=== PATIENT | male | born 1945 | race Caucasian/White ===

== ENCOUNTER → 2020-02-25 14:42 | Outpatient (BNVA) | payer SELFPAY | PROVIDERS: PCP Family Medicine; Referring Provider Family Medicine; Visit Provider Internal Medicine Cardiovascular Disease | DX: I25.10 Atherosclerotic heart disease of native coronary artery without angina pectoris (principal); I10 Essential (primary) hypertension; E78.5 Hyperlipidemia, unspecified; E11.9 Type 2 diabetes mellitus without complications; Z79.82 Long term (current) use of aspirin; Z79.4 Long term (current) use of insulin; Z87.891 Personal history of nicotine dependence | CPT/HCPCS: 99214 ==

== ENCOUNTER → 2020-03-05 09:17 | Outpatient (BNVA) | payer MEDICARE, SELFPAY | PROVIDERS: PCP Family Medicine; Referring Provider Family Medicine; Visit Provider Internal Medicine Endocrinology, Diabetes & Metabolism | DX: E11.22 Type 2 diabetes mellitus with diabetic chronic kidney disease (principal); E11.21 Type 2 diabetes mellitus with diabetic nephropathy; E11.40 Type 2 diabetes mellitus with diabetic neuropathy, unspecified; E11.65 Type 2 diabetes mellitus with hyperglycemia; E66.01 Morbid (severe) obesity due to excess calories; I12.9 Hypertensive chronic kidney disease with stage 1 through stage 4 chronic kidney disease, or unspecified chronic kidney disease; N18.30 Chronic kidney disease, stage 3 unspecified; E78.5 Hyperlipidemia, unspecified; Z87.891 Personal history of nicotine dependence; Z79.899 Other long term (current) drug therapy; Z79.4 Long term (current) use of insulin; Z79.891 Long term (current) use of opiate analgesic | CPT/HCPCS: 99212 ==

== ENCOUNTER 2020-03-11 08:59 | Outpatient (REF) | payer MEDICARE, SELFPAY ==
[2020-03-12 13:17] LABS: Alanine Aminotransferase 14 U/L (0-40); Albumin Level 4.4 g/dL (3.5-5.0); Alkaline Phosphatase 103 U/L (39-117); Anion Gap 15 (12-20); Aspartate Amino Transferase 19 U/L (5-37); Bilirubin Total 0.4 mg/dL (0.0-1.0); Blood Urea Nitrogen 25 mg/dL (9-16); Calcium 9.2 mg/dL (8.4-10.2); Carbon Dioxide 30 mmol/L (22-29); Chloride 100 mmol/L (96-108); Cholesterol 136 mg/dL; Estimated Glomerular Filt Rate 37; Glucose Fasting 103 mg/dL (60-99); HDL Cholesterol 28 mg/dL; LDL Cholesterol Calculated 72 mg/dl; Potassium 4.3 mmol/l (3.3-5.1); Sodium 141 mmol/L (135-145); Total Protein 6.7 g/dL (6.5-8.0); Triglycerides 181 mg/dL
[2020-03-12 13:40] LABS: Creatinine Urine 32.86 mg/dL
[2020-03-12 13:41] LABS: Vitamin B12 325 pg/mL (200-900)
[2020-03-12 13:59] LABS: Estimated Average Glucose 194 mg/dL; Hemoglobin A1c % 8.4 %
[2020-03-13 07:42] LABS: LDL Cholesterol Direct 81 mg/dL (<100)
== END 2020-03-11 09:00 | disposition home or self-care (01) ==
LOC: HO.LAB 08:59
PROVIDERS: PCP Family Medicine; Referring Provider Family Medicine; Visit Provider Internal Medicine Endocrinology, Diabetes & Metabolism
DX: E11.65 Type 2 diabetes mellitus with hyperglycemia (principal); E11.21 Type 2 diabetes mellitus with diabetic nephropathy; E11.22 Type 2 diabetes mellitus with diabetic chronic kidney disease; I12.9 Hypertensive chronic kidney disease with stage 1 through stage 4 chronic kidney disease, or unspecified chronic kidney disease; N18.30 Chronic kidney disease, stage 3 unspecified; Z79.4 Long term (current) use of insulin; E78.5 Hyperlipidemia, unspecified; E66.01 Morbid (severe) obesity due to excess calories
CPT/HCPCS: 80053; 80061; 82043; 82607; 83036; 83721; 99212

== ENCOUNTER → 2020-06-05 12:51 | Outpatient (BNVA) | payer MEDICARE, SELFPAY | PROVIDERS: PCP Family Medicine; Visit Provider Internal Medicine Endocrinology, Diabetes & Metabolism | DX: E11.65 Type 2 diabetes mellitus with hyperglycemia (principal); E11.40 Type 2 diabetes mellitus with diabetic neuropathy, unspecified; I12.9 Hypertensive chronic kidney disease with stage 1 through stage 4 chronic kidney disease, or unspecified chronic kidney disease; E11.22 Type 2 diabetes mellitus with diabetic chronic kidney disease; N18.30 Chronic kidney disease, stage 3 unspecified; E78.5 Hyperlipidemia, unspecified; E66.01 Morbid (severe) obesity due to excess calories; Z68.41 Body mass index [BMI] 40.0-44.9, adult; Z79.4 Long term (current) use of insulin | CPT/HCPCS: 82947; 99212 ==

== ENCOUNTER 2020-07-18 12:32 | Outpatient (REF) | payer MEDICARE, SELFPAY ==
[2020-07-18 14:53] LABS: Estimated Average Glucose 169 mg/dL; Hemoglobin A1c % 7.5 %
[2020-07-18 15:09] LABS: Alanine Aminotransferase 11 U/L (0-40); Glucose Fasting 103 mg/dL (60-99)
[2020-07-18 15:49] LABS: Creatinine Urine 23.39 mg/dL; Microalbum/Creatinine Ratio Ur 192.3 ug/mg cr
== END 2020-07-18 12:33 | disposition home or self-care (01) ==
LOC: HO.HMGCLDS 12:32
PROVIDERS: PCP Family Medicine; Visit Provider Family Medicine
DX: E11.9 Type 2 diabetes mellitus without complications (principal); E78.00 Pure hypercholesterolemia, unspecified; Z79.899 Other long term (current) drug therapy
CPT/HCPCS: 36415; 82043; 82550; 82947; 83036; 84460

== ENCOUNTER → 2020-08-25 13:24 | Outpatient (BNVA) | payer MEDICARE, SELFPAY | PROVIDERS: PCP Family Medicine; Visit Provider Internal Medicine Cardiovascular Disease | DX: Z01.810 Encounter for preprocedural cardiovascular examination (principal); I25.10 Atherosclerotic heart disease of native coronary artery without angina pectoris | CPT/HCPCS: 93005; 99212 ==

== ENCOUNTER → 2020-09-02 08:47 | Outpatient (REF) | payer MEDICARE, SELFPAY ==
--- NOTE | ~2020-09-02 | NM_ITS ---
Myocardial perfusion study Indication: Preoperative cardiovascular risk stratification prior CAD and bypass to evaluate for myocardial ischemia Technique: The patient was brought in for a Lexiscan perfusion study on 09/02/2020. Patient performed low-level exercise and was injected 0.4 mg of Lexiscan intravenously. Within a minute of injection, 45 mCi of sestamibi was given intravenously. Images were obtained using the SPECT gamma camera interlaced with the gating device. Images were obtained in supine position. Resting perfusion study was performed on 09/03/2020. Patient was administered 45 mCi of sestamibi intravenously at rest. Images were then obtained in supine position. Images obtained with and without CT attenuation. Total DLP 147 mGy-cm. Images were processed with the software and compared side to side in short axis, horizontal long axis and vertical long axis views. Findings: The stress perfusion study showed non attenuated images show mildly reduced uptake in the septum, inferoseptal, apex and distal anterior wall of the LV myocardium. Attenuation corrected images show mildly reduced uptake in the distal anterior, apex and distal septum of the LV myocardium. There is suggestion of oral left ventricle hypertrophy. The gated study shows normal LV systolic function with calculated LVEF of 54%. LV cavity is mildly dilated size. The gated study shows normal systolic wall thickening and contraction of segments. Resting study shows no change in perfusion pattern compared to stress perfusion study. Gating at rest reveals normal systolic wall motion with ejection fraction at 53%. The findings are consistent with no reversible defect suggestive of ischemia. NM/NM misti perf SPECT rest & str Impression: 1. Myocardial perfusion imaging study shows likely normal myocardial perfusion 2. Gated LVEF is 54% 3. Transient ischemic dilatation not present EKG is nondiagnostic for ischemia
--- NOTE | 2020-09-02 08:50 | CA_ITS ---
Acquisition Time: 2020-09-02 09:16:35 Total Exercise Time: 00:02:00 Test Indications: Atherosclerotic heart dis. Encou Medications: Amitriptyline Aspirin Clopidogrel Doxazosin Famotidine Fluticasone propion-salmeterol 2 Finasteride Protocol: LEXISCAN Max HR: 077 BPM 53% of Pred: 144 BPM Max BP: 124/060 mmHG Max Work Load: 1.0 METS Pharmacological stress test using Lexiscan while sitting and kicking his feet. Pt tolerated well, denies any anginal sx. EKG with isolated PAC's. Non-diagnostic for ischemia. Nuclear images to follow. Normotensive response to test. Test reviewed with Dr. Cobb. Referred By: Jamir Cobb Overread By: Kathy Guzman NP
== END ==
LOC: HO.CARD 08:47
PROVIDERS: PCP Family Medicine; Visit Provider Internal Medicine Cardiovascular Disease
DX: Z01.810 Encounter for preprocedural cardiovascular examination (principal); I25.10 Atherosclerotic heart disease of native coronary artery without angina pectoris; Z95.1 Presence of aortocoronary bypass graft
CPT/HCPCS: 78452; 93016; 93017; 93018; A9500; J0280; J2785

== ENCOUNTER → 2020-09-03 13:13 | Outpatient (BNVA) | payer MEDICARE, SELFPAY | PROVIDERS: PCP Family Medicine; Visit Provider Internal Medicine Endocrinology, Diabetes & Metabolism | DX: E11.65 Type 2 diabetes mellitus with hyperglycemia (principal); E11.21 Type 2 diabetes mellitus with diabetic nephropathy; E11.22 Type 2 diabetes mellitus with diabetic chronic kidney disease; I12.9 Hypertensive chronic kidney disease with stage 1 through stage 4 chronic kidney disease, or unspecified chronic kidney disease; N18.30 Chronic kidney disease, stage 3 unspecified; Z79.4 Long term (current) use of insulin; E78.5 Hyperlipidemia, unspecified; E66.01 Morbid (severe) obesity due to excess calories | CPT/HCPCS: 82947; 99212 ==

== ENCOUNTER 2020-09-10 20:51 | Emergency (ER) | payer MEDICARE, SELFPAY ==
--- NOTE | ~2020-09-10 | CT_ITS ---
EXAMINATION: CT HEAD WITHOUT CONTRAST CT FACIAL BONES WITHOUT CONTRAST CT CERVICAL SPINE WITHOUT CONTRAST CLINICAL INFORMATION: Fall. On Plavix. COMPARISON: Plain film cervical spine 01/19/2007 TECHNIQUE: Imaging was performed from the skull base to vertex without intravenous administration of contrast. In addition, helical noncontrast CT imaging was acquired through the cervical spine and facial bones and source images were reviewed along with axial reconstructions and sagittal and coronal MPRs. [This CT examination was performed using dose optimization techniques as appropriate, variously including the following: *Automated exposure control *Adjustment of mA and/or kV according to patient size (this includes techniques or standardized protocols for targeted exams where dose is matched to indication/reason for exam; i.e. extremities or head) *Use of iterative reconstruction technique] DLP: 1649 mGy-cm FINDINGS: HEAD: No intracranial mass, hemorrhage, or midline shift is visualized. The ventricles and sulci are age-appropriate. No extra-axial collections are identified. FACIAL BONES: There is no evidence of an acute facial bone fracture. The paranasal sinuses are well aerated. The orbits are unremarkable in appearance. CERVICAL SPINE: There is no evidence of acute cervical spine fracture. Vertebral bodies remain normal in height. There is degenerative spondylosis. There is significant cervical disc height narrowing C5-C6 and C6-C7 within anterior endplate spurs. Moderate disc height narrowing C4-C5. Multilevel facet joint arthrosis. Small subchondral cysts as well as small bone spurs at the facet joints. Kyphosis of cervical spine. This is similar to prior plain film study of 01/19/2007. No pre- or paravertebral soft tissue abnormality is identified. Limited assessment of the lung apices is unremarkable. CT/CT cervical spine wo con IMPRESSION: 1. No acute intracranial process or discrete facial bone fracture. 2. No acute cervical spine fracture or traumatic subluxation.
[2020-09-10 21:16] VITALS: BP 119/69; PULSE 65; RESP 15; TEMP 36.5; O2SAT 93; BMI 41.5
[2020-09-10] MEDS: oxyCODONE HCl Immed Release 5 MG TABLET PO (22:42)
--- NOTE | 2020-09-10 23:27 | ED.FALL ---
HPI - Fall General Chief Complaint: Fall Stated Complaint: fall Time Seen by Provider: 09/10/20 22:29 Source: patient Mode of arrival: ambulatory Limitations: no limitations History of Present Illness HPI Narrative: Patient comes emergency room after falling. Patient states that he was leaning forward, petting his dog, he leaned forward too much and fell flat on his face. Patient takes Plavix. Patient hit his forehead and nose, did not lose consciousness, no epistaxis. Patient's was able to pick him up from the floor and brought him to the emergency room. Patient complaining facial abrasions, denies headache, complaining of nonspecific neck pain, states his neck hurts but can not pinpoint where it hurts. Patient states it does not hurt when he moves his neck. Patient states his eye vision is within normal limits, patient states he usually uses glasses, however the broken the fall Related Data Home Medications Medication Instructions Recorded Confirmed aspirin 81 mg tablet,delayed 81 mg PO DAILY 02/25/20 09/03/20 release budesonide-formoterol HFA 160 INHALATION 02/25/20 09/03/20 mcg-4.5 mcg/actuation aerosol inhaler doxazosin 8 mg tablet 8 mg PO DAILY 02/25/20 09/03/20 elderberry fruit 200 mg capsule mg PO 02/25/20 09/03/20 famotidine 20 mg tablet 20 mg PO DAILY 02/25/20 09/03/20 finasteride 5 mg tablet 5 mg PO BEDTIME 02/25/20 09/03/20 furosemide 80 mg tablet 80 mg PO BID 02/25/20 09/03/20 magnesium 250 mg tablet 250 mg PO DAILY 02/25/20 09/03/20 multivitamin 1 tab PO DAILY 02/25/20 09/03/20 oxycodone-acetaminophen 5 mg-325 1 tab PO Q6-8H PRN 02/25/20 09/03/20 mg tablet sertraline 50 mg tablet 50 mg PO QAM 02/25/20 09/03/20 simvastatin 40 mg tablet 40 mg PO BEDTIME 02/25/20 09/03/20 spironolactone 25 mg tablet 25 mg PO BID 02/25/20 09/03/20 amitriptyline 25 mg tablet 25 mg PO BEDTIME 03/05/20 09/03/20 lancets 33 gauge #100 ea 03/11/20 09/03/20 clopidogrel 75 mg tablet 75 mg PO DAILY 08/25/20 09/03/20 fluticasone 250 mcg-salmeterol 50 1 ea INHALATION BID 08/25/20 09/03/20 mcg/dose blistr powdr for inhalation gabapentin 300 mg capsule 300 mg PO DAILY cap 08/25/20 09/03/20 metoprolol tartrate 25 mg tablet 25 mg PO BID tab 08/25/20 09/03/20 Previous Rx's Medication Instructions Recorded blood sugar diagnostic 1 strip MISCELLANEOUS .3 times a 07/14/20 day 90 Days #300 strip insulin syringe-needle U-100 1 mL #100 ea 07/30/20 31 gauge x 5/16 insulin human U-100 NPH-regulr See Rx Instructions SUBCUT BID 30 09/03/20 70-30 mix 100 unit/mL subcutaneous Days #50 ml susp metformin 500 mg tablet,extended 500 mg PO BID 90 Days #180 tab 09/03/20 release 24 hr Allergies Allergy/AdvReac Type Severity Reaction Status Date / Time No Known Allergies Allergy Verified 09/10/20 21:22 Review of Systems Review of Systems: Constitutional : No Weight loss, No Fever, No Chills, No Night Sweats, No Fatigue, No Malaise ENT/Mouth : No Hearing loss, No Ear Pain, No Nasal Congestion, No Sinus Pain, No Hoarseness, No sore throat, No Rhinorrhea, No Swallowing Difficulty Eyes: No Eye Pain, No Swelling, No Redness, No Foreign Body, No Discharge, No Vision Changes Cardiovascular : No Chest Pain, No SOB, No Dyspnea on Exertion, No Orthopnea, No Edema, No Palpitations Respiratory : No Cough, No Sputum, No Wheezing, No Smoke Exposure, No Dyspnea Gastrointestinal : No Nausea, No Vomiting, No Diarrhea, No Constipation, No abdominal Pain, No Hematochezia, No Melena Genitourinary : no irregular bleeding, No Dysuria, No Urinary Frequency, No Hematuria, No Urinary Incontinence, No Urgency, No Flank Pain, No Urinary Flow Changes, No Hesitancy Musculoskeletal : No joint pain, No Myalgias, No Joint Swelling, nonspecific neck pain Skin : Multiple abrasions in the face Neuro : No Weakness, No Numbness, No Paresthesias, No Loss of Consciousness, No Dizziness, No Headache Psych : No Anxiety/Panic, No Depression, No SI/HI/AH/VH, No Social Issues, Heme/Lymph: No Bruising, No Bleeding,No Lymphadenopathy Endocrine : No Polyuria, No Polydipsia, No Temperature Intolerance [facility] Past Medical History Medical History CAD (coronary artery disease) CKD (chronic kidney disease) stage 3, GFR 30-59 ml/min Diabetes mellitus Diabetes type 2, uncontrolled Diabetic nephropathy associated with type 2 diabetes mellitus Dyslipidemia 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 Mother Cancer Social History Social History Smoking Status: Former smoker Tobacco Type: Cigarette Years Smoked: 25 Advance Directives: No Advance Directives Information Provided: Yes Physical Exam Vital Signs: Vital Signs: Last Vital Signs Temp 97.7 F 09/10/20 21:16 Pulse 64 09/10/20 23:59 Resp 16 09/10/20 23:59 BP 138/62 09/10/20 23:59 Pulse Ox 96 09/10/20 23:59 Body Mass Index 41.5 Appearance: Alert. Oriented X3. No acute distress. Eyes: Pupils equal, round and reactive to light. Patient has a small hematoma developing around the left eye. ENT: Pharynx normal. Neck: Normal inspection. Neck supple. Normal range of motion without pain CVS: Normal heart rate and rhythm. Pulses normal. Normal S1 and S2 Respiratory: No respiratory distress. Breath sounds normal. No Wheezing. No rales Abdomen: Soft and nontender. No rigidity. No distention. good BS x4 Skin: Skin warm and dry. Patient has multiple abrasions in the forehead, nose. Extremities: No lower extremity edema. No lower extremity edema. No Lacerations. No Rash Neuro: Oriented X 3. No motor deficit. No sensory deficit. Moving all extermities. No slurred speech. Course Course Course Narrative: I discussed the CT scan with the patient and his . No acute findings. Patient remains alert and orient x3, no acute distress, patient ready to be discharged. MDM - Fall Imaging Data Brain, cervical spine, facial bones CT scan: Radiologist's impression: FINDINGS: HEAD: No intracranial mass, hemorrhage, or midline shift is visualized. The ventricles and sulci are age-appropriate. No extra-axial collections are identified. FACIAL BONES: There is no evidence of an acute facial bone fracture. The paranasal sinuses are well aerated. The orbits are unremarkable in appearance. CERVICAL SPINE: There is no evidence of acute cervical spine fracture. Vertebral bodies remain normal in height. There is degenerative spondylosis. There is significant cervical disc height narrowing C5-C6 and C6-C7 within anterior endplate spurs. Moderate disc height narrowing C4-C5. Multilevel facet joint arthrosis. Small subchondral cysts as well as small bone spurs at the facet joints. Kyphosis of cervical spine. This is similar to prior plain film study of 01/19/2007. No pre- or paravertebral soft tissue abnormality is identified. Limited assessment of the lung apices is unremarkable. CT/CT facial bones wo con IMPRESSION: 1. No acute intracranial process or discrete facial bone fracture. 2. No acute cervical spine fracture or traumatic subluxation. Discharge Plan Discharge Clinical Impression: Fall, Abrasion of face, Ecchymosis of eye Patient Disposition: Home, Self-Care Instructions: Abrasion (ED), Ecchymosis (ED) Additional Instructions: Please follow-up with your primary care physician tomorrow. If you have any worsening or new symptoms, please return to the emergency room or call 911 Prescriptions: No Action blood sugar diagnostic [OneTouch Verio test strips] Strip 1 strip miscellaneous .3 times a day 90 Days Qty: 300 RF: 1 (DME) insulin syringe-needle U-100 [BD Insulin Syringe Ultra-Fine] 1 mL 31 gauge x 5/16 syringe See Rx Instructions .ROUTE .MEDSUPPLY Qty: 100 RF: 6 amitriptyline 25 mg tablet 25 mg PO BEDTIME RF: 0 (DME) lancets 33 gauge misc See Rx Instructions gauge .ROUTE .MEDSUPPLY Qty: 100 RF: 0 oxycodone-acetaminophen 5-325 mg tablet 1 tab PO Q6-8H PRN (Reason: pain) RF: 0 famotidine 20 mg tablet 20 mg PO DAILY RF: 0 spironolactone 25 mg tablet 25 mg PO BID RF: 0 sertraline 50 mg tablet 50 mg PO QAM RF: 0 doxazosin 8 mg tablet 8 mg PO DAILY RF: 0 simvastatin 40 mg tablet 40 mg PO BEDTIME RF: 0 finasteride 5 mg tablet 5 mg PO BEDTIME RF: 0 furosemide 80 mg tablet 80 mg PO BID RF: 0 budesonide-formoterol 160-4.5 mcg/actuation HFA aerosol inhaler inhalation RF: 0 multivitamin Tablet 1 tab PO DAILY RF: 0 magnesium 250 mg tablet 250 mg PO DAILY RF: 0 elderberry fruit 200 mg capsule PO RF: 0 aspirin [Adult Low Dose Aspirin] 81 mg tablet,delayed release (DR/EC) 81 mg PO DAILY RF: 0 metoprolol tartrate 25 mg tablet 25 mg PO BID RF: 0 gabapentin 300 mg capsule 300 mg PO DAILY RF: 0 Humulin 70/30 U-100 Insulin 100 unit/mL (70-30) suspension See Rx Instructions subcut BID 30 Days Qty: 50 RF: 6 metformin 500 mg tablet extended release 24 hr 500 mg PO BID 90 Days Qty: 180 RF: 2 clopidogrel 75 mg tablet 75 mg PO DAILY RF: 0 fluticasone propion-salmeterol 250-50 mcg/dose blister with device 1 ea inhalation BID RF: 0
[2020-09-10 23:57] VITALS: BP 138/62; PULSE 67; RESP 16
[2020-09-10 23:59] VITALS: BP 138/62; PULSE 64; RESP 16; O2SAT 96
[2020-09-11] MEDS: oxyCODONE HCl Immed Release 5 MG TABLET PO (00:15)
== END 2020-09-11 00:19 | disposition home or self-care (01) ==
PROVIDERS: Emergency Provider Emergency Medicine; PCP Family Medicine
DX: S00.81XA Abrasion of other part of head, initial encounter (principal); I25.10 Atherosclerotic heart disease of native coronary artery without angina pectoris; E11.9 Type 2 diabetes mellitus without complications; M54.2 Cervicalgia; G44.309 Post-traumatic headache, unspecified, not intractable; W01.0XXA Fall on same level from slipping, tripping and stumbling without subsequent striking against object, initial encounter; Y93.9 Activity, unspecified; Y92.009 Unspecified place in unspecified non-institutional (private) residence as the place of occurrence of the external cause; Y99.9 Unspecified external cause status; Z79.899 Other long term (current) drug therapy; Z87.891 Personal history of nicotine dependence; Z79.4 Long term (current) use of insulin
CPT/HCPCS: 70450; 70486; 72125; 99284

== ENCOUNTER 2020-09-13 08:16 | Outpatient (REF) | payer MEDICARE, SELFPAY ==
[2020-09-13 08:53] LABS: MANUAL DIFF FLAG NO
[2020-09-13 09:08] LABS: Basophils Percent Auto 0.4 % (0-2); Eosinophils Absolute Auto 0.2 X10*3/uL (0.0-0.4); Eosinophils Percent Auto 2.1 % (0-4); Hematocrit 37.6 % (42-52); Hemoglobin 11.5 g/dl (14.0-18.0); Imm Gran Abs Auto 0.05 X10*3/uL (0.00-0.03); Imm Gran Pct Auto 0.5 % (0.0-0.4); Lymphocytes Percent Auto 10.3 % (20-40); Mean Corpuscular HGB Conc 30.6 g/dl (31.0-36.0); Mean Corpuscular Hemoglobin 25.2 pg (27.0-33.0); Mean Corpuscular Volume 82.5 fL (80-98); Mean Platelet Volume 10.2 fL (9.4-12.4); Monocytes Absolute Auto 0.9 X10*3/uL (0.1-1.2); Monocytes Percent Auto 10.1 % (2-11); Neutrophils Absolute Auto 7.2 X10*3/uL (2.0-8.3); Neutrophils Percent Auto 76.6 % (45-73); Platelet Count 191 X10*3/uL (160-400); Red Blood Count 4.56 X10*6/uL (4.60-5.80); Red Cell Distribution Width 16.2 % (11.0-16.0); White Blood Count 9.3 X10*3/uL (4.8-10.8)
[2020-09-13 09:25] LABS: Microalbum/Creatinine Ratio Ur 102.3 ug/mg cr
[2020-09-13 09:26] LABS: Estimated Average Glucose 183 mg/dL
[2020-09-13 09:30] LABS: Alanine Aminotransferase 18 U/L (0-40); Anion Gap 13 (12-20); Aspartate Amino Transferase 19 U/L (5-37); Blood Urea Nitrogen 32 mg/dL (9-16); Calcium 9.1 mg/dL (8.4-10.2); Carbon Dioxide 34 mmol/L (22-29); Chloride 96 mmol/L (96-108); Cholesterol 162 mg/dL; Estimated Glomerular Filt Rate 32; Glucose Fasting 176 mg/dL (60-99); HDL Cholesterol 29 mg/dL; LDL Cholesterol Calculated 73 mg/dl; Potassium 4.4 mmol/L (3.3-5.1); Sodium 139 mmol/L (135-145); Triglycerides 303 mg/dL
[2020-09-15 03:43] LABS: Vitamin B12 384 pg/mL (200-900)
[2020-09-15 11:56] LABS: LDL Cholesterol Direct 82 mg/dL (<100)
== END 2020-09-13 08:17 | disposition home or self-care (01) ==
LOC: HO.LAB 08:16
PROVIDERS: Absent Provider Internal Medicine Endocrinology, Diabetes & Metabolism; PCP Family Medicine; Visit Provider Family Medicine
DX: Z01.818 Encounter for other preprocedural examination (principal); I10 Essential (primary) hypertension; E11.65 Type 2 diabetes mellitus with hyperglycemia
CPT/HCPCS: 36415; 80048; 80061; 82043; 82607; 83036; 83721; 84450; 84460; 85025

== ENCOUNTER 2020-11-04 12:10 | Inpatient (IN) | payer MEDICARE, SELFPAY ==
[2020-11-04] VITALS (17 sets, daily range): BP systolic 104–150; BP diastolic 41–62; PULSE 58–66; RESP 13–20; TEMP 35.9–36.7; O2SAT 93–98; BMI 39.4
--- NOTE | 2020-11-04 | ECG_ITS ---
Test Reason : SHORTNESS OF BREATH Blood Pressure : / mmHG Vent. Rate : 064 BPM Atrial Rate : 064 BPM P-R Int : 210 ms QRS Dur : 092 ms QT Int : 440 ms P-R-T Axes : 074 057 050 degrees QTc Int : 453 ms Sinus rhythm with sinus arrhythmia with 1st degree A-V block Otherwise normal ECG When compared with ECG of 14-NOV-2019 14:47, No significant change was found Referred By: Generic ED Physician Electronically Signed By:EMILY ARMAS
--- NOTE | ~2020-11-04 | CT_ITS ---
EXAMINATION: CT ABDOMEN AND PELVIS WITH CONTRAST CLINICAL INFORMATION: Cecal mass COMPARISON: Previous CT colonoscopy exam January 2016 and multiple previous chest CT scans TECHNIQUE: Multidetector volumetric images were obtained from the superior aspect of the liver through the pubic symphysis following administration 85 mL of Omnipaque 350 intravenous contrast. Sagittal and coronal reformatted images were obtained on the technologist's workstation. Oral contrast: Yes This CT examination was performed using dose optimization techniques as appropriate, variously including the following: *Automated exposure control *Adjustment of mA and/or kV according to patient size (this includes techniques or standardized protocols for targeted exams where dose is matched to indication/reason for exam; i.e. extremities or head) *Use of iterative reconstruction technique DLP: 1510 mGy-cm FINDINGS: LUNG BASES: There are small bilateral pleural effusions. There is left lower lobe atelectasis. There is a high attenuation lobulated pericardial soft tissue density adjacent to the left ventricle axial image 3 series 3. This may be partially calcified. This is unchanged from old exams going back to CTA of the chest from 2013 and is therefore probably benign. LIVER, GALLBLADDER, AND BILIARY TREE: The liver is slightly enlarged, particularly the left lobe and caudate lobe. The liver is a slightly irregular or scalloped contour. Findings are questionable for mild cirrhosis. No focal liver lesion is seen. There is no biliary duct dilatation. The gallbladder is normal. There is trace ascites seen adjacent to the liver. PANCREAS: Unremarkable. SPLEEN: Unremarkable. ADRENAL GLANDS: There is a 2 cm left adrenal nodule. This is stable from multiple old exams and therefore probably benign. The right adrenal gland is normal. KIDNEYS AND URETERS: There is a 1 cm cyst in the upper pole of the left kidney. The kidneys are otherwise unremarkable. BLADDER: There are small calcifications adjacent to the anterior wall of the bladder. This is stable. The bladder is otherwise unremarkable. GASTROINTESTINAL TRACT: There is diverticulosis of the colon. No evidence of diverticulitis is seen. No cecal mass is appreciated by CT. There is a small ventral hernia containing transverse colon. The appendix is normal. The stomach is normal. ABDOMINAL WALL: There is a small ventral hernia containing transverse colon. There is a small umbilical hernia containing fat. There is question of lateral abdominal wall IN the lower abdomen/pelvis. There is a small left inguinal hernia containing fat. There are are areas of skin thickening and fat stranding and nodularity of the subcutaneous fat. This may result be related to subcutaneous injection sites. LYMPH NODES: There is shotty periportal lymphadenopathy and some fat stranding. There is shotty retroperitoneal lymphadenopathy in the abdomen and pelvis. There is trace ascites in the lower abdomen. VASCULAR: There is evidence of atherosclerotic disease. No aneurysm is seen. PELVIC VISCERA: Unremarkable. OSSEOUS STRUCTURES: There are degenerative changes of the spine. CT/CT abdomen pelvis w con IMPRESSION: No cecal mass appreciated by CT. Diverticulosis of the colon. Small ventral hernia containing transverse colon. No evidence of obstruction. Question mild cirrhotic changes of the liver, trace ascites and periportal lymphadenopathy and fat stranding. Small left renal cyst. Stable left adrenal nodule probably representing an adenoma.
--- NOTE | ~2020-11-04 | XR_ITS ---
EXAMINATION: XR CHEST CLINICAL INFORMATION: Shortness of breath COMPARISON: Chest radiographs 11/14/2019, 03/13/2019, CTA chest 09/10/2016 TECHNIQUE: 2 frontal views and a lateral projection are obtained for a total of 3 views. FINDINGS: There are postsurgical changes with sternotomy wires and mediastinal clips and prosthetic left shoulder. Orthopedic anchors again seen overlying right humeral head. There are right apical bulla again seen and bilateral fine linear scarring at the lateral bases. There is no pneumothorax, pleural reaction, airspace consolidation, or effusion. The costophrenic sulci are clear. The heart is normal in size. The vascularity is normal. There are degenerative changes thoracic spine. Probable old healed right rib fractures suggested. No visible acute bony abnormality. XR/XR chest 2V IMPRESSION: 1. No acute intrathoracic disease. 2. Old right apical bulla and fine bibasilar linear scarring similar to CT 2017. 3. Probable healed right rib fractures. No pleural reaction or effusion.
--- NOTE | 2020-11-04 13:32 | ED_ITS ---
HPI - SOB/Dyspnea General Chief Complaint: Upper Respiratory Symptoms Stated Complaint: difficulty breathing Time Seen by Provider: 11/04/20 13:08 Source: patient, family and old records reviewed Mode of arrival: ambulatory Limitations: no limitations History of Present Illness HPI Narrative: 75 yo male with hx of CABG in the past on aspirin and plavix, CKD, HLD, DM, HTN here with shortness of breath intermittent chest pain x 1 month since shoulder surgery, had workup prior to shoulder surgery including a normal cardiac stress test with nuclear images, he is compliant with medications, denies GIB symptoms, denies URI symptoms, told his PCP today and they instructed him to come to the ED, symptoms worse with exertion MD elicited complaint: shortness of breath Pertinent past history: other (CAD) Onset (ago): month(s) (1) Context: recent illness Timing: constant and progressively worsening Severity: moderate Exacerbating factors: exertion and movement Relieving factors: rest Known history of: other (CAD) Associated symptoms: chest pain and lightheadedness (with standing) Treatment prior to arrival: none Related Data Home Medications Medication Instructions Recorded Confirmed aspirin 81 mg tablet,delayed 81 mg PO DAILY 02/25/20 09/03/20 release budesonide-formoterol HFA 160 INHALATION 02/25/20 09/03/20 mcg-4.5 mcg/actuation aerosol inhaler doxazosin 8 mg tablet 8 mg PO DAILY 02/25/20 09/03/20 elderberry fruit 200 mg capsule mg PO 02/25/20 09/03/20 famotidine 20 mg tablet 20 mg PO DAILY 02/25/20 09/03/20 finasteride 5 mg tablet 5 mg PO BEDTIME 02/25/20 09/03/20 furosemide 80 mg tablet 80 mg PO BID 02/25/20 09/03/20 magnesium 250 mg tablet 250 mg PO DAILY 02/25/20 09/03/20 multivitamin 1 tab PO DAILY 02/25/20 09/03/20 oxycodone-acetaminophen 5 mg-325 1 tab PO Q6-8H PRN 02/25/20 09/03/20 mg tablet sertraline 50 mg tablet 50 mg PO QAM 02/25/20 09/03/20 simvastatin 40 mg tablet 40 mg PO BEDTIME 02/25/20 09/03/20 spironolactone 25 mg tablet 25 mg PO BID 02/25/20 09/03/20 amitriptyline 25 mg tablet 25 mg PO BEDTIME 03/05/20 09/03/20 lancets 33 gauge #100 ea 03/11/20 09/03/20 clopidogrel 75 mg tablet 75 mg PO DAILY 08/25/20 09/03/20 fluticasone 250 mcg-salmeterol 50 1 ea INHALATION BID 08/25/20 09/03/20 mcg/dose blistr powdr for inhalation gabapentin 300 mg capsule 300 mg PO DAILY cap 08/25/20 09/03/20 metoprolol tartrate 25 mg tablet 25 mg PO BID tab 08/25/20 09/03/20 Previous Rx's Medication Instructions Recorded blood sugar diagnostic 1 strip MISCELLANEOUS .3 times a 07/14/20 day 90 Days #300 strip insulin syringe-needle U-100 1 mL #100 ea 07/30/20 31 gauge x 5/16 insulin human U-100 NPH-regulr See Rx Instructions SUBCUT BID 30 09/03/20 70-30 mix 100 unit/mL subcutaneous Days #50 ml susp metformin 500 mg tablet,extended 500 mg PO BID 90 Days #180 tab 10/20/20 release 24 hr Allergies Allergy/AdvReac Type Severity Reaction Status Date / Time No Known Allergies Allergy Verified 09/10/20 21:22 Review of Systems Review of Systems: Constitutional : No Fever, No Chills ENT/Mouth : No sore throat, No Rhinorrhea, No Swallowing Difficulty Eyes: No Eye Pain, No Swelling, No Redness Cardiovascular : pos Chest Pain, positive SOB, No Orthopnea, positive Edema (unchanged from baseline) Respiratory : No Cough, No Sputum, No Wheezing, positive dyspnea Gastrointestinal : No Nausea, No Vomiting, No Diarrhea, No abdominal Pain, No Hematochezia, No Melena Genitourinary : No Dysuria, No Urinary Frequency, No Hematuria Musculoskeletal : No joint pain, No Myalgias Skin : No Skin Lesions, No rash Neuro : pos Weakness, No Numbness, No Dizziness, No Headache Psych : No Anxiety/Panic, No Depression Heme/Lymph: No Bruising, No Lymphadenopathy Endocrine : No Polyuria, No Polydipsia All other systems reviewed and are negative PMFSH Past Medical History Attestation statement: The following information was validated with the patient. 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 Mother Cancer Social History Social History Patient Tobacco Use Status: Former Tobacco user Years Smoked: 25 Use of substances other than those prescribed or required for medical reasons: No Advance Directives: No Advance Directives Information Provided: No Physical Exam Vital Signs: Vital Signs: Last Vital Signs Temp 98 F 11/04/20 12:59 Pulse 64 11/04/20 12:59 Resp 19 11/04/20 12:59 BP 126/49 L 11/04/20 12:59 Pulse Ox 93 11/04/20 12:59 Body Mass Index 39.4 Appearance: Alert. Oriented X3. No acute distress. Eyes: Pupils equal, round and reactive to light. Pale conjunctiva ENT: Pharynx normal. Neck: Normal inspection. Neck supple. CVS: Normal heart rate and rhythm. Pulses normal. Respiratory: No respiratory distress. Breath sounds decreased throughout Abdomen: Soft and non-tender. Rectal: brown stool Skin: Skin warm and dry. pale skin color. Normal skin turgor. Extremities: positive 1+ pitting lower extremity edema R > L. No calf ttp Neuro: Oriented X 3. No motor deficit. No sensory deficit. Course Course Course Narrative: 2 UPRBCs ordered planned admit pending doubt PE at this time normal trop suspect this is related to anemia canceled PE study symptoms attributable to anemia MDM - SOB/Dyspnea MDM Narrative Medical decision making narrative: 75 yo male with hx of CABG in the past on aspirin and plavix, CKD, HLD, DM, HTN here with shortness of breath intermittent chest pain x 1 month since shoulder surgery, had workup prior to shoulder surgery including a normal cardiac stress test with nuclear images, he is compliant with medications, denies GIB symptoms, denies URI symptoms, told his PCP today and they instructed him to come to the ED at this time will obtain labs, EKG, troponin x 1, occult studies he is pale could be indolent GIB hx of polyps in the past though he denies changes in stool, VQ scan to r/o PE has hx of CKD and symptoms started after major surgery - dispo per results and findings. Lab Data Result diagrams: 11/04/20 13:53 11/04/20 13:53 Labs: Lab Results 11/04/20 11/04/20 11/04/20 Range/Units 13:53 13:53 13:53 WBC 8.4 (4.8-10.8) X10*3/uL RBC 2.80 L D (4.60-5.80) X10*6/uL Hgb 6.6 L* D (14.0-18.0) g/dl Hct 22.0 L D (42-52) % MCV 78.6 L (80-98) fL MCH 23.6 L (27.0-33.0) pg MCHC 30.0 L (31.0-36.0) g/dl RDW 18.3 H (11.0-16.0) % MPV Not Reportable Sodium 141 (135-145) mmol/L Potassium 4.2 (3.3-5.1) mmol/L Chloride 102 (96-108) mmol/L Carbon Dioxide 26 (22-29) mmol/L Anion Gap 17 (12-20) BUN 25 H (9-16) mg/dL Creatinine 1.82 H (0.5-1.4) mg/dL Estim Creat Clear Calc 42.3 Estimated GFR 36 Random Glucose 113 (60-115) mg/dL Calcium 8.9 (8.4-10.2) mg/dL Magnesium 2.5 (1.6-2.6) mg/dL Total Bilirubin 0.5 (0.0-1.0) mg/dL Direct Bilirubin < 0.2 (0.0-0.5) mg/dL AST 19 (5-37) U/L ALT 9 (0-40) U/L Alkaline Phosphatase 127 H D (39-117) U/L Troponin I High Sens < 3.5 (<3.5-35.0) ng/L B-Natriuretic Peptide 143 H (<100) pg/mL Total Protein 6.4 L (6.5-8.0) g/dL Albumin 4.0 (3.5-5.0) g/dL Stool Occult Blood (NEGATIVE) COVID-19 ([facility]ONNIE) (Negative) COVID-19 Clin Com 11/04/20 11/04/20 Range/Units 13:53 13:53 WBC (4.8-10.8) X10*3/uL RBC (4.60-5.80) X10*6/uL Hgb (14.0-18.0) g/dl Hct (42-52) % MCV (80-98) fL MCH (27.0-33.0) pg MCHC (31.0-36.0) g/dl RDW (11.0-16.0) % MPV Sodium (135-145) mmol/L Potassium (3.3-5.1) mmol/L Chloride (96-108) mmol/L Carbon Dioxide (22-29) mmol/L Anion Gap (12-20) BUN (9-16) mg/dL Creatinine (0.5-1.4) mg/dL Estim Creat Clear Calc Estimated GFR Random Glucose (60-115) mg/dL Calcium (8.4-10.2) mg/dL Magnesium (1.6-2.6) mg/dL Total Bilirubin (0.0-1.0) mg/dL Direct Bilirubin (0.0-0.5) mg/dL AST (5-37) U/L ALT (0-40) U/L Alkaline Phosphatase (39-117) U/L Troponin I High Sens (<3.5-35.0) ng/L B-Natriuretic Peptide (<100) pg/mL Total Protein (6.5-8.0) g/dL Albumin (3.5-5.0) g/dL Stool Occult Blood POSITIVE (NEGATIVE) COVID-19 ([facility]ONNIE) Negative (Negative) COVID-19 Clin Com See Note ECG Data Attestation: I personally reviewed and interpreted this ECG as follows: ECG interpretation date: 11/04/20 ECG interpretation time: 13:33 Interpretation: Rate: 64 Rhythm: NSR with 1st degree AVB [place]: normal Normal P waves. Normal CHEY. Normal QRS complex. ST T wave : no KALEB, nonspecific qTC: normal prior studies: no acute ischemia The study has been interpreted contemporaneously by me. . Critical Care Time Critical Care Time Critical Care Time: Yes Total Critical Care Time: 30 Attestation: blood transfusion, admission I attest to this time spent taking care of the patient Discharge Plan Discharge Clinical Impression: Acute dyspnea, Weakness Anemia Qualifiers: Anemia type: unspecified type Qualified Code(s): D64.9 - Anemia, unspecified Patient Disposition: Admitted As Inpatient
[2020-11-04 14:14] LABS: OBS Int Ctl Valid YES; OBS1 POSITIVE (NEGATIVE)
[2020-11-04 14:20] LABS: MANUAL DIFF FLAG SCAN; Mean Corpuscular Volume 78.6 fL (80-98); PLT CLUMP 1; SCAN SMEAR FLAG 1
[2020-11-04 14:22] LABS: Basophils Percent Auto 0.4 % (0-2); Eosinophils Absolute Auto 0.2 X10*3/uL (0.0-0.4); Eosinophils Percent Auto 2.3 % (0-4); Imm Gran Pct Auto 1.2 % (0.0-0.4); Lymphocytes Absolute Auto 0.8 X10*3/uL (1.2-4.9); Lymphocytes Percent Auto 9.7 % (20-40); Mean Corpuscular Hemoglobin 23.6 pg (27.0-33.0); Monocytes Absolute Auto 0.7 X10*3/uL (0.1-1.2); Monocytes Percent Auto 8.8 % (2-11); Neutrophils Absolute Auto 6.5 X10*3/uL (2.0-8.3); Neutrophils Percent Auto 77.6 % (45-73); Red Cell Distribution Width 18.3 % (11.0-16.0); White Blood Count 8.4 X10*3/uL (4.8-10.8)
[2020-11-04 14:35] LABS: COVID-19 Test Negative (Negative); IDNOW Serial# 9DD0AD1C
[2020-11-04 14:41] LABS: Hemoglobin 6.6 g/dl (14.0-18.0)
[2020-11-04 14:42] LABS: Alanine Aminotransferase 9 U/L (0-40); Alkaline Phosphatase 127 U/L (39-117); Anion Gap 17 (12-20); Aspartate Amino Transferase 19 U/L (5-37); B Type Natriuretic Peptide 143 pg/mL (<100); Bilirubin Direct < 0.2 mg/dL (0.0-0.5); Bilirubin Total 0.5 mg/dL (0.0-1.0); Blood Urea Nitrogen 25 mg/dL (9-16); Calcium 8.9 mg/dL (8.4-10.2); Carbon Dioxide 26 mmol/L (22-29); Chloride 102 mmol/L (96-108); Creatinine Clr Calc Pharmacy 42.3; Estimated Glomerular Filt Rate 36; Glucose Random 113 mg/dL (60-115); Magnesium 2.5 mg/dL (1.6-2.6); Potassium 4.2 mmol/L (3.3-5.1); Sodium 141 mmol/L (135-145); Total Protein 6.4 g/dL (6.5-8.0); Troponin-I High Sensitivity < 3.5 ng/L (<3.5-35.0)
[2020-11-04 15:07] LABS: Glucose, Whole Blood 94 mg/dL (60-115)
[2020-11-04 15:09] LABS: INTERNATIONAL NORM RATIO 1.2 (0.9-1.1); Prothrombin Time 13.3 SEC (9.9-13.0)
[2020-11-04 15:09] LABS: Platelet Count 182 X10*3/uL (160-400); SLIDE REVIEW VERIFIED
[2020-11-04 15:12] LABS: Partial Thromboplastin Time 40.7 SEC (24.1-38.0)
--- NOTE | 2020-11-04 15:15 | PC.NURSE ---
Pt sitting up in bed eating jello and drinking diet gingerale. Pt denies chest pain/discomfort and denies shortness of breath currently
--- NOTE | 2020-11-04 15:24 | PHA.MEDREC ---
MED REC COMPLETE, NO ISSUES Pharmacy Consult ? Medication Reconciliation Pharmacy has completed the medication reconciliation.
--- NOTE | 2020-11-04 16:34 | PC.NURSE ---
First unit of blood started at 1634. pt is alert, and oriented without noted distress. Pt denies any pain, or sob. is at bedside.
--- NOTE | 2020-11-04 16:50 | PC.NURSE ---
No adverse reaction noted to blood transfusion. pt denies pain or sob
--- NOTE | 2020-11-04 17:20 | PC.NURSE ---
Pt continues to receive blood transfusion without noted blood transfusion
--- NOTE | 2020-11-04 17:34 | PC.NURSE ---
First unit Blood started. Pt is alert and oriented
--- NOTE | 2020-11-04 18:00 | PC.NURSE ---
Pt shows no adverse reaction to blood transfusion. Blood continues to infusion without difficutly
--- NOTE | 2020-11-04 18:09 | P.HPHOSP_ITS ---
History of Present Illness Date of Service: 11/04/20 Chief Complaint: Dyspnea with exertion 75 yo male with hx CAD of CABG about 6 years ago on aspirin and plavix, CKD3, HLD, DM, HTN here with shortness of breath intermittent shortness of breath and weakness that is much more pronouced today. He recently had left shoulder surgery and before that he had normal cardiac stress test with nuclear images on Sep 02 2020, he is compliant with medications. He has not seen blood in stool or black stool. He informed his PCP Dr. Joyner of his symptoms and was told to go to the ED where work up has revealed a hemoglboin of 6, on Sep 13 2020, level was 11. FOBT is positive. He is hemodynamically stable, no tachycardia, although I should note that he is on beta blockers. He is type and screen for RBC and I am prescribing IV Protonix. ECG is show no acute ischemic chantes, essentially unchanged from previous one. Review of Systems Review of Systems: Gen: no fever Resp: no sob, no cough CV: + chest, +ECKERT, no leg edema GI: No n/v, no abd pain Neuro: No confusion Constitutional: Comments: Constitutional Awake and Alert, No apparent distress HEENT-pale sclera Neck Supple, No lymphadenopathy Cardiovascular RRR, No M/R/G, S1 S2, No S3 S4, trace legpedal edema (he has stockings on 0 Respiratory Lungs clear, No respiratory distress Gastrointestinal Non tender, Non-distended Skin No rash Neurological Alert & oriented x3 Psychological Appropriate affect [facility] Medical History (Updated 11/04/20 @ 18:12 by Josr Varma MD) CAD (coronary artery disease) CKD (chronic kidney disease) stage 3, GFR 30-59 ml/min COPD (chronic obstructive pulmonary disease) COPD (chronic obstructive pulmonary disease) case management patient Diabetes mellitus Diabetes type 2, uncontrolled Diabetic nephropathy associated with type 2 diabetes mellitus Dyslipidemia HTN (hypertension) Hyperlipidemia 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 Mother Cancer Surgical History (Updated 11/04/20 @ 18:40 by Josr Varma MD) H/O shoulder surgery Hx of CABG Hx of colonoscopy S/P triple vessel bypass Social History Patient Tobacco Use Status: Former Tobacco user Years Smoked: 25 Use of substances other than those prescribed or required for medical reasons: No Advance Directives: No Advance Directives Information Provided: No Meds Allergies Allergy/AdvReac Type Severity Reaction Status Date / Time No Known Allergies Allergy Verified 09/10/20 21:22 Active Medications: Current Medications Generic Name Dose Route Start Last Admin Trade Name Freq PRN Reason Stop Dose Admin Albuterol/Ipratropium 3 ml 11/04/20 21:00 Albuterol/Iprat 2.5/0.5mg 3 Ml Ampul.Neb INHALE QID OTILIA Docusate Sodium 100 mg 11/04/20 21:00 Docusate Sodium 100 Mg Capsule PO BID OTILIA Doxazosin Mesylate 8 mg 11/04/20 21:00 Doxazosin Mesylate 2 Mg Tablet PO BEDTIME [facility] Protocol Finasteride 5 mg 11/04/20 21:00 Finasteride 5 Mg Tablet PO BEDTIME OTILIA Gabapentin 300 mg 11/04/20 21:00 Gabapentin 300 Mg Capsule PO BID [facility] Dextrose/Sodium Chloride 1,000 mls @ 100 mls/hr 11/04/20 18:00 D5ns IVCONT .Q10H OTILIA Metoprolol Tartrate 50 mg 11/04/20 21:00 Metoprolol Tartrate 50 Mg Tablet PO BEDTIME [facility] Protocol Metoprolol Tartrate 25 mg 11/05/20 09:00 Metoprolol Tartrate 25 Mg Tablet PO DAILY [facility] Protocol Non-Formulary Medication 1 each 11/04/20 21:00 Fluticasone Propion-Salmeterol INHALE BID [facility] Non-Formulary Medication 250 mg 11/05/20 09:00 Magnesium PO DAILY OTILIA Non-Formulary Medication 40 mg 11/04/20 21:00 Simvastatin PO BEDTIME [facility] Pharmacy Consult 1 each 11/04/20 14:43 Consult Rx Perform Med Rec MISCELLANE ONCE PRN Consult order Sertraline HCl 50 mg 11/05/20 09:00 Sertraline Hcl 50 Mg Tablet PO DAILY [facility] Sodium Chloride 3 ml 11/05/20 00:00 0.9 % Sodium Chloride Flush 3 Ml Syringe IVFLUSH QSHIFT OTILIA Spironolactone 25 mg 11/04/20 21:00 Spironolactone 25 Mg Tablet PO BID OTILIA Protocol Home Medications Medication Instructions Recorded Confirmed Last Taken Type aspirin 81 mg tablet,delayed 81 mg PO DAILY 02/25/20 11/04/20 11/04/20 History release doxazosin 8 mg tablet 8 mg PO BEDTIME 02/25/20 11/04/20 11/03/20 History finasteride 5 mg tablet 5 mg PO BEDTIME 02/25/20 11/04/20 11/03/20 History furosemide 80 mg tablet 80 mg PO BID 02/25/20 11/04/20 11/04/20 History magnesium 250 mg tablet 250 mg PO DAILY 02/25/20 11/04/20 11/04/20 History sertraline 50 mg tablet 50 mg PO DAILY 02/25/20 11/04/20 11/04/20 History simvastatin 40 mg tablet 40 mg PO BEDTIME 02/25/20 11/04/20 11/03/20 History spironolactone 25 mg tablet 25 mg PO BID 02/25/20 11/04/20 11/04/20 History amitriptyline 25 mg tablet 25 mg PO BEDTIME 03/05/20 11/04/20 11/03/20 History lancets 33 gauge #100 ea 03/11/20 09/03/20 Unknown History clopidogrel 75 mg tablet 75 mg PO DAILY 08/25/20 11/04/20 11/04/20 History fluticasone 250 mcg-salmeterol 50 1 ea INHALATION BID 08/25/20 11/04/20 11/04/20 History mcg/dose blistr powdr for inhalation gabapentin 300 mg capsule 300 mg PO BID cap 08/25/20 11/04/20 11/04/20 History metoprolol tartrate 25 mg tablet 25 mg PO DAILY tab 08/25/20 11/04/20 11/04/20 History docusate sodium 100 mg PO BID 11/04/20 11/04/20 11/04/20 History famotidine 20 mg PO DAILY 11/04/20 11/04/20 11/04/20 History insulin NPH and regular human 80 unit SUBCUT BID 11/04/20 11/04/20 11/04/20 History [Humulin 70/30 U-100 Insulin] ipratropium-albuterol 3 ml INHALATION QID 11/04/20 11/04/20 Unknown History metoprolol tartrate 50 mg PO BEDTIME 11/04/20 11/04/20 11/03/20 History Physical Exam Vital Signs and Narrative: Vital Signs: Last Vital Signs Temp 97.9 F 11/04/20 18:08 Pulse 60 11/04/20 18:08 Resp 13 11/04/20 18:08 BP 115/60 11/04/20 18:08 Pulse Ox 97 11/04/20 18:06 Body Mass Index 39.4 Results Labs CBC and Chem 7: 11/04/20 13:53 11/04/20 13:53 Labs: Laboratory Results - last 24 hr 11/04/20 11/04/20 11/04/20 13:53 13:53 13:53 MCV 78.6 L MCH 23.6 L MCHC 30.0 L RDW 18.3 H Plt Count 182 MPV Not Reportable Immature Gran % (Auto) 1.2 H Neut % (Auto) 77.6 H Lymph % (Auto) 9.7 L [place] % (Auto) 8.8 Eos % (Auto) 2.3 Baso % (Auto) 0.4 Lymph # (Auto) 0.8 L [place] # (Auto) 0.7 Eos # (Auto) 0.2 Baso # (Auto) 0.0 Abs Immat Gran (auto) 0.10 H Absolute Neuts (auto) 6.5 Absolute Nucleated RBC 0.000 Nucleated RBC % (auto) 0.0 Smear Tech's Comments VERIFIED PT INR APTT Anion Gap 17 Estim Creat Clear Calc 42.3 Estimated GFR 36 POC Glucose Random Glucose 113 Calcium 8.9 Magnesium 2.5 Total Bilirubin 0.5 Direct Bilirubin < 0.2 AST 19 ALT 9 Alkaline Phosphatase 127 H D Troponin I High Sens < 3.5 B-Natriuretic Peptide 143 H Total Protein 6.4 L Albumin 4.0 Stool Occult Blood COVID-19 ([facility]ONNIE) COVID-19 Clin Com Blood Type Antibody Screen Crossmatch 11/04/20 11/04/20 11/04/20 13:53 13:53 14:56 MCV MCH MCHC RDW Plt Count MPV Immature Gran % (Auto) Neut % (Auto) Lymph % (Auto) [place] % (Auto) Eos % (Auto) Baso % (Auto) Lymph # (Auto) [place] # (Auto) Eos # (Auto) Baso # (Auto) Abs Immat Gran (auto) Absolute Neuts (auto) Absolute Nucleated RBC Nucleated RBC % (auto) Smear Tech's Comments PT 13.3 H INR 1.2 H APTT 40.7 H Anion Gap Estim Creat Clear Calc Estimated GFR POC Glucose Random Glucose Calcium Magnesium Total Bilirubin Direct Bilirubin AST ALT Alkaline Phosphatase Troponin I High Sens B-Natriuretic Peptide Total Protein Albumin Stool Occult Blood POSITIVE COVID-19 ([facility]ONNIE) Negative COVID-19 Clin Com See Note Blood Type Antibody Screen Crossmatch 11/04/20 11/04/20 14:56 15:02 MCV MCH MCHC RDW Plt Count MPV Immature Gran % (Auto) Neut % (Auto) Lymph % (Auto) [place] % (Auto) Eos % (Auto) Baso % (Auto) Lymph # (Auto) [place] # (Auto) Eos # (Auto) Baso # (Auto) Abs Immat Gran (auto) Absolute Neuts (auto) Absolute Nucleated RBC Nucleated RBC % (auto) Smear Tech's Comments PT INR APTT Anion Gap Estim Creat Clear Calc Estimated GFR POC Glucose 94 Random Glucose Calcium Magnesium Total Bilirubin Direct Bilirubin AST ALT Alkaline Phosphatase Troponin I High Sens B-Natriuretic Peptide Total Protein Albumin Stool Occult Blood COVID-19 ([facility]NIE) COVID-19 Clin Com Blood Type O Positive Antibody Screen NEGATIVE Crossmatch See Detail Imaging Radiologist's Impressions: Impressions Chest X-Ray 11/04/20 13:11 IMPRESSION: 1. No acute intrathoracic disease. 2. Old right apical bulla and fine bibasilar linear scarring similar to CT 2017. 3. Probable healed right rib fractures. No pleural reaction or effusion. Assessment and Plan (1) GIB (gastrointestinal bleeding): Status: Acute (2) Acute blood loss anemia: Status: Acute (3) CKD (chronic kidney disease) stage 3, GFR 30-59 ml/min: Status: Acute (4) Diabetes type 2, uncontrolled: Status: Acute (5) CAD (coronary artery disease): Status: Acute (6) HTN (hypertension): Status: Acute (7) Hyperlipidemia: Status: Acute (8) Morbid obesity: Status: Acute (9) Diabetes mellitus: Status: Acute 75 yo male with hx CAD of CABG about 6 years ago on aspirin and plavix, CKD3, HLD, DM, HTN here with shortness of breath intermittent shortness of breath and weakness that is much more pronouced today and is found to have profound anemia hemoglobin of 6, baseline 11 and positive FOBT--he is likely has acute blood loss anemia due upper GIB from combination of Plavix, ASA..DDx: gastritis, gastric ulcer, esophatitis.. 1/Acute blood loss anemia 2/GIB, likely upper GIB -IV Protonix -stop ASA and Plavix -GI consult --he will likely need endoscopy -NPO overnight -Transuse and follow serial H/H 3/ CAD--sob, and chest likely d/t to seveer anemia, he recently had a normal stress on September 02, ECG is unchange, so I don't there is indication for further cardiac work up before operation. -Continue cardiac meds of Metoprolol, Statin, holding ASA and Plavix as stated 4/ Diagetes--while NPO, hold insulin and Metformin, actually Metfomin should be avoid due to CKD, SSI, 5/ HTN--continue Metoporolol, Aldactone 6/ Chronic heart failure--appear euvolemic, would continue home dose of Lasix, aldactone,, IV lasix after blood if sob 7/HLd--Statin 8/ BPH--Finesterid 9/ Peripheral Neuropathy--Gabapentin 10/CKD 3, stable 11/ DVT prophylaxis--no chemical, mechanical device Full Code, plan discussed with patient and at [facility] Stroke Does the patient have a stroke diagnosis?: No VTE Prior VTE?: No VTE Risk Level:: Medical - moderate - high VTE Device Contraindication: N/A - Device Ordered VTE Drug Contraindication: Treatment Not Tolerated
--- NOTE | 2020-11-04 18:35 | PC.NURSE ---
Patient is resting quietly in bed with no adverse reaction noted to blood transfusion. Pt remains alert and oriented.
[2020-11-04] MEDS: Albuterol/Iprat 2.5/0.5MG 3 ML AMPUL.NEB INHALE (20:00)
[2020-11-04] MEDS: Finasteride 5 MG TABLET PO (20:10)
[2020-11-04] MEDS: Spironolactone 25 MG TABLET PO (20:10)
[2020-11-04] MEDS: Gabapentin 300 MG CAPSULE PO (20:10)
[2020-11-04] MEDS: Doxazosin Mesylate 2 MG TABLET 8 MG PO (20:11)
[2020-11-04] MEDS: Furosemide 20 MG/2 ML VIAL IVPUSH (20:11)
[2020-11-04] MEDS: Atorvastatin Calcium 20 MG TABLET PO (20:11)
[2020-11-04] MEDS: Pantoprazole Sodium 40 MG/10 ML VIAL IVPUSH (20:11)
[2020-11-04] MEDS: 0.9 % Sodium Chloride Flush 3 ML SYRINGE IVFLUSH (20:11)
[2020-11-04] MEDS: Metoprolol Tartrate 50 MG TABLET PO (20:11)
[2020-11-04] MEDS: Docusate Sodium 100 MG CAPSULE PO (20:11)
[2020-11-04 21:14] LABS: Glucose, Whole Blood 78 mg/dL (60-115)
[2020-11-04] MEDS: Dextrose 5 % and 0.9 % NaCl 1,000 ML 100 ML IVCONT (22:37)
[2020-11-05] VITALS (22 sets, daily range): BP systolic 109–170; BP diastolic 51–75; PULSE 60–85; RESP 16–20; TEMP 36–37.1; O2SAT 93–97
[2020-11-05] MEDS: oxyCODONE HCl Immed Release 5 MG TABLET PO ×3 (03:24→13:35)
[2020-11-05] MEDS: Pantoprazole Sodium 40 MG/10 ML VIAL IVPUSH ×2 (05:39→16:22)
[2020-11-05 06:32] LABS: MANUAL DIFF FLAG NO
[2020-11-05 06:49] LABS: Basophils Percent Auto 0.2 % (0-2); Eosinophils Absolute Auto 0.2 X10*3/uL (0.0-0.4); Eosinophils Percent Auto 2.3 % (0-4); Hematocrit 24.8 % (42-52); Hemoglobin 7.7 g/dl (14.0-18.0); Imm Gran Abs Auto 0.06 X10*3/uL (0.00-0.03); Imm Gran Pct Auto 0.7 % (0.0-0.4); Lymphocytes Absolute Auto 0.7 X10*3/uL (1.2-4.9); Lymphocytes Percent Auto 7.3 % (20-40); Mean Corpuscular Hemoglobin 24.8 pg (27.0-33.0); Mean Corpuscular Volume 79.7 fL (80-98); Mean Platelet Volume 10.2 fL (9.4-12.4); Monocytes Absolute Auto 0.8 X10*3/uL (0.1-1.2); Monocytes Percent Auto 8.9 % (2-11); Neutrophils Absolute Auto 7.1 X10*3/uL (2.0-8.3); Neutrophils Percent Auto 80.6 % (45-73); Platelet Count 197 X10*3/uL (160-400); Red Blood Count 3.11 X10*6/uL (4.60-5.80); Red Cell Distribution Width 18.6 % (11.0-16.0); White Blood Count 8.9 X10*3/uL (4.8-10.8)
--- NOTE | 2020-11-05 08:03 | HO.PM.IMPN ---
Subjective Subjective Date of Service: 11/05/20 Review of Systems Gen: no fever Resp: no sob, no cough CV: no chest, no ECKERT, no leg edema GI: No n/v, no abd pain, no melana Neuro: No confusion Physical Exam Vital Signs: Vital Signs: Last Vital Signs Temp 96.8 F 11/05/20 07:25 Pulse 74 11/05/20 07:25 Resp 18 11/05/20 07:25 BP 118/52 L 11/05/20 07:25 Pulse Ox 94 11/05/20 07:25 Body Mass Index 39.4 Const: Other: Constitutional Awake and Alert, No apparent distress Neck Supple, No lymphadenopathy Cardiovascular RRR, No M/R/G, S1 S2, No S3 S4, No pedal edema Respiratory Lungs clear, No respiratory distress Gastrointestinal Non tender, Non-distended Skin No rash Neurological Alert & oriented x3 Psychological Appropriate affect Objective Data Current Medications Generic Name Dose Route Start Last Admin Trade Name Freq PRN Reason Stop Dose Admin Albuterol/Ipratropium 3 ml 11/04/20 20:00 11/04/20 20:00 Albuterol/Iprat 2.5/0.5mg 3 Ml Ampul.Neb INHALE 3 ml RQID OTILIA Administration Atorvastatin Calcium 20 mg 11/04/20 21:00 11/04/20 20:11 Atorvastatin Calcium 20 Mg Tablet PO 20 mg BEDTIME OTILIA Administration Docusate Sodium 100 mg 11/04/20 21:00 11/04/20 20:11 Docusate Sodium 100 Mg Capsule PO 100 mg BID OTILIA Administration Doxazosin Mesylate 8 mg 11/04/20 21:00 11/04/20 20:11 Doxazosin Mesylate 2 Mg Tablet PO 8 mg BEDTIME OTILIA Administration Protocol Finasteride 5 mg 11/04/20 21:00 11/04/20 20:10 Finasteride 5 Mg Tablet PO 5 mg BEDTIME OTILIA Administration Fluticasone/Vilanterol 1 puff 11/05/20 08:00 Fluticasone/Vilanterol 100/25 Blst.W.Dev INHALE RDAILY OTILIA Gabapentin 300 mg 11/04/20 21:00 11/04/20 20:10 Gabapentin 300 Mg Capsule PO 300 mg BID OTILIA Administration Dextrose/Sodium Chloride 1,000 mls @ 100 mls/hr 11/04/20 18:00 11/05/20 03:26 D5ns IVCONT Not Given .Q10H [facility] Magnesium Oxide 200 mg 11/05/20 09:00 Magnesium Oxide 400 Mg Tablet PO DAILY [facility] Metoprolol Tartrate 50 mg 11/04/20 21:00 11/04/20 20:11 Metoprolol Tartrate 50 Mg Tablet PO 50 mg BEDTIME [facility] Administration Protocol Metoprolol Tartrate 25 mg 11/05/20 09:00 Metoprolol Tartrate 25 Mg Tablet PO DAILY [facility] Protocol Oxycodone HCl 5 mg 11/05/20 02:54 11/05/20 03:24 Oxycodone Hcl Immed Release 5 Mg Tablet PO 5 mg Q6H PRN Administration Breakthrough Pain Pantoprazole Sodium 40 mg 11/04/20 18:30 11/05/20 05:39 Pantoprazole Sodium 40 Mg/10 Ml Vial IVPUSH 40 mg BID@0630,4050 [facility] Administration Pharmacy Consult 1 each 11/04/20 14:43 Consult Rx Perform Med Rec MISCELLANE ONCE PRN Consult order Sertraline HCl 50 mg 11/05/20 09:00 Sertraline Hcl 50 Mg Tablet PO DAILY [facility] Sodium Chloride 3 ml 11/05/20 00:00 11/04/20 20:11 0.9 % Sodium Chloride Flush 3 Ml Syringe IVFLUSH 3 ml QSHIFT [facility] Administration Spironolactone 25 mg 11/04/20 21:00 11/04/20 20:10 Spironolactone 25 Mg Tablet PO 25 mg BID [facility] Administration Protocol Labs CBC & Chem 7: 11/05/20 05:48 11/04/20 13:53 Labs: Laboratory Results - last 24 hr 11/04/20 11/04/20 11/04/20 13:53 13:53 13:53 WBC 8.4 RBC 2.80 L D Hgb 6.6 L* D Hct 22.0 L D MCV 78.6 L MCH 23.6 L MCHC 30.0 L RDW 18.3 H Plt Count 182 MPV Not Reportable Immature Gran % (Auto) 1.2 H Neut % (Auto) 77.6 H Lymph % (Auto) 9.7 L [place] % (Auto) 8.8 Eos % (Auto) 2.3 Baso % (Auto) 0.4 Lymph # (Auto) 0.8 L [place] # (Auto) 0.7 Eos # (Auto) 0.2 Baso # (Auto) 0.0 Abs Immat Gran (auto) 0.10 H Absolute Neuts (auto) 6.5 Absolute Nucleated RBC 0.000 Nucleated RBC % (auto) 0.0 Smear Tech's Comments VERIFIED PT INR APTT Sodium 141 Potassium 4.2 Chloride 102 Carbon Dioxide 26 Anion Gap 17 BUN 25 H Creatinine 1.82 H Estim Creat Clear Calc 42.3 Estimated GFR 36 POC Glucose Random Glucose 113 Calcium 8.9 Magnesium 2.5 Total Bilirubin 0.5 Direct Bilirubin < 0.2 AST 19 ALT 9 Alkaline Phosphatase 127 H D Troponin I High Sens < 3.5 B-Natriuretic Peptide 143 H Total Protein 6.4 L Albumin 4.0 Stool Occult Blood COVID-19 (LONNIE) [facility] Blood Type Antibody Screen Crossmatch 11/04/20 11/04/20 11/04/20 13:53 13:53 14:56 WBC RBC Hgb Hct MCV MCH MCHC RDW Plt Count MPV Immature Gran % (Auto) Neut % (Auto) Lymph % (Auto) [place] % (Auto) Eos % (Auto) Baso % (Auto) Lymph # (Auto) [place] # (Auto) Eos # (Auto) Baso # (Auto) Abs Immat Gran (auto) Absolute Neuts (auto) Absolute Nucleated RBC Nucleated RBC % (auto) Smear Tech's Comments PT 13.3 H INR 1.2 H APTT 40.7 H Sodium Potassium Chloride Carbon Dioxide Anion Gap BUN Creatinine Estim Creat Clear Calc Estimated GFR POC Glucose Random Glucose Calcium Magnesium Total Bilirubin Direct Bilirubin AST ALT Alkaline Phosphatase Troponin I High Sens B-Natriuretic Peptide Total Protein Albumin Stool Occult Blood POSITIVE COVID-19 (LONNIE) Negative [facility] See Note Blood Type Antibody Screen Crossmatch 11/04/20 11/04/20 11/04/20 14:56 15:02 20:06 WBC RBC Hgb Hct MCV MCH MCHC RDW Plt Count MPV Immature Gran % (Auto) Neut % (Auto) Lymph % (Auto) [place] % (Auto) Eos % (Auto) Baso % (Auto) Lymph # (Auto) [place] # (Auto) Eos # (Auto) Baso # (Auto) Abs Immat Gran (auto) Absolute Neuts (auto) Absolute Nucleated RBC Nucleated RBC % (auto) Smear Tech's Comments PT INR APTT Sodium Potassium Chloride Carbon Dioxide Anion Gap BUN Creatinine Estim Creat Clear Calc Estimated GFR POC Glucose 94 78 Random Glucose Calcium Magnesium Total Bilirubin Direct Bilirubin AST ALT Alkaline Phosphatase Troponin I High Sens B-Natriuretic Peptide Total Protein Albumin Stool Occult Blood COVID-19 (LONNIE) COVID-19 [employer] Blood Type O Positive Antibody Screen NEGATIVE Crossmatch See Detail 11/05/20 05:48 WBC 8.9 RBC 3.11 L Hgb 7.7 L Hct 24.8 L MCV 79.7 L MCH 24.8 L MCHC 31.0 RDW 18.6 H Plt Count 197 MPV 10.2 Immature Gran % (Auto) 0.7 H Neut % (Auto) 80.6 H Lymph % (Auto) 7.3 L [place] % (Auto) 8.9 Eos % (Auto) 2.3 Baso % (Auto) 0.2 Lymph # (Auto) 0.7 L [place] # (Auto) 0.8 Eos # (Auto) 0.2 Baso # (Auto) 0.0 Abs Immat Gran (auto) 0.06 H Absolute Neuts (auto) 7.1 Absolute Nucleated RBC 0.000 Nucleated RBC % (auto) 0.0 Smear Tech's Comments PT INR APTT Sodium Potassium Chloride Carbon Dioxide Anion Gap BUN Creatinine Estim Creat Clear Calc Estimated GFR POC Glucose Random Glucose Calcium Magnesium Total Bilirubin Direct Bilirubin AST ALT Alkaline Phosphatase Troponin I High Sens B-Natriuretic Peptide Total Protein Albumin Stool Occult Blood COVID-19 (LONNIE) COVID-19 [employer] Blood Type Antibody Screen Crossmatch Quality Stroke Does the patient have a stroke diagnosis?: No VTE Prior VTE?: No VTE Risk Level:: Medical - moderate - high VTE Device Contraindication: N/A - Device Ordered VTE Drug Contraindication: Treatment Not Tolerated Assessment and Plan (1) GIB (gastrointestinal bleeding): Status: Acute (2) Acute blood loss anemia: Status: Acute (3) CKD (chronic kidney disease) stage 3, GFR 30-59 ml/min: Status: Acute (4) Diabetes type 2, uncontrolled: Status: Acute (5) CAD (coronary artery disease): Status: Acute (6) HTN (hypertension): Status: Acute (7) Hyperlipidemia: Status: Acute (8) Morbid obesity: Status: Acute (9) Diabetes mellitus: Status: Acute Assessment and Plan: 75 yo male with hx CAD of CABG about 6 years ago on aspirin and plavix, CKD3, HLD, DM, HTN here with shortness of breath intermittent shortness of breath and weakness that is much more pronouced today and is found to have profound anemia hemoglobin of 6, baseline 11 and positive FOBT--he is likely has acute blood loss anemia due upper GIB from combination of Plavix, ASA..DDx: gastritis, gastric ulcer, esophatitis.. 1/Acute blood loss anemia 2/GIB, likely upper GIB -H/H is better this morning but not optimal Transfuse 2 more units -continue IV Protonix -stopped ASA and Plavix -GI consult --he will likely need endoscopy -NPO -Transfuse and follow serial H/H 3/ CAD--sob, and chest likely d/t to seveer anemia, he recently had a normal stress on September 02, ECG is unchange, so I don't there is indication for further cardiac work up before operation. -Continue cardiac meds of Metoprolol, Statin, holding ASA and Plavix as stated 4/ Diagetes--while NPO, hold insulin and Metformin, actually Metfomin should be avoid due to CKD, SSI, 5/ HTN--continue Metoporolol, Aldactone 6/ Chronic heart failure--appear euvolemic, would continue home dose of Lasix, aldactone,, IV lasix after blood 7/HLd--Statin 8/ BPH--Finesterid 9/ Peripheral Neuropathy--Gabapentin 10/CKD 3, stable 11/ DVT prophylaxis--no chemical, mechanical device Full Code, plan discussed with patient
[2020-11-05] MEDS: Magnesium Oxide 400 MG TABLET 200 MG PO (08:11)
[2020-11-05] MEDS: Metoprolol Tartrate 25 MG TABLET PO (08:12)
[2020-11-05] MEDS: Sertraline HCL 50 MG TABLET PO (08:13)
[2020-11-05] MEDS: Spironolactone 25 MG TABLET PO ×2 (08:13→20:41)
[2020-11-05] MEDS: Docusate Sodium 100 MG CAPSULE PO ×2 (08:13→20:41)
[2020-11-05] MEDS: Gabapentin 300 MG CAPSULE PO ×2 (08:13→20:41)
[2020-11-05] MEDS: Dextrose 5 % and 0.9 % NaCl 1,000 ML 100 ML IVCONT (08:14)
[2020-11-05] MEDS: Albuterol/Iprat 2.5/0.5MG 3 ML AMPUL.NEB INHALE ×3 (08:15→19:46)
--- NOTE | 2020-11-05 08:31 | P.CDIC_ITS ---
CDI Concurrent Query Service Date: 11/06/20 Documentation Clarification: Please clarify if you are treating a proba ble/suspected/likely or confirmed: Chronic diastolic Congestive heart failure Chronic systolic Congestive heart failure Please specify if known Other Unable to determine Provider Response: Other Other Diagnosis: chronic systolic heart failure PLEASE DO NOT DELETE/MODIFY EXISTING CONTENT Additional information is needed in order to code to the highest accuracy and appropriate Severity of Illness (SOI). Please clarify the information noted below in your progress notes and discharge summary. Risk Factors/Clinical Indicators/Treatments Chronic heart failure home medication Furosemide 80 mg tablets. CDS: Marcy Helton [facility], CDIS Contact Number: [phone] Please Review the information above and exercise your independent professional judgment in responding to the query. If you concur, pleas document in the PROGRESS NOTES and DISCHARGE SUMMARY. If you do not agree with the query, please document in the query above. THIS QUERY IS PART OF THE PERMANENT MEDICAL RECORD
--- NOTE | 2020-11-05 09:44 | MHC.CM.PN ---
PATIENT LIVES WITH HIS HCP/ (ON FILE AND VERIFIED) HE OCCASIONALLY USES A CANE HE DOES HAVE A WHEELED WALKER IN THE HOME BUT HAS NOT NEEDED IT YET. PATIENT ALSO RELIES ON INHALERS AND NEBULIZER. [facility] PROVIDES MONTHLY RN VISITS IF HE IS TOO NEED AN INCREASE IN SERVICES, HIS MANAGED MEDICARE CAN PROVIDE. CASE MANAGEMENT FOLLOWING FOR DISCHARGE NEEDS. IMM 11/05 IN CHART.
--- NOTE | 2020-11-05 11:07 | MHC.CLN ---
Addendum entered by Aundrea Montelongo RD 11/05/20 11:21: WHEN DIET ADVANCED, RECOMMEND DIABETIC DIET 2200 KCAL AND CARDIAC DIET. Original Note: NUTRITION PATIENT IS CURRENTLY NPO DUE TO GIB. WHEN DIET ADVANCED, RECOMMEND DIABETIC DIET 2200 KCAL (27 KCAL/KG CMW).
--- NOTE | 2020-11-05 13:24 | MHC.SHP ---
Pre-Procedural Eval Section A Date of Service: 11/05/20 The patient is an INPATIENT: Yes Changes since office visit: No Cold of Flu in the past 2 weeks, No New Medical Problems, No Changes in Medication and No Patient answered all questions The History & Physical has been completed within 30 days and I have reviewed it.: Yes Section B Chief Complaint: difficulty breathing Allergies: Allergies Allergy/AdvReac Type Severity Reaction Status Date / Time No Known Allergies Allergy Verified 09/10/20 21:22 Plan I have reviewed the history and physical and performed a pertinent physical examination on my patient. No changes have occurred unless specified.
--- NOTE | 2020-11-05 13:24 | PM.EVENT ---
Event Note Date of Service: 11/05/20 Event Note: GI Consult dictated Pt presents with anemia and heme positive with no localizing symptoms. I discussed EGD to assess for any source for blood loss in UGI tract. He understands risks and benefits and agrees to proceed.
[2020-11-05] MEDS: Acetaminophen 325 MG TABLET 650 MG PO (13:35)
[2020-11-05 14:26] LABS: Glucose, Whole Blood 132 mg/dL (60-115)
--- NOTE | 2020-11-05 14:32 | P.CONAN_ITS ---
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) CKD (chronic kidney disease) stage 3, GFR 30-59 ml/min (Acute) Diabetic nephropathy associated with type 2 diabetes mellitus (Acute) Diabetes type 2, uncontrolled (Acute) CAD (coronary artery disease) (Acute) HTN (hypertension) (Acute) Hyperlipidemia (Acute) Diabetes mellitus (Acute) Morbid obesity (Acute) Past Medical History Medical History CAD (coronary artery disease) CKD (chronic kidney disease) stage 3, GFR 30-59 ml/min COPD (chronic obstructive pulmonary disease) COPD (chronic obstructive pulmonary disease) case management patient Diabetes mellitus Diabetes type 2, uncontrolled Diabetic nephropathy associated with type 2 diabetes mellitus Dyslipidemia HTN (hypertension) 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 Mother Cancer Surgical History Surgical History H/O shoulder surgery Hx of CABG Hx of colonoscopy S/P triple vessel bypass Social History Social History Household Members: Spouse Housing: House Do you presently have visiting nurse or other home services: No Patient Tobacco Use Status: Former Tobacco user Quit Date: 1989 Tobacco use type: Cigarette Years Smoked: 25 Smoked in Last 30 Days: No Use of substances other than those prescribed or required for medical reasons: Yes Currently Displaying Signs/Symptoms of Drug Intoxication Withdrawal: No Have you been hit, kicked, punched, or otherwise hurt by someone within the past year? If so, by whom?: No Do you feel safe in your current relationship?: Yes Are you made to feel afraid or neglected: No Are you DNR?: No Advance Directives: No Advance Directives Information Provided: No Do you have thoughts of harming others: None Do you have a plan to hurt others: No Plan Recently lost weight without trying: No How much weight loss: Not applicable Eating poorly because of decreased appetite: No Nutrition screen score: 0 Nutrition Risks: No Nutritional Risk Poor oral hygiene: No service: No Current occupational status: retired Meds Allergies Allergy/AdvReac Type Severity Reaction Status Date / Time No Known Allergies Allergy Verified 11/05/20 14:07 Active Medications: Current Medications Generic Name Dose Route Start Last Admin Trade Name Freq PRN Reason Stop Dose Admin Acetaminophen 650 mg 11/05/20 13:09 11/05/20 13:35 Acetaminophen 325 Mg Tablet PO 650 mg Q6H PRN Administration Pain, Mild (Pain Scale 1-3) Albuterol/Ipratropium 3 ml 11/04/20 20:00 11/05/20 11:33 Albuterol/Iprat 2.5/0.5mg 3 Ml Ampul.Neb INHALE 3 ml RQID OTILIA Administration Atorvastatin Calcium 20 mg 11/04/20 21:00 11/04/20 20:11 Atorvastatin Calcium 20 Mg Tablet PO 20 mg BEDTIME OTILIA Administration Docusate Sodium 100 mg 11/04/20 21:00 11/05/20 08:13 Docusate Sodium 100 Mg Capsule PO 100 mg BID OTILIA Administration Doxazosin Mesylate 8 mg 11/04/20 21:00 11/04/20 20:11 Doxazosin Mesylate 2 Mg Tablet PO 8 mg BEDTIME OTILIA Administration Protocol Finasteride 5 mg 11/04/20 21:00 11/04/20 20:10 Finasteride 5 Mg Tablet PO 5 mg BEDTIME OTILIA Administration Fluticasone/Vilanterol 1 puff 11/05/20 08:00 11/05/20 08:16 Fluticasone/Vilanterol 100/25 Blst.W.Dev INHALE Not Given RDAILY OTILIA Gabapentin 300 mg 11/04/20 21:00 11/05/20 08:13 Gabapentin 300 Mg Capsule PO 300 mg BID OTILIA Administration Dextrose/Sodium Chloride 1,000 mls @ 100 mls/hr 11/04/20 18:00 11/05/20 08:14 D5ns IVCONT 100 mls/hr .Q10H OTILIA Administration Sodium Chloride 500 mls @ 20 mls/hr 11/05/20 14:30 Ns IV .Q24H OTILIA Magnesium Oxide 200 mg 11/05/20 09:00 11/05/20 08:11 Magnesium Oxide 400 Mg Tablet PO 200 mg DAILY OTILIA Administration Metoprolol Tartrate 50 mg 11/04/20 21:00 11/04/20 20:11 Metoprolol Tartrate 50 Mg Tablet PO 50 mg BEDTIME OTILIA Administration Protocol Metoprolol Tartrate 25 mg 11/05/20 09:00 11/05/20 08:12 Metoprolol Tartrate 25 Mg Tablet PO 25 mg DAILY OTILIA Administration Protocol Oxycodone HCl 5 mg 11/05/20 02:54 11/05/20 13:35 Oxycodone Hcl Immed Release 5 Mg Tablet PO 5 mg Q6H PRN Administration Breakthrough Pain Pantoprazole Sodium 40 mg 11/04/20 18:30 11/05/20 05:39 Pantoprazole Sodium 40 Mg/10 Ml Vial IVPUSH 40 mg BID@0630,1630 [facility] Administration Pharmacy Consult 1 each 11/04/20 14:43 Consult Rx Perform Med Rec MISCELLANE ONCE PRN Consult order Sertraline HCl 50 mg 11/05/20 09:00 11/05/20 08:13 Sertraline Hcl 50 Mg Tablet PO 50 mg DAILY [facility] Administration Sodium Chloride 3 ml 11/05/20 00:00 11/05/20 08:08 0.9 % Sodium Chloride Flush 3 Ml Syringe IVFLUSH Not Given QSHIFT [facility] Spironolactone 25 mg 11/04/20 21:00 11/05/20 08:13 Spironolactone 25 Mg Tablet PO 25 mg BID OTILIA Administration Protocol Home Medications Medication Instructions Recorded Confirmed Last Taken Type aspirin 81 mg tablet,delayed 81 mg PO DAILY 02/25/20 11/04/20 11/04/20 History release doxazosin 8 mg tablet 8 mg PO BEDTIME 02/25/20 11/04/20 11/03/20 History finasteride 5 mg tablet 5 mg PO BEDTIME 02/25/20 11/04/20 11/03/20 History furosemide 80 mg tablet 80 mg PO BID 02/25/20 11/04/20 11/04/20 History magnesium 250 mg tablet 250 mg PO DAILY 02/25/20 11/04/20 11/04/20 History sertraline 50 mg tablet 50 mg PO DAILY 02/25/20 11/04/20 11/04/20 History simvastatin 40 mg tablet 40 mg PO BEDTIME 02/25/20 11/04/20 11/03/20 History spironolactone 25 mg tablet 25 mg PO BID 02/25/20 11/04/20 11/04/20 History amitriptyline 25 mg tablet 25 mg PO BEDTIME 03/05/20 11/04/20 11/03/20 History lancets 33 gauge #100 ea 03/11/20 09/03/20 Unknown History clopidogrel 75 mg tablet 75 mg PO DAILY 08/25/20 11/04/20 11/04/20 History fluticasone 250 mcg-salmeterol 50 1 ea INHALATION BID 08/25/20 11/04/20 11/04/20 History mcg/dose blistr powdr for inhalation gabapentin 300 mg capsule 300 mg PO BID cap 08/25/20 11/04/20 11/04/20 History metoprolol tartrate 25 mg tablet 25 mg PO DAILY tab 08/25/20 11/04/20 11/04/20 History docusate sodium 100 mg PO BID 11/04/20 11/04/20 11/04/20 History famotidine 20 mg PO DAILY 11/04/20 11/04/20 11/04/20 History insulin NPH and regular human 80 unit SUBCUT BID 11/04/20 11/04/20 11/04/20 History [Humulin 70/30 U-100 Insulin] ipratropium-albuterol 3 ml INHALATION QID 11/04/20 11/04/20 Unknown History metoprolol tartrate 50 mg PO BEDTIME 11/04/20 11/04/20 11/03/20 History Exam Exam Date and Time: November 05, 2020 143 Height,Weight and Vital Signs: Height 5 ft 8 in Weight 117.48 kg Last Vital Signs Temp 97.2 F 11/05/20 14:08 Pulse 64 11/05/20 14:08 Resp 16 11/05/20 14:08 BP 134/56 L 11/05/20 14:08 Pulse Ox 95 11/05/20 14:08 Pertinent Lab Results Pertinent Lab Results: Laboratory Tests 11/04/20 11/04/20 11/04/20 13:53 13:53 13:53 WBC 8.4 RBC 2.80 L D Hgb 6.6 L* D Hct 22.0 L D MCV 78.6 L MCH 23.6 L MCHC 30.0 L RDW 18.3 H Plt Count 182 MPV Not Reportable Immature Gran % (Auto) 1.2 H Neut % (Auto) 77.6 H Lymph % (Auto) 9.7 L [place] % (Auto) 8.8 Eos % (Auto) 2.3 Baso % (Auto) 0.4 Lymph # (Auto) 0.8 L [place] # (Auto) 0.7 Eos # (Auto) 0.2 Baso # (Auto) 0.0 Abs Immat Gran (auto) 0.10 H Absolute Neuts (auto) 6.5 Absolute Nucleated RBC 0.000 Nucleated RBC % (auto) 0.0 Smear Tech's Comments VERIFIED PT INR APTT Sodium 141 Potassium 4.2 Chloride 102 Carbon Dioxide 26 Anion Gap 17 BUN 25 H Creatinine 1.82 H Estim Creat Clear Calc 42.3 Estimated GFR 36 POC Glucose Random Glucose 113 Calcium 8.9 Magnesium 2.5 Total Bilirubin 0.5 Direct Bilirubin < 0.2 AST 19 ALT 9 Alkaline Phosphatase 127 H D Troponin I High Sens < 3.5 B-Natriuretic Peptide 143 H Total Protein 6.4 L Albumin 4.0 Stool Occult Blood COVID-19 (LONNIE) [facility]-[employer] Blood Type Antibody Screen Crossmatch 11/04/20 11/04/20 11/04/20 13:53 13:53 14:56 WBC RBC Hgb Hct MCV MCH MCHC RDW Plt Count MPV Immature Gran % (Auto) Neut % (Auto) Lymph % (Auto) [place] % (Auto) Eos % (Auto) Baso % (Auto) Lymph # (Auto) [place] # (Auto) Eos # (Auto) Baso # (Auto) Abs Immat Gran (auto) Absolute Neuts (auto) Absolute Nucleated RBC Nucleated RBC % (auto) Smear Tech's Comments PT 13.3 H INR 1.2 H APTT 40.7 H Sodium Potassium Chloride Carbon Dioxide Anion Gap BUN Creatinine Estim Creat Clear Calc Estimated GFR POC Glucose Random Glucose Calcium Magnesium Total Bilirubin Direct Bilirubin AST ALT Alkaline Phosphatase Troponin I High Sens B-Natriuretic Peptide Total Protein Albumin Stool Occult Blood POSITIVE COVID-19 (LONNIE) Negative [employer] See Note Blood Type Antibody Screen Crossmatch 11/04/20 11/04/20 11/04/20 14:56 15:02 20:06 WBC RBC Hgb Hct MCV MCH MCHC RDW Plt Count MPV Immature Gran % (Auto) Neut % (Auto) Lymph % (Auto) [place] % (Auto) Eos % (Auto) Baso % (Auto) Lymph # (Auto) [place] # (Auto) Eos # (Auto) Baso # (Auto) Abs Immat Gran (auto) Absolute Neuts (auto) Absolute Nucleated RBC Nucleated RBC % (auto) Smear Tech's Comments PT INR APTT Sodium Potassium Chloride Carbon Dioxide Anion Gap BUN Creatinine Estim Creat Clear Calc Estimated GFR POC Glucose 94 78 Random Glucose Calcium Magnesium Total Bilirubin Direct Bilirubin AST ALT Alkaline Phosphatase Troponin I High Sens B-Natriuretic Peptide Total Protein Albumin Stool Occult Blood COVID-19 (LONNIE) [facility] Blood Type O Positive Antibody Screen NEGATIVE Crossmatch See Detail 11/05/20 11/05/20 05:48 14:18 WBC 8.9 RBC 3.11 L Hgb 7.7 L Hct 24.8 L MCV 79.7 L MCH 24.8 L MCHC 31.0 RDW 18.6 H Plt Count 197 MPV 10.2 Immature Gran % (Auto) 0.7 H Neut % (Auto) 80.6 H Lymph % (Auto) 7.3 L [place] % (Auto) 8.9 Eos % (Auto) 2.3 Baso % (Auto) 0.2 Lymph # (Auto) 0.7 L [place] # (Auto) 0.8 Eos # (Auto) 0.2 Baso # (Auto) 0.0 Abs Immat Gran (auto) 0.06 H Absolute Neuts (auto) 7.1 Absolute Nucleated RBC 0.000 Nucleated RBC % (auto) 0.0 Smear Tech's Comments PT INR APTT Sodium Potassium Chloride Carbon Dioxide Anion Gap BUN Creatinine Estim Creat Clear Calc Estimated GFR POC Glucose 132 H Random Glucose Calcium Magnesium Total Bilirubin Direct Bilirubin AST ALT Alkaline Phosphatase Troponin I High Sens B-Natriuretic Peptide Total Protein Albumin Stool Occult Blood COVID-19 (LONNIE) COVID-[employer] Blood Type Antibody Screen Crossmatch Airway Mallampati Class: II (Edentulous) TM Dist: >3cm Neck ROM: Limited Denture: Upper and Lower Loose/Missing/Broken Teeth: Yes, Upper and Lower Heart: RRR Lungs: CTA Assessment and Plan Assessment Anesthesia Assessment: Anesthesia Plan Discussed and Chart Reviewed Final Anesthetic Review NPO: Yes ASA Class: III Final Preanesthetic Review: Meds/Allgs Chart Reviewed, Consent Obtained/Reviewed and Anes Risks/Benef Reviewed Patient Risk: Intermediate Procedure Risk: Intermediate Anesthetic Plan Anesthetic Plan: MAC: Disposition: Standard PACU
--- NOTE | 2020-11-05 14:45 | P.BOP_ITS ---
Brief Operative Note Date of Service: 11/05/20 Pre-op diagnosis: anemia, heme pos stool Post-op diagnosis: same (gastric polyp,gastritis, duodenitis) Procedure: EGD with biopsy Surgeon: Daniel Rebolledo Anesthesia: MAC Was an Product Safety And Standards Engineer used for this Procedure?: No Estimated blood loss (mL): 2 Pathology: other (antral biopsies) Condition: stable Disposition: PACU
--- NOTE | 2020-11-05 14:46 | PM.EVENT ---
Event Note Date of Service: 11/05/20 Event Note: EGD dictated focal gastritis, duodenitis, and non bleeding gastric polyp continue ppi clear liquid diet colonoscopy 11/06
--- NOTE | 2020-11-05 15:03 | MHC.CM.PN ---
PER REVIEW OF NOTES, PLAN IS COLONOSCOPY 11/06/20
--- NOTE | 2020-11-05 16:49 | OP_ITS ---
SURGEON: Daniel Rebolledo MD INDICATIONS: Anemia and Hemoccult-positive stools. PREOPERATIVE DIAGNOSIS: POSTOPERATIVE DIAGNOSIS: PROCEDURE PERFORMED: Upper endoscopy with biopsy. ESTIMATED BLOOD LOSS: COMPLICATIONS: ANESTHESIA: ASSISTANTS: SPECIMENS: MEDICATIONS: Monitored anesthesia care. DESCRIPTION OF PROCEDURE: History and physical performed. The risks and benefits of the procedure were explained to the patient. Informed consent was obtained. The patient was placed in the supine position with wedge under the right shoulder and his head elevated. The Olympus video gastroscope was introduced into the esophagus, stomach, and duodenum. Examination was performed and the scope was removed. He tolerated the procedure well and was taken to recovery area in stable condition. FINDINGS: Esophagus: The esophagus was normal. There was no esophagitis. Stomach: The stomach showed a focal area of gastritis on the posterior wall about 3 cm below the EG junction. There was a single benign-appearing gastric polyp on the lesser curvature, which was not bleeding and was not biopsied. Antral biopsies were obtained to rule out H pylori. Duodenum: There was mild duodenitis involving the bulb with a focal 2 to 3 mm superficial erosion that was not bleeding at the junction of the bulb and second portion. The second portion was completely clear. IMPRESSION: 1. Gastritis. 2. Gastric polyp. 3. Duodenitis. RECOMMENDATIONS: 1. Continue proton pump inhibitor. 2. Colonoscopy to be arranged for tomorrow for further evaluation. MD RUTH Teran/TONY / [id number]
--- NOTE | 2020-11-05 17:14 | CONS_ITS ---
DATE OF SERVICE: 11/05/2020 REFERRING PHYSICIAN: Josr Varma MD REASON FOR CONSULTATION: Anemia and Hemoccult-positive stools. HISTORY OF PRESENT ILLNESS: The patient is a 75-year-old man, known to me from prior evaluation, who presented to the emergency room with shortness of breath and weakness over period of several weeks. He was evaluated and noted to have a hemoglobin of 6.6, which was down from 11.5 in August of this year. He denies any obvious bright red blood per rectum, dark red blood, or melena. He is on aspirin and Plavix for coronary artery disease and stent placement. He denies any upper GI symptoms including heartburn, dysphagia, hematemesis, or melena. In the emergency department, he was evaluated and given 2 units of packed red blood cells with his hematocrit this morning improving to almost 25. He is currently scheduled to receive 2 more units of packed red blood cells because of his underlying medical conditions. He previously underwent colonoscopy in 2016, which was limited. Two polyps were removed and followup CT colonography was also limited, but did not show any obvious mass lesions. PAST MEDICAL HISTORY: 1. Left shoulder replacement approximately 1 month ago. 2. Hypertension. 3. Diabetes. 4. Hyperlipidemia. 5. Coronary artery disease with history of bypass grafting. 6. Chronic obstructive pulmonary disease. 7. Chronic kidney disease. 8. Elevated BMI. CURRENT MEDICATIONS: His current medication list is reviewed in the chart. His aspirin and Plavix have been held. ALLERGIES: THERE ARE NONE REPORTED. FAMILY HISTORY: This is reviewed with the patient and is noncontributory. SOCIAL HISTORY: There is no current substance abuse. REVIEW OF SYSTEMS: SKIN: No pruritus. HEENT: Negative. CARDIOPULMONARY: No shortness of breath or chest pain. GASTROINTESTINAL: As above. GENITOURINARY: Negative. NEUROPSYCHIATRIC: Negative. PHYSICAL EXAMINATION: GENERAL: Shows a pleasant male, lying in bed. VITAL SIGNS: Stable. SKIN: Anicteric. HEENT: Shows no scleral icterus. NECK: Without lymphadenopathy or thyromegaly. LUNGS: Show decreased breath sounds, but otherwise clear. HEART: Shows a regular rate and rhythm. S1, S2. No murmur. ABDOMEN: Soft without focal masses or tenderness. Bowel sounds are present. No organomegaly is noted. EXTREMITIES: Show Venodyne boots in place. LABORATORY DATA: Reviewed. IMPRESSION: Anemia with Hemoccult-positive stools. It is likely that his anemia is multifactorial. There could be some GI losses from the upper or lower GI tract, although he describes not seeing any melena or bright red blood per rectum. He has been on aspirin and Plavix, so peptic ulcer disease is a possibility, although he is relatively asymptomatic. His renal insufficiency could be a contributing cause and his recent shoulder surgery could be as well, although this was a month ago. I have discussed with him undergoing upper endoscopy for further evaluation to rule out an upper GI tract lesion. This will be arranged for this afternoon. He understands risks and benefits and agrees to proceed. Depending on these results, he may need further evaluation with colonoscopy as it has been a significant amount of time since his last examination. This was discussed with the patient and his family. They understand risks and benefits of both procedures and agreed to proceed if necessary. Thanks for asking me to see him. I will follow him in the hospital with you. MD RUTH Teran/TONY / [id number] MTDD
[2020-11-05] MEDS: PEG 3350/Na Sulf,Bicarb,Cl/KCL 4,000 ML SOLN.RECON 4000 ML PO (17:52)
[2020-11-05 20:24] LABS: Glucose, Whole Blood 196 mg/dL (60-115)
[2020-11-05] MEDS: Doxazosin Mesylate 2 MG TABLET 8 MG PO (20:40)
[2020-11-05] MEDS: Finasteride 5 MG TABLET PO (20:41)
[2020-11-05] MEDS: Metoprolol Tartrate 50 MG TABLET PO (20:41)
[2020-11-05] MEDS: Insulin Lispro 100 UNIT/ML 3 ML VIAL SUBCUT (20:41)
[2020-11-05] MEDS: Atorvastatin Calcium 20 MG TABLET PO (20:41)
[2020-11-06] VITALS (13 sets, daily range): BP systolic 113–145; BP diastolic 56–65; PULSE 62–71; RESP 16–20; TEMP 36–37.7; O2SAT 92–99
[2020-11-06] MEDS: Dextrose 5 % and 0.9 % NaCl 1,000 ML 100 ML IVCONT ×2 (02:50→23:52)
[2020-11-06] MEDS: Pantoprazole Sodium 40 MG/10 ML VIAL IVPUSH ×2 (05:41→16:29)
[2020-11-06] MEDS: Magnesium Oxide 400 MG TABLET 200 MG PO (07:23)
[2020-11-06] MEDS: Gabapentin 300 MG CAPSULE PO ×2 (07:23→21:07)
[2020-11-06] MEDS: Sertraline HCL 50 MG TABLET PO (07:23)
[2020-11-06] MEDS: Spironolactone 25 MG TABLET PO ×2 (07:23→21:08)
[2020-11-06] MEDS: Metoprolol Tartrate 25 MG TABLET PO (07:26)
[2020-11-06 07:31] LABS: Glucose, Whole Blood 153 mg/dL (60-115)
[2020-11-06] MEDS: Fluticasone/Vilanterol 100/25 BLST.W.DEV 1 PUFF INHALE (07:55)
[2020-11-06] MEDS: Albuterol/Iprat 2.5/0.5MG 3 ML AMPUL.NEB INHALE ×4 (07:55→19:41)
[2020-11-06 08:35] LABS: Hematocrit 29.3 % (42-52); Hemoglobin 9.3 g/dl (14.0-18.0); Mean Corpuscular HGB Conc 31.7 g/dl (31.0-36.0); Mean Corpuscular Volume 81.8 fL (80-98); Mean Platelet Volume 9.4 fL (9.4-12.4); Platelet Count 187 X10*3/uL (160-400); Red Blood Count 3.58 X10*6/uL (4.60-5.80); Red Cell Distribution Width 18.7 % (11.0-16.0); White Blood Count 8.9 X10*3/uL (4.8-10.8)
[2020-11-06 08:51] LABS: Anion Gap 15 (12-20); Blood Urea Nitrogen 16 mg/dL (9-16); Calcium 8.5 mg/dL (8.4-10.2); Carbon Dioxide 27 mmol/L (22-29); Chloride 102 mmol/L (96-108); Creatinine Clr Calc Pharmacy 48.4; Estimated Glomerular Filt Rate 42; Glucose Random 146 mg/dL (60-115); Potassium 3.8 mmol/L (3.3-5.1); Sodium 140 mmol/L (135-145)
--- NOTE | 2020-11-06 08:59 | P.PNIM_ITS ---
Subjective Subjective Date of Service: 11/06/20 Interval History: Seen in f/u gib, acute blood loss anemia, EGD 11/05 focal gastritis, duodenitis, and non bleeding gastric polyp, and having colonoscopy today Review of Systems Gen: no fever Resp: no sob, no cough CV: no chest, no ECKERT, no leg edema GI: No n/v, no abd pain, no melana Neuro: No confusion Physical Exam Vital Signs: Vital Signs: Last Vital Signs Temp 97.1 F 11/06/20 07:06 Pulse 64 11/06/20 07:56 Resp 19 11/06/20 07:06 BP 139/61 11/06/20 07:06 Pulse Ox 93 11/06/20 07:06 Body Mass Index 39.4 Const: Other: Constitutional Awake and Alert, No apparent distress Neck Supple, No lymphadenopathy Cardiovascular RRR, No M/R/G, S1 S2, No S3 S4, No pedal edema Respiratory Lungs clear, No respiratory distress Gastrointestinal Non tender, Non-distended Skin No rash Neurological Alert & oriented x3 Psychological Appropriate affect Objective Data Current Medications Generic Name Dose Route Start Last Admin Trade Name Rodq PRN Reason Stop Dose Admin Acetaminophen 650 mg 11/05/20 13:09 11/05/20 13:35 Acetaminophen 325 Mg Tablet PO 650 mg Q6H PRN Administration Pain, Mild (Pain Scale 1-3) Albuterol/Ipratropium 3 ml 11/04/20 20:00 11/06/20 07:55 Albuterol/Iprat 2.5/0.5mg 3 Ml Ampul.Neb INHALE 3 ml RQID OTILIA Administration Atorvastatin Calcium 20 mg 11/04/20 21:00 11/05/20 20:41 Atorvastatin Calcium 20 Mg Tablet PO 20 mg BEDTIME OTILIA Administration Docusate Sodium 100 mg 11/04/20 21:00 11/06/20 07:26 Docusate Sodium 100 Mg Capsule PO Not Given BID OTILIA Doxazosin Mesylate 8 mg 11/04/20 21:00 11/05/20 20:40 Doxazosin Mesylate 2 Mg Tablet PO 8 mg BEDTIME OTILIA Administration Protocol Finasteride 5 mg 11/04/20 21:00 11/05/20 20:41 Finasteride 5 Mg Tablet PO 5 mg BEDTIME OTILIA Administration Fluticasone/Vilanterol 1 puff 11/05/20 08:00 11/06/20 07:55 Fluticasone/Vilanterol 100/25 Blst.W.Dev INHALE 1 puff RDAILY OTILIA Administration Gabapentin 300 mg 11/04/20 21:00 11/06/20 07:23 Gabapentin 300 Mg Capsule PO 300 mg BID OTILIA Administration Dextrose/Sodium Chloride 1,000 mls @ 100 mls/hr 11/04/20 18:00 11/06/20 02:50 D5ns IVCONT 100 mls/hr .Q10H OTILIA Administration Sodium Chloride 500 mls @ 20 mls/hr 11/05/20 14:30 11/05/20 16:26 Ns IV Not Given .Q24H [facility] Insulin Human Lispro 0 unit 11/05/20 21:00 11/06/20 07:23 Insulin Lispro 100 Unit/Ml 3 Ml Vial SUBCUT Not Given QIDACHS [facility] Protocol Magnesium Oxide 200 mg 11/05/20 09:00 11/06/20 07:23 Magnesium Oxide 400 Mg Tablet PO 200 mg DAILY OTILIA Administration Metoprolol Tartrate 50 mg 11/04/20 21:00 11/05/20 20:41 Metoprolol Tartrate 50 Mg Tablet PO 50 mg BEDTIME OTILIA Administration Protocol Metoprolol Tartrate 25 mg 11/05/20 09:00 11/06/20 07:26 Metoprolol Tartrate 25 Mg Tablet PO 25 mg DAILY [facility] Administration Protocol Oxycodone HCl 5 mg 11/05/20 02:54 11/05/20 13:35 Oxycodone Hcl Immed Release 5 Mg Tablet PO 5 mg Q6H PRN Administration Breakthrough Pain Pantoprazole Sodium 40 mg 11/04/20 18:30 11/06/20 05:41 Pantoprazole Sodium 40 Mg/10 Ml Vial IVPUSH 40 mg BID@0630,1630 [facility] Administration Pharmacy Consult 1 each 11/04/20 14:43 Consult Rx Perform Med Rec MISCELLANE ONCE PRN Consult order Sertraline HCl 50 mg 11/05/20 09:00 11/06/20 07:23 Sertraline Hcl 50 Mg Tablet PO 50 mg DAILY OTILIA Administration Sodium Chloride 3 ml 11/05/20 00:00 11/06/20 07:24 0.9 % Sodium Chloride Flush 3 Ml Syringe IVFLUSH Not Given QSHIFT [facility] Spironolactone 25 mg 11/04/20 21:00 11/06/20 07:23 Spironolactone 25 Mg Tablet PO 25 mg BID OTILIA Administration Protocol Labs CBC & Chem 7: 11/06/20 08:22 11/06/20 08:21 Labs: Laboratory Results - last 24 hr 11/04/20 11/05/20 11/05/20 14:56 14:18 20:12 WBC RBC Hgb Hct MCV MCH MCHC RDW Plt Count MPV Absolute Nucleated RBC Nucleated RBC % (auto) Sodium Potassium Chloride Carbon Dioxide Anion Gap BUN Creatinine Estim Creat Clear Calc Estimated GFR POC Glucose 132 H 196 H Random Glucose Calcium Blood Type O Positive Antibody Screen NEGATIVE Crossmatch See Detail 11/06/20 11/06/20 11/06/20 07:04 08:21 08:22 WBC 8.9 RBC 3.58 L Hgb 9.3 L D Hct 29.3 L MCV 81.8 MCH 26.0 L MCHC 31.7 RDW 18.7 H Plt Count 187 MPV 9.4 Absolute Nucleated RBC 0.000 Nucleated RBC % (auto) 0.0 Sodium 140 Potassium 3.8 Chloride 102 Carbon Dioxide 27 Anion Gap 15 BUN 16 Creatinine 1.59 H Estim Creat Clear Calc 48.4 Estimated GFR 42 POC Glucose 153 H Random Glucose 146 H Calcium 8.5 Blood Type Antibody Screen Crossmatch Quality Stroke Does the patient have a stroke diagnosis?: No VTE Prior VTE?: No VTE Risk Level:: Medical - moderate - high VTE Device Contraindication: N/A - Device Ordered VTE Drug Contraindication: Treatment Not Tolerated Assessment and Plan (1) GIB (gastrointestinal bleeding): Status: Acute (2) Acute blood loss anemia: Status: Acute (3) CKD (chronic kidney disease) stage 3, GFR 30-59 ml/min: Status: Acute (4) Diabetes type 2, uncontrolled: Status: Acute (5) CAD (coronary artery disease): Status: Acute (6) HTN (hypertension): Status: Acute (7) Hyperlipidemia: Status: Acute (8) Morbid obesity: Status: Acute (9) Diabetes mellitus: Status: Acute Assessment and Plan: 75 yo male with hx CAD of CABG about 6 years ago on aspirin and plavix, CKD3, HLD, DM, HTN here with shortness of breath intermittent shortness of breath and weakness that is much more pronouced today and is found to have profound anemia hemoglobin of 6, baseline 11 and positive FOBT--he is likely has acute blood loss anemia due upper GIB from combination of Plavix, ASA..DDx: gastritis, gastric ulcer, esophatitis.. 1/Acute blood loss anemia 2/GIB, likely upper GIB -H/H is better this morning but not optimal Transfuse 2 more units, H/H better EGD 11/05 focal gastritis, duodenitis, and non bleeding gastric polyp -colonoscopy today -continue IV Protonix -stopped ASA and Plavix 3/ CAD--sob, and chest likely d/t to seveer anemia, he recently had a normal stress on September 02, ECG is unchange, so I don't there is indication for further cardiac work up before operation. -Continue cardiac meds of Metoprolol, Statin, holding ASA and Plavix as stated 4/ Diagetes--while NPO, hold insulin and Metformin, actually Metfomin should be avoid due to CKD, SSI, 5/ HTN--continue Metoporolol, Aldactone 6/ Chronic heart failure--appear euvolemic, would continue home dose of Lasix, aldactone, 7/HLd--Statin 8/ BPH--Finesterid 9/ Peripheral Neuropathy--Gabapentin 10/CKD 3, stable 11/ DVT prophylaxis--no chemical, mechanical device Full Code, plan discussed with patient Dispo: pending colonoscopy finding
[2020-11-06 10:59] LABS: Glucose, Whole Blood 130 mg/dL (60-115)
--- NOTE | 2020-11-06 11:10 | P.CONAN_ITS ---
REPLACED BY [facility] Active Problems Active Problems: All Active Problems (Updated 11/04/20 @ 18:12 by Josr smith MD) Acute blood loss anemia (Acute) GIB (gastrointestinal bleeding) (Acute) History of coronary artery bypass graft x 3 (Acute) Preoperative cardiovascular examination (Acute) Acute dyspnea (Acute) Anemia (Acute) Weakness (Acute) Dyslipidemia (Acute) roasterman (current) use of insulin (Acute) CKD (chronic kidney disease) stage 3, GFR 30-59 ml/min (Acute) Diabetic nephropathy associated with type 2 diabetes mellitus (Acute) Diabetes type 2, uncontrolled (Acute) CAD (coronary artery disease) (Acute) HTN (hypertension) (Acute) Hyperlipidemia (Acute) Diabetes mellitus (Acute) Morbid obesity (Acute) Past Medical History Medical History CAD (coronary artery disease) CKD (chronic kidney disease) stage 3, GFR 30-59 ml/min COPD (chronic obstructive pulmonary disease) COPD (chronic obstructive pulmonary disease) case management patient Diabetes mellitus Diabetes type 2, uncontrolled Diabetic nephropathy associated with type 2 diabetes mellitus Dyslipidemia HTN (hypertension) Hyperlipidemia long-term (current) use of insulin Morbid obesity Family History Family History Father No problems noted. Mother Cancer Surgical History Surgical History H/O shoulder surgery Hx of CABG Hx of colonoscopy S/P triple vessel bypass Social History Social History Household Members: Spouse Housing: House Do you presently have visiting nurse or other home services: No Patient Tobacco Use Status: Former Tobacco user Quit Date: 1989 Tobacco use type: Cigarette Years Smoked: 25 Smoked in Last 30 Days: No Use of substances other than those prescribed or required for medical reasons: Yes Currently Displaying Signs/Symptoms of Drug Intoxication Withdrawal: No Have you been hit, kicked, punched, or otherwise hurt by someone within the past year? If so, by whom?: No Do you feel safe in your current relationship?: Yes Are you made to feel afraid or neglected: No Are you DNR?: No Advance Directives: No Advance Directives Information Provided: No Do you have thoughts of harming others: None Do you have a plan to hurt others: No Plan Recently lost weight without trying: No How much weight loss: Not applicable Eating poorly because of decreased appetite: No Nutrition screen score: 0 Nutrition Risks: No Nutritional Risk Poor oral hygiene: No service: No Current occupational status: retired Meds Allergies Allergy/AdvReac Type Severity Reaction Status Date / Time No Known Allergies Allergy Verified 11/05/20 14:07 Active Medications: Current Medications Generic Name Dose Route Start Last Admin Trade Name Freq PRN Reason Stop Dose Admin Acetaminophen 650 mg 11/05/20 13:09 11/05/20 13:35 Acetaminophen 325 Mg Tablet PO 650 mg Q6H PRN Administration Pain, Mild (Pain Scale 1-3) Albuterol Sulfate 2.5 mg 11/06/20 11:08 Albuterol Sulfate (0.083%) 2.5 Mg/3 Ml Vial.Neb INHALE ONCE PRN Shortness of Breath/Wheezing Albuterol/Ipratropium 3 ml 11/04/20 20:00 11/06/20 07:55 Albuterol/Iprat 2.5/0.5mg 3 Ml Ampul.Neb INHALE 3 ml RQID OTILIA Administration Atorvastatin Calcium 20 mg 11/04/20 21:00 11/05/20 20:41 Atorvastatin Calcium 20 Mg Tablet PO 20 mg BEDTIME OTILIA Administration Docusate Sodium 100 mg 11/04/20 21:00 11/06/20 07:26 Docusate Sodium 100 Mg Capsule PO Not Given BID OTILIA Doxazosin Mesylate 8 mg 11/04/20 21:00 11/05/20 20:40 Doxazosin Mesylate 2 Mg Tablet PO 8 mg BEDTIME OTILIA Administration Protocol Finasteride 5 mg 11/04/20 21:00 11/05/20 20:41 Finasteride 5 Mg Tablet PO 5 mg BEDTIME OTILIA Administration Fluticasone/Vilanterol 1 puff 11/05/20 08:00 11/06/20 07:55 Fluticasone/Vilanterol 100/25 Blst.W.Dev INHALE 1 puff RDAILY OTILIA Administration Gabapentin 300 mg 11/04/20 21:00 11/06/20 07:23 Gabapentin 300 Mg Capsule PO 300 mg BID OTILIA Administration Dextrose/Sodium Chloride 1,000 mls @ 100 mls/hr 11/04/20 18:00 11/06/20 02:50 D5ns IVCONT 100 mls/hr .Q10H OTILIA Administration Sodium Chloride 500 mls @ 20 mls/hr 11/05/20 14:30 11/05/20 16:26 Ns IV Not Given .Q24H [facility] Insulin Human Lispro 0 unit 11/05/20 21:00 11/06/20 07:23 Insulin Lispro 100 Unit/Ml 3 Ml Vial SUBCUT Not Given QIDACHS [facility] Protocol Magnesium Oxide 200 mg 11/05/20 09:00 11/06/20 07:23 Magnesium Oxide 400 Mg Tablet PO 200 mg DAILY OTILIA Administration Metoprolol Tartrate 50 mg 11/04/20 21:00 11/05/20 20:41 Metoprolol Tartrate 50 Mg Tablet PO 50 mg BEDTIME OTILIA Administration Protocol Metoprolol Tartrate 25 mg 11/05/20 09:00 11/06/20 07:26 Metoprolol Tartrate 25 Mg Tablet PO 25 mg DAILY [facility] Administration Protocol Oxycodone HCl 5 mg 11/05/20 02:54 11/05/20 13:35 Oxycodone Hcl Immed Release 5 Mg Tablet PO 5 mg Q6H PRN Administration Breakthrough Pain Pantoprazole Sodium 40 mg 11/04/20 18:30 11/06/20 05:41 Pantoprazole Sodium 40 Mg/10 Ml Vial IVPUSH 40 mg BID@0630,1630 [facility] Administration Pharmacy Consult 1 each 11/04/20 14:43 Consult Rx Perform Med Rec MISCELLANE ONCE PRN Consult order Sertraline HCl 50 mg 11/05/20 09:00 11/06/20 07:23 Sertraline Hcl 50 Mg Tablet PO 50 mg DAILY [facility] Administration Sodium Chloride 3 ml 11/05/20 00:00 11/06/20 07:24 0.9 % Sodium Chloride Flush 3 Ml Syringe IVFLUSH Not Given QSHIFT [facility] Spironolactone 25 mg 11/04/20 21:00 11/06/20 07:23 Spironolactone 25 Mg Tablet PO 25 mg BID [facility] Administration Protocol Home Medications Medication Instructions Recorded Confirmed Last Taken Type aspirin 81 mg tablet,delayed 81 mg PO DAILY 02/25/20 11/04/20 11/04/20 History release doxazosin 8 mg tablet 8 mg PO BEDTIME 02/25/20 11/04/20 11/03/20 History finasteride 5 mg tablet 5 mg PO BEDTIME 02/25/20 11/04/20 11/03/20 History furosemide 80 mg tablet 80 mg PO BID 02/25/20 11/04/20 11/04/20 History magnesium 250 mg tablet 250 mg PO DAILY 02/25/20 11/04/20 11/04/20 History sertraline 50 mg tablet 50 mg PO DAILY 02/25/20 11/04/20 11/04/20 History simvastatin 40 mg tablet 40 mg PO BEDTIME 02/25/20 11/04/20 11/03/20 History spironolactone 25 mg tablet 25 mg PO BID 02/25/20 11/04/20 11/04/20 History amitriptyline 25 mg tablet 25 mg PO BEDTIME 03/05/20 11/04/20 11/03/20 History lancets 33 gauge #100 ea 03/11/20 09/03/20 Unknown History clopidogrel 75 mg tablet 75 mg PO DAILY 08/25/20 11/04/20 11/04/20 History fluticasone 250 mcg-salmeterol 50 1 ea INHALATION BID 08/25/20 11/04/20 11/04/20 History mcg/dose blistr powdr for inhalation gabapentin 300 mg capsule 300 mg PO BID cap 08/25/20 11/04/20 11/04/20 History metoprolol tartrate 25 mg tablet 25 mg PO DAILY tab 08/25/20 11/04/20 11/04/20 History docusate sodium 100 mg PO BID 11/04/20 11/04/20 11/04/20 History famotidine 20 mg PO DAILY 11/04/20 11/04/20 11/04/20 History insulin NPH and regular human 80 unit SUBCUT BID 11/04/20 11/04/20 11/04/20 History [Humulin 70/30 U-100 Insulin] ipratropium-albuterol 3 ml INHALATION QID 11/04/20 11/04/20 Unknown History metoprolol tartrate 50 mg PO BEDTIME 11/04/20 11/04/20 11/03/20 History Exam Exam Date and Time: November 06, 2020 1110 Height,Weight and Vital Signs: Height 5 ft 8 in Weight 117.48 kg Last Vital Signs Temp 99.8 F 11/06/20 10:49 Pulse 62 11/06/20 10:49 Resp 18 11/06/20 10:49 BP 138/60 11/06/20 10:49 Pulse Ox 95 11/06/20 10:49 Pertinent Lab Results Pertinent Lab Results: Laboratory Tests 11/04/20 11/04/20 11/04/20 13:53 13:53 13:53 WBC 8.4 RBC 2.80 L D Hgb 6.6 L* D Hct 22.0 L D MCV 78.6 L MCH 23.6 L MCHC 30.0 L RDW 18.3 H Plt Count 182 MPV Not Reportable Immature Gran % (Auto) 1.2 H Neut % (Auto) 77.6 H Lymph % (Auto) 9.7 L Letcher % (Auto) 8.8 Eos % (Auto) 2.3 Baso % (Auto) 0.4 Lymph # (Auto) 0.8 L Letcher # (Auto) 0.7 Eos # (Auto) 0.2 Baso # (Auto) 0.0 Abs Immat Gran (auto) 0.10 H Absolute Neuts (auto) 6.5 Absolute Nucleated RBC 0.000 Nucleated RBC % (auto) 0.0 Smear Tech's Comments VERIFIED PT INR APTT Sodium 141 Potassium 4.2 Chloride 102 Carbon Dioxide 26 Anion Gap 17 BUN 25 H Creatinine 1.82 H Estim Creat Clear Calc 42.3 Estimated GFR 36 POC Glucose Random Glucose 113 Calcium 8.9 Magnesium 2.5 Total Bilirubin 0.5 Direct Bilirubin < 0.2 AST 19 ALT 9 Alkaline Phosphatase 127 H D Troponin I High Sens < 3.5 B-Natriuretic Peptide 143 H Total Protein 6.4 L Albumin 4.0 Stool Occult Blood COVID-19 (LONNIE) COVID-19 Clin Com Blood Type Antibody Screen Crossmatch 11/04/20 11/04/20 11/04/20 13:53 13:53 14:56 WBC RBC Hgb Hct MCV MCH MCHC RDW Plt Count MPV Immature Gran % (Auto) Neut % (Auto) Lymph % (Auto) Letcher % (Auto) Eos % (Auto) Baso % (Auto) Lymph # (Auto) Letcher # (Auto) Eos # (Auto) Baso # (Auto) Abs Immat Gran (auto) Absolute Neuts (auto) Absolute Nucleated RBC Nucleated RBC % (auto) Smear Tech's Comments PT 13.3 H INR 1.2 H APTT 40.7 H Sodium Potassium Chloride Carbon Dioxide Anion Gap BUN Creatinine Estim Creat Clear Calc Estimated GFR POC Glucose Random Glucose Calcium Magnesium Total Bilirubin Direct Bilirubin AST ALT Alkaline Phosphatase Troponin I High Sens B-Natriuretic Peptide Total Protein Albumin Stool Occult Blood POSITIVE COVID-19 (LONNIE) Negative COVID-19 Clin Com See Note Blood Type Antibody Screen Crossmatch 11/04/20 11/04/20 11/04/20 14:56 15:02 20:06 WBC RBC Hgb Hct MCV MCH MCHC RDW Plt Count MPV Immature Gran % (Auto) Neut % (Auto) Lymph % (Auto) Letcher % (Auto) Eos % (Auto) Baso % (Auto) Lymph # (Auto) Letcher # (Auto) Eos # (Auto) Baso # (Auto) Abs Immat Gran (auto) Absolute Neuts (auto) Absolute Nucleated RBC Nucleated RBC % (auto) Smear Tech's Comments PT INR APTT Sodium Potassium Chloride Carbon Dioxide Anion Gap BUN Creatinine Estim Creat Clear Calc Estimated GFR POC Glucose 94 78 Random Glucose Calcium Magnesium Total Bilirubin Direct Bilirubin AST ALT Alkaline Phosphatase Troponin I High Sens B-Natriuretic Peptide Total Protein Albumin Stool Occult Blood COVID-19 (LONNIE) COVID-19 Clin Com Blood Type O Positive Antibody Screen NEGATIVE Crossmatch See Detail 11/05/20 11/05/20 11/05/20 05:48 14:18 20:12 WBC 8.9 RBC 3.11 L Hgb 7.7 L Hct 24.8 L MCV 79.7 L MCH 24.8 L MCHC 31.0 RDW 18.6 H Plt Count 197 MPV 10.2 Immature Gran % (Auto) 0.7 H Neut % (Auto) 80.6 H Lymph % (Auto) 7.3 L Letcher % (Auto) 8.9 Eos % (Auto) 2.3 Baso % (Auto) 0.2 Lymph # (Auto) 0.7 L Letcher # (Auto) 0.8 Eos # (Auto) 0.2 Baso # (Auto) 0.0 Abs Immat Gran (auto) 0.06 H Absolute Neuts (auto) 7.1 Absolute Nucleated RBC 0.000 Nucleated RBC % (auto) 0.0 Smear Tech's Comments PT INR APTT Sodium Potassium Chloride Carbon Dioxide Anion Gap BUN Creatinine Estim Creat Clear Calc Estimated GFR POC Glucose 132 H 196 H Random Glucose Calcium Magnesium Total Bilirubin Direct Bilirubin AST ALT Alkaline Phosphatase Troponin I High Sens B-Natriuretic Peptide Total Protein Albumin Stool Occult Blood COVID-19 (LONNIE) COVID-19 Digital Assent Blood Type Antibody Screen Crossmatch 11/06/20 11/06/20 11/06/20 07:04 08:21 08:22 WBC 8.9 RBC 3.58 L Hgb 9.3 L D Hct 29.3 L MCV 81.8 MCH 26.0 L MCHC 31.7 RDW 18.7 H Plt Count 187 MPV 9.4 Immature Gran % (Auto) Neut % (Auto) Lymph % (Auto) Letcher % (Auto) Eos % (Auto) Baso % (Auto) Lymph # (Auto) Letcher # (Auto) Eos # (Auto) Baso # (Auto) Abs Immat Gran (auto) Absolute Neuts (auto) Absolute Nucleated RBC 0.000 Nucleated RBC % (auto) 0.0 Smear Tech's Comments PT INR APTT Sodium 140 Potassium 3.8 Chloride 102 Carbon Dioxide 27 Anion Gap 15 BUN 16 Creatinine 1.59 H Estim Creat Clear Calc 48.4 Estimated GFR 42 POC Glucose 153 H Random Glucose 146 H Calcium 8.5 Magnesium Total Bilirubin Direct Bilirubin AST ALT Alkaline Phosphatase Troponin I High Sens B-Natriuretic Peptide Total Protein Albumin Stool Occult Blood COVID-19 (LONNIE) COVID-19 Digital Assent Blood Type Antibody Screen Crossmatch 11/06/20 10:55 WBC RBC Hgb Hct MCV MCH MCHC RDW Plt Count MPV Immature Gran % (Auto) Neut % (Auto) Lymph % (Auto) Letcher % (Auto) Eos % (Auto) Baso % (Auto) Lymph # (Auto) Letcher # (Auto) Eos # (Auto) Baso # (Auto) Abs Immat Gran (auto) Absolute Neuts (auto) Absolute Nucleated RBC Nucleated RBC % (auto) Smear Tech's Comments PT INR APTT Sodium Potassium Chloride Carbon Dioxide Anion Gap BUN Creatinine Estim Creat Clear Calc Estimated GFR POC Glucose 130 H Random Glucose Calcium Magnesium Total Bilirubin Direct Bilirubin AST ALT Alkaline Phosphatase Troponin I High Sens B-Natriuretic Peptide Total Protein Albumin Stool Occult Blood COVID-19 (LONNIE) COVID-19 Digital Assent Blood Type Antibody Screen Crossmatch Airway Mallampati Class: II TM Dist: >3cm Neck ROM: Full Assessment and Plan Assessment Anesthesia Assessment: Anesthesia Plan Discussed and Chart Reviewed Final Anesthetic Review NPO: Yes ASA Class: III Final Preanesthetic Review: No Changes in Pt Med Stat, Meds/Allgs Chart Reviewed, Consent Obtained/Reviewed and Anes Risks/Benef Reviewed Patient Risk: Intermediate Procedure Risk: Low Assessment/Block/Sedation in SS: Assess/Block/Sedation-SS Anesthetic Plan Anesthetic Plan: MAC: Disposition: Standard PACU
--- NOTE | 2020-11-06 11:30 | MHC.SHP ---
Pre-Procedural Eval Section A Date of Service: 11/06/20 The patient is an INPATIENT: Yes Changes since office visit: No Cold of Flu in the past 2 weeks, No New Medical Problems, No Changes in Medication and No Patient answered all questions The History & Physical has been completed within 30 days and I have reviewed it.: Yes Section B Chief Complaint: difficulty breathing Allergies: Allergies Allergy/AdvReac Type Severity Reaction Status Date / Time No Known Allergies Allergy Verified 11/05/20 14:07 Plan I have reviewed the history and physical and performed a pertinent physical examination on my patient. No changes have occurred unless specified.
--- NOTE | 2020-11-06 12:37 | P.BOP_ITS ---
Brief Operative Note Date of Service: 11/06/20 Pre-op diagnosis: anemia, heme positive Post-op diagnosis: same (cecal mass, colon polyps, diverticulosis) Procedure: colonoscopy/bx Surgeon: Daniel Rebolledo Anesthesia: MAC Was an [employer] used for this Procedure?: No Estimated blood loss (mL): 10 Pathology: other (biopsies cecal mass) Condition: stable Disposition: PACU
--- NOTE | 2020-11-06 12:39 | PM.EVENT ---
Event Note Date of Service: 11/06/20 Event Note: Colonoscopy note dictated 2.5 cm polypoid cecal mass, biopsied multiple polyps, not removed secondary to plavix use. diverticulosis rec advance diet f/u bx results surg. consult
[2020-11-06 13:56] LABS: Glucose, Whole Blood 127 mg/dL (60-115)
[2020-11-06 16:14] LABS: Glucose, Whole Blood 146 mg/dL (60-115)
--- NOTE | 2020-11-06 16:32 | PM.CNGS ---
History of Present Illness Consult details Consult date: 11/06/20 Narrative: 75-year-old male, who was admitted on November 05, 2020 because of shortness of breath. He was noted to be anemic at that time with a hemoglobin of 6. His baseline was around 11. He denied any obvious bleeding per rectum at that time. He was transfused packed RBCs he now feels much better and says he is pretty much back to his baseline. He underwent a colonoscopy today which showed a cecal mass which was suspicious for a neoplastic process. I was therefore consulted. He has multiple medical problems including coronary disease. He has a history of a CABG in the past. He was therefore on Plavix and aspirin. Review of Systems Constitutional: Constitutional: Denies chills and Denies fever(s) Cardiovascular: Cardiovascular: Denies chest pain, Reports dyspnea and Reports dyspnea on exertion Respiratory: Respiratory: Denies cough, Reports dyspnea and Reports dyspnea on exertion Gastrointestinal: Gastrointestinal: Denies hematochezia and Denies change in bowel habits Genitourinary: Genitourinary: Denies hematuria and Denies difficulty urinating Musculoskeletal: Musculoskeletal: Denies back pain and Denies limited range of motion Neurologic: Denies focal weakness and Denies convulsions Psychiatric: Psychiatric: Denies depression and Denies mood swings PMFSH Past Medical History Medical History (Updated 11/06/20 @ 16:35 by Martínez Perea MD) CAD (coronary artery disease) Cecum mass CKD (chronic kidney disease) stage 3, GFR 30-59 ml/min COPD (chronic obstructive pulmonary disease) COPD (chronic obstructive pulmonary disease) case management patient Diabetes mellitus Diabetes type 2, uncontrolled Diabetic nephropathy associated with type 2 diabetes mellitus Dyslipidemia HTN (hypertension) Hyperlipidemia senior living (current) use of insulin Morbid obesity Family History Family History Father No problems noted. Mother Cancer Surgical History Surgical History H/O shoulder surgery Hx of CABG Hx of colonoscopy S/P triple vessel bypass Social History Social History Household Members: Spouse Housing: House Do you presently have visiting nurse or other home services: No Patient Tobacco Use Status: Former Tobacco user Quit Date: 1989 Tobacco use type: Cigarette Years Smoked: 25 service: No Current occupational status: retired Meds Allergies Allergy/AdvReac Type Severity Reaction Status Date / Time No Known Allergies Allergy Verified 11/05/20 14:07 Active Medications: Current Medications Generic Name Dose Route Start Last Admin Trade Name Edvin PRN Reason Stop Dose Admin Acetaminophen 650 mg 11/05/20 13:09 11/05/20 13:35 Acetaminophen 325 Mg Tablet PO 650 mg Q6H PRN Administration Pain, Mild (Pain Scale 1-3) Albuterol Sulfate 2.5 mg 11/06/20 11:08 Albuterol Sulfate (0.083%) 2.5 Mg/3 Ml Vial.Neb INHALE ONCE PRN Shortness of Breath/Wheezing Albuterol/Ipratropium 3 ml 11/04/20 20:00 11/06/20 15:56 Albuterol/Iprat 2.5/0.5mg 3 Ml Ampul.Neb INHALE 3 ml RQID OTILIA Administration Atorvastatin Calcium 20 mg 11/04/20 21:00 11/05/20 20:41 Atorvastatin Calcium 20 Mg Tablet PO 20 mg BEDTIME OTILIA Administration Docusate Sodium 100 mg 11/04/20 21:00 11/06/20 07:26 Docusate Sodium 100 Mg Capsule PO Not Given BID OTILIA Doxazosin Mesylate 8 mg 11/04/20 21:00 11/05/20 20:40 Doxazosin Mesylate 2 Mg Tablet PO 8 mg BEDTIME OTILIA Administration Protocol Finasteride 5 mg 11/04/20 21:00 11/05/20 20:41 Finasteride 5 Mg Tablet PO 5 mg BEDTIME OTILIA Administration Fluticasone/Vilanterol 1 puff 11/05/20 08:00 11/06/20 07:55 Fluticasone/Vilanterol 100/25 Blst.W.Dev INHALE 1 puff RDAILY OTILIA Administration Gabapentin 300 mg 11/04/20 21:00 11/06/20 07:23 Gabapentin 300 Mg Capsule PO 300 mg BID OTILIA Administration Dextrose/Sodium Chloride 1,000 mls @ 100 mls/hr 11/04/20 18:00 11/06/20 15:23 D5ns IVCONT Infused .Q10H OTILIA Infusion Sodium Chloride 500 mls @ 20 mls/hr 11/05/20 14:30 11/06/20 15:02 Ns IV Not Given .Q24H OTILIA Insulin Human Lispro 0 unit 11/05/20 21:00 11/06/20 16:08 Insulin Lispro 100 Unit/Ml 3 Ml Vial SUBCUT Not [facility] Protocol Magnesium Oxide 200 mg 11/05/20 09:00 11/06/20 07:23 Magnesium Oxide 400 Mg Tablet PO 200 mg DAILY [facility] Administration Metoprolol Tartrate 50 mg 11/04/20 21:00 11/05/20 20:41 Metoprolol Tartrate 50 Mg Tablet PO 50 mg BEDTIME [facility] Administration Protocol Metoprolol Tartrate 25 mg 11/05/20 09:00 11/06/20 07:26 Metoprolol Tartrate 25 Mg Tablet PO 25 mg DAILY [facility] Administration Protocol Oxycodone HCl 5 mg 11/05/20 02:54 11/05/20 13:35 Oxycodone Hcl Immed Release 5 Mg Tablet PO 5 mg Q6H PRN Administration [facility] Pantoprazole Sodium 40 mg 11/04/20 18:30 11/06/20 05:41 Pantoprazole Sodium 40 Mg/10 Ml Vial IVPUSH 40 mg BID@0630,1630 [facility] Administration Pharmacy Consult 1 each 11/04/20 14:43 Consult Rx Perform Med Rec MISCELLANE ONCE PRN Consult order Sertraline HCl 50 mg 11/05/20 09:00 11/06/20 07:23 Sertraline Hcl 50 Mg Tablet PO 50 mg DAILY [facility] Administration Sodium Chloride 3 ml 11/05/20 00:00 11/06/20 15:13 0.9 % Sodium Chloride Flush 3 Ml Syringe IVFLUSH Not [facility] Spironolactone 25 mg 11/04/20 21:00 11/06/20 07:23 Spironolactone 25 Mg Tablet PO 25 mg BID [facility] Administration Protocol Home Medications Medication Instructions Recorded Confirmed Last Taken Type aspirin 81 mg tablet,delayed 81 mg PO DAILY 02/25/20 11/04/20 11/04/20 History release doxazosin 8 mg tablet 8 mg PO BEDTIME 02/25/20 11/04/20 11/03/20 History finasteride 5 mg tablet 5 mg PO BEDTIME 02/25/20 11/04/20 11/03/20 History furosemide 80 mg tablet 80 mg PO BID 02/25/20 11/04/20 11/04/20 History magnesium 250 mg tablet 250 mg PO DAILY 02/25/20 11/04/20 11/04/20 History sertraline 50 mg tablet 50 mg PO DAILY 02/25/20 11/04/20 11/04/20 History simvastatin 40 mg tablet 40 mg PO BEDTIME 02/25/20 11/04/20 11/03/20 History spironolactone 25 mg tablet 25 mg PO BID 02/25/20 11/04/20 11/04/20 History amitriptyline 25 mg tablet 25 mg PO BEDTIME 03/05/20 11/04/20 11/03/20 History lancets 33 gauge #100 ea 03/11/20 09/03/20 Unknown History fluticasone 250 mcg-salmeterol 50 1 ea INHALATION BID 08/25/20 11/04/20 11/04/20 History mcg/dose blistr powdr for inhalation gabapentin 300 mg capsule 300 mg PO BID cap 08/25/20 11/04/20 11/04/20 History metoprolol tartrate 25 mg tablet 25 mg PO DAILY tab 08/25/20 11/04/20 11/04/20 History Humulin 70/30 U-100 Insulin 80 unit SUBCUT BID 11/04/20 11/04/20 11/04/20 History docusate sodium 100 mg PO BID 11/04/20 11/04/20 11/04/20 History ipratropium-albuterol 3 ml INHALATION QID 11/04/20 11/04/20 Unknown History metoprolol tartrate 50 mg PO BEDTIME 11/04/20 11/04/20 11/03/20 History Physical Exam Vital Signs: Vital Signs: Last Vital Signs Temp 97.3 F 11/06/20 15:20 Pulse 65 11/06/20 15:57 Resp 17 11/06/20 15:20 BP 145/65 H 11/06/20 15:20 Pulse Ox 95 11/06/20 15:20 Body Mass Index 39.4 Const: Other: Appears morbidly obese General: comfortable and no acute distress Orientation/consciousness: patient oriented x3 Neck: Neck: Yes no lymphadenopathy Resp: Auscultation: clear to auscultation bilaterally Cardio: Rhythm: regular rhythm GI: Other: epigastric hernia, about 3 cm defect, easily reducible, nontender, rounded and very protuberant abdomen Palpation (GI): Soft to palpation, nontender and no guarding Neuro: General: patient oriented x3 Results Labs Result diagrams: 11/06/20 08:22 11/06/20 08:21 Labs: Abnormal lab results 11/04/20 11/05/20 11/06/20 Range/Units 14:56 20:12 07:04 RBC (4.60-5.80) X10*6/uL Hgb (14.0-18.0) g/dl Hct (42-52) % MCH (27.0-33.0) pg RDW (11.0-16.0) % Creatinine (0.5-1.4) mg/dL POC Glucose 196 H 153 H (60-115) mg/dL Random Glucose (60-115) mg/dL Crossmatch See Detail 11/06/20 11/06/20 11/06/20 Range/Units 08:21 08:22 10:55 RBC 3.58 L (4.60-5.80) X10*6/uL Hgb 9.3 L D (14.0-18.0) g/dl Hct 29.3 L (42-52) % MCH 26.0 L (27.0-33.0) pg RDW 18.7 H (11.0-16.0) % Creatinine 1.59 H (0.5-1.4) mg/dL POC Glucose 130 H (60-115) mg/dL Random Glucose 146 H (60-115) mg/dL Crossmatch 11/06/20 11/06/20 Range/Units 13:48 16:01 RBC (4.60-5.80) X10*6/uL Hgb (14.0-18.0) g/dl Hct (42-52) % MCH (27.0-33.0) pg RDW (11.0-16.0) % Creatinine (0.5-1.4) mg/dL POC Glucose 127 H 146 H (60-115) mg/dL Random Glucose (60-115) mg/dL Crossmatch Short CBC 11/06/20 Range/Units 08:22 WBC 8.9 (4.8-10.8) X10*3/uL Hgb 9.3 L D (14.0-18.0) g/dl Hct 29.3 L (42-52) % Plt Count 187 (160-400) X10*3/uL BMP 11/06/20 08:21 Sodium 140 Potassium 3.8 Chloride 102 Carbon Dioxide 27 BUN 16 Creatinine 1.59 H Calcium 8.5 All other labs normal. Assessment and Plan (1) Cecum mass: Status: Acute He underwent a colonoscopy with Dr. Rebolledo today which showed a cecal mass suspicious for neoplastic process. We will await for the biopsy reports. I did explain to him and his that there is likely possibility that he will require surgical resection, with hand assisted right colon resection. If his hemoglobin is stable, he may necessarily need to stay as an inpatient for this. He has multiple medical problems so he should be worked up for this in preparation for surgery down the line. I will order a CT scan for metastatic workup as well. He is hemodynamically stable now and appears comfortable. I will follow along while he is in the hospital. His was with him during the discussion. Procedures Date of Service Date of Service: 11/06/20
[2020-11-06 20:23] LABS: Glucose, Whole Blood 236 mg/dL (60-115)
--- NOTE | 2020-11-06 20:43 | OP_ITS ---
SURGEON: Daniel Rebolledo MD INDICATIONS: Anemia and Hemoccult-positive stools. PREOPERATIVE DIAGNOSIS: POSTOPERATIVE DIAGNOSIS: PROCEDURE PERFORMED: ESTIMATED BLOOD LOSS: COMPLICATIONS: ANESTHESIA: Monitored anesthesia care. ASSISTANTS: SPECIMENS: PROCEDURE: Colonoscopy to the cecum with biopsy. DESCRIPTION OF PROCEDURE: History and physical was performed. The risks and benefits of the procedure were explained to the patient. Informed consent was obtained. The patient was placed in left lateral decubitus position. A digital rectal exam was performed and was found to be normal. An Olympus pediatric video colonoscope was introduced into the rectum and advanced to the cecum without difficulty. The cecum was identified by transillumination, palpation, and identification of ileocecal valve. Examination was performed. The scope was removed. He tolerated the procedure well and was transferred to recovery area in stable condition. FINDINGS: The terminal ileum was not examined. There was a large amount of liquid stool in the right colon, cecum, and transverse colon which was washed and suctioned. This did limit the sensitivity of examination for detection of small polyps and the cecum was a polypoid mass lesion measuring approximately 2 cm to 2.5 cm that seemed to have a fairly broad base and appeared to be in the vicinity of the appendiceal orifice. The lesion did not appear amenable to endoscopic resection; however, visualization was less than optimal. Biopsies were obtained from the lesion which was friable. There were other polyps, which were identified and not removed as the patient had not stopped his Plavix until the day of admission. These were between 5 mm and 10 mm and located in the hepatic flexure, 2 at 50 cm, 1 at 30 cm, and 1 at 25 cm. There were 2 other small less than 5 mm polyps in the vicinity of the polypoid cecal lesion. There was extensive diverticulosis in the sigmoid and throughout the colon, and the sigmoid was quite redundant. The exam was extended and difficult due to the patient's anatomy and the prep. Retroflexed examination showed internal hemorrhoids that were small to moderate in size. IMPRESSION: 1. Polypoid cecal mass lesion as above. 2. Multiple colonic polyps. 3. Diverticulosis. RECOMMENDATIONS: 1. Follow up the biopsy results. 2. Surgical consultation. MD RUTH Teran/TONY / [id number]
[2020-11-06] MEDS: Doxazosin Mesylate 2 MG TABLET 8 MG PO (21:07)
[2020-11-06] MEDS: Atorvastatin Calcium 20 MG TABLET PO (21:07)
[2020-11-06] MEDS: Finasteride 5 MG TABLET PO (21:07)
[2020-11-06] MEDS: Docusate Sodium 100 MG CAPSULE PO (21:07)
[2020-11-06] MEDS: Metoprolol Tartrate 50 MG TABLET PO (21:08)
[2020-11-06] MEDS: Insulin Lispro 100 UNIT/ML 3 ML VIAL SUBCUT (21:09)
[2020-11-06] MEDS: 0.9 % Sodium Chloride Flush 3 ML SYRINGE IVFLUSH (21:11)
[2020-11-06] MEDS: oxyCODONE HCl Immed Release 5 MG TABLET PO (21:11)
[2020-11-06] MEDS: Acetaminophen 325 MG TABLET 650 MG PO (21:11)
[2020-11-07] VITALS (7 sets, daily range): BP systolic 123–140; BP diastolic 60–63; PULSE 63–69; RESP 18; TEMP 35.8–36.6; O2SAT 91–96
[2020-11-07] MEDS: Pantoprazole Sodium 40 MG/10 ML VIAL IVPUSH (05:43)
[2020-11-07 07:45] LABS: Glucose, Whole Blood 187 mg/dL (60-115)
[2020-11-07] MEDS: Albuterol/Iprat 2.5/0.5MG 3 ML AMPUL.NEB INHALE ×2 (07:52→11:19)
[2020-11-07] MEDS: Fluticasone/Vilanterol 100/25 BLST.W.DEV 1 PUFF INHALE (07:52)
[2020-11-07] MEDS: 0.9 % Sodium Chloride Flush 3 ML SYRINGE IVFLUSH (07:56)
[2020-11-07] MEDS: Insulin Lispro 100 UNIT/ML 3 ML VIAL SUBCUT ×2 (07:56→11:35)
[2020-11-07] MEDS: Sertraline HCL 50 MG TABLET PO (08:18)
[2020-11-07] MEDS: Gabapentin 300 MG CAPSULE PO (08:18)
[2020-11-07] MEDS: Metoprolol Tartrate 25 MG TABLET PO (08:18)
[2020-11-07] MEDS: Magnesium Oxide 400 MG TABLET 200 MG PO (08:18)
[2020-11-07] MEDS: Spironolactone 25 MG TABLET PO (08:18)
[2020-11-07] MEDS: Docusate Sodium 100 MG CAPSULE PO (08:18)
--- NOTE | 2020-11-07 08:40 | HO.POSTANES ---
Post Anesthesia Evaluation Post Anesthesia Evaluation Vital Signs: Vital Signs Temp Pulse Resp BP Pulse Ox 11/07/20 08:00 97.9 F 11/07/20 07:55 66 11/07/20 07:28 97.0 F 66 18 130/61 91 L 11/07/20 03:59 97.1 F 69 18 140/63 H 92 11/06/20 23:27 96.8 F 66 18 130/59 L 92 Anesthesia: General Endotracheal-GETA Mental Status: Awake Pain Control: Satisfactory Nausea/Vomiting: None Hydration: Adequate Anesthesia-Related Issues: No Anes. Related Issues
[2020-11-07] MEDS: iohexoL 350 MG/ML 100 ML INFUS..BTL IV (09:38)
--- NOTE | 2020-11-07 10:12 | P.PNIM_ITS ---
Subjective Subjective Date of Service: 11/07/20 Interval History: offers no acute complaints of abdominal pain wants to go home, no issues overnight, waiting for CT abdomen and pelvis scheduled for today. 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, no dizziness CVS no chest pain, no palpitation respiratory no cough, no shortness of breath GI no nausea, no vomiting, no abdominal pain Physical Exam Vital Signs: Vital Signs: Last Vital Signs Temp 97.9 F 11/07/20 08:00 Pulse 66 11/07/20 07:55 Resp 18 11/07/20 07:28 BP 130/61 11/07/20 07:28 Pulse Ox 91 L 11/07/20 07:28 Body Mass Index 39.4 Constitutional resting in bed, No apparent distress Neck Supple, no JVD, No lymphadenopathy Cardiovascular RRR, No M/R/G, S1 S2, No S3 S4 Respiratory Lungs clear, No respiratory distress Gastrointestinal Non tender, bowel sounds audible, Non-distended extremities no edema Skin No rash Neurological Alert & oriented x3 Psychological Appropriate affect Objective Data Current Medications Generic Name Dose Route Start Last Admin Trade Name Edvin PRN Reason Stop Dose Admin Acetaminophen 650 mg 11/05/20 13:09 11/06/20 21:11 Acetaminophen 325 Mg Tablet PO 650 mg Q6H PRN Administration Pain, Mild (Pain Scale 1-3) Albuterol Sulfate 2.5 mg 11/06/20 11:08 Albuterol Sulfate (0.083%) 2.5 Mg/3 Ml Vial.Neb INHALE ONCE PRN Shortness of Breath/Wheezing Albuterol/Ipratropium 3 ml 11/04/20 20:00 11/07/20 07:52 Albuterol/Iprat 2.5/0.5mg 3 Ml Ampul.Neb INHALE 3 ml RQID OTILIA Administration Atorvastatin Calcium 20 mg 11/04/20 21:00 11/06/20 21:07 Atorvastatin Calcium 20 Mg Tablet PO 20 mg BEDTIME OTILIA Administration Docusate Sodium 100 mg 11/04/20 21:00 11/07/20 08:18 Docusate Sodium 100 Mg Capsule PO 100 mg BID OTILIA Administration Doxazosin Mesylate 8 mg 11/04/20 21:00 11/06/20 21:07 Doxazosin Mesylate 2 Mg Tablet PO 8 mg BEDTIME OTILIA Administration Protocol Finasteride 5 mg 11/04/20 21:00 11/06/20 21:07 Finasteride 5 Mg Tablet PO 5 mg BEDTIME OTILIA Administration Fluticasone/Vilanterol 1 puff 11/05/20 08:00 11/07/20 07:52 Fluticasone/Vilanterol 100/25 Blst.W.Dev INHALE 1 puff RDAILY OTILIA Administration Gabapentin 300 mg 11/04/20 21:00 11/07/20 08:18 Gabapentin 300 Mg Capsule PO 300 mg BID OTILIA Administration Insulin Human Lispro 0 unit 11/05/20 21:00 11/07/20 07:56 Insulin Lispro 100 Unit/Ml 3 Ml Vial SUBCUT 2 unit QIDACHS [facility] Administration Protocol Magnesium Oxide 200 mg 11/05/20 09:00 11/07/20 08:18 Magnesium Oxide 400 Mg Tablet PO 200 mg DAILY OTILIA Administration Metoprolol Tartrate 50 mg 11/04/20 21:00 11/06/20 21:08 Metoprolol Tartrate 50 Mg Tablet PO 50 mg BEDTIME OTILIA Administration Protocol Metoprolol Tartrate 25 mg 11/05/20 09:00 11/07/20 08:18 Metoprolol Tartrate 25 Mg Tablet PO 25 mg DAILY OTILIA Administration Protocol Omeprazole 20 mg 11/07/20 16:30 Omeprazole 20 Mg Capsule. PO BID@7200,3840 [facility] Oxycodone HCl 5 mg 11/05/20 02:54 11/06/20 21:11 Oxycodone Hcl Immed Release 5 Mg Tablet PO 5 mg Q6H PRN Administration [facility] Consult 1 each 11/04/20 14:43 Consult Rx Perform Med Rec MISCELLANE ONCE PRN Consult order Sertraline HCl 50 mg 11/05/20 09:00 11/07/20 08:18 Sertraline Hcl 50 Mg Tablet PO 50 mg DAILY OTILIA Administration Sodium Chloride 3 ml 11/05/20 00:00 11/07/20 07:56 0.9 % Sodium Chloride Flush 3 Ml Syringe IVFLUSH 3 ml QSHIFT [facility] Administration Spironolactone 25 mg 11/04/20 21:00 11/07/20 08:18 Spironolactone 25 Mg Tablet PO 25 mg BID OTILIA Administration Protocol Labs CBC & Chem 7: 11/06/20 08:22 11/06/20 08:21 Labs: Laboratory Results - last 24 hr 11/04/20 11/06/20 11/06/20 13:53 10:55 13:48 Smear Path Review SEE NOTE POC Glucose 130 H 127 H 11/06/20 11/06/20 11/07/20 16:01 20:19 07:25 Smear Path Review POC Glucose 146 H 236 H 187 H Quality Stroke Does the patient have a stroke diagnosis?: No VTE Prior VTE?: No VTE Risk Level:: Medical - moderate - high VTE Device Contraindication: N/A - Device Ordered VTE Drug Contraindication: Treatment Not Tolerated Assessment and Plan (1) Cecum mass: Status: Acute (2) Acute blood loss anemia: Status: Acute (3) History of coronary artery bypass graft x 3: Status: Acute (4) Dyslipidemia: Status: Acute (5) CKD (chronic kidney disease) stage 3, GFR 30-59 ml/min: Status: Acute (6) Diabetes type 2, uncontrolled: Status: Acute (7) CAD (coronary artery disease): Status: Acute (8) HTN (hypertension): Status: Acute (9) Hyperlipidemia: Status: Acute Assessment and Plan: 75 yo male with hx CAD of CABG about 6 years ago on aspirin and plavix, CKD3, HLD, DM, HTN here with shortness of breath intermittent shortness of breath and weakness that is much more pronouced today and is found to have profound anemia hemoglobin of 6, baseline 11 and positive FOBT--he is likely has acute blood loss anemia due upper GIB from combination of Plavix, ASA..DDx: gastritis, gastric ulcer, esophatitis.. 1/Acute blood loss anemia related to GI bleed shortness of breath resolved, no active GI bleed noted,hematocrit improved f rom 22 to 29 point, status post blood transfusion EGD 11/05 showed focal gastritis, duodenitis, and non bleeding gastric polyp, colonoscopy 11/06 showed cecal mass patient seen by General surgery will undergo CT abdomen and pelvis today in preparation for surgery. continue to hold ASA and Plavix will DC IV fluid, DC IV proton, place patient on by mouth PPI 3/ CAD--sob, and chest Pain likely d/t to severe anemia, he recently had a normal stress on September 02, ECG is unchange,Continue cardiac meds of Metoprolol, Statin, holding ASA and Plavix as stated about 4/ Diabetes-- on diabetic diet, will place on insulin sliding scale,take insulin 70/30, 80 units b.i.d. and metformin 500 mg b.i.d. at home, will avoid Metfomin due to CKD, will place on low-dose Lantus if noted to have elevated blood sugars 5/ HTN--continue Metoporolol, and Aldactone 6/ Chronic heart failure--appear euvolemic 7/HLd- continue Statin 8/ BPH--Finasteride and doxazosin 9/ Peripheral Neuropathy--Gabapentin 10/CKD 3, stable 11/ DVT prophylaxis-- continue mechanical device Full Code Dispo: home once medically stable
[2020-11-07 11:07] LABS: Glucose, Whole Blood 193 mg/dL (60-115)
--- NOTE | 2020-11-07 13:06 | MHC.CM.PN ---
Addendum entered by Amanda Miller RN 11/07/20 13:54: CLARIFICATION, CM MET W/HOSPITALIST WHO REPORTED PT WILL D/C AND WILL NOT NEED RIGHT COLON RESECTION WHILE INPT, NO MASS SEEN ON CT SCAN, PT WILL D/C TODAY HOME SELF CARE W/ MONTHLY COMMUNICATIONS ADMINISTRATOR VISITS THROUGH [facility], PT AND SPOUSE DECLINING [facility] SERVICE AT THIS TIME. Original Note: EMR REVIEWED, PT COMPLETED ABD & PELVIC CT TODAY, PT WILL POSSIBLY STAY INPT FOR RIGHT COLON RESECTION, HOSPITALIST WAITING TO SPEAK W/SURGICAL WHO IS UNAVAILABLE AT THIS TIME, NO PLAN FOR D/C TODAY, CM WILL CONT TO FOLLOW D/C NEEDS.
--- NOTE | 2020-11-07 14:00 | PM.DS ---
DS: Providers Provider Date of Service: 11/07/20 Date of admission: 11/04/20 17:59 Primary care physician: Leon Joyner MD Consults: 11/04/20 17:56 Consult to Gastroenterology Routine Consulting Provider: Daniel Rebolledo Reason for consultation: GIB, acute blood loss anemia 11/06/20 15:05 Consult to General Surgery Routine Consulting Provider: [facility] General Surgeons Reason for consultation: cecal mass Has provider been notified: No DS: Diagnosis Discharge Diagnosis (1) Cecum mass: Status: Acute (2) Acute blood loss anemia: Status: Acute (3) History of coronary artery bypass graft x 3: Status: Acute (4) Dyslipidemia: Status: Acute (5) CKD (chronic kidney disease) stage 3, GFR 30-59 ml/min: Status: Acute (6) Diabetes type 2, uncontrolled: Status: Acute (7) CAD (coronary artery disease): Status: Acute (8) HTN (hypertension): Status: Acute (9) Hyperlipidemia: Status: Acute DS: Medications Discharge Medications Home Medications: Home Medications Medication Instructions Recorded Confirmed aspirin 81 mg tablet,delayed 81 mg PO DAILY 02/25/20 11/04/20 release doxazosin 8 mg tablet 8 mg PO BEDTIME 02/25/20 11/04/20 finasteride 5 mg tablet 5 mg PO BEDTIME 02/25/20 11/04/20 furosemide 80 mg tablet 80 mg PO BID 02/25/20 11/04/20 magnesium 250 mg tablet 250 mg PO DAILY 02/25/20 11/04/20 sertraline 50 mg tablet 50 mg PO DAILY 02/25/20 11/04/20 simvastatin 40 mg tablet 40 mg PO BEDTIME 02/25/20 11/04/20 spironolactone 25 mg tablet 25 mg PO BID 02/25/20 11/04/20 amitriptyline 25 mg tablet 25 mg PO BEDTIME 03/05/20 11/04/20 lancets 33 gauge #100 ea 03/11/20 09/03/20 clopidogrel 75 mg tablet 75 mg PO DAILY 08/25/20 11/04/20 fluticasone 250 mcg-salmeterol 50 1 ea INHALATION BID 08/25/20 11/04/20 mcg/dose blistr powdr for inhalation gabapentin 300 mg capsule 300 mg PO BID cap 08/25/20 11/04/20 metoprolol tartrate 25 mg tablet 25 mg PO DAILY tab 08/25/20 11/04/20 docusate sodium 100 mg PO BID 11/04/20 11/04/20 famotidine 20 mg PO DAILY 11/04/20 11/04/20 insulin NPH and regular human 80 unit SUBCUT BID 11/04/20 11/04/20 [Humulin 70/30 U-100 Insulin] ipratropium-albuterol 3 ml INHALATION QID 11/04/20 11/04/20 metoprolol tartrate 50 mg PO BEDTIME 11/04/20 11/04/20 Previous Rx's Medication Instructions Recorded insulin syringe-needle U-100 1 mL #100 ea 07/30/20 31 gauge x 09/14 metformin 500 mg tablet,extended 500 mg PO BID 90 Days #180 tab 10/20/20 release 24 hr DS: Summary Hospital Course Hospital Course: history of presenting illness Chief Complaint: Dyspnea with exertion 75 yo male with hx CAD of CABG about 6 years ago on aspirin and plavix, CKD3, HLD, DM, HTN here with shortness of breath intermittent shortness of breath and weakness that is much more pronouced today. He recently had left shoulder surgery and before that he had normal cardiac stress test with nuclear images on Sep 02 2020, he is compliant with medications. He has not seen blood in stool or black stool. He informed his PCP Dr. Joyner of his symptoms and was told to go to the ED where work up has revealed a hemoglboin of 6, on Sep 13 2020, level was 11. FOBT is positive. He is hemodynamically stable, no tachycardia, although I should note that he is on beta blockers. He is type and screen for RBC and I am prescribing IV Protonix. ECG is show no acute ischemic chantes, essentially unchanged from previous one. hospital course 75 yo male with hx CAD of CABG about 6 years ago on aspirin and plavix, CKD3, HLD, DM, HTN here with shortness of breath intermittent shortness of breath and weakness in the emergency room found to have profound anemia hemoglobin of 6, baseline 11 and had positive FOBT patient was admitted to medical floor, kept NPO, placed on IV PPI,received blood transfusion, shortness of breath resolved, no active GI bleed noted,hematocrit improved from 22 to 29 point, underwent EGD 11/[address] Rebolledo that showed focal gastritis, duodenitis, and non bleeding gastric polyp, colonoscopy 11/06 showed cecal mass,CT abdomen and pelvis showed no cecal mass, patient evaluated by Dr. Perea he recommend outpatient follow-up to review pathology report from cecal mass since patient is asymptomatic with stable hematocrit tolerating diet he is being discharged home on Prilosec twice daily, Plavix has been discontinued, will recommend to resume all home medication. Coronary artery disease, patient shortness of breath and chest pain was likely d/t to severe anemia, he recently had a normal stress on September 02, ECG is unchanged,Continue cardiac meds Metoprolol Statin, will hold Plavix, and continue aspirin. In regard to diabetes will resume Lantus and hold metformin due to ckd Time Spent with Patient Time attestation: Total time spent providing and/or coordinating discharge services: Discharge coordination time: Greater than 30 minutes Quality: Stroke Does the patient have a stroke diagnosis?: No Physical Exam Vital Signs: Vital Signs: Last Vital Signs Temp 96.5 F L 11/07/20 11:40 Pulse 63 11/07/20 11:40 Resp 18 11/07/20 11:40 BP 123/60 11/07/20 11:40 Pulse Ox 92 11/07/20 13:55 Body Mass Index 39.4 Constitutional resting in bed, No apparent distress Neck Supple, no JVD, No lymphadenopathy Cardiovascular RRR, No M/R/G, S1 S2, No S3 S4 Respiratory Lungs clear, No respiratory distress Gastrointestinal Non tender, bowel sounds audible, Non-distended extremities no edema Skin No rash Neurological Alert & oriented x3 Psychological Appropriate affect DS: Data Data Completed and Pending Pending studies at discharge: Pending at discharge 11/05/20 14:40 Surgical [PTH] Routine 11/06/20 12:25 Surgical [PTH] Routine Labs on day of discharge: Laboratory Results - last 24 hr 11/04/20 11/06/20 11/06/20 13:53 16:01 20:19 Smear Path Review SEE NOTE POC Glucose 146 H 236 H 11/07/20 11/07/20 07:25 10:59 Smear Path Review POC Glucose 187 H 193 H Discharge Plan Discharge Patient Disposition: Home, Self-Care Discharge Diagnosis: acute blood loss anemia cecal mass coronary artery disease Referrals: Joyner,Leon, MD [Primary Care Provider] - 1 Week Discharge Medications: New omeprazole 20 mg Capsule,Delayed Release(Dr/Ec) 20 mg PO BID@0630,1630 Qty: 60 RF: 0 Continued docusate sodium 100 mg Capsule 100 mg PO BID RF: 0 metoprolol tartrate 25 mg Tablet 50 mg PO BEDTIME RF: 0 Humulin 70/30 U-100 Insulin 100 unit/mL (70-30) Suspension 80 unit SUBCUT BID RF: 0 ipratropium-albuterol 0.5 mg-3 mg(2.5 mg base)/3 mL Solution For Nebulization 3 ml INHALATION QID RF: 0 amitriptyline 25 mg tablet 25 mg PO BEDTIME RF: 0 spironolactone 25 mg tablet 25 mg PO BID RF: 0 sertraline 50 mg tablet 50 mg PO DAILY RF: 0 doxazosin 8 mg tablet 8 mg PO BEDTIME RF: 0 simvastatin 40 mg tablet 40 mg PO BEDTIME RF: 0 finasteride 5 mg tablet 5 mg PO BEDTIME RF: 0 furosemide 80 mg tablet 80 mg PO BID RF: 0 magnesium 250 mg tablet 250 mg PO DAILY RF: 0 aspirin [Adult Low Dose Aspirin] 81 mg tablet,delayed release (DR/EC) 81 mg PO DAILY RF: 0 metoprolol tartrate 25 mg tablet 25 mg PO DAILY RF: 0 gabapentin 300 mg capsule 300 mg PO BID RF: 0 fluticasone propion-salmeterol 250-50 mcg/dose blister with device 1 ea inhalation BID RF: 0 Discontinued metformin 500 mg tablet extended release 24 hr 500 mg PO BID 90 Days Qty: 180 RF: 2 famotidine 20 mg Tablet 20 mg PO DAILY RF: 0 clopidogrel 75 mg tablet 75 mg PO DAILY RF: 0 No Action (DME) insulin syringe-needle U-100 [BD Insulin Syringe Ultra-Fine] 1 mL 31 gauge x 5/16 syringe See Rx Instructions .ROUTE .MEDSUPPLY Qty: 100 RF: 6 (DME) lancets 33 gauge misc See Rx Instructions gauge .ROUTE .MEDSUPPLY Qty: 100 RF: 0 Diet: diabetic diet Activity on Discharge: As tolerated Stand Alone Forms: Patient Portal Discharge page Care Plan Goals: Acute blood loss anemia, noted to have gastritis, duodenitis and cecal mass, take Prilosec twice daily, hold Plavix and have outpatient follow-up with General surgery and primary care physician Health Concerns: anemia, coronary artery disease, heart failure, diabetes mellitus, continue all previous medication except hold metformin due to chronic kidney disease and hold plavix Plan of Treatment: outpatient follow-up with General surgery in 11-08, outpatient follow-up with primary care physician in 1 week. Assessment: as above
--- NOTE | 2020-11-07 14:28 | PM.PNGS ---
Subjective Subjective Date of Service: 11/07/20 Interval history: denies complaints tolerating diet no GI bleed he feels well Physical Exam Vital Signs: Vital Signs: Last Vital Signs Temp 96.5 F L 11/07/20 11:40 Pulse 63 11/07/20 11:40 Resp 18 11/07/20 11:40 BP 123/60 11/07/20 11:40 Pulse Ox 92 11/07/20 13:55 Body Mass Index 39.4 Laboratory Results - last 24 hr 11/04/20 11/06/20 11/06/20 13:53 16:01 20:19 Smear Path Review SEE NOTE POC Glucose 146 H 236 H 11/07/20 11/07/20 07:25 10:59 Smear Path Review POC Glucose 187 H 193 H Const: General: comfortable and no acute distress Resp: Effort & Inspection: normal respiratory effort Cardio: Rate: regular rate GI: Other: protuberant; epigastric hernia reducible Palpation (GI): Soft to palpation and Tenderness to palpation present (GI) Progress Note: A&P Assessment and plan (1) Cecum mass: Status: Acute Assessment and Plan: no acute GI bleed hemoglobin has been stable path report pending diet as tolerated patient wants to be discharged and says he will await for path report in see me in the office I have reviewed CAT scan images with Dr. Mejia - no obvious cecal mass, no liver lesions Fall Risk Details Current Medications: Current Medications Generic Name Dose Route Start Last Admin Trade Name Freq PRN Reason Stop Dose Admin Acetaminophen 650 mg 11/05/20 13:09 11/06/20 21:11 Acetaminophen 325 Mg Tablet PO 650 mg Q6H PRN Administration Pain, Mild (Pain Scale 1-3) Albuterol Sulfate 2.5 mg 11/06/20 11:08 Albuterol Sulfate (0.083%) 2.5 Mg/3 Ml Vial.Neb INHALE ONCE PRN Shortness of Breath/Wheezing Albuterol/Ipratropium 3 ml 11/04/20 20:00 11/07/20 11:19 Albuterol/Iprat 2.5/0.5mg 3 Ml Ampul.Neb INHALE 3 ml RQID OTILIA Administration Atorvastatin Calcium 20 mg 11/04/20 21:00 11/06/20 21:07 Atorvastatin Calcium 20 Mg Tablet PO 20 mg BEDTIME OTILIA Administration Docusate Sodium 100 mg 11/04/20 21:00 11/07/20 08:18 Docusate Sodium 100 Mg Capsule PO 100 mg BID OTILIA Administration Doxazosin Mesylate 8 mg 11/04/20 21:00 11/06/20 21:07 Doxazosin Mesylate 2 Mg Tablet PO 8 mg BEDTIME OTILAI Administration Protocol Finasteride 5 mg 11/04/20 21:00 11/06/20 21:07 Finasteride 5 Mg Tablet PO 5 mg BEDTIME OTILIA Administration Fluticasone/Vilanterol 1 puff 11/05/20 08:00 11/07/20 07:52 Fluticasone/Vilanterol 100/25 Blst.W.Dev INHALE 1 puff RDAILY OTILIA Administration Gabapentin 300 mg 11/04/20 21:00 11/07/20 08:18 Gabapentin 300 Mg Capsule PO 300 mg BID OTILIA Administration Insulin Human Lispro 0 unit 11/05/20 21:00 11/07/20 11:35 Insulin Lispro 100 Unit/Ml 3 Ml Vial SUBCUT 2 unit QIDACHS [facility] Administration Protocol Magnesium Oxide 200 mg 11/05/20 09:00 11/07/20 08:18 Magnesium Oxide 400 Mg Tablet PO 200 mg DAILY OTILIA Administration Metoprolol Tartrate 50 mg 11/04/20 21:00 11/06/20 21:08 Metoprolol Tartrate 50 Mg Tablet PO 50 mg BEDTIME OTILIA Administration Protocol Metoprolol Tartrate 25 mg 11/05/20 09:00 11/07/20 08:18 Metoprolol Tartrate 25 Mg Tablet PO 25 mg DAILY OTILIA Administration Protocol Omeprazole 20 mg 11/07/20 16:30 Omeprazole 20 Mg Capsule.Dr PO BID@0403,3292 [facility] Oxycodone HCl 5 mg 11/05/20 02:54 11/06/20 21:11 Oxycodone Hcl Immed Release 5 Mg Tablet PO 5 mg Q6H PRN Administration [facility] Consult 1 each 11/04/20 14:43 Consult Rx Perform Med Rec MISCELLANE ONCE PRN Consult order Sertraline HCl 50 mg 11/05/20 09:00 11/07/20 08:18 Sertraline Hcl 50 Mg Tablet PO 50 mg DAILY OTILIA Administration Sodium Chloride 3 ml 11/05/20 00:00 11/07/20 07:56 0.9 % Sodium Chloride Flush 3 Ml Syringe IVFLUSH 3 ml QSHIFT OTILIA Administration Spironolactone 25 mg 11/04/20 21:00 11/07/20 08:18 Spironolactone 25 Mg Tablet PO 25 mg BID OTILIA Administration Protocol Time Spent With Patient Time: Total time spent is greater than 50% in coordination of care (as documented) at patient's floor/unit and/or counseling patient: Time with patient: 15 - 24 minutes Procedures Date of Service Date of Service: 11/07/20 Quality Stroke Does the patient have a stroke diagnosis?: No VTE Prior VTE?: No VTE Risk Level:: Medical - moderate - high VTE Device Contraindication: N/A - Device Ordered VTE Drug Contraindication: Treatment Not Tolerated
== END 2020-11-07 14:49 | disposition home or self-care (01) | DRG 393 ==
LOC: HO.ED 14:51 → HO.EDOVER 18:34 → HO.S3 18:35
PROVIDERS: Internal Medicine Gastroenterology; Admitting Provider Internal Medicine; Emergency Provider Emergency Medicine; PCP Family Medicine; Visit Provider Hospitalist
PROC: 0DB78ZX Excision of Stomach, Pylorus, Via Natural or Artificial Opening Endoscopic, Diagnostic (ICD-10-PCS; principal; 2020-11-05 13:30)
PROC: 0DJD8ZZ Inspection of Lower Intestinal Tract, Via Natural or Artificial Opening Endoscopic (ICD-10-PCS; CPT 45378; principal; 2020-11-06 11:30)
DX: K63.89 Other specified diseases of intestine (principal); K29.71 Gastritis, unspecified, with bleeding; K57.31 Diverticulosis of large intestine without perforation or abscess with bleeding; K29.81 Duodenitis with bleeding; D62 Acute posthemorrhagic anemia; I13.0 Hypertensive heart and chronic kidney disease with heart failure and stage 1 through stage 4 chronic kidney disease, or unspecified chronic kidney disease; I50.22 Chronic systolic (congestive) heart failure; I25.10 Atherosclerotic heart disease of native coronary artery without angina pectoris; E11.22 Type 2 diabetes mellitus with diabetic chronic kidney disease; E66.01 Morbid (severe) obesity due to excess calories; N40.0 Benign prostatic hyperplasia without lower urinary tract symptoms; E11.42 Type 2 diabetes mellitus with diabetic polyneuropathy; N18.30 Chronic kidney disease, stage 3 unspecified; E78.5 Hyperlipidemia, unspecified; K63.9 Disease of intestine, unspecified; Z68.39 Body mass index [BMI] 39.0-39.9, adult; K31.7 Polyp of stomach and duodenum; Z20.822 Contact with and (suspected) exposure to COVID-19; Z95.1 Presence of aortocoronary bypass graft; Z87.891 Personal history of nicotine dependence; Z79.4 Long term (current) use of insulin; Z79.52 Long term (current) use of systemic steroids; Z79.899 Other long term (current) drug therapy
CPT/HCPCS: 36415; 71046; 74177; 80048; 80076; 82272; 82947; 83735; 83880; 84484; 85025; 85027; 85610; 85730; 86850; 86900; 86901; 86923; 87635; 88305; 88342; 93005; 94640; 99285; J0171; J0330; J1940; J3010; P9016; Q9967

== ENCOUNTER → 2020-11-13 15:17 | Outpatient (BNVA) | payer MEDICARE, SELFPAY | PROVIDERS: PCP Family Medicine; Visit Provider Surgery | DX: K63.89 Other specified diseases of intestine (principal); D36.9 Benign neoplasm, unspecified site; E11.65 Type 2 diabetes mellitus with hyperglycemia; E11.22 Type 2 diabetes mellitus with diabetic chronic kidney disease; E11.21 Type 2 diabetes mellitus with diabetic nephropathy; I12.9 Hypertensive chronic kidney disease with stage 1 through stage 4 chronic kidney disease, or unspecified chronic kidney disease; N18.30 Chronic kidney disease, stage 3 unspecified; E66.01 Morbid (severe) obesity due to excess calories; E78.5 Hyperlipidemia, unspecified; Z79.4 Long term (current) use of insulin; Z79.899 Other long term (current) drug therapy | CPT/HCPCS: 99212 ==

== ENCOUNTER 2020-11-17 12:35 | Outpatient (REF) | payer MEDICARE, SELFPAY ==
[2020-11-17 15:04] LABS: Hematocrit 32.9 % (42-52); Hemoglobin 9.8 g/dl (14.0-18.0); Mean Corpuscular HGB Conc 29.8 g/dl (31.0-36.0); Mean Corpuscular Hemoglobin 24.8 pg (27.0-33.0); Mean Corpuscular Volume 83.3 fL (80-98); Mean Platelet Volume 10.3 fL (9.4-12.4); Platelet Count 328 X10*3/uL (160-400); Red Blood Count 3.95 X10*6/uL (4.60-5.80); White Blood Count 9.1 X10*3/uL (4.8-10.8)
== END 2020-11-17 12:36 | disposition home or self-care (01) ==
LOC: HO.HMGCLDS 12:35
PROVIDERS: PCP Family Medicine; Visit Provider Surgery
DX: K63.89 Other specified diseases of intestine (principal)
CPT/HCPCS: 36415; 85027

== ENCOUNTER → 2020-11-20 13:28 | Outpatient (BNVA) | payer MEDICARE, SELFPAY | PROVIDERS: PCP Family Medicine; Referring Provider Family Medicine; Visit Provider Nurse Practitioner Family | DX: Z01.818 Encounter for other preprocedural examination (principal); I25.10 Atherosclerotic heart disease of native coronary artery without angina pectoris; Z95.1 Presence of aortocoronary bypass graft; Z79.899 Other long term (current) drug therapy; Z87.891 Personal history of nicotine dependence | CPT/HCPCS: 93005; 99212 ==

== ENCOUNTER 2020-11-28 12:28 | Outpatient (REF) | payer MEDICARE, SELFPAY ==
--- NOTE | ~2020-11-28 | XR_ITS ---
EXAMINATION: THORACIC AND LUMBAR SPINE. CLINICAL INFORMATION: Low back pain. COMPARISON: None TECHNIQUE: Lumbar spine 3 views. Dorsal spine 3 views. FINDINGS: Dorsal spine: There is normal thoracic kyphosis. The vertebral heights, alignment and disc heights are normal. No visible acute fracture, dislocation or subluxation seen. There is no lytic or sclerotic process. There are surgical fide seen along the anterior mediastinum and median sternotomy sutures from CABG Lumbar spine: There is normal lumbar lordosis. The vertebral heights and alignment is normal. There is loss of L5-S1 disc height with vacuum disc phenomena and mild ventral spondylosis. Rest of the disc heights are normal. No visible acute fracture, lytic or sclerotic process seen. The SI joints are symmetrical. XR/XR lumbar spine 2-3V IMPRESSION: Unremarkable dorsal spine exam. Mild degenerative disc changes with vacuum disc phenomena L5-S1 disc level. No visible acute fracture or dislocation seen.
--- NOTE | ~2020-11-28 | XR_ITS ---
EXAMINATION: THORACIC AND LUMBAR SPINE. CLINICAL INFORMATION: Low back pain. COMPARISON: None TECHNIQUE: Lumbar spine 3 views. Dorsal spine 3 views. FINDINGS: Dorsal spine: There is normal thoracic kyphosis. The vertebral heights, alignment and disc heights are normal. No visible acute fracture, dislocation or subluxation seen. There is no lytic or sclerotic process. There are surgical fide seen along the anterior mediastinum and median sternotomy sutures from CABG Lumbar spine: There is normal lumbar lordosis. The vertebral heights and alignment is normal. There is loss of L5-S1 disc height with vacuum disc phenomena and mild ventral spondylosis. Rest of the disc heights are normal. No visible acute fracture, lytic or sclerotic process seen. The SI joints are symmetrical. XR/XR thoracic spine 3V IMPRESSION: Unremarkable dorsal spine exam. Mild degenerative disc changes with vacuum disc phenomena L5-S1 disc level. No visible acute fracture or dislocation seen.
== END 2020-11-28 12:29 | disposition home or self-care (01) ==
LOC: HO.HMGCX 12:28
PROVIDERS: PCP Family Medicine; Visit Provider Nurse Practitioner Family
DX: S39.92XA Unspecified injury of lower back, initial encounter (principal)
CPT/HCPCS: 72072; 72100

== ENCOUNTER 2020-12-09 10:05 | Inpatient (IN) | payer MEDICARE, SELFPAY ==
--- NOTE | 2020-12-02 10:39 | P.CONAN_ITS ---
Documented by User: Analy Santoyo 12/03/20 13:13 HPI - Anesthesia Eval Consult details Narrative: 75yo M for Right Hand Assisted Laparoscopic Colon Resection, Ventral Hernia Repair, Poss Open C admit 11/04/20-11/07/20 with symptomatic anemia. Req'd blood transfusion. Plavix/asa held. S/P upper endo and colo with mac = Cecal mass. Cardiac cleared at low to intermed risk 08/2020 underwent total shoulder at [facility] without any cardiac/anesthesia issue H&H stable, but BUN/Creat remains elevated with preop labs. Reviewed with Dr Hensley. Ok to proceed. [facility] Active Problems Active Problems: All Active Problems (Updated 12/01/20 @ 09:15 by Argelia Yuen) Preoperative cardiovascular examination (Acute) Anemia (Acute) GIB (gastrointestinal bleeding) (Acute) Traumatic injury of back (Acute) Cecum mass (Acute) custodial (current) use of insulin (Acute) Diabetic nephropathy associated with type 2 diabetes mellitus (Acute) Past Medical History Medical History Anemia CAD (coronary artery disease) Cecum mass CKD (chronic kidney disease) stage 3, GFR 30-59 ml/min COPD (chronic obstructive pulmonary disease) case management patient COVID-19 vaccine series completed Depression Diabetes type 2, uncontrolled Diabetic nephropathy associated with type 2 diabetes mellitus Dyslipidemia GERD (gastroesophageal reflux disease) History of snoring HTN (hypertension) Hyperlipidemia custodial (current) use of insulin Morbid obesity Peptic ulcer TIA (transient ischemic attack) Family History Family History Father No problems noted. Mother Cancer Family history of problems with anesthesia: No Surgical History Surgical History History of esophagogastroduodenoscopy (EGD) Hx of CABG Hx of colonoscopy Hx of knee surgery Hx of rotator cuff surgery Hx of shoulder replacement History of Problems with Anesthesia: No Social History Social History Household Members: Spouse Housing: House Are you a primary medicare compliance auditor to a significant other at home: No Do you presently have visiting nurse or other home services: Yes ([place] Alcohol intake: former Patient Tobacco Use Status: Former Tobacco user Quit Date: 1990 Tobacco use type: Cigarette Years Smoked: 30 Advance Directives Date on File: 12/02/20 service: No Current occupational status: retired Narrative Narrative: No recent illness. No CP at rest. ECKERT at baseline. Activity limited. Meds Allergies Allergy/AdvReac Type Severity Reaction Status Date / Time No Known Allergies Allergy Verified 11/20/20 13:58 Home Medications Medication Instructions Recorded Confirmed Last Taken Type aspirin 81 mg tablet,delayed 81 mg PO DAILY 02/25/20 12/01/20 12/08/20 History release (Adult Low Dose Aspirin) doxazosin 8 mg tablet 8 mg PO BEDTIME 02/25/20 12/01/20 11/03/20 History finasteride 5 mg tablet 5 mg PO BEDTIME 02/25/20 12/01/20 11/03/20 History furosemide 80 mg tablet 80 mg PO BID 02/25/20 12/01/20 11/04/20 History magnesium 250 mg tablet 250 mg PO DAILY 02/25/20 12/01/20 11/04/20 History sertraline 50 mg tablet 50 mg PO DAILY 02/25/20 12/01/20 12/09/20 History simvastatin 40 mg tablet 40 mg PO BEDTIME 02/25/20 12/01/20 11/03/20 History spironolactone 25 mg tablet 25 mg PO BID 02/25/20 12/01/20 11/04/20 History amitriptyline 25 mg tablet 25 mg PO BEDTIME 03/05/20 12/01/20 11/03/20 History lancets 33 gauge #100 ea 03/11/20 11/20/20 Unknown History fluticasone 250 mcg-salmeterol 50 1 ea INHALATION BID 08/25/20 12/01/20 11/04/20 History mcg/dose blistr powdr for inhalation gabapentin 300 mg capsule 300 mg PO BID cap 08/25/20 12/01/20 12/09/20 History docusate sodium 100 mg capsule 100 mg PO BID 11/04/20 12/01/20 11/04/20 History insulin human U-100 NPH-regulr 80 unit SUBCUT BID 11/04/20 12/02/20 11/04/20 History 70-30 mix 100 unit/mL subcutaneous susp (Humulin 70/30 U-100 Insulin) ipratropium 0.5 mg-albuterol 3 mg 3 ml INHALATION QID 11/04/20 12/01/20 12/09/20 History (2.5 mg base)/3 mL nebulization soln metoprolol tartrate 25 mg tablet 75 mg PO BEDTIME tab 11/20/20 12/01/20 12/09/20 History famotidine 20 mg tablet 1 tab PO DAILY 12/02/20 12/02/20 12/09/20 History ferrous sulfate 325 mg (65 mg 325 mg PO DAILY 12/02/20 12/02/20 Unknown History iron) tablet (iron) multivitamin 1 tab PO DAILY 12/02/20 12/02/20 Unknown History polyethylene glycol 3350 17 gram 17 g PO DAILY 12/02/20 12/02/20 Unknown History oral powder packet (Miralax) Exam Exam Date and Time: December 02, 2020 1039 Pertinent Lab Results Pertinent Lab Results: Laboratory Tests 11/06/20 11/17/20 08:21 12:41 WBC 9.1 Hgb 9.8 L Hct 32.9 L Plt Count 328 D Sodium 140 Potassium 3.8 Chloride 102 Carbon Dioxide 27 BUN 16 Creatinine 1.59 H Lab Results 12/02/20 12/02/20 Range/Units 13:35 13:35 WBC 9.3 (4.8-10.8) X10*3/uL RBC 3.94 L (4.60-5.80) X10*6/uL Hgb 9.6 L (14.0-18.0) g/dl Hct 32.4 L (42-52) % MCV 82.2 (80-98) fL MCH 24.4 L (27.0-33.0) pg MCHC 29.6 L (31.0-36.0) g/dl RDW 19.8 H (11.0-16.0) % Plt Count 238 D (160-400) X10*3/uL MPV 10.4 (9.4-12.4) fL Absolute Nucleated RBC 0.000 (0.0-0.012) X10*3/uL Nucleated RBC % (auto) 0.0 (0.0-0.2) /100WBC BUN 26 H D (9-16) mg/dL Creatinine 1.96 H (0.5-1.4) mg/dL Estim Creat Clear Calc 39.9 Estimated GFR 33 Narrative Narrative: EKG 10/2020 sinus rhythm with sinus arrhythmia, first-degree AV block, no acute ST or T-wave abnormalities, QTC 449 milliseconds, rate 70 ?Nuclear stress test done 09/02/2020 showing likely normal myocardial perfusion imaging, EF 54%.? Last echo done 03/24/2020 showing EF 55-60%, grade 1-2 diastolic dysfunction, no regional wall motion abnormalities. Airway Mallampati Class: III TM Dist: >3cm Neck ROM: Full Denture: Upper (Doesn't wear) and Lower Loose/Missing/Broken Teeth: No Heart: RRR Lungs: CTAB Assessment and Plan Assessment Anesthesia Assessment: Anesthesia Plan Discussed and PAT Visit Final Anesthetic Review Family History of Problems with Anesthesia: No History of Problems with Anesthesia: No Documented by User: Santa Farrell MD 12/09/20 08:03 [facility] Past Medical History Medical History Anemia CAD (coronary artery disease) Cecum mass CKD (chronic kidney disease) stage 3, GFR 30-59 ml/min COPD (chronic obstructive pulmonary disease) case management patient COVID-19 vaccine series completed Depression Diabetes type 2, uncontrolled Diabetic nephropathy associated with type 2 diabetes mellitus Dyslipidemia GERD (gastroesophageal reflux disease) History of snoring HTN (hypertension) Hyperlipidemia custodial (current) use of insulin Morbid obesity Peptic ulcer TIA (transient ischemic attack) Family History Family History Father No problems noted. Mother Cancer Surgical History Surgical History History of esophagogastroduodenoscopy (EGD) Hx of CABG Hx of colonoscopy Hx of knee surgery Hx of rotator cuff surgery Hx of shoulder replacement Social History Social History Household Members: Spouse Housing: House Are you a primary medicare compliance auditor to a significant other at home: No Do you presently have visiting nurse or other home services: Yes ([place] Alcohol intake: former Patient Tobacco Use Status: Former Tobacco user Quit Date: 1990 Tobacco use type: Cigarette Years Smoked: 30 Advance Directives Date on File: 12/02/20 service: No Current occupational status: retired Meds Allergies Allergy/AdvReac Type Severity Reaction Status Date / Time No Known Allergies Allergy Verified 11/20/20 13:58 Home Medications Medication Instructions Recorded Confirmed Last Taken Type aspirin 81 mg tablet,delayed 81 mg PO DAILY 02/25/20 12/01/20 12/08/20 History release (Adult Low Dose Aspirin) doxazosin 8 mg tablet 8 mg PO BEDTIME 02/25/20 12/01/20 11/03/20 History finasteride 5 mg tablet 5 mg PO BEDTIME 02/25/20 12/01/20 11/03/20 History furosemide 80 mg tablet 80 mg PO BID 02/25/20 12/01/20 11/04/20 History magnesium 250 mg tablet 250 mg PO DAILY 02/25/20 12/01/20 11/04/20 History sertraline 50 mg tablet 50 mg PO DAILY 02/25/20 12/01/20 12/09/20 History simvastatin 40 mg tablet 40 mg PO BEDTIME 02/25/20 12/01/20 11/03/20 History spironolactone 25 mg tablet 25 mg PO BID 02/25/20 12/01/20 11/04/20 History amitriptyline 25 mg tablet 25 mg PO BEDTIME 03/05/20 12/01/20 11/03/20 History lancets 33 gauge #100 ea 03/11/20 11/20/20 Unknown History fluticasone 250 mcg-salmeterol 50 1 ea INHALATION BID 08/25/20 12/01/20 11/04/20 History mcg/dose blistr powdr for inhalation gabapentin 300 mg capsule 300 mg PO BID cap 08/25/20 12/01/20 12/09/20 History docusate sodium 100 mg capsule 100 mg PO BID 11/04/20 12/01/20 11/04/20 History insulin human U-100 NPH-regulr 80 unit SUBCUT BID 11/04/20 12/02/20 11/04/20 History 70-30 mix 100 unit/mL subcutaneous susp (Humulin 70/30 U-100 Insulin) ipratropium 0.5 mg-albuterol 3 mg 3 ml INHALATION QID 11/04/20 12/01/20 12/09/20 History (2.5 mg base)/3 mL nebulization soln metoprolol tartrate 25 mg tablet 75 mg PO BEDTIME tab 11/20/20 12/01/20 12/09/20 History famotidine 20 mg tablet 1 tab PO DAILY 12/02/20 12/02/20 12/09/20 History ferrous sulfate 325 mg (65 mg 325 mg PO DAILY 12/02/20 12/02/20 Unknown History iron) tablet (iron) multivitamin 1 tab PO DAILY 12/02/20 12/02/20 Unknown History polyethylene glycol 3350 17 gram 17 g PO DAILY 12/02/20 12/02/20 Unknown History oral powder packet (Miralax) Assessment and Plan Final Anesthetic Review NPO: Yes ASA Class: III Final Preanesthetic Review: Meds/Allgs Chart Reviewed, Consent Obtained/Reviewed and Anes Risks/Benef Reviewed Patient Risk: Intermediate Procedure Risk: Intermediate Anesthetic Plan Anesthetic Plan: GA Disposition: Standard PACU
[2020-12-02 12:18] VITALS: BP 122/60; PULSE 59; RESP 20; O2SAT 95; BMI 40.6
[2020-12-02 14:40] LABS: Hematocrit 32.4 % (42-52); Hemoglobin 9.6 g/dl (14.0-18.0); Mean Corpuscular HGB Conc 29.6 g/dl (31.0-36.0); Mean Corpuscular Hemoglobin 24.4 pg (27.0-33.0); Mean Corpuscular Volume 82.2 fL (80-98); Mean Platelet Volume 10.4 fL (9.4-12.4); Platelet Count 238 X10*3/uL (160-400); Red Blood Count 3.94 X10*6/uL (4.60-5.80); Red Cell Distribution Width 19.8 % (11.0-16.0); White Blood Count 9.3 X10*3/uL (4.8-10.8)
[2020-12-02 15:12] LABS: Blood Urea Nitrogen 26 mg/dL (9-16); Creatinine Clr Calc Pharmacy 39.9; Estimated Glomerular Filt Rate 33
--- NOTE | 2020-12-05 11:16 | CONS_ITS ---
DATE OF SERVICE: 12/09/2020 HISTORY OF PRESENT ILLNESS: The patient is scheduled for colon surgery next week by Dr. Perea. PAST MEDICAL HISTORY: The patient has a long and complicated past medical history. He has high blood pressure, high cholesterol, and diabetes with a positive microalbuminuria. He also has significant cardiac disease, and in 2013, he had triple CABG. Other medical problems include hypertension, GERD, obesity, chronic anasarca, allergic sinusitis, tendency towards sinus tachycardia, arthritis in his knees and shoulders, venous insufficiency. He has sleep apnea but refuses CPAP, and BPH. In 2019, he had left retinal vein thrombosis. He had shoulder surgery fairly recently. He has many years ago had right and left rotator cuff surgery, and then he had left shoulder arthroplasty in September. In 1995, he had Campylobacter enteritis. In October of 2020, he was hospitalized for a lower GI bleed, which was when his colon lesion was discovered. Biopsy revealed a high grade dysplasia without obvious cancer but certainly high risk, so consequently he is getting that resected. He has a ventral hernia which will probably be taken care over at the same time. He is on the following medications. MEDICATIONS: Doxazosin, amitriptyline at bedtime, finasteride, insulin, simvastatin 40, CoQ10, spironolactone twice a day, Lasix 80 twice a day, Sertraline 50, gabapentin 300 b.i.d., metoprolol 25 one in the morning, two at nighttime, baby aspirin which will be held for surgery. He also takes Advair, omeprazole, iron, and vitamins. In speaking with the patient, he has recovered from a lower GI bleeding and his shoulder surgery fairly well. His most recent hematocrit was 32.9, which was a significant improvement from when he was in the hospital. He has had an 8-pound weight loss over the last week, but this was on purpose. He has been watching his diet very carefully. His blood sugar was 137 today. His general breathing, shortness of breath, and ECKERT have improved. He has had no recent stool for red blood cells. No chest pains. No GERD. He has no increased shortness of breath. He does have dyspnea on exertion but this is about the same as it was prehospital. His leg edema has actually improved, though he does wear support stockings, it is much better than it was. There has been no headache, syncope, dizziness. He had one fall about week and a half ago, was a non syncopal fall. He fell over and banged his upper back. X-rays were negative. He has a large contusion but it is healing up now. He has had no rashes or no bowel change, palpitations, or evidence of peripheral vascular disease. Considering all the things, he has decent urine flow and certainly medications for BPH should be working. He is also on omeprazole, and he has had no heartburn. His upper endoscopy had a biopsy revealed no H pylori. I reviewed his hospitalization from earlier October. He had a cardiac consult on November 20, for which it was felt that he was fairly stable from a cardiac standpoint. In earlier October, his lytes and chemistry profile were fairly unremarkable. His creatinine was 1.8, which is what that has been running. His BNP was only 143. PHYSICAL EXAMINATION: GENERAL: We find a pleasant white male, in no distress. HEENT: Conjunctivae pink. Sclerae white. Mucous membranes are moist. Hearing is adequate. NECK: Carotids 2-; no bruits. LUNGS: Clear. There is slight decreased breath sounds, but basically clear. HEART: Sinus rhythm, 70. No murmurs, rubs, lifts, thrills, or abnormal heart sounds. BACK: He has some ecchymosis from his trauma 2 weeks ago, but is nontender and is healing up. ABDOMEN: Soft, nontender. No obvious masses. Bowel sounds are active. He has a ventral hernia which is old. EXTREMITIES: He has venous insufficiency without any clear evidence of peripheral vascular disease, and about 2+ edema. His EKG from October of 2019 was reviewed. It seems unchanged. I have reviewed his meds and they were listed before. DIAGNOSES: 1. Insulin-dependent diabetes with microalbuminuria. 2. Hypertension. 3. Anasarca, controlled. 4. Coronary artery disease, status post triple coronary artery bypass graft. 5. Chronic kidney disease 3. 6. Obesity (his weight is 262). 7. Sleep apnea. 8. High cholesterol. 9. Venous insufficiency. 10. BPH. 11. Osteoarthritis. PLAN: Although he has many medical problems, relatively speaking he is stable. His blood counts came back to normal. I have reviewed his surgical and postsurgical protocols with him. He has a list of what meds to take and what meds not to hold preop, and he is well aware of this. He will be watching his diet and making sure his blood sugars are under control. We will follow him postoperatively. MD TYSON Gambino/TONY / [id number] MTDD
[2020-12-09] VITALS (16 sets, daily range): BP systolic 113–140; BP diastolic 45–72; PULSE 60–71; RESP 14–20; TEMP 35.9–36.6; O2SAT 92–99
[2020-12-09 07:08] LABS: COVID-19 Test Negative (Negative)
[2020-12-09] MEDS: 0.9 % Sodium Chloride 1,000 ML 100 ML IVCONT (07:23)
--- NOTE | 2020-12-09 07:29 | PC.NURSE ---
Patient speaking with Anesthesia Dr Farrell in regards to Do Not Resuscitate order, MOLST form on file. Patient stating clearly to both Dr Farrell and this RN I would want them to bring me back, I don't want to be a vegetable but if my heart stopped I want them to restart it. Dr Farrell/anesthesia to consider patient a full code for procedure and there after per patient request. Patient & sent home with new Health Care Proxy & MOLST form
[2020-12-09 08:52] LABS: Glucose, Whole Blood 165 mg/dL (60-115)
--- NOTE | 2020-12-09 09:57 | P.OP_ITS ---
Operative Note Operative Note Date of Service: 12/09/20 Narrative: Preop diagnosis: Large cecal polyp, epigastric hernia Postop diagnosis: The same Procedure: Hand assisted laparoscopic limited right colon resection, repair of epigastric hernia Surgeon: Martínez Perea MD casino assistant manager: BENIGNO Ron The patient is a 75-year-old male who had undergone colonoscopy with Dr. Rebolledo last October, was noted to have a cecal polyp which could not be resected endoscopically because of its size. 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 In view of this, explained to him the benefit of proceeding with a limited right colon resection. Reviewed with him the risks including but not limited to bleeding, infections, anastomotic leak, bowel injury, inherent risks of anesthesia, as well as the benefits and alternatives. He had given consent. His was involved with the discussion. He had significant coronary disease, diabetes, and morbid obesity so he understood his increased perioperative risks He was brought to the operating room placed supine the table under general anesthesia via endotracheal tube. A Sanchez catheter there was inserted. The abdomen is prepped and draped in usual sterile fashion. A surgical time-out was done. The patient received Cefotan 2 g IV preoperatively. I made a short incision in the midline at the level of the umbilicus going cephalad using a blade 15. And this was carried down through the full-thickness skin subcutaneous fat until we reached the external oblique aponeurosis. It is noted that in view of the patient's morbid obesity, we had to go through a very thick amount of subcutaneous fat before we able to which the fascia. I incised the fascia. The peritoneum was entered. Extended the fascial incision to optimize the length the skin incision. I made sure that there were no adhesions surrounding the incision. I positioned the Mark wound retractor through this. I applied the GelPort. I used a laparoscopic report to the GelPort and used a 30 degree number laparoscoped to examine the abdominal cavity. The epigastric hernia was seen from within the peritoneum and seemed to contain a lot of omentum and was tethering a loop of colon with it. I therefore decided to reduce this hernia completely and use this hernia as 1 of the port sites I made a short incision on the skin overlying the epigastric hernia using blade 15 and this carried down through the full-thickness skin subcutaneous fat with electrocautery until was able to visualize the contents of the hernia. This seemed to contain only omentum at this time so I continued to dissect this off of the rest of fascial defect. I had to open the sac to be able to achieve this. By doing so was able to eventually released the entire hernia contents from the fascial defect and was able to reduce completely. Since the hernia was about 3 cm in diameter, I had to close this a little bit with the Dexon 0 stitch to allow me to position a 5/12 mm port without causing any leak of insufflation. I positioned the 5/12 mm port. I also then placed a 5/12 mm port in left upper quadrant a small stab incision. The patient is then placed in head down and [id number] position. I then placed my hand through the GelPort. I reflected all the small bowel loops away from the right colon. I wasable to therefore visualize the cecum. I followed the cecum all the way to the hepatic flexure and the transverse colon. I did not feel any obvious mass. It is noteworthy as well the patient had very thick amount of visceral fat so visualization was a little difficult in view of this. I then proceeded to carefully divide the ligamentous attachments of the cecum along the white line of Toldt using the LigaSure. I divided this gently and marched distally along the right colon. As we reached the hepatic flexure I placed the patient in the head-up position. This allowed me to visualize the hepatic flexure better. I divided the hepatic to colic ligaments gently in layers. We had to retract the hepatic flexure inferiorly to allow better visualization as the hepatic flexure was very high up into the liver. This part of the procedure therefore took a little bit of time because of the gentle dissection in layers to carefully divide the hepato colic ligaments. Eventually were able to release hepatic flexure and proceeded to continue to divide the rest of the attachments of the proximal transverse colon from the liver using the LigaSure. This was done carefully to make sure that were not dividing any other vital structures including the mesentery. Eventually I was able to visualize the duodenum. This was the limit of our medial dissection. The duodenum was carefully protected during the rest of the mobilization of the flexure. I continued to divide some of the thin ligaments and adhesions attaching the right colon and hepatic flexure and the proximal transverse colon to the retroperitoneum. I also divided some of the gastrohepatic ligaments for better mobilization. Once we felt that we had good mobilization of the splenic flexure in the proximal right colon, I proceeded to then divide more of the ligamentous attachments of the ileocecal valve carefully with the LigaSure as well. The appendix also had some peritoneal attachments to the retroperitoneum and the sidewall so we carefully divided this to free this entire appendix. I continued the dissection of the attachments of the area of the ileo cecal valve until I felt that we had mobilized this adequately for the anastomosis. Once I felt that we had adequate mobilization of the entire right colon, I then proceeded to remove the GelPort and pulled up the terminal ileum, right colon and hepatic flexure out into the field. Please note that the patient had a very foreshortened mesentery because of the very thick visceral fat with his high BMI. I was able to however carefully see the terminal ileum and showsa segment about 10 cm from the ileocecal valve where I placed a mesenteric defect. I divided this using a LESLEE 60 mm stapler. I proceeded to follow the cecum in the right colon along with its mesentery and chose a point of transection in the distal right colon. This was therefore limited right colon resection. I cre ated a mesenteric defect and used the LESLEE 80 mm stapler to divide the thick distal right colon. We put the mesentery on stretch to visualize this well. Again this mesentery was foreshortened because of the very thick mesenteric fat. I had to divide the mesentery in layers using the LigaSure and reach what appeared to be the ileocolic pedicle. Gently dissected this with the hemostats. I then applied right angle clamps at the ileocecal valve and divided the ileocolic pedicle in between the clamps. I doubly tied the stump of the ileo colic pedicle using 2-0 Polysorb ties. I completed division of the remaining attack attachments with the LigaSure until the entire specimen was completely and sent for immediate gross exam. I then prepared the distal ileum and the remaining distal hepatic flexure for gjae-qi-[id number] anastomosis. I aligned these two limbs. I opened the apex of each staple line to enter the lumen. I positioned each arm of the LESLEE 60 mm stapler into the lumen at the anti mesenteric border of each limb. I locked the LESLEE 60 mm stapler and made sure that there were no bowel loops or any mesentery trapped between the stapler. Once this was confirmed, I proceeded to fire the stapler to create our fqqu-ey-[id number] anastomosis. I examinedthe staple line which appeared to be intact from within the lumen. There was good hemostasis. I then aligned the enterotomy edges with Allis clamps. I closed this enterotomy with a TA 60 mm stapler to complete our anastomosis I palpated for the staple line and the we appeared to have a very good patent lumen. I examined the staple line from outside the bowel and this all appeared to be intact. There were no signs of ischemia. I applied a seromuscular Dexon 3-0 stitch at the crotch of the staple line to release tension from this. I examined for the mesenteric defect at the anastomosis but this was very small in view of the thick amount of subcutaneous fat. I therefore replaced the entire anastomosed bowel back into the peritoneal cavity. I positioned the omental fat to overlie the area of the anastomosis. I reinserted all ports and re-insufflated. I examined the area of the anastomosis laparoscopically. This appeared to be hemostatic and the fide appeared intact. I examined the area of dissection on the right side and hepatic flexure and this appeared to have good hemostasis well. All 4 quadrants examined carefully. There was no other pathology seen. There is no evidence of any bowel injury I therefore proceeded to desufflate through the port sites. I removed the GelPort and the Mark wound retractor. I completed repair and closure of the epigastric hernia with Maxon 1. stitch. I closed the incision at the midline with a running Maxon 1 stitch as well. I then inserted the laparoscope through the remaining left upper quadrant port and examined the peritoneal cavity again. The fascial closure appeared to be intact as well with no trapped bowel I removed the remaining port. I irrigated. I closed all skin incisions with skin fide. I infiltrated all incisions with Marcaine 0.5% for postop analgesia. Dressings were then applied The patient tolerated the procedure well. There were no complications noted. Initial and final counts of sponges and instruments were correct. Estimated blood loss about 50 cc. The patient was extubated without difficulty and transferred to the recovery room with stable vital signs. We received a call from the pathologist before the end of the procedure stating that the polyp was in the in the cecum and that the margins were clear.
--- NOTE | 2020-12-09 10:18 | P.BOP_ITS ---
Brief Operative Note Date of Service: 12/09/20 Pre-op diagnosis: Large cecal polyp Post-op diagnosis: same Procedure: Hand assisted laparoscopic limited right colon resection with repair of an epigastric hernia Surgeon: Martínez Perea MD Anesthesia: GETA Was an Conductor Pullman used for this Procedure?: Yes Conductor Pullman: Marcia Ron Estimated blood loss (mL): 50 Pathology: other (Right colon) Condition: stable Disposition: PACU
[2020-12-09 12:20] LABS: Glucose, Whole Blood 183 mg/dL (60-115)
--- NOTE | 2020-12-09 12:46 | PM.IMCN ---
History of Present Illness Data of Consult Service Date: 12/09/20 Primary Care Provider: Leon Joyner MD HPI Reason for consult: CAD, DM 75M admitted for elective partial colon resection for cecal tubulovillous adenoma that was unable to be removed in colonoscopy. patient has multiple stable comorbidities including CAD s/p CABG, DM, HTN, JULIETTE (does not use CPAP), HLD, obesity. patient was seen postoperatively, still lethargic from anasthesia, but rousable, reports mild surgcial site pain, otherwise no active complaints. Review of Systems Review of Systems: Constitutional: Denies fever, denies Chills Eyes: denies blurry vision ENT: denies sore throat CVS: denies chest pain Respiratory: Denies dyspnea GI:abdominal pain : denies dysuria MSK: denies neck pain Skin: denies rash Neuro: denies specific motor weakness Psych: denies suicidal ideation Endocrine: denies heat/cold intolerance Hematologic: denies easy bleeding Allergy: denies hives [facility] Medical History Anemia CAD (coronary artery disease) Cecum mass CKD (chronic kidney disease) stage 3, GFR 30-59 ml/min COPD (chronic obstructive pulmonary disease) case management patient COVID-19 vaccine series completed Depression Diabetes type 2, uncontrolled Diabetic nephropathy associated with type 2 diabetes mellitus Dyslipidemia GERD (gastroesophageal reflux disease) History of snoring HTN (hypertension) Hyperlipidemia 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 Mother Cancer Surgical History History of esophagogastroduodenoscopy (EGD) Hx of CABG Hx of colonoscopy Hx of knee surgery Hx of rotator cuff surgery Hx of shoulder replacement Social History Household Members: Spouse Housing: House Are you a primary home care giver to a significant other at home: No Do you presently have visiting nurse or other home services: Yes ([facility] Alcohol intake: former Patient Tobacco Use Status: Former Tobacco user Quit Date: 1990 Tobacco use type: Cigarette Years Smoked: 30 Smoked in Last 30 Days: No Use of substances other than those prescribed or required for medical reasons: No Have you been hit, kicked, punched, or otherwise hurt by someone within the past year? If so, by whom?: No Are you DNR?: Yes Advance Directives: Yes (HCP & MOLST) Advance Directives Information Provided: Yes Advance Directives on File: Yes Advance Directives Date on File: 12/02/20 Recently lost weight without trying: No Eating poorly because of decreased appetite: No Nutrition Risks: Surgical patient >75years Poor oral hygiene: No (full upper denture-no teeth on bottom but does not wear denture) service: No Current occupational status: retired [employer] Allergies Allergy/AdvReac Type Severity Reaction Status Date / Time No Known Allergies Allergy Verified 11/20/20 13:58 Active Medications: Current Medications Generic Name Dose Route Start Last Admin Trade Name Freq PRN Reason Stop Dose Admin Albuterol/Ipratropium 3 ml 12/09/20 13:00 Albuterol/Iprat 2.5/0.5mg 3 Ml Ampul.Neb INHALE QID [facility] Amitriptyline HCl 25 mg 12/09/20 21:00 Amitriptyline Hcl 25 Mg Tablet PO BEDTIME [facility] Aspirin 81 mg 12/10/20 09:00 Aspirin Enteric Coated 81 Mg Tablet.Dr PO DAILY [facility] Atorvastatin Calcium 20 mg 12/09/20 21:00 Atorvastatin Calcium 20 Mg Tablet PO BEDTIME [facility] Dextrose 25 gm 12/09/20 12:39 Dextrose 50 % 25 Gm/50 Ml Vial IVPUSH Q15M PRN per Hypoglycemia Standing Ord. Protocol Doxazosin Mesylate 8 mg 12/09/20 21:00 Doxazosin Mesylate 2 Mg Tablet PO BEDTIME [facility] Protocol Famotidine 20 mg 12/10/20 09:00 Famotidine 20 Mg Tablet PO DAILY [facility] Finasteride 5 mg 12/09/20 21:00 Finasteride 5 Mg Tablet PO BEDTIME [facility] Fluticasone/Vilanterol 1 puff 12/10/20 09:00 Fluticasone/Vilanterol 100/25 Blst.W.Dev INHALE DAILY [facility] Gabapentin 300 mg 12/09/20 21:00 Gabapentin 300 Mg Capsule PO BID [facility] Glucose 15 gm 12/09/20 12:39 Glucose Gel 15 Gm Gel..Gram. PO Q15M PRN per Hypoglycemia Standing Ord. Protocol Acetaminophen 1,000 mg in 100 mls @ 400 mls/hr 12/09/20 10:15 12/09/20 12:10 Ofirmev IV Not Given Q6H [facility] Lactated Ringer's 1,000 mls @ 80 mls/hr 12/09/20 10:15 Lr IVCONT .[id number] [facility] Insulin Human Lispro 0 unit 12/09/20 16:30 Insulin Lispro 100 Unit/Ml 3 Ml Vial SUBCUT QIDACHS [facility] Protocol Magnesium Oxide 400 mg 12/10/20 09:00 Magnesium Oxide 400 Mg Tablet PO DAILY [facility] Metoprolol Tartrate 75 mg 12/09/20 21:00 Metoprolol Tartrate 25 Mg Tablet PO BEDTIME [facility] Protocol Morphine Sulfate 4 mg 12/09/20 10:05 Morphine Sulfate 2 Mg/Ml Cartridge IVPUSH Q4H PRN Pain, Severe (Pain Scale 7-10) Protocol Omeprazole 20 mg 12/09/20 16:30 Omeprazole 20 Mg Capsule.Dr PO BID@0630,1630 [facility] Ondansetron HCl 4 mg 12/09/20 10:05 Ondansetron Hcl 4 Mg/2 Ml Vial IVPUSH Q8H PRN Nausea and Vomiting Oxycodone HCl 5 mg 12/09/20 10:05 Oxycodone Hcl Immed Release 5 Mg Tablet PO Q4H PRN Pain, Moderate (Pain Scale 4-6 Oxycodone HCl 10 mg 12/09/20 10:05 Oxycodone Hcl Immed Release 5 Mg Tablet PO Q4H PRN Pain, Severe (Pain Scale 7-10) Sertraline HCl 50 mg 12/10/20 09:00 Sertraline Hcl 50 Mg Tablet PO DAILY [facility] Sodium Chloride 3 ml 12/09/20 16:00 0.9 % Sodium Chloride Flush 3 Ml Syringe IVFLUSH QSHIFT [facility] Spironolactone 25 mg 12/09/20 21:00 Spironolactone 25 Mg Tablet PO BID [facility] Protocol Home Medications Medication Instructions Recorded Confirmed Last Taken Type aspirin 81 mg tablet,delayed 81 mg PO DAILY 02/25/20 12/01/20 12/08/20 History release (Adult Low Dose Aspirin) doxazosin 8 mg tablet 8 mg PO BEDTIME 02/25/20 12/01/20 11/03/20 History finasteride 5 mg tablet 5 mg PO BEDTIME 02/25/20 12/01/20 11/03/20 History furosemide 80 mg tablet 80 mg PO BID 02/25/20 12/01/20 11/04/20 History magnesium 250 mg tablet 250 mg PO DAILY 02/25/20 12/01/20 11/04/20 History sertraline 50 mg tablet 50 mg PO DAILY 02/25/20 12/01/20 12/09/20 History simvastatin 40 mg tablet 40 mg PO BEDTIME 02/25/20 12/01/20 11/03/20 History spironolactone 25 mg tablet 25 mg PO BID 02/25/20 12/01/20 11/04/20 History amitriptyline 25 mg tablet 25 mg PO BEDTIME 03/05/20 12/01/20 11/03/20 History lancets 33 gauge #100 ea 03/11/20 11/20/20 Unknown History fluticasone 250 mcg-salmeterol 50 1 ea INHALATION BID 08/25/20 12/01/20 11/04/20 History mcg/dose blistr powdr for inhalation gabapentin 300 mg capsule 300 mg PO BID cap 08/25/20 12/01/20 12/09/20 History docusate sodium 100 mg capsule 100 mg PO BID 11/04/20 12/01/20 11/04/20 History insulin human U-100 NPH-regulr 80 unit SUBCUT BID 11/04/20 12/02/20 11/04/20 History 70-30 mix 100 unit/mL subcutaneous susp (Humulin 70/30 U-100 Insulin) ipratropium 0.5 mg-albuterol 3 mg 3 ml INHALATION QID 11/04/20 12/01/20 12/09/20 History (2.5 mg base)/3 mL nebulization soln metoprolol tartrate 25 mg tablet 75 mg PO BEDTIME tab 11/20/20 12/01/20 12/09/20 History famotidine 20 mg tablet 1 tab PO DAILY 12/02/20 12/02/20 12/09/20 History ferrous sulfate 325 mg (65 mg 325 mg PO DAILY 12/02/20 12/02/20 Unknown History iron) tablet (iron) multivitamin 1 tab PO DAILY 12/02/20 12/02/20 Unknown History polyethylene glycol 3350 17 gram 17 g PO DAILY 12/02/20 12/02/20 Unknown History oral powder packet (Miralax) Physical Exam Vital Signs and Narrative: Vital Signs: Last Vital Signs Temp 97.2 F 12/09/20 11:56 Pulse 60 12/09/20 11:56 Resp 16 12/09/20 11:56 BP 126/45 L 12/09/20 11:56 Pulse Ox 98 12/09/20 11:56 Body Mass Index 40.6 General: no acute distress, lethargic, rousable HEENT: atraumatic Neck: normal to visual inspection CVS: S1, S2, RRR Resp: CTA bilateral Chest: non tender GI: deffered : no CVA tenderness Skin: no rashes Extremities: bilateral LE edema Neuro: Oriented X3, grossly intact Psych: cooperative Results Labs CBC and Chem 7: 12/02/20 13:35 12/02/20 13:35 Labs: Laboratory Results - last 24 hr 12/09/20 12/09/20 12/09/20 06:17 06:40 07:01 POC Glucose 165 H COVID-19 ([facility]) Negative COVID-19 Clin Com See Note Blood Type O Positive Antibody Screen NEGATIVE 12/09/20 12:16 POC Glucose 183 H COVID-19 ([facility]) COVID-19 Clin Com Blood Type Antibody Screen Assessment and Plan (1) Cecum mass: Status: Acute 75M presented for partial colectomy for cecal tubulovillous adenoma CAD asa, statin htn lopressor aldactone cardura copd breo bph cardura, proscar gerd prilosec dm insulin chronic diastolic chf holding lasix post op, giving IVF for hydration once eating and off fluids, would restart lasix po for maintenance.
[2020-12-09] MEDS: Lactated Ringers 1,000 ML 80 ML IVCONT (12:51)
[2020-12-09 13:55] LABS: Anion Gap 16 (12-20); Blood Urea Nitrogen 27 mg/dL (9-16); Calcium 8.3 mg/dL (8.4-10.2); Carbon Dioxide 28 mmol/L (22-29); Chloride 103 mmol/L (96-108); Creatinine Clr Calc Pharmacy 33.4; Estimated Glomerular Filt Rate 27; Glucose Random 178 mg/dL (60-115); Sodium 142 mmol/L (135-145)
--- NOTE | 2020-12-09 14:21 | PM.EVENT ---
Event Note Date of Service: 12/09/20 Event Note: Seen postop He underwent hand assisted laparoscopic limited right colon resection earlier Drowsy but easily aroused Says she feels ?okay? Some pain on incisions Stable vital signs Good urine output Abdomen soft Pain management Tatum gomez
[2020-12-09] MEDS: Albuterol/Iprat 2.5/0.5MG 3 ML AMPUL.NEB INHALE ×2 (15:27→20:11)
[2020-12-09] MEDS: Omeprazole 20 MG CAPSULE.DR PO (15:52)
[2020-12-09] MEDS: oxyCODONE HCl Immed Release 5 MG TABLET 10 MG PO ×2 (15:52→20:01)
[2020-12-09 16:05] LABS: Glucose, Whole Blood 161 mg/dL (60-115)
[2020-12-09] MEDS: Insulin Lispro 100 UNIT/ML 3 ML VIAL SUBCUT ×2 (16:29→21:09)
[2020-12-09 20:52] LABS: Glucose, Whole Blood 187 mg/dL (60-115)
[2020-12-09] MEDS: Spironolactone 25 MG TABLET PO (21:08)
[2020-12-09] MEDS: Gabapentin 300 MG CAPSULE PO (21:08)
[2020-12-09] MEDS: Atorvastatin Calcium 20 MG TABLET PO (21:08)
[2020-12-09] MEDS: Amitriptyline HCl 25 MG TABLET PO (21:08)
[2020-12-09] MEDS: Metoprolol Tartrate 25 MG TABLET 75 MG PO (21:09)
[2020-12-09] MEDS: Finasteride 5 MG TABLET PO (21:09)
[2020-12-09] MEDS: Doxazosin Mesylate 2 MG TABLET 8 MG PO (21:09)
[2020-12-09] MEDS: oxyCODONE HCl Immed Release 5 MG TABLET PO (23:09)
[2020-12-10] VITALS (9 sets, daily range): BP systolic 98–144; BP diastolic 55–70; PULSE 64–73; RESP 15–20; TEMP 36.1–36.6; O2SAT 92–98
[2020-12-10] MEDS: Lactated Ringers 1,000 ML 80 ML IVCONT ×2 (01:37→12:32)
[2020-12-10] MEDS: oxyCODONE HCl Immed Release 5 MG TABLET 10 MG PO ×3 (01:46→16:32)
[2020-12-10] MEDS: Omeprazole 20 MG CAPSULE.DR PO ×2 (04:59→17:14)
[2020-12-10] MEDS: oxyCODONE HCl Immed Release 5 MG TABLET PO (04:59)
[2020-12-10 06:52] LABS: Basophils Percent Auto 0.3 % (0-2); Imm Gran Pct Auto 0.4 % (0.0-0.4); MANUAL DIFF FLAG SCAN; PLT CLUMP 1; SCAN SMEAR FLAG 1
[2020-12-10 06:54] LABS: Eosinophils Absolute Auto 0.2 X10*3/uL (0.0-0.4); Eosinophils Percent Auto 2.1 % (0-4); Hematocrit 31.5 % (42-52); Hemoglobin 9.4 g/dl (14.0-18.0); Imm Gran Abs Auto 0.04 X10*3/uL (0.00-0.03); Lymphocytes Absolute Auto 0.8 X10*3/uL (1.2-4.9); Lymphocytes Percent Auto 6.6 % (20-40); Mean Corpuscular HGB Conc 29.8 g/dl (31.0-36.0); Mean Corpuscular Hemoglobin 24.9 pg (27.0-33.0); Mean Corpuscular Volume 83.3 fL (80-98); Mean Platelet Volume 10.9 fL (9.4-12.4); Monocytes Percent Auto 8.6 % (2-11); Neutrophils Absolute Auto 9.3 X10*3/uL (2.0-8.3); Red Blood Count 3.78 X10*6/uL (4.60-5.80); Red Cell Distribution Width 19.7 % (11.0-16.0); White Blood Count 11.4 X10*3/uL (4.8-10.8)
[2020-12-10 07:05] LABS: Anion Gap 16 (12-20); Blood Urea Nitrogen 26 mg/dL (9-16); Calcium 8.6 mg/dL (8.4-10.2); Carbon Dioxide 29 mmol/L (22-29); Chloride 101 mmol/L (96-108); Creatinine Clr Calc Pharmacy 35.5; Estimated Glomerular Filt Rate 29; Glucose Random 172 mg/dL (60-115); Potassium 4.6 mmol/L (3.3-5.1); Sodium 141 mmol/L (135-145)
[2020-12-10 07:10] LABS: Glucose, Whole Blood 195 mg/dL (60-115)
[2020-12-10 08:01] LABS: Platelet Count 181 X10*3/uL (160-400)
[2020-12-10 08:02] LABS: SLIDE REVIEW VERIFIED
[2020-12-10] MEDS: Fluticasone/Vilanterol 100/25 BLST.W.DEV 1 PUFF INHALE (08:06)
[2020-12-10] MEDS: Albuterol/Iprat 2.5/0.5MG 3 ML AMPUL.NEB INHALE ×2 (08:07→11:29)
--- NOTE | 2020-12-10 08:16 | PM.PNGS ---
Subjective Subjective Date of Service: 12/10/20 <Marcia Ron PA-C - Last Filed: 12/10/20 08:21> 12/10/20 <Martínez ePrea MD - Last Filed: 12/10/20 08:45> Interval history: Feels very sore this morning. Oxycodone and morphine not really helping. Tolerating clears. Trying to pass some flatus. <Marcia Ron PA-C - Last Filed: 12/10/20 08:21> Physical Exam Vital Signs: Vital Signs: Last Vital Signs Temp 97 F 12/10/20 07:06 Pulse 65 12/10/20 08:11 Resp 20 12/10/20 07:06 BP 122/70 12/10/20 07:06 Pulse Ox 93 12/10/20 07:06 Body Mass Index 40.6 <DANIE Roblero Last Filed: 12/10/20 08:21> Const: General: comfortable, no acute distress and alert <Marcia Ron PA-C - Last Filed: 12/10/20 08:21> Orientation/consciousness: patient oriented x3 <Marcia Ron PA-C - Last Filed: 12/10/20 08:21> Resp: Effort & Inspection: normal respiratory effort <DANIE Roblero Last Filed: 12/10/20 08:21> Auscultation: clear to auscultation bilaterally <Marcia Ron PA-C - Last Filed: 12/10/20 08:21> Cardio: Rate: regular rate <Marcia Ron PA-C - Last Filed: 12/10/20 08:21> GI: Inspection: Yes distended and Yes incision (dressing clean) <DANIE Roblero Last Filed: 12/10/20 08:21> Palpation (GI): Soft to palpation, Tenderness to palpation present (GI) (mild, incisional), no guarding and not rigid <DANIE Roblero Last Filed: 12/10/20 08:21> Percussion: Yes tympanic to percussion <Marcia Ron PA-C - Last Filed: 12/10/20 08:21> Skin: General skin exam: no rashes or lesions noted <Marcia Ron PA-C - Last Filed: 12/10/20 08:21> Neuro: General: patient oriented x3 <Marcia Ron PA-C - Last Filed: 12/10/20 08:21> Extrem: General: Yes no clubbing, cyanosis or edema <Marcia Ron PA-C - Last Filed: 12/10/20 08:21> Procedures Date of Service Date of Service: 12/10/20 <Marcia Ron PA-C - Last Filed: 12/10/20 08:21> Progress Note: A&P Assessment and plan (1) S/P right colectomy: Status: Acute <Marcia Ron PA-C - Last Filed: 12/10/20 08:21> Assessment and Plan: Complains of incisional pain Abdomen distended but soft Denies flatus Dressings dry Pain management Encouraged to ambulate Keep on clear liquids Incentive spirometry Seen and examined - agree with BENIGNO Ron <Martínez Perea MD - Last Filed: 12/10/20 08:45> Assessment and Plan: 75 year old male with multiple medical problems admitted s/p FRANCISCO right colectomy for unresectable cecal polyp. He is doing fairly well post op. VSS. Abd exam benign- dressings clean, softly distended and tympanitic. Will continue clear liquids, IVF. Will continue knight until pain better controlled, likely dc later today. Switch morphine to dilaudid. Encouraged OOB and ambulation of halls, IS use. Hospitalists following for medical comorbidities. <Marcia Ron PA-C - Last Filed: 12/10/20 08:21> Fall Risk Details Current Medications: Current Medications Generic Name Dose Route Start Last Admin Trade Name Freq PRN Reason Stop Dose Admin Albuterol/Ipratropium 3 ml 12/09/20 16:00 12/10/20 08:07 Albuterol/Iprat 2.5/0.5mg 3 Ml Ampul.Neb INHALE 3 ml RQID OTILIA Administration Amitriptyline HCl 25 mg 12/09/20 21:00 12/09/20 21:08 Amitriptyline Hcl 25 Mg Tablet PO 25 mg BEDTIME OTILIA Administration Aspirin 81 mg 12/10/20 09:00 Aspirin Enteric Coated 81 Mg Tablet.Dr PO DAILY OTILIA Atorvastatin Calcium 20 mg 12/09/20 21:00 12/09/20 21:08 Atorvastatin Calcium 20 Mg Tablet PO 20 mg BEDTIME OTILIA Administration Dextrose 25 gm 12/09/20 12:39 Dextrose 50 % 25 Gm/50 Ml Vial IVPUSH Q15M PRN per Hypoglycemia Standing Ord. Protocol Doxazosin Mesylate 8 mg 12/09/20 21:00 12/09/20 21:09 Doxazosin Mesylate 2 Mg Tablet PO 8 mg BEDTIME OTILIA Administration Protocol Famotidine 20 mg 12/10/20 09:00 Famotidine 20 Mg Tablet PO DAILY OTILIA Finasteride 5 mg 12/09/20 21:00 12/09/20 21:09 Finasteride 5 Mg Tablet PO 5 mg BEDTIME OTILIA Administration Fluticasone/Vilanterol 1 puff 12/10/20 09:00 12/10/20 08:06 Fluticasone/Vilanterol 100/25 Blst.W.Dev INHALE 1 puff RDAILY OTILIA Administration Gabapentin 300 mg 12/09/20 21:00 12/09/20 21:08 Gabapentin 300 Mg Capsule PO 300 mg BID OTILIA Administration Glucose 15 gm 12/09/20 12:39 Glucose Gel 15 Gm Gel..Gram. PO Q15M PRN per Hypoglycemia Standing Ord. Protocol Acetaminophen 1,000 mg in 100 mls @ 400 mls/hr 12/09/20 10:15 12/10/20 05:23 Ofirmev IV Infused Q6H OTILIA Infusion Lactated Ringer's 1,000 mls @ 80 mls/hr 12/09/20 10:15 12/10/20 01:37 Lr IVCONT 80 mls/hr .[id number] OTILIA Administration Insulin Human Lispro 0 unit 12/09/20 16:30 12/09/20 21:09 Insulin Lispro 100 Unit/Ml 3 Ml Vial SUBCUT 2 unit QIDACHS OTILIA Administration Protocol Magnesium Oxide 400 mg 12/10/20 09:00 Magnesium Oxide 400 Mg Tablet PO DAILY OTILIA Metoprolol Tartrate 75 mg 12/09/20 21:00 12/09/20 21:09 Metoprolol Tartrate 25 Mg Tablet PO 75 mg BEDTIME OTILIA Administration Protocol Morphine Sulfate 4 mg 08/10/21 10:05 Morphine Sulfate 2 Mg/Ml Cartridge IVPUSH Q4H PRN Pain, Severe (Pain Scale 7-10) Protocol Omeprazole 20 mg 12/09/20 16:30 12/10/20 04:59 Omeprazole 20 Mg Capsule. PO 20 mg BID@6749,4320 OTILIA Administration Ondansetron HCl 4 mg 12/09/20 10:05 Ondansetron Hcl 4 Mg/2 Ml Vial IVPUSH Q8H PRN Nausea and Vomiting Oxycodone HCl 5 mg 12/09/20 10:05 12/10/20 04:59 Oxycodone Hcl Immed Release 5 Mg Tablet PO 5 mg Q4H PRN Administration Pain, Moderate (Pain Scale 4-6 Oxycodone HCl 10 mg 12/09/20 10:05 12/10/20 01:46 Oxycodone Hcl Immed Release 5 Mg Tablet PO 10 mg Q4H PRN Administration Pain, Severe (Pain Scale 7-10) Sertraline HCl 50 mg 12/10/20 09:00 Sertraline Hcl 50 Mg Tablet PO DAILY OTILIA Sodium Chloride 3 ml 12/09/20 16:00 12/09/20 21:10 0.9 % Sodium Chloride Flush 3 Ml Syringe IVFLUSH Not Given QSHIFT OTILIA Spironolactone 25 mg 12/09/20 21:00 12/09/20 21:08 Spironolactone 25 Mg Tablet PO 25 mg BID OTILIA Administration Protocol <Marcia Ron PA-C - Last Filed: 12/10/20 08:21> Time Spent With Patient Time: Total time spent is greater than 50% in coordination of care (as documented) at patient's floor/unit and/or counseling patient: <Marcia Ron PA-C - Last Filed: 12/10/20 08:21> Time with patient: 15 - 24 minutes <Marcia Ron PA-C - Last Filed: 12/10/20 08:21> Quality Stroke Does the patient have a stroke diagnosis?: No <DANIE Roblero Last Filed: 12/10/20 08:21> VTE Prior VTE?: No <Marcia Ron PA-C - Last Filed: 12/10/20 08:21> VTE Risk Level:: Surgical - high <Marcia Ron PA-C - Last Filed: 12/10/20 08:21> VTE Device Contraindication: N/A - Device Ordered <Marcia Ron PA-C - Last Filed: 12/10/20 08:21> VTE Drug Contraindication: N/A - Med Ordered <Marcia Ron PA-C - Last Filed: 12/10/20 08:21>
[2020-12-10] MEDS: Insulin Lispro 100 UNIT/ML 3 ML VIAL SUBCUT ×3 (08:42→16:43)
[2020-12-10] MEDS: Heparin Sodium,Porcine 5,000 UNIT/ML VIAL 5000 UNIT SUBCUT ×2 (08:44→20:34)
[2020-12-10] MEDS: Magnesium Oxide 400 MG TABLET PO (08:49)
[2020-12-10] MEDS: Aspirin Enteric Coated 81 MG TABLET.DR PO (08:49)
[2020-12-10] MEDS: Spironolactone 25 MG TABLET PO ×2 (08:49→20:35)
[2020-12-10] MEDS: Gabapentin 300 MG CAPSULE PO ×2 (08:49→20:35)
[2020-12-10] MEDS: Sertraline HCL 50 MG TABLET PO (08:49)
--- NOTE | 2020-12-10 09:56 | MHC.CM.PN ---
CM met with Patient at bedside and addressed IMM with him, providing him with the original and placing a copy on the chart. Patient lives with his /HCP on the first floor in a 3 family house and he uses a cane to assist with mobility (also has a walker & w/c). Patient is active with [facility] and his goal is to return home and resume these services. CM has initiated and will follow for dc planning. PCP is Dr. Leon Joyner.
[2020-12-10] MEDS: Famotidine 20 MG TABLET PO (10:41)
--- NOTE | 2020-12-10 11:12 | HO.POSTANES ---
Post Anesthesia Evaluation Post Anesthesia Evaluation Vital Signs: Vital Signs Temp Pulse Resp BP Pulse Ox 12/10/20 08:49 65 122/70 12/10/20 08:11 65 12/10/20 07:06 97 F 65 20 122/70 93 12/10/20 04:00 97.6 F 66 20 98/57 L 92 12/10/20 00:00 97.9 F 73 18 101/58 L 92 Anesthesia: General Endotracheal-GETA Mental Status: Awake Pain Control: Satisfactory Nausea/Vomiting: None Hydration: Adequate Anesthesia-Related Issues: No Anes. Related Issues
[2020-12-10 11:20] LABS: Glucose, Whole Blood 223 mg/dL (60-115)
[2020-12-10] MEDS: 0.9 % Sodium Chloride Flush 3 ML SYRINGE IVFLUSH ×2 (12:34→17:11)
--- NOTE | 2020-12-10 15:53 | P.PNIM_ITS ---
Subjective Subjective Date of Service: 12/10/20 Interval History: Complaining of abdominal pain at site of surgery, no other acute issues overnight. Review of Systems General no headache no dizziness no fever chills. CVS no chest pain, no palpitation. Respiratory no cough, no sob. Gastrointestinal no nausea, no vomiting, abdominal pain Physical Exam Vital Signs: Vital Signs: Last Vital Signs Temp 97 F 12/10/20 15:46 Pulse 68 12/10/20 11:31 Resp 18 12/10/20 15:46 BP 104/58 L 12/10/20 15:46 Pulse Ox 92 12/10/20 15:46 Body Mass Index 40.6 General resting comfortably in no acute distress. Neck supple no JVD. CVS regular rate rhythm, Respiratory lungs clear to auscultation, no respiratory distress, no wheeze, no rhonchi. Gastrointestinal abdomen distended, tenderness at site of incision , bowel sounds audible, no guarding , no rigidity. Extremities no edema. Neuro nonfocal , speech clear. Skin no rash Objective Data Current Medications Generic Name Dose Route Start Last Admin Trade Name Freq PRN Reason Stop Dose Admin Albuterol/Ipratropium 3 ml 12/09/20 16:00 12/10/20 15:32 Albuterol/Iprat 2.5/0.5mg 3 Ml Ampul.Neb INHALE Not Given RQID OTILIA Amitriptyline HCl 25 mg 12/09/20 21:00 12/09/20 21:08 Amitriptyline Hcl 25 Mg Tablet PO 25 mg BEDTIME OTILIA Administration Aspirin 81 mg 12/10/20 09:00 12/10/20 08:49 Aspirin Enteric Coated 81 Mg Tablet. PO 81 mg DAILY OTILIA Administration Atorvastatin Calcium 20 mg 12/09/20 21:00 12/09/20 21:08 Atorvastatin Calcium 20 Mg Tablet PO 20 mg BEDTIME OTILIA Administration Dextrose 25 gm 12/09/20 12:39 Dextrose 50 % 25 Gm/50 Ml Vial IVPUSH Q15M PRN per Hypoglycemia Standing Ord. Protocol Doxazosin Mesylate 8 mg 12/09/20 21:00 12/09/20 21:09 Doxazosin Mesylate 2 Mg Tablet PO 8 mg BEDTIME OTILIA Administration Protocol Famotidine 20 mg 12/10/20 09:00 12/10/20 10:41 Famotidine 20 Mg Tablet PO 20 mg DAILY OTILIA Administration Finasteride 5 mg 08/10/21 21:00 12/09/20 21:09 Finasteride 5 Mg Tablet PO 5 mg BEDTIME OTILIA Administration Fluticasone/Vilanterol 1 puff 12/10/20 09:00 12/10/20 08:06 Fluticasone/Vilanterol 100/25 Blst.W.Dev INHALE 1 puff RDAILY OTILIA Administration Gabapentin 300 mg 12/09/20 21:00 12/10/20 08:49 Gabapentin 300 Mg Capsule PO 300 mg BID OTILIA Administration Glucose 15 gm 12/09/20 12:39 Glucose Gel 15 Gm Gel..Gram. PO Q15M PRN per Hypoglycemia Standing Ord. Protocol Heparin Sodium (Porcine) 5,000 unit 12/10/20 08:30 12/10/20 08:44 Heparin Sodium,Porcine 5,000 Unit/Ml Vial SUBCUT 5,000 unit Q12H OTILIA Administration Hydromorphone HCl 0.5 mg 12/10/20 08:15 Hydromorphone Hcl 0.5 Mg/0.5 Ml Syringe IVPUSH Q3H PRN Pain, Severe (Pain Scale 7-10) Protocol Acetaminophen 1,000 mg in 100 mls @ 400 mls/hr 12/09/20 10:15 12/10/20 12:36 Ofirmev IV 0 mls/hr Q6H OTILIA Infusion Lactated Ringer's 1,000 mls @ 80 mls/hr 12/09/20 10:15 12/10/20 12:32 Lr IVCONT 80 mls/hr .[id number] OTILIA Administration Insulin Human Lispro 0 unit 12/09/20 16:30 12/10/20 11:51 Insulin Lispro 100 Unit/Ml 3 Ml Vial SUBCUT 4 unit QIDACHS OTILIA Administration Protocol Magnesium Oxide 400 mg 12/10/20 09:00 12/10/20 08:49 Magnesium Oxide 400 Mg Tablet PO 400 mg DAILY OTILIA Administration Metoprolol Tartrate 75 mg 12/09/20 21:00 12/09/20 21:09 Metoprolol Tartrate 25 Mg Tablet PO 75 mg BEDTIME OTILIA Administration Protocol Omeprazole 20 mg 12/09/20 16:30 12/10/20 04:59 Omeprazole 20 Mg Capsule.Dr PO 20 mg BID@0630,1630 OTILIA Administration Ondansetron HCl 4 mg 12/09/20 10:05 Ondansetron Hcl 4 Mg/2 Ml Vial IVPUSH Q8H PRN Nausea and Vomiting Oxycodone HCl 5 mg 12/09/20 10:05 12/10/20 04:59 Oxycodone Hcl Immed Release 5 Mg Tablet PO 5 mg Q4H PRN Administration Pain, Moderate (Pain Scale 4-6 Oxycodone HCl 10 mg 12/09/20 10:05 12/10/20 11:54 Oxycodone Hcl Immed Release 5 Mg Tablet PO 10 mg Q4H PRN Administration Pain, Severe (Pain Scale 7-10) Sertraline HCl 50 mg 12/10/20 09:00 12/10/20 08:49 Sertraline Hcl 50 Mg Tablet PO 50 mg DAILY OTILIA Administration Sodium Chloride 3 ml 12/09/20 16:00 12/10/20 12:34 0.9 % Sodium Chloride Flush 3 Ml Syringe IVFLUSH 3 ml QSHIFT OTILIA Administration Spironolactone 25 mg 12/09/20 21:00 12/10/20 08:49 Spironolactone 25 Mg Tablet PO 25 mg BID OTILIA Administration Protocol Labs CBC & Chem 7: 12/10/20 05:27 12/10/20 05:27 Labs: Laboratory Results - last 24 hr 12/09/20 12/09/20 12/10/20 16:01 20:46 05:27 MCV 83.3 MCH 24.9 L MCHC 29.8 L RDW 19.7 H Plt Count 181 MPV 10.9 Immature Gran % (Auto) 0.4 Neut % (Auto) 82.0 H Lymph % (Auto) 6.6 L Patrick % (Auto) 8.6 Eos % (Auto) 2.1 Baso % (Auto) 0.3 Lymph # (Auto) 0.8 L Patrick # (Auto) 1.0 Eos # (Auto) 0.2 Baso # (Auto) 0.0 Abs Immat Gran (auto) 0.04 H Absolute Neuts (auto) 9.3 H Absolute Nucleated RBC 0.000 Nucleated RBC % (auto) 0.0 Smear Tech's Comments VERIFIED Anion Gap Estim Creat Clear Calc Estimated GFR POC Glucose 161 H 187 H Random Glucose Calcium 12/10/20 12/10/20 12/10/20 05:27 07:06 11:17 MCV MCH MCHC RDW Plt Count MPV Immature Gran % (Auto) Neut % (Auto) Lymph % (Auto) Patrick % (Auto) Eos % (Auto) Baso % (Auto) Lymph # (Auto) Patrick # (Auto) Eos # (Auto) Baso # (Auto) Abs Immat Gran (auto) Absolute Neuts (auto) Absolute Nucleated RBC Nucleated RBC % (auto) Smear Tech's Comments Anion Gap 16 Estim Creat Clear Calc 35.5 Estimated GFR 29 POC Glucose 195 H 223 H Random Glucose 172 H Calcium 8.6 Assessment and Plan (1) S/P right colectomy: Status: Acute (2) Cecum mass: Status: Acute Assessment and Plan: 75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 will resume home medications once tolerating regular diet chronic diastolic chf No acute exacerbation, holding lasix post op, giving IVF for hydration, follow closely for any fluid overload and resume Lasix once tolerating diet Quality Stroke Does the patient have a stroke diagnosis?: No VTE Prior VTE?: No VTE Risk Level:: Surgical - high VTE Device Contraindication: N/A - Device Ordered VTE Drug Contraindication: N/A - Med Ordered
[2020-12-10 16:27] LABS: Glucose, Whole Blood 172 mg/dL (60-115)
[2020-12-10 20:25] LABS: Glucose, Whole Blood 150 mg/dL (60-115)
[2020-12-10] MEDS: Atorvastatin Calcium 20 MG TABLET PO (20:35)
[2020-12-10] MEDS: Metoprolol Tartrate 25 MG TABLET 75 MG PO (20:38)
[2020-12-10] MEDS: Doxazosin Mesylate 2 MG TABLET 8 MG PO (20:38)
[2020-12-10] MEDS: Amitriptyline HCl 25 MG TABLET PO (20:38)
[2020-12-10] MEDS: Finasteride 5 MG TABLET PO (20:38)
[2020-12-11] VITALS (13 sets, daily range): BP systolic 104–145; BP diastolic 50–85; PULSE 61–94; RESP 15–22; TEMP 36.3–37.3; O2SAT 91–100
[2020-12-11] MEDS: Lactated Ringers 1,000 ML 80 ML IVCONT (01:46)
[2020-12-11] MEDS: Omeprazole 20 MG CAPSULE.DR PO ×2 (05:17→15:57)
--- NOTE | 2020-12-11 06:35 | PC.NURSE ---
Sanchez removed at 0630 this morning. Patient due to void by 1230 this afternoon.
[2020-12-11] MEDS: Fluticasone/Vilanterol 100/25 BLST.W.DEV 1 PUFF INHALE (07:14)
[2020-12-11] MEDS: Albuterol/Iprat 2.5/0.5MG 3 ML AMPUL.NEB INHALE ×4 (07:14→19:16)
[2020-12-11 07:27] LABS: Glucose, Whole Blood 166 mg/dL (60-115)
[2020-12-11] MEDS: Insulin Lispro 100 UNIT/ML 3 ML VIAL SUBCUT ×4 (07:40→21:02)
[2020-12-11] MEDS: Heparin Sodium,Porcine 5,000 UNIT/ML VIAL 5000 UNIT SUBCUT ×2 (07:42→21:01)
[2020-12-11] MEDS: Famotidine 20 MG TABLET PO (07:44)
[2020-12-11] MEDS: Gabapentin 300 MG CAPSULE PO ×2 (07:44→21:01)
[2020-12-11] MEDS: Sertraline HCL 50 MG TABLET PO (07:45)
[2020-12-11] MEDS: Spironolactone 25 MG TABLET PO (07:45)
[2020-12-11] MEDS: Aspirin Enteric Coated 81 MG TABLET.DR PO (07:47)
[2020-12-11] MEDS: Magnesium Oxide 400 MG TABLET PO (07:55)
--- NOTE | 2020-12-11 08:33 | PM.PNGS ---
Subjective Subjective Date of Service: 12/11/20 <Marcia Ron PA-C - Last Filed: 12/11/20 08:36> 12/11/20 <Martínez Perea MD - Last Filed: 12/11/20 13:51> Interval history: Feels a little better this morning. Pain has improved. Passing continuous flatus but also reports belching. Denies nausea. OOB to chair yesterday. <Marcia Ron PA-C - Last Filed: 12/11/20 08:36> Physical Exam Vital Signs: Vital Signs: Last Vital Signs Temp 97.5 F 12/11/20 07:13 Pulse 63 12/11/20 07:45 Resp 20 12/11/20 07:13 BP 104/54 L 12/11/20 07:45 Pulse Ox 94 12/11/20 07:13 Body Mass Index 40.6 <DANIE Roblero Last Filed: 12/11/20 08:36> Const: General: comfortable, no acute distress and alert <Marcia Ron PA-C - Last Filed: 12/11/20 08:36> Orientation/consciousness: patient oriented x3 <Marcia Ron PA-C - Last Filed: 12/11/20 08:36> Resp: Effort & Inspection: normal respiratory effort <DANIE Roblero Last Filed: 12/11/20 08:36> Cardio: Rate: regular rate <Marcia Ron PA-C - Last Filed: 12/11/20 08:36> GI: Inspection: Yes distended (mild) and Yes incision (clean, no erythema) <Marcia Ron PA-C - Last Filed: 12/11/20 08:36> Palpation (GI): Soft to palpation, Tenderness to palpation present (GI) (mild incisional) Negative for with no rebound tenderness, no guarding and not rigid <DANIE Roblero Last Filed: 12/11/20 08:36> Percussion: Yes normal to percussion <DANIE Roblero Last Filed: 12/11/20 08:36> Skin: General skin exam: no rashes or lesions noted <Marcia Ron PA-C - Last Filed: 12/11/20 08:36> Neuro: General: patient oriented x3 <Marcia Ron PA-C - Last Filed: 12/11/20 08:36> Extrem: General: Yes no clubbing, cyanosis or edema <Marcia Ron PA-C - Last Filed: 12/11/20 08:36> Procedures Date of Service Date of Service: 12/11/20 <Marcia Ron PA-C - Last Filed: 12/11/20 08:36> Progress Note: A&P Assessment and plan (1) S/P right colectomy: Status: Acute <Marcia Ron PA-C - Last Filed: 12/11/20 08:36> Assessment and Plan: Passing flatus Looks well Tolerating clear liquids without any nausea or vomiting Abdomen soft although protuberant Okay to advance diet slowly Encourage ambulation Seen and examined -agree with BENIGNO Ron <Martínez Perea MD - Last Filed: 12/11/20 13:51> (2) Cecum mass: Status: Acute <DANIE Roblero Last Filed: 12/11/20 08:36> Assessment and Plan: ?75 year old male with multiple medical problems admitted s/p FRANCISCO right colectomy for unresectable cecal polyp. He continues to do fairly well post op. VSS. Abd exam remains benign- incisions clean, softly distended and tympanitic. Will advance to full liquids as tolerated, decrease IVF. Encouraged OOB and ambulation of halls, IS use. Repeat labs tomorrow morning. Await pathology. <DANIE Roblero Last Filed: 12/11/20 08:36> Fall Risk Details Current Medications: Current Medications Generic Name Dose Route Start Last Admin Trade Name Freq PRN Reason Stop Dose Admin Albuterol/Ipratropium 3 ml 12/09/20 16:00 12/11/20 07:14 Albuterol/Iprat 2.5/0.5mg 3 Ml Ampul.Neb INHALE 3 ml RQID OTILIA Administration Amitriptyline HCl 25 mg 12/09/20 21:00 12/10/20 20:38 Amitriptyline Hcl 25 Mg Tablet PO 25 mg BEDTIME OTILIA Administration Aspirin 81 mg 12/10/20 09:00 12/11/20 07:47 Aspirin Enteric Coated 81 Mg Tablet.Dr PO 81 mg DAILY OTILIA Administration Atorvastatin Calcium 20 mg 12/09/20 21:00 12/10/20 20:35 Atorvastatin Calcium 20 Mg Tablet PO 20 mg BEDTIME OTILIA Administration Dextrose 25 gm 12/09/20 12:39 Dextrose 50 % 25 Gm/50 Ml Vial IVPUSH Q15M PRN per Hypoglycemia Standing Ord. Protocol Doxazosin Mesylate 8 mg 12/09/20 21:00 12/10/20 20:38 Doxazosin Mesylate 2 Mg Tablet PO 8 mg BEDTIME OTILIA Administration Protocol Famotidine 20 mg 12/10/20 09:00 12/11/20 07:44 Famotidine 20 Mg Tablet PO 20 mg DAILY OTILIA Administration Finasteride 5 mg 12/09/20 21:00 12/10/20 20:38 Finasteride 5 Mg Tablet PO 5 mg BEDTIME OTILIA Administration Fluticasone/Vilanterol 1 puff 12/10/20 09:00 12/11/20 07:14 Fluticasone/Vilanterol 100/25 Blst.W.Dev INHALE 1 puff RDAILY OTILIA Administration Gabapentin 300 mg 12/09/20 21:00 12/11/20 07:44 Gabapentin 300 Mg Capsule PO 300 mg BID OTILIA Administration Glucose 15 gm 12/09/20 12:39 Glucose Gel 15 Gm Gel..Gram. PO Q15M PRN per Hypoglycemia Standing Ord. Protocol Heparin Sodium (Porcine) 5,000 unit 12/10/20 08:30 12/11/20 07:42 Heparin Sodium,Porcine 5,000 Unit/Ml Vial SUBCUT 5,000 unit Q12H OTILIA Administration Hydromorphone HCl 0.5 mg 12/10/20 08:15 Hydromorphone Hcl 0.5 Mg/0.5 Ml Syringe IVPUSH Q3H PRN Pain, Severe (Pain Scale 7-10) Protocol Acetaminophen 1,000 mg in 100 mls @ 400 mls/hr 12/09/20 10:15 12/11/20 04:49 Ofirmev IV Infused Q6H OTILIA Infusion Lactated Ringer's 1,000 mls @ 80 mls/hr 12/09/20 10:15 12/11/20 01:46 Lr IVCONT 80 mls/hr .[id number] OTILIA Administration Insulin Human Lispro 0 unit 12/09/20 16:30 12/11/20 07:40 Insulin Lispro 100 Unit/Ml 3 Ml Vial SUBCUT 2 unit QIDACHS [facility] Administration Protocol Magnesium Oxide 400 mg 12/10/20 09:00 12/11/20 07:55 Magnesium Oxide 400 Mg Tablet PO 400 mg DAILY OTILIA Administration Metoprolol Tartrate 75 mg 12/09/20 21:00 12/10/20 20:38 Metoprolol Tartrate 25 Mg Tablet PO 75 mg BEDTIME OTILIA Administration Protocol Omeprazole 20 mg 12/09/20 16:30 12/11/20 05:17 Omeprazole 20 Mg Capsule.Dr PO 20 mg BID@0630,6280 OTILIA Administration Ondansetron HCl 4 mg 12/09/20 10:05 Ondansetron Hcl 4 Mg/2 Ml Vial IVPUSH Q8H PRN Nausea and Vomiting Oxycodone HCl 5 mg 12/09/20 10:05 12/10/20 04:59 Oxycodone Hcl Immed Release 5 Mg Tablet PO 5 mg Q4H PRN Administration Pain, Moderate (Pain Scale 4-6 Oxycodone HCl 10 mg 12/09/20 10:05 12/10/20 16:32 Oxycodone Hcl Immed Release 5 Mg Tablet PO 10 mg Q4H PRN Administration Pain, Severe (Pain Scale 7-10) Sertraline HCl 50 mg 12/10/20 09:00 12/11/20 07:45 Sertraline Hcl 50 Mg Tablet PO 50 mg DAILY OTILIA Administration Sodium Chloride 3 ml 12/09/20 16:00 12/11/20 07:48 0.9 % Sodium Chloride Flush 3 Ml Syringe IVFLUSH Not Given QSHIFT OTILIA <Marcia Ron PA-C - Last Filed: 12/11/20 08:36> Time Spent With Patient Time: Total time spent is greater than 50% in coordination of care (as documented) at patient's floor/unit and/or counseling patient: <DANIE Roblero Last Filed: 12/11/20 08:36> Time with patient: 15 - 24 minutes <DANIE Roblero Last Filed: 12/11/20 08:36> Quality Stroke Does the patient have a stroke diagnosis?: No <Marcia Ron PA-C - Last Filed: 12/11/20 08:36> VTE Prior VTE?: No <Marcia Ron PA-C - Last Filed: 12/11/20 08:36> VTE Risk Level:: Surgical - high <Marcia Ron PA-C - Last Filed: 12/11/20 08:36> VTE Device Contraindication: N/A - Device Ordered <Marcia Ron PA-C - Last Filed: 12/11/20 08:36> VTE Drug Contraindication: N/A - Med Ordered <Marcia Ron PA-C - Last Filed: 12/11/20 08:36>
[2020-12-11 11:07] LABS: Glucose, Whole Blood 162 mg/dL (60-115)
--- NOTE | 2020-12-11 11:43 | HO.PM.IMPN ---
Subjective Subjective Date of Service: 12/11/20 Interval History: Feels better this morning, abdominal pain is well controlled, passing flatus, no other acute issues. Review of Systems General no headache no dizziness no fever chills.? CVS no chest pain, no palpitation.? Respiratory no cough, no sob.? Gastrointestinal no nausea, no vomiting, abdominal pain improved Physical Exam Vital Signs: Vital Signs: Last Vital Signs Temp 97.8 F 12/11/20 11:32 Pulse 65 12/11/20 11:32 Resp 20 12/11/20 11:32 BP 140/63 H 12/11/20 11:32 Pulse Ox 92 12/11/20 11:32 Body Mass Index 40.6 General sitting on chair, no acute distress.? Neck? supple no JVD. CVS? regular rate rhythm, Respiratory lungs clear to auscultation, no respiratory distress, no wheeze, no rhonchi. Gastrointestinal abdomen distended, tenderness at site of incision , bowel sounds audible, no guarding , no rigidity. Extremities trace edema. Neuro nonfocal , speech clear. Skin no rash Objective Data Current Medications Generic Name Dose Route Start Last Admin Trade Name Freq PRN Reason Stop Dose Admin Albuterol/Ipratropium 3 ml 12/09/20 16:00 12/11/20 11:10 Albuterol/Iprat 2.5/0.5mg 3 Ml Ampul.Neb INHALE 3 ml RQID OTILIA Administration Amitriptyline HCl 25 mg 12/09/20 21:00 12/10/20 20:38 Amitriptyline Hcl 25 Mg Tablet PO 25 mg BEDTIME OTILIA Administration Aspirin 81 mg 12/10/20 09:00 12/11/20 07:47 Aspirin Enteric Coated 81 Mg Tablet.Dr PO 81 mg DAILY OT[facility]IA Administration Atorvastatin Calcium 20 mg 12/09/20 21:00 12/10/20 20:35 Atorvastatin Calcium 20 Mg Tablet PO 20 mg BEDTIME OT[facility]IA Administration Dextrose 25 gm 12/09/20 12:39 Dextrose 50 % 25 Gm/50 Ml Vial IVPUSH Q15M PRN per Hypoglycemia Standing Ord. Protocol Doxazosin Mesylate 8 mg 12/09/20 21:00 12/10/20 20:38 Doxazosin Mesylate 2 Mg Tablet PO 8 mg BEDTIME OTILIA Administration Protocol Famotidine 20 mg 12/10/20 09:00 12/11/20 07:44 Famotidine 20 Mg Tablet PO 20 mg DAILY OT[facility]IA Administration Finasteride 5 mg 12/09/20 21:00 12/10/20 20:38 Finasteride 5 Mg Tablet PO 5 mg BEDTIME OT[facility]IA Administration Fluticasone/Vilanterol 1 puff 12/10/20 09:00 12/11/20 07:14 Fluticasone/Vilanterol 100/25 Blst.W.Dev INHALE 1 puff RDAILY OTILIA Administration Gabapentin 300 mg 12/09/20 21:00 12/11/20 07:44 Gabapentin 300 Mg Capsule PO 300 mg BID OTILIA Administration Glucose 15 gm 12/09/20 12:39 Glucose Gel 15 Gm Gel..Gram. PO Q15M PRN per Hypoglycemia Standing Ord. Protocol Heparin Sodium (Porcine) 5,000 unit 12/10/20 08:30 12/11/20 07:42 Heparin Sodium,Porcine 5,000 Unit/Ml Vial SUBCUT 5,000 unit Q12H OT[facility]IA Administration Hydromorphone HCl 0.5 mg 12/10/20 08:15 Hydromorphone Hcl 0.5 Mg/0.5 Ml Syringe IVPUSH Q3H PRN Pain, Severe (Pain Scale 7-10) Protocol Insulin Human Lispro 0 unit 12/09/20 16:30 12/11/20 11:15 Insulin Lispro 100 Unit/Ml 3 Ml Vial SUBCUT 2 unit QIDACHS [facility] Administration Protocol Magnesium Oxide 400 mg 12/10/20 09:00 12/11/20 07:55 Magnesium Oxide 400 Mg Tablet PO 400 mg DAILY OTILIA Administration Metoprolol Tartrate 75 mg 12/09/20 21:00 12/10/20 20:38 Metoprolol Tartrate 25 Mg Tablet PO 75 mg BEDTIME OTILIA Administration Protocol Omeprazole 20 mg 12/09/20 16:30 12/11/20 05:17 Omeprazole 20 Mg Capsule.Dr PO 20 mg BID@0630,1630 [facility] Administration Ondansetron HCl 4 mg 12/09/20 10:05 Ondansetron Hcl 4 Mg/2 Ml Vial IVPUSH Q8H PRN Nausea and Vomiting Oxycodone HCl 5 mg 12/09/20 10:05 12/10/20 04:59 Oxycodone Hcl Immed Release 5 Mg Tablet PO 5 mg Q4H PRN Administration Pain, Moderate (Pain Scale 4-6 Oxycodone HCl 10 mg 12/09/20 10:05 12/10/20 16:32 Oxycodone Hcl Immed Release 5 Mg Tablet PO 10 mg Q4H PRN Administration Pain, Severe (Pain Scale 7-10) Sertraline HCl 50 mg 12/10/20 09:00 12/11/20 07:45 Sertraline Hcl 50 Mg Tablet PO 50 mg DAILY OTILIA Administration Sodium Chloride 3 ml 12/09/20 16:00 12/11/20 07:48 0.9 % Sodium Chloride Flush 3 Ml Syringe IVFLUSH Not Given QSHIFT [facility] Labs CBC & Chem 7: 12/10/20 05:27 12/10/20 05:27 Labs: Laboratory Results - last 24 hr 12/10/20 12/10/20 12/11/20 16:22 20:22 07:12 POC Glucose 172 H 150 H 166 H 12/11/20 11:00 POC Glucose 162 H Assessment and Plan (1) S/P right colectomy: Status: Acute (2) Cecum mass: Status: Acute Assessment and Plan: 75M presented for partial colectomy for cecal tubulovillous adenoma Status post partial colectomy postoperative day 2 Better pain control, diet as per General surgery, will DC IV fluid, DC IV Tylenol, recommend out of bed and incentive spirometry Acute on chronic kidney disease stage 3 Continue to hold Lasix, DC Aldactone, DC IV fluid with underlying history of chf CAD No acute symptoms of chest pain or shortness, continue asa,/ statin htn BP low / stable continue lopressor, and cardura copd no acute exacerbation continue breo bph Continue Sanchez catheter and home medication cardura, proscar gerd prilosec dm BS stable ,continue insulin sliding scale, at home takes Humulin 70/30 units b.i.d. will resume home medications once tolerating regular diet chronic diastolic chf No acute exacerbation, holding lasix and aldactone follow fluid status closely Quality Stroke Does the patient have a stroke diagnosis?: No VTE Prior VTE?: No VTE Risk Level:: Surgical - high VTE Device Contraindication: N/A - Device Ordered VTE Drug Contraindication: N/A - Med Ordered
[2020-12-11] MEDS: oxyCODONE HCl Immed Release 5 MG TABLET 10 MG PO (15:44)
[2020-12-11] MEDS: 0.9 % Sodium Chloride Flush 3 ML SYRINGE IVFLUSH ×2 (15:56→21:01)
[2020-12-11 15:59] LABS: Glucose, Whole Blood 165 mg/dL (60-115)
[2020-12-11 19:55] LABS: Glucose, Whole Blood 222 mg/dL (60-115)
[2020-12-11] MEDS: Finasteride 5 MG TABLET PO (21:01)
[2020-12-11] MEDS: Amitriptyline HCl 25 MG TABLET PO (21:01)
[2020-12-11] MEDS: Metoprolol Tartrate 25 MG TABLET 75 MG PO (21:01)
[2020-12-11] MEDS: Atorvastatin Calcium 20 MG TABLET PO (21:01)
[2020-12-11] MEDS: Doxazosin Mesylate 2 MG TABLET 8 MG PO (21:02)
[2020-12-12] VITALS (13 sets, daily range): BP systolic 91–141; BP diastolic 41–72; PULSE 64–78; RESP 15–20; TEMP 36.4–37; O2SAT 86–93
[2020-12-12] MEDS: oxyCODONE HCl Immed Release 5 MG TABLET PO (02:01)
[2020-12-12] MEDS: Omeprazole 20 MG CAPSULE.DR PO ×2 (05:32→16:53)
[2020-12-12 06:15] LABS: MANUAL DIFF FLAG NO
[2020-12-12 06:21] LABS: Basophils Percent Auto 0.2 % (0-2); Eosinophils Absolute Auto 0.3 X10*3/uL (0.0-0.4); Eosinophils Percent Auto 3.7 % (0-4); Hematocrit 26.8 % (42-52); Hemoglobin 8.2 g/dl (14.0-18.0); Imm Gran Abs Auto 0.04 X10*3/uL (0.00-0.03); Imm Gran Pct Auto 0.5 % (0.0-0.4); Lymphocytes Absolute Auto 0.6 X10*3/uL (1.2-4.9); Lymphocytes Percent Auto 6.8 % (20-40); Mean Corpuscular HGB Conc 30.6 g/dl (31.0-36.0); Mean Corpuscular Hemoglobin 24.8 pg (27.0-33.0); Mean Platelet Volume 9.9 fL (9.4-12.4); Monocytes Absolute Auto 0.8 X10*3/uL (0.1-1.2); Monocytes Percent Auto 9.3 % (2-11); Neutrophils Absolute Auto 6.9 X10*3/uL (2.0-8.3); Neutrophils Percent Auto 79.5 % (45-73); Platelet Count 176 X10*3/uL (160-400); Red Blood Count 3.31 X10*6/uL (4.60-5.80); Red Cell Distribution Width 19.1 % (11.0-16.0); White Blood Count 8.6 X10*3/uL (4.8-10.8)
[2020-12-12 06:50] LABS: Anion Gap 15 (12-20); Blood Urea Nitrogen 27 mg/dL (9-16); Calcium 8.5 mg/dL (8.4-10.2); Carbon Dioxide 27 mmol/L (22-29); Chloride 98 mmol/L (96-108); Creatinine Clr Calc Pharmacy 41.2; Estimated Glomerular Filt Rate 35; Glucose Random 183 mg/dL (60-115); Potassium 4.4 mmol/L (3.3-5.1); Sodium 136 mmol/L (135-145)
[2020-12-12] MEDS: Albuterol/Iprat 2.5/0.5MG 3 ML AMPUL.NEB INHALE ×4 (07:16→19:50)
[2020-12-12] MEDS: Fluticasone/Vilanterol 100/25 BLST.W.DEV 1 PUFF INHALE (07:17)
[2020-12-12 08:03] LABS: Glucose, Whole Blood 184 mg/dL (60-115)
--- NOTE | 2020-12-12 08:23 | PM.PNGS ---
Subjective Subjective Date of Service: 12/12/20 <Marcia Ron PA-C - Last Filed: 12/12/20 08:28> 12/12/20 <Martínez Perea MD - Last Filed: 12/12/20 16:07> Interval history: Continues to have pain at incision site that makes it difficult to get OOB/ambulate. Reports passing flatus and still belching. Tolerating liquids and wants to eat. <Marcia Ron PA-C - Last Filed: 12/12/20 08:28> Physical Exam Vital Signs: Vital Signs: Last Vital Signs Temp 97.9 F 12/12/20 03:49 Pulse 78 12/12/20 07:17 Resp 18 12/12/20 05:32 BP 112/67 12/12/20 03:49 Pulse Ox 90 L 12/12/20 05:32 Body Mass Index 40.6 <Marcia Ron PA-C - Last Filed: 12/12/20 08:28> Const: General: comfortable, no acute distress and alert <Marcia Ron PA-C - Last Filed: 12/12/20 08:28> Orientation/consciousness: patient oriented x3 <Marcia Ron PA-C - Last Filed: 12/12/20 08:28> Resp: Effort & Inspection: normal respiratory effort <Marcia Ron PA-C - Last Filed: 12/12/20 08:28> GI: Inspection: No distended (but protuberant) and Yes incision (some erythema at midline incision surrounding umbilicus) <Marcia Ron PA-C - Last Filed: 12/12/20 08:28> Palpation (GI): Soft to palpation and Tenderness to palpation present (GI) (incisional) <Marcia Ron PA-C - Last Filed: 12/12/20 08:28> Skin: General skin exam: no rashes or lesions noted <DANIE Roblero Last Filed: 12/12/20 08:28> Neuro: General: patient oriented x3 <DANIE Roblero Last Filed: 12/12/20 08:28> Extrem: General: Yes no clubbing, cyanosis or edema <Marcia Ron PA-C - Last Filed: 12/12/20 08:28> Procedures Date of Service Date of Service: 12/12/20 <Marcia Ron PA-C - Last Filed: 12/12/20 08:28> Progress Note: A&P Assessment and plan (1) S/P right colectomy: Status: Acute <Marcia Ron PA-C - Last Filed: 12/12/20 08:28> (2) Cecum mass: Status: Acute <Marcia Ron PA-C - Last Filed: 12/12/20 08:28> Assessment and Plan: Passing flatus No BMs yet Feels well Has been ambulating Tolerating full liquids Await full return of GI function Path report -tubular adenoma Possible home over the weekend Seen and examined - agree with BENIGNO Ron <Martínez Perea MD - Last Filed: 12/12/20 16:07> Assessment and Plan: 75 year old male with multiple medical problems admitted s/p FRANCISCO right colectomy for unresectable cecal polyp. He continues to do fairly well post op. VSS. Will continue full liquids as tolerated until GI function increases. Encouraged OOB and ambulation of halls, IS use. Pain management. AM labs reviewed. Pathology- Tubulovillous adenoma arising within the cecum; negative for high grade dysplasia and carcinoma. Additional tubular adenomas (x 2; negative for high grade dysplasia) and sessile serrated polyp (x 1; negative for cytologic dysplasia) within the cecum/ascending colon. <Marcia Ron PA-C - Last Filed: 12/12/20 08:28> Fall Risk Details Current Medications: Current Medications Generic Name Dose Route Start Last Admin Trade Name Freq PRN Reason Stop Dose Admin Albuterol/Ipratropium 3 ml 12/09/20 16:00 12/12/20 07:16 Albuterol/Iprat 2.5/0.5mg 3 Ml Ampul.Neb INHALE 3 ml RQID OTILIA Administration Amitriptyline HCl 25 mg 12/09/20 21:00 12/11/20 21:01 Amitriptyline Hcl 25 Mg Tablet PO 25 mg BEDTIME OTILIA Administration Aspirin 81 mg 12/10/20 09:00 12/11/20 07:47 Aspirin Enteric Coated 81 Mg Tablet.Dr PO 81 mg DAILY OTILIA Administration Atorvastatin Calcium 20 mg 12/09/20 21:00 12/11/20 21:01 Atorvastatin Calcium 20 Mg Tablet PO 20 mg BEDTIME OTILIA Administration Dextrose 25 gm 12/09/20 12:39 Dextrose 50 % 25 Gm/50 Ml Vial IVPUSH Q15M PRN per Hypoglycemia Standing Ord. Protocol Doxazosin Mesylate 8 mg 12/09/20 21:00 12/11/20 21:02 Doxazosin Mesylate 2 Mg Tablet PO 8 mg BEDTIME OTILIA Administration Protocol Famotidine 20 mg 12/10/20 09:00 12/11/20 07:44 Famotidine 20 Mg Tablet PO 20 mg DAILY OTILIA Administration Finasteride 5 mg 12/09/20 21:00 12/11/20 21:01 Finasteride 5 Mg Tablet PO 5 mg BEDTIME OTILIA Administration Fluticasone/Vilanterol 1 puff 12/10/20 09:00 12/12/20 07:17 Fluticasone/Vilanterol 100/25 Blst.W.Dev INHALE 1 puff RDAILY OTILIA Administration Gabapentin 300 mg 12/09/20 21:00 12/11/20 21:01 Gabapentin 300 Mg Capsule PO 300 mg BID OTILIA Administration Glucose 15 gm 12/09/20 12:39 Glucose Gel 15 Gm Gel..Gram. PO Q15M PRN per Hypoglycemia Standing Ord. Protocol Heparin Sodium (Porcine) 5,000 unit 12/10/20 08:30 12/11/20 21:01 Heparin Sodium,Porcine 5,000 Unit/Ml Vial SUBCUT 5,000 unit Q12H OTILIA Administration Hydromorphone HCl 0.5 mg 12/10/20 08:15 Hydromorphone Hcl 0.5 Mg/0.5 Ml Syringe IVPUSH Q3H PRN Pain, Severe (Pain Scale 7-10) Protocol Insulin Human Lispro 0 unit 12/09/20 16:30 12/11/20 21:02 Insulin Lispro 100 Unit/Ml 3 Ml Vial SUBCUT 4 unit QIDACHS OTILIA Administration Protocol Magnesium Oxide 400 mg 12/10/20 09:00 12/11/20 07:55 Magnesium Oxide 400 Mg Tablet PO 400 mg DAILY OTILIA Administration Metoprolol Tartrate 75 mg 12/09/20 21:00 12/11/20 21:01 Metoprolol Tartrate 25 Mg Tablet PO 75 mg BEDTIME OTILIA Administration Protocol Omeprazole 20 mg 12/09/20 16:30 12/12/20 05:32 Omeprazole 20 Mg Capsule.Dr PO 20 mg BID@0649,4540 OTILIA Administration Ondansetron HCl 4 mg 12/09/20 10:05 Ondansetron Hcl 4 Mg/2 Ml Vial IVPUSH Q8H PRN Nausea and Vomiting Oxycodone HCl 5 mg 12/09/20 10:05 12/12/20 02:01 Oxycodone Hcl Immed Release 5 Mg Tablet PO 5 mg Q4H PRN Administration Pain, Moderate (Pain Scale 4-6 Oxycodone HCl 10 mg 12/09/20 10:05 12/11/20 15:44 Oxycodone Hcl Immed Release 5 Mg Tablet PO 10 mg Q4H PRN Administration Pain, Severe (Pain Scale 7-10) Sertraline HCl 50 mg 12/10/20 09:00 12/11/20 07:45 Sertraline Hcl 50 Mg Tablet PO 50 mg DAILY OTILIA Administration Sodium Chloride 3 ml 12/09/20 16:00 12/11/20 21:01 0.9 % Sodium Chloride Flush 3 Ml Syringe IVFLUSH 3 ml QSHIFT OTILIA Administration <Mracia Ron PA-C - Last Filed: 12/12/20 08:28> Time Spent With Patient Time: Total time spent is greater than 50% in coordination of care (as documented) at patient's floor/unit and/or counseling patient: <Marcia Ron PA-C - Last Filed: 12/12/20 08:28> Time with patient: 15 - 24 minutes <DANIE Roblero Last Filed: 12/12/20 08:28> Quality Stroke Does the patient have a stroke diagnosis?: No <DANIE Roblero Last Filed: 12/12/20 08:28> VTE Prior VTE?: No <Marcia Ron PA-C - Last Filed: 12/12/20 08:28> VTE Risk Level:: Surgical - high <DANIE Roblero Last Filed: 12/12/20 08:28> VTE Device Contraindication: N/A - Device Ordered <Marcia Ron PA-C - Last Filed: 12/12/20 08:28> VTE Drug Contraindication: N/A - Med Ordered <Marcia Ron PA-C - Last Filed: 12/12/20 08:28>
[2020-12-12] MEDS: Heparin Sodium,Porcine 5,000 UNIT/ML VIAL 5000 UNIT SUBCUT ×2 (08:40→20:25)
[2020-12-12] MEDS: Famotidine 20 MG TABLET PO (08:41)
[2020-12-12] MEDS: Sertraline HCL 50 MG TABLET PO (08:41)
[2020-12-12] MEDS: Insulin Lispro 100 UNIT/ML 3 ML VIAL SUBCUT ×4 (08:41→20:26)
[2020-12-12] MEDS: Gabapentin 300 MG CAPSULE PO ×2 (08:41→20:25)
[2020-12-12] MEDS: Aspirin Enteric Coated 81 MG TABLET.DR PO (08:41)
[2020-12-12] MEDS: Magnesium Oxide 400 MG TABLET PO (08:41)
[2020-12-12] MEDS: 0.9 % Sodium Chloride Flush 3 ML SYRINGE IVFLUSH ×2 (08:42→16:53)
[2020-12-12 11:52] LABS: Glucose, Whole Blood 213 mg/dL (60-115)
--- NOTE | 2020-12-12 14:17 | HO.PM.IMPN ---
Subjective Subjective Date of Service: 12/12/20 Interval History: Complaining of abdominal pain, no bowel movement, passing flatus, tolerating full liquid diet no other acute issues overnight. Review of Systems General no headache no dizziness no fever chills.? CVS no chest pain, no palpitation.? Respiratory no cough, no sob.? Gastrointestinal no nausea, no vomiting, abdominal pain improving Physical Exam Vital Signs: Vital Signs: Last Vital Signs Temp 97.8 F 12/12/20 12:00 Pulse 69 12/12/20 12:00 Resp 20 12/12/20 12:00 BP 136/62 12/12/20 12:00 Pulse Ox 86 L 12/12/20 12:00 Body Mass Index 40.6 General resting in bed, no acute distress.? Neck? supple no JVD. CVS? regular rate rhythm, Respiratory lungs clear to auscultation, no respiratory distress, no wheeze, no rhonchi. Gastrointestinal abdomen distended, tenderness at site of incision , fide in place, bowel sounds audible, no guarding , no rigidity. Extremities trace bilateral pitting edema. Neuro nonfocal , speech clear. Skin no rash Objective Data Current Medications Generic Name Dose Route Start Last Admin Trade Name Freq PRN Reason Stop Dose Admin Albuterol/Ipratropium 3 ml 12/09/20 16:00 12/12/20 10:58 Albuterol/Iprat 2.5/0.5mg 3 Ml Ampul.Neb INHALE 3 ml RQID OTILIA Administration Amitriptyline HCl 25 mg 12/09/20 21:00 12/11/20 21:01 Amitriptyline Hcl 25 Mg Tablet PO 25 mg BEDTIME OTILIA Administration Aspirin 81 mg 12/10/20 09:00 12/12/20 08:41 Aspirin Enteric Coated 81 Mg Tablet. PO 81 mg DAILY OTILIA Administration Atorvastatin Calcium 20 mg 12/09/20 21:00 12/11/20 21:01 Atorvastatin Calcium 20 Mg Tablet PO 20 mg BEDTIME OTILIA Administration Dextrose 25 gm 12/09/20 12:39 Dextrose 50 % 25 Gm/50 Ml Vial IVPUSH Q15M PRN per Hypoglycemia Standing Ord. Protocol Doxazosin Mesylate 8 mg 12/09/20 21:00 12/11/20 21:02 Doxazosin Mesylate 2 Mg Tablet PO 8 mg BEDTIME OTILIA Administration Protocol Famotidine 20 mg 12/10/20 09:00 12/12/20 08:41 Famotidine 20 Mg Tablet PO 20 mg DAILY OTILIA Administration Finasteride 5 mg 12/09/20 21:00 12/11/20 21:01 Finasteride 5 Mg Tablet PO 5 mg BEDTIME OTILIA Administration Fluticasone/Vilanterol 1 puff 12/10/20 09:00 12/12/20 07:17 Fluticasone/Vilanterol 100/25 Blst.W.Dev INHALE 1 puff RDAILY OTILIA Administration Gabapentin 300 mg 12/09/20 21:00 12/12/20 08:41 Gabapentin 300 Mg Capsule PO 300 mg BID OTILIA Administration Glucose 15 gm 12/09/20 12:39 Glucose Gel 15 Gm Gel..Gram. PO Q15M PRN per Hypoglycemia Standing Ord. Protocol Heparin Sodium (Porcine) 5,000 unit 12/10/20 08:30 12/12/20 08:40 Heparin Sodium,Porcine 5,000 Unit/Ml Vial SUBCUT 5,000 unit Q12H OTILIA Administration Hydromorphone HCl 0.5 mg 12/10/20 08:15 Hydromorphone Hcl 0.5 Mg/0.5 Ml Syringe IVPUSH Q3H PRN Pain, Severe (Pain Scale 7-10) Protocol Insulin Human Lispro 0 unit 12/09/20 16:30 12/12/20 12:00 Insulin Lispro 100 Unit/Ml 3 Ml Vial SUBCUT 4 unit QIDACHS OTILIA Administration Protocol Magnesium Oxide 400 mg 12/10/20 09:00 12/12/20 08:41 Magnesium Oxide 400 Mg Tablet PO 400 mg DAILY OTILIA Administration Metoprolol Tartrate 75 mg 12/09/20 21:00 12/11/20 21:01 Metoprolol Tartrate 25 Mg Tablet PO 75 mg BEDTIME OTILIA Administration Protocol Omeprazole 20 mg 12/09/20 16:30 12/12/20 05:32 Omeprazole 20 Mg Capsule.Dr PO 20 mg BID@0630,1630 OT[facility] Administration Ondansetron HCl 4 mg 12/09/20 10:05 Ondansetron Hcl 4 Mg/2 Ml Vial IVPUSH Q8H PRN Nausea and Vomiting Oxycodone HCl 5 mg 12/09/20 10:05 12/12/20 02:01 Oxycodone Hcl Immed Release 5 Mg Tablet PO 5 mg Q4H PRN Administration Pain, Moderate (Pain Scale 4-6 Oxycodone HCl 10 mg 12/09/20 10:05 12/11/20 15:44 Oxycodone Hcl Immed Release 5 Mg Tablet PO 10 mg Q4H PRN Administration Pain, Severe (Pain Scale 7-10) Sertraline HCl 50 mg 12/10/20 09:00 12/12/20 08:41 Sertraline Hcl 50 Mg Tablet PO 50 mg DAILY [facility] Administration Sodium Chloride 3 ml 12/09/20 16:00 12/12/20 08:42 0.9 % Sodium Chloride Flush 3 Ml Syringe IVFLUSH 3 ml QSHIFT [facility] Administration Labs CBC & Chem 7: 12/12/20 05:20 12/12/20 05:20 Labs: Laboratory Results - last 24 hr 12/11/20 12/11/20 12/12/20 15:54 19:48 05:20 MCV MCH MCHC RDW Plt Count MPV Immature Gran % (Auto) Neut % (Auto) Lymph % (Auto) [place] % (Auto) Eos % (Auto) Baso % (Auto) Lymph # (Auto) [place] # (Auto) Eos # (Auto) Baso # (Auto) Abs Immat Gran (auto) Absolute Neuts (auto) Absolute Nucleated RBC Nucleated RBC % (auto) Anion Gap 15 Estim Creat Clear Calc 41.2 Estimated GFR 35 POC Glucose 165 H 222 H Random Glucose 183 H Calcium 8.5 12/12/20 12/12/20 12/12/20 05:20 08:00 11:45 MCV 81.0 MCH 24.8 L MCHC 30.6 L RDW 19.1 H Plt Count 176 MPV 9.9 Immature Gran % (Auto) 0.5 H Neut % (Auto) 79.5 H Lymph % (Auto) 6.8 L [place] % (Auto) 9.3 Eos % (Auto) 3.7 Baso % (Auto) 0.2 Lymph # (Auto) 0.6 L [place] # (Auto) 0.8 Eos # (Auto) 0.3 Baso # (Auto) 0.0 Abs Immat Gran (auto) 0.04 H Absolute Neuts (auto) 6.9 Absolute Nucleated RBC 0.000 Nucleated RBC % (auto) 0.0 Anion Gap Estim Creat Clear Calc Estimated GFR POC Glucose 184 H 213 H Random Glucose Calcium Assessment and Plan (1) S/P right colectomy: Status: Acute (2) Anemia: Status: Acute (3) Diabetic nephropathy associated with type 2 diabetes mellitus: Status: Acute (4) Acute renal failure superimposed on stage 3 chronic kidney disease: Status: Acute Assessment and Plan: 75M presented for partial colectomy for cecal tubulovillous adenoma Status post partial colectomy postoperative day 3 Better pain control, diet as per General surgery, passing flatus, no bowel movement, will minimize narcotics, recommend out of bed and incentive spirometry Acute on chronic kidney disease stage 3 Continue to hold Lasix, and Aldactone, creatinine trended down to baseline 1.9 , continue to hold diuretics CAD No acute symptoms of chest pain or shortness, continue asa,/ statin htn BP stable continue lopressor, and cardura copd no acute exacerbation, continue breo bph Continue Sanchez catheter and home medication cardura, and proscar gerd prilosec dm BS trending up around 200,continue insulin sliding scale, at home takes Humulin 70/30 units b.i.d. will resume home medications once tolerating regular diet chronic diastolic chf No acute exacerbation, holding lasix and aldactone follow fluid status closely. Quality Stroke Does the patient have a stroke diagnosis?: No VTE Prior VTE?: No VTE Risk Level:: Surgical - high VTE Device Contraindication: N/A - Device Ordered VTE Drug Contraindication: N/A - Med Ordered
[2020-12-12 16:43] LABS: Glucose, Whole Blood 209 mg/dL (60-115)
[2020-12-12] MEDS: Atorvastatin Calcium 20 MG TABLET PO (20:25)
[2020-12-12] MEDS: Finasteride 5 MG TABLET PO (20:25)
[2020-12-12] MEDS: Doxazosin Mesylate 2 MG TABLET 8 MG PO (20:25)
[2020-12-12] MEDS: Amitriptyline HCl 25 MG TABLET PO (20:25)
[2020-12-12] MEDS: Metoprolol Tartrate 25 MG TABLET 75 MG PO (20:25)
[2020-12-12] MEDS: Docusate Sodium 100 MG CAPSULE PO (20:25)
[2020-12-12 20:38] LABS: Glucose, Whole Blood 235 mg/dL (60-115)
[2020-12-13] VITALS (10 sets, daily range): BP systolic 118–146; BP diastolic 56–60; PULSE 66–76; RESP 15–24; TEMP 36.6–37; O2SAT 90–93
[2020-12-13] MEDS: Omeprazole 20 MG CAPSULE.DR PO ×2 (06:28→15:27)
[2020-12-13] MEDS: Fluticasone/Vilanterol 100/25 BLST.W.DEV 1 PUFF INHALE (07:21)
[2020-12-13] MEDS: Albuterol/Iprat 2.5/0.5MG 3 ML AMPUL.NEB INHALE ×3 (07:21→18:33)
[2020-12-13 07:28] LABS: Glucose, Whole Blood 202 mg/dL (60-115)
[2020-12-13] MEDS: Insulin Lispro 100 UNIT/ML 3 ML VIAL SUBCUT ×4 (08:51→20:43)
[2020-12-13] MEDS: Heparin Sodium,Porcine 5,000 UNIT/ML VIAL 5000 UNIT SUBCUT ×2 (08:51→20:43)
[2020-12-13] MEDS: Magnesium Oxide 400 MG TABLET PO (08:53)
[2020-12-13] MEDS: Sertraline HCL 50 MG TABLET PO (08:53)
[2020-12-13] MEDS: Aspirin Enteric Coated 81 MG TABLET.DR PO (08:54)
[2020-12-13] MEDS: Furosemide 40 MG TABLET PO ×2 (08:54→16:43)
[2020-12-13] MEDS: Famotidine 20 MG TABLET PO (08:54)
[2020-12-13] MEDS: Gabapentin 300 MG CAPSULE PO ×2 (08:54→20:42)
[2020-12-13] MEDS: Docusate Sodium 100 MG CAPSULE PO ×2 (08:54→20:42)
--- NOTE | 2020-12-13 10:58 | P.PNGS_ITS ---
Subjective Subjective Date of Service: 12/13/20 Interval history: Continues to tolerate full liquid diet. Passing flatus. No bowel movement yet. Physical Exam Vital Signs: Vital Signs: Last Vital Signs Temp 97.9 F 12/13/20 08:00 Pulse 71 12/13/20 08:00 Resp 24 H 12/13/20 08:00 BP 126/59 L 12/13/20 08:00 Pulse Ox 91 L 12/13/20 08:00 Body Mass Index 40.6 Const: General: cooperative, no acute distress and alert Resp: Effort & Inspection: normal respiratory effort Auscultation: clear to auscultation bilaterally GI: Other: Round, soft, active bowel sounds, incisions clean dry and intact Skin: Other: Normal color, warm and dry Procedures Date of Service Date of Service: 12/13/20 Progress Note: A&P Assessment and plan (1) S/P right colectomy: Status: Acute (2) Cecum mass: Status: Acute Assessment and Plan: Day for following hand assisted laparoscopic right colectomy for sessile adenomas. Improving slowly. Passing flatus, no bowel movement yet. He has a history of chronic constipation and takes both docusate and MiraLax at home. Docusate was restarted yesterday. If no bowel movement by tomorrow, likely will resume MiraLax. Diet advanced to low residue diabetic. Diabetes appears in reasonable control with blood sugars around 200. Acute kidney injury improving. BUN and creatinine declining. Fall Risk Details Current Medications: Current Medications Generic Name Dose Route Start Last Admin Trade Name Freq PRN Reason Stop Dose Admin Albuterol/Ipratropium 3 ml 12/09/20 16:00 12/13/20 07:21 Albuterol/Iprat 2.5/0.5mg 3 Ml Ampul.Neb INHALE 3 ml RQID OTILIA Administration Amitriptyline HCl 25 mg 12/09/20 21:00 12/12/20 20:25 Amitriptyline Hcl 25 Mg Tablet PO 25 mg BEDTIME OTILIA Administration Aspirin 81 mg 12/10/20 09:00 12/13/20 08:54 Aspirin Enteric Coated 81 Mg Tablet. PO 81 mg DAILY OTILIA Administration Atorvastatin Calcium 20 mg 12/09/20 21:00 12/12/20 20:25 Atorvastatin Calcium 20 Mg Tablet PO 20 mg BEDTIME OTILIA Administration Dextrose 25 gm 12/09/20 12:39 Dextrose 50 % 25 Gm/50 Ml Vial IVPUSH Q15M PRN per Hypoglycemia Standing Ord. Protocol Docusate Sodium 100 mg 12/12/20 21:00 12/13/20 08:54 Docusate Sodium 100 Mg Capsule PO 100 mg BID OTILIA Administration Doxazosin Mesylate 8 mg 12/09/20 21:00 12/12/20 20:25 Doxazosin Mesylate 2 Mg Tablet PO 8 mg BEDTIME OTILIA Administration Protocol Famotidine 20 mg 12/10/20 09:00 12/13/20 08:54 Famotidine 20 Mg Tablet PO 20 mg DAILY OTILIA Administration Finasteride 5 mg 12/09/20 21:00 12/12/20 20:25 Finasteride 5 Mg Tablet PO 5 mg BEDTIME OTILIA Administration Fluticasone/Vilanterol 1 puff 12/10/20 09:00 12/13/20 07:21 Fluticasone/Vilanterol 100/25 Blst.W.Dev INHALE 1 puff RDAILY OT[facility] Administration Furosemide 40 mg 12/13/20 09:00 12/13/20 08:54 Furosemide 40 Mg Tablet PO 40 mg BID@0900,1800 OT[facility] Administration Protocol Gabapentin 300 mg 12/09/20 21:00 12/13/20 08:54 Gabapentin 300 Mg Capsule PO 300 mg BID OTILIA Administration Glucose 15 gm 12/09/20 12:39 Glucose Gel 15 Gm Gel..Gram. PO Q15M PRN per Hypoglycemia Standing Ord. Protocol Heparin Sodium (Porcine) 5,000 unit 12/10/20 08:30 12/13/20 08:51 Heparin Sodium,Porcine 5,000 Unit/Ml Vial SUBCUT 5,000 unit Q12H OT[facility]IA Administration Insulin Human Lispro 0 unit 12/09/20 16:30 12/13/20 08:51 Insulin Lispro 100 Unit/Ml 3 Ml Vial SUBCUT 4 unit QIDACHS OT[facility]IA Administration Protocol Magnesium Oxide 400 mg 12/10/20 09:00 12/13/20 08:53 Magnesium Oxide 400 Mg Tablet PO 400 mg DAILY OT[facility] Administration Metoprolol Tartrate 75 mg 12/09/20 21:00 12/12/20 20:25 Metoprolol Tartrate 25 Mg Tablet PO 75 mg BEDTIME OTILIA Administration Protocol Omeprazole 20 mg 12/09/20 16:30 12/13/20 06:28 Omeprazole 20 Mg Capsule. PO 20 mg BID@0630,1630 OT[facility] Administration Ondansetron HCl 4 mg 12/09/20 10:05 Ondansetron Hcl 4 Mg/2 Ml Vial IVPUSH Q8H PRN Nausea and Vomiting Oxycodone HCl 5 mg 12/09/20 10:05 12/12/20 02:01 Oxycodone Hcl Immed Release 5 Mg Tablet PO 5 mg Q4H PRN Administration Pain, Moderate (Pain Scale 4-6 Oxycodone HCl 7.5 mg 12/12/20 14:26 Oxycodone Hcl Immed Release 5 Mg Tablet PO Q4H PRN Pain, Severe (Pain Scale 7-10) Sertraline HCl 50 mg 12/10/20 09:00 12/13/20 08:53 Sertraline Hcl 50 Mg Tablet PO 50 mg DAILY OT[facility]IA Administration Sodium Chloride 3 ml 12/09/20 16:00 12/13/20 02:49 0.9 % Sodium Chloride Flush 3 Ml Syringe IVFLUSH Not Given QSHIFT [facility] Time Spent With Patient Time: Total time spent is greater than 50% in coordination of care (as documented) at patient's floor/unit and/or counseling patient: Time with patient: less than 15 minutes Quality Stroke Does the patient have a stroke diagnosis?: No VTE Prior VTE?: No VTE Risk Level:: Surgical - high VTE Device Contraindication: N/A - Device Ordered VTE Drug Contraindication: N/A - Med Ordered
[2020-12-13 11:42] LABS: Glucose, Whole Blood 203 mg/dL (60-115)
[2020-12-13] MEDS: 0.9 % Sodium Chloride Flush 3 ML SYRINGE IVFLUSH ×3 (12:00→20:44)
--- NOTE | 2020-12-13 14:23 | P.PNIM_ITS ---
Subjective Subjective Date of Service: 12/13/20 Interval History: Complaining of cough and thick phlegm , significant improvement and abdominal pain, tolerating full liquid diet. Review of Systems General no headache no dizziness no fever chills.? CVS no chest pain, no palpitation.? Respiratory cough with thick phlegm, no shortness of breath Gastrointestinal no nausea, no vomiting, abdominal pain improving Physical Exam Vital Signs: Vital Signs: Last Vital Signs Temp 98.3 F 12/13/20 12:00 Pulse 68 12/13/20 12:00 Resp 20 12/13/20 12:00 BP 118/56 L 12/13/20 12:00 Pulse Ox 92 12/13/20 12:00 Body Mass Index 40.6 General resting in bed, no acute distress.? Neck? supple no JVD. CVS? regular rate rhythm, Respiratory lungs clear to auscultation, no respiratory distress, no wheeze, no rhonchi. Diminished breath sound at bases Gastrointestinal abdomen distended, tenderness at site of incision , fide in place, bowel sounds audible, no guarding , no rigidity. Extremities bilateral pitting edema. Neuro nonfocal , speech clear. Skin no rash Objective Data Current Medications Generic Name Dose Route Start Last Admin Trade Name Freq PRN Reason Stop Dose Admin Albuterol/Ipratropium 3 ml 12/09/20 16:00 12/13/20 11:10 Albuterol/Iprat 2.5/0.5mg 3 Ml Ampul.Neb INHALE Not Given RQID OTILIA Amitriptyline HCl 25 mg 12/09/20 21:00 12/12/20 20:25 Amitriptyline Hcl 25 Mg Tablet PO 25 mg BEDTIME OTILIA Administration Aspirin 81 mg 12/10/20 09:00 12/13/20 08:54 Aspirin Enteric Coated 81 Mg Tablet. PO 81 mg DAILY OTILIA Administration Atorvastatin Calcium 20 mg 12/09/20 21:00 12/12/20 20:25 Atorvastatin Calcium 20 Mg Tablet PO 20 mg BEDTIME OTILIA Administration Dextrose 25 gm 12/09/20 12:39 Dextrose 50 % 25 Gm/50 Ml Vial IVPUSH Q15M PRN per Hypoglycemia Standing Ord. Protocol Docusate Sodium 100 mg 12/12/20 21:00 12/13/20 08:54 Docusate Sodium 100 Mg Capsule PO 100 mg BID OTILIA Administration Doxazosin Mesylate 8 mg 12/09/20 21:00 12/12/20 20:25 Doxazosin Mesylate 2 Mg Tablet PO 8 mg BEDTIME OTILIA Administration Protocol Famotidine 20 mg 12/10/20 09:00 12/13/20 08:54 Famotidine 20 Mg Tablet PO 20 mg DAILY OT[facility] Administration Finasteride 5 mg 12/09/20 21:00 12/12/20 20:25 Finasteride 5 Mg Tablet PO 5 mg BEDTIME OT[facility]IA Administration Fluticasone/Vilanterol 1 puff 12/10/20 09:00 12/13/20 07:21 Fluticasone/Vilanterol 100/25 Blst.W.Dev INHALE 1 puff RDAILY OTILIA Administration Furosemide 40 mg 12/13/20 09:00 12/13/20 08:54 Furosemide 40 Mg Tablet PO 40 mg BID@0900,1800 OT[facility] Administration Protocol Gabapentin 300 mg 12/09/20 21:00 12/13/20 08:54 Gabapentin 300 Mg Capsule PO 300 mg BID OTILIA Administration Glucose 15 gm 12/09/20 12:39 Glucose Gel 15 Gm Gel..Gram. PO Q15M PRN per Hypoglycemia Standing Ord. Protocol Heparin Sodium (Porcine) 5,000 unit 12/10/20 08:30 12/13/20 08:51 Heparin Sodium,Porcine 5,000 Unit/Ml Vial SUBCUT 5,000 unit Q12H OT[facility] Administration Insulin Human Lispro 0 unit 12/09/20 16:30 12/13/20 12:55 Insulin Lispro 100 Unit/Ml 3 Ml Vial SUBCUT 4 unit QIDACHS OT[facility] Administration Protocol Magnesium Oxide 400 mg 12/10/20 09:00 12/13/20 08:53 Magnesium Oxide 400 Mg Tablet PO 400 mg DAILY OTILIA Administration Metoprolol Tartrate 75 mg 12/09/20 21:00 12/12/20 20:25 Metoprolol Tartrate 25 Mg Tablet PO 75 mg BEDTIME OT[facility]IA Administration Protocol Omeprazole 20 mg 12/09/20 16:30 12/13/20 06:28 Omeprazole 20 Mg Capsule.Dr PO 20 mg BID@0630,1630 OT[facility] Administration Ondansetron HCl 4 mg 12/09/20 10:05 Ondansetron Hcl 4 Mg/2 Ml Vial IVPUSH Q8H PRN Nausea and Vomiting Oxycodone HCl 5 mg 12/09/20 10:05 12/12/20 02:01 Oxycodone Hcl Immed Release 5 Mg Tablet PO 5 mg Q4H PRN Administration Pain, Moderate (Pain Scale 4-6 Oxycodone HCl 7.5 mg 12/12/20 14:26 Oxycodone Hcl Immed Release 5 Mg Tablet PO Q4H PRN Pain, Severe (Pain Scale 7-10) Sertraline HCl 50 mg 12/10/20 09:00 12/13/20 08:53 Sertraline Hcl 50 Mg Tablet PO 50 mg DAILY OTILIA Administration Sodium Chloride 3 ml 12/09/20 16:00 12/13/20 12:00 0.9 % Sodium Chloride Flush 3 Ml Syringe IVFLUSH 3 ml QSHIFT OTILIA Administration Labs CBC & Chem 7: 12/12/20 05:20 12/12/20 05:20 Labs: Laboratory Results - last 24 hr 12/12/20 12/12/20 12/13/20 16:40 19:36 07:25 POC Glucose 209 H 235 H 202 H 12/13/20 11:32 POC Glucose 203 H Assessment and Plan (1) Acute renal failure superimposed on stage 3 chronic kidney disease: Status: Acute (2) S/P right colectomy: Status: Acute (3) Anemia: Status: Acute (4) correction (current) use of insulin: Status: Acute Assessment and Plan: 75M presented for partial colectomy for cecal tubulovillous adenoma Status post partial colectomy postoperative day 4 Better pain control, diet as per General surgery, passing flatus, no bowel movement, will reduce dose of oxycodone to 5 mg as needed, recommend out of bed and incentive spirometry Will add cough syrup Acute on chronic kidney disease stage 3 Will resume Lasix low-dose and Aldactone, creatinine trended down to baseline 1.9 follow BMP CAD No acute symptoms of chest pain or shortness, continue asa,/ statin htn BP stable continue lopressor, and cardura copd no acute exacerbation, continue breo bph Continue Sanchez catheter and home medication cardura, and proscar gerd prilosec dm BS trending up around 200,continue insulin sliding scale, at home takes Humulin 70/30 units b.i.d. will resume home medications once tolerating regular diet chronic diastolic chf No acute exacerbation, will resume lasix and aldactone follow fluid status closely. Quality Stroke Does the patient have a stroke diagnosis?: No VTE Prior VTE?: No VTE Risk Level:: Surgical - high VTE Device Contraindication: N/A - Device Ordered VTE Drug Contraindication: N/A - Med Ordered
[2020-12-13] MEDS: guaiFENesin DM 200/20/10 ML 10 ML SYRUP PO ×2 (15:27→20:42)
[2020-12-13 16:40] LABS: Glucose, Whole Blood 201 mg/dL (60-115)
[2020-12-13] MEDS: Spironolactone 25 MG TABLET PO (16:42)
[2020-12-13 20:30] LABS: Glucose, Whole Blood 195 mg/dL (60-115)
[2020-12-13] MEDS: Atorvastatin Calcium 20 MG TABLET PO (20:42)
[2020-12-13] MEDS: Finasteride 5 MG TABLET PO (20:42)
[2020-12-13] MEDS: Doxazosin Mesylate 2 MG TABLET 8 MG PO (20:42)
[2020-12-13] MEDS: Amitriptyline HCl 25 MG TABLET PO (20:42)
[2020-12-13] MEDS: Metoprolol Tartrate 25 MG TABLET 75 MG PO (20:43)
[2020-12-14] VITALS (13 sets, daily range): BP systolic 125–150; BP diastolic 57–66; PULSE 63–80; RESP 15–22; TEMP 36.2–37.2; O2SAT 92–94
[2020-12-14] MEDS: Omeprazole 20 MG CAPSULE.DR PO ×2 (05:37→16:35)
[2020-12-14] MEDS: Albuterol/Iprat 2.5/0.5MG 3 ML AMPUL.NEB INHALE ×3 (07:32→20:28)
[2020-12-14] MEDS: Fluticasone/Vilanterol 100/25 BLST.W.DEV 1 PUFF INHALE (07:33)
[2020-12-14 07:39] LABS: Glucose, Whole Blood 229 mg/dL (60-115)
[2020-12-14 08:24] LABS: Hematocrit 27.8 % (42-52); Hemoglobin 8.5 g/dl (14.0-18.0)
[2020-12-14] MEDS: Aspirin Enteric Coated 81 MG TABLET.DR PO (08:33)
[2020-12-14] MEDS: Gabapentin 300 MG CAPSULE PO ×2 (08:33→20:18)
[2020-12-14] MEDS: Magnesium Oxide 400 MG TABLET PO (08:33)
[2020-12-14] MEDS: Famotidine 20 MG TABLET PO (08:33)
[2020-12-14] MEDS: Spironolactone 25 MG TABLET PO ×2 (08:33→16:34)
[2020-12-14] MEDS: Sertraline HCL 50 MG TABLET PO (08:34)
[2020-12-14] MEDS: Insulin Lispro 100 UNIT/ML 3 ML VIAL SUBCUT ×4 (08:35→20:54)
[2020-12-14] MEDS: Docusate Sodium 100 MG CAPSULE PO ×2 (08:35→20:17)
[2020-12-14] MEDS: Furosemide 40 MG TABLET PO ×2 (08:35→16:34)
[2020-12-14] MEDS: Heparin Sodium,Porcine 5,000 UNIT/ML VIAL 5000 UNIT SUBCUT ×2 (08:37→20:19)
[2020-12-14] MEDS: 0.9 % Sodium Chloride Flush 3 ML SYRINGE IVFLUSH ×3 (08:38→20:19)
[2020-12-14 09:12] LABS: Anion Gap 16 (12-20); Blood Urea Nitrogen 20 mg/dL (9-16); Calcium 8.5 mg/dL (8.4-10.2); Carbon Dioxide 27 mmol/L (22-29); Chloride 100 mmol/L (96-108); Creatinine Clr Calc Pharmacy 47.7; Estimated Glomerular Filt Rate 41; Glucose Random 250 mg/dL (60-115); Potassium 4.2 mmol/L (3.3-5.1); Sodium 139 mmol/L (135-145)
--- NOTE | 2020-12-14 10:15 | P.PNIM_ITS ---
Subjective Subjective Date of Service: 12/14/20 Interval History: Feeling better less abdominal pain, no bowel movement since surgery, passing flatus tolerating diet Review of Systems General no headache no dizziness no fever chills.? CVS no chest pain, no palpitation.? Respiratory cough with thick phlegm, no shortness of breath Gastrointestinal no nausea, no vomiting, abdominal pain improving Physical Exam Vital Signs: Vital Signs: Last Vital Signs Temp 98.5 F 12/14/20 08:00 Pulse 68 12/14/20 08:33 Resp 20 12/14/20 08:00 BP 132/60 12/14/20 08:33 Pulse Ox 93 12/14/20 08:00 Body Mass Index 40.6 ?General resting in bed, no acute distress.? Neck? supple no JVD. CVS? regular rate rhythm, Respiratory lungs clear to auscultation, no respiratory distress, no wheeze, no rales Gastrointestinal abdomen distended, tenderness at site of incision , fide in place, bowel sounds audible, no guarding , no rigidity. Extremities bilateral pitting edema. Neuro nonfocal , speech clear. Skin no rash Objective Data Current Medications Generic Name Dose Route Start Last Admin Trade Name Freq PRN Reason Stop Dose Admin Albuterol/Ipratropium 3 ml 12/09/20 16:00 12/14/20 07:32 Albuterol/Iprat 2.5/0.5mg 3 Ml Ampul.Neb INHALE 3 ml RQID OTILIA Administration Amitriptyline HCl 25 mg 12/09/20 21:00 12/13/20 20:42 Amitriptyline Hcl 25 Mg Tablet PO 25 mg BEDTIME OTILIA Administration Aspirin 81 mg 12/10/20 09:00 12/14/20 08:33 Aspirin Enteric Coated 81 Mg Tablet. PO 81 mg DAILY OTILIA Administration Atorvastatin Calcium 20 mg 12/09/20 21:00 12/13/20 20:42 Atorvastatin Calcium 20 Mg Tablet PO 20 mg BEDTIME OTILIA Administration Dextrose 25 gm 12/09/20 12:39 Dextrose 50 % 25 Gm/50 Ml Vial IVPUSH Q15M PRN per Hypoglycemia Standing Ord. Protocol Docusate Sodium 100 mg 12/12/20 21:00 12/14/20 08:35 Docusate Sodium 100 Mg Capsule PO 100 mg BID OTILIA Administration Doxazosin Mesylate 8 mg 12/09/20 21:00 12/13/20 20:42 Doxazosin Mesylate 2 Mg Tablet PO 8 mg BEDTIME OTILIA Administration Protocol Famotidine 20 mg 12/10/20 09:00 12/14/20 08:33 Famotidine 20 Mg Tablet PO 20 mg DAILY OTILIA Administration Finasteride 5 mg 12/09/20 21:00 12/13/20 20:42 Finasteride 5 Mg Tablet PO 5 mg BEDTIME OTILIA Administration Fluticasone/Vilanterol 1 puff 12/10/20 09:00 12/14/20 07:33 Fluticasone/Vilanterol 100/25 Blst.W.Dev INHALE 1 puff RDAILY OTILIA Administration Furosemide 40 mg 12/13/20 09:00 12/14/20 08:35 Furosemide 40 Mg Tablet PO 40 mg BID@0900,1800 [facility] Administration Protocol Gabapentin 300 mg 12/09/20 21:00 12/14/20 08:33 Gabapentin 300 Mg Capsule PO 300 mg BID OTILIA Administration Glucose 15 gm 12/09/20 12:39 Glucose Gel 15 Gm Gel..Gram. PO Q15M PRN per Hypoglycemia Standing Ord. Protocol Guaifenesin/Dextromethorphan 10 ml 12/13/20 15:00 12/14/20 08:40 Guaifenesin Dm 200/20/10 Ml 10 Ml Syrup PO Not Given TID [facility] Heparin Sodium (Porcine) 5,000 unit 12/10/20 08:30 12/14/20 08:37 Heparin Sodium,Porcine 5,000 Unit/Ml Vial SUBCUT 5,000 unit Q12H [facility] Administration Insulin Human Lispro 0 unit 12/09/20 16:30 12/14/20 08:35 Insulin Lispro 100 Unit/Ml 3 Ml Vial SUBCUT 4 unit QIDACHS [facility] Administration Protocol Magnesium Oxide 400 mg 12/10/20 09:00 12/14/20 08:33 Magnesium Oxide 400 Mg Tablet PO 400 mg DAILY OTILIA Administration Metoprolol Tartrate 75 mg 12/09/20 21:00 12/13/20 20:43 Metoprolol Tartrate 25 Mg Tablet PO 75 mg BEDTIME OTILIA Administration Protocol Omeprazole 20 mg 12/09/20 16:30 12/14/20 05:37 Omeprazole 20 Mg Capsule.Dr PO 20 mg BID@0630,1630 [facility] Administration Ondansetron HCl 4 mg 12/09/20 10:05 Ondansetron Hcl 4 Mg/2 Ml Vial IVPUSH Q8H PRN Nausea and Vomiting Oxycodone HCl 5 mg 12/09/20 10:05 12/12/20 02:01 Oxycodone Hcl Immed Release 5 Mg Tablet PO 5 mg Q4H PRN Administration Pain, Moderate (Pain Scale 4-6 Sertraline HCl 50 mg 12/10/20 09:00 12/14/20 08:34 Sertraline Hcl 50 Mg Tablet PO 50 mg DAILY OTILIA Administration Sodium Chloride 3 ml 12/09/20 16:00 12/14/20 08:38 0.9 % Sodium Chloride Flush 3 Ml Syringe IVFLUSH 3 ml QSHIFT [facility] Administration Spironolactone 25 mg 12/13/20 18:00 12/14/20 08:33 Spironolactone 25 Mg Tablet PO 25 mg BID@0900,1800 [facility] Administration Protocol Labs CBC & Chem 7: 12/14/20 08:16 12/14/20 08:16 Labs: Laboratory Results - last 24 hr 12/13/20 12/13/20 12/13/20 11:32 16:37 20:26 Anion Gap Estim Creat Clear Calc Estimated GFR POC Glucose 203 H 201 H 195 H Random Glucose Calcium 12/14/20 12/14/20 07:31 08:16 Anion Gap 16 Estim Creat Clear Calc 47.7 Estimated GFR 41 POC Glucose 229 H Random Glucose 250 H D Calcium 8.5 Assessment and Plan (1) Acute renal failure superimposed on stage 3 chronic kidney disease: Status: Acute (2) S/P right colectomy: Status: Acute (3) Anemia: Status: Acute (4) Diabetic nephropathy associated with type 2 diabetes mellitus: Status: Acute Assessment and Plan: 75M presented for partial colectomy for cecal tubulovillous adenoma Status post partial colectomy postoperative day 5 Better pain control, tolerating regular diet, passing flatus, no bowel movement, ambulating in hallway on oxycodone to 5 mg as needed, recommend incentive spirometry Continue cough syrup Patient medically stable for discharge Acute on chronic kidney disease stage 3 Renal function returned to baseline, resumed Aldactone and Lasix 40 mg b.i.d., home dose of Lasix 80 mg b.i.d., question need for high-dose Lasix, since no history of overt congestive heart failure. CAD No acute symptoms of chest pain or shortness, continue asa,/ statin htn BP stable continue lopressor, and cardura copd no acute exacerbation, continue breo bph Continue Sanchez catheter and home medication cardura, and proscar gerd prilosec dm BS around 200,continue insulin sliding scale, at home takes Humulin 70/30 units b.i.d. resume home medications at discharge chronic diastolic chf No acute exacerbation, continue lasix 40 mg b.i.d.(dose reduced from Lasix 80 mg b.i.d.) due to acute kidney injury and low blood pressure Continue aldactone follow fluid status closely. Quality Stroke Does the patient have a stroke diagnosis?: No VTE Prior VTE?: No VTE Risk Level:: Surgical - high VTE Device Contraindication: N/A - Device Ordered VTE Drug Contraindication: N/A - Med Ordered
[2020-12-14 11:24] LABS: Glucose, Whole Blood 236 mg/dL (60-115)
--- NOTE | 2020-12-14 11:45 | P.PNGS_ITS ---
Subjective Subjective Date of Service: 12/14/20 Interval history: Continues to pass flatus, tolerating low residue diet. No bowel movement yet. Has baseline constipation, typically moves his bowels only once or twice a week. Incisional pain is improving. No new complaints Physical Exam Vital Signs: Vital Signs: Last Vital Signs Temp 97.5 F 12/14/20 12:00 Pulse 65 12/14/20 12:00 Resp 22 H 12/14/20 12:00 BP 139/64 12/14/20 12:00 Pulse Ox 94 12/14/20 12:00 Body Mass Index 40.6 Laboratory Results - last 24 hr 12/13/20 12/13/20 12/14/20 16:37 20:26 07:31 Hgb Hct Sodium Potassium Chloride Carbon Dioxide Anion Gap BUN Creatinine Estim Creat Clear Calc Estimated GFR POC Glucose 201 H 195 H 229 H Random Glucose Calcium 12/14/20 12/14/20 12/14/20 08:16 08:16 11:20 Hgb 8.5 L Hct 27.8 L Sodium 139 Potassium 4.2 Chloride 100 Carbon Dioxide 27 Anion Gap 16 BUN 20 H Creatinine 1.64 H Estim Creat Clear Calc 47.7 Estimated GFR 41 POC Glucose 236 H Random Glucose 250 H D Calcium 8.5 Const: General: cooperative, no acute distress and alert Resp: Effort & Inspection: normal respiratory effort Auscultation: clear to auscultation bilaterally Cardio: Rate: regular rate Rhythm: regular rhythm GI: Other: Large, round, appropriate incisional tenderness, incisions are clean, dry and intact. Bowel sounds active. Skin: Other: Normal color, warm and dry Procedures Date of Service Date of Service: 12/14/20 Progress Note: A&P Assessment and plan (1) S/P right colectomy: Status: Acute (2) Acute renal failure superimposed on stage 3 chronic kidney disease: Status: Acute (3) Cecum mass: Status: Acute Assessment and Plan: 75-year-old male now postop day 5. Following hand assisted laparoscopic right colectomy for sessile adenomatous polyps. Doing well overall. History of chronic constipation. No bowel movement yet. Has been on docusate for 48 hours. Will give 1 dose of MiraLax, as he takes this routinely at home. Continue ambulation as tolerated. Acute kidney injury-has returned to baseline renal function. Per Dr. Short, medically stable for discharge. Anticipate that he will be ready from surgical viewpoint in next 24-48 hours. Fall Risk Details Current Medications: Current Medications Generic Name Dose Route Start Last Admin Trade Name Frekristy PRN Reason Stop Dose Admin Albuterol/Ipratropium 3 ml 12/09/20 16:00 12/14/20 10:50 Albuterol/Iprat 2.5/0.5mg 3 Ml Ampul.Neb INHALE Not Given RQID OTILIA Amitriptyline HCl 25 mg 12/09/20 21:00 12/13/20 20:42 Amitriptyline Hcl 25 Mg Tablet PO 25 mg BEDTIME OTILIA Administration Aspirin 81 mg 12/10/20 09:00 12/14/20 08:33 Aspirin Enteric Coated 81 Mg Tablet. PO 81 mg DAILY OTILIA Administration Atorvastatin Calcium 20 mg 12/09/20 21:00 12/13/20 20:42 Atorvastatin Calcium 20 Mg Tablet PO 20 mg BEDTIME OTILIA Administration Dextrose 25 gm 12/09/20 12:39 Dextrose 50 % 25 Gm/50 Ml Vial IVPUSH Q15M PRN per Hypoglycemia Standing Ord. Protocol Docusate Sodium 100 mg 12/12/20 21:00 12/14/20 08:35 Docusate Sodium 100 Mg Capsule PO 100 mg BID OTILIA Administration Doxazosin Mesylate 8 mg 12/09/20 21:00 12/13/20 20:42 Doxazosin Mesylate 2 Mg Tablet PO 8 mg BEDTIME OTILIA Administration Protocol Famotidine 20 mg 12/10/20 09:00 12/14/20 08:33 Famotidine 20 Mg Tablet PO 20 mg DAILY OTILIA Administration Finasteride 5 mg 12/09/20 21:00 12/13/20 20:42 Finasteride 5 Mg Tablet PO 5 mg BEDTIME OTILIA Administration Fluticasone/Vilanterol 1 puff 12/10/20 09:00 12/14/20 07:33 Fluticasone/Vilanterol 100/25 Blst.W.Dev INHALE 1 puff RDAILY OTILIA Administration Furosemide 40 mg 12/13/20 09:00 12/14/20 08:35 Furosemide 40 Mg Tablet PO 40 mg BID@0900,1800 [facility] Administration Protocol Gabapentin 300 mg 12/09/20 21:00 12/14/20 08:33 Gabapentin 300 Mg Capsule PO 300 mg BID OTILIA Administration Glucose 15 gm 12/09/20 12:39 Glucose Gel 15 Gm Gel..Gram. PO Q15M PRN per Hypoglycemia Standing Ord. Protocol Guaifenesin/Dextromethorphan 10 ml 12/13/20 15:00 12/14/20 08:40 Guaifenesin Dm 200/20/10 Ml 10 Ml Syrup PO Not Given TID OTILIA Heparin Sodium (Porcine) 5,000 unit 12/10/20 08:30 12/14/20 08:37 Heparin Sodium,Porcine 5,000 Unit/Ml Vial SUBCUT 5,000 unit Q12H OT[facility]IA Administration Insulin Human Lispro 0 unit 12/09/20 16:30 12/14/20 12:04 Insulin Lispro 100 Unit/Ml 3 Ml Vial SUBCUT 4 unit QIDACHS [facility] Administration Protocol Magnesium Oxide 400 mg 12/10/20 09:00 12/14/20 08:33 Magnesium Oxide 400 Mg Tablet PO 400 mg DAILY OTILIA Administration Metoprolol Tartrate 75 mg 12/09/20 21:00 12/13/20 20:43 Metoprolol Tartrate 25 Mg Tablet PO 75 mg BEDTIME OTILIA Administration Protocol Omeprazole 20 mg 12/09/20 16:30 12/14/20 05:37 Omeprazole 20 Mg Capsule.Dr PO 20 mg BID@0630,1630 OT[facility] Administration Ondansetron HCl 4 mg 12/09/20 10:05 Ondansetron Hcl 4 Mg/2 Ml Vial IVPUSH Q8H PRN Nausea and Vomiting Oxycodone HCl 5 mg 12/09/20 10:05 12/12/20 02:01 Oxycodone Hcl Immed Release 5 Mg Tablet PO 5 mg Q4H PRN Administration Pain, Moderate (Pain Scale 4-6 Sertraline HCl 50 mg 12/10/20 09:00 12/14/20 08:34 Sertraline Hcl 50 Mg Tablet PO 50 mg DAILY OTILIA Administration Sodium Chloride 3 ml 12/09/20 16:00 12/14/20 08:38 0.9 % Sodium Chloride Flush 3 Ml Syringe IVFLUSH 3 ml QSHIFT [facility] Administration Spironolactone 25 mg 12/13/20 18:00 12/14/20 08:33 Spironolactone 25 Mg Tablet PO 25 mg BID@0900,1800 OT[facility] Administration Protocol Time Spent With Patient Time: Total time spent is greater than 50% in coordination of care (as documented) at patient's floor/unit and/or counseling patient: Time with patient: less than 15 minutes Quality Stroke Does the patient have a stroke diagnosis?: No VTE Prior VTE?: No VTE Risk Level:: Surgical - high VTE Device Contraindication: N/A - Device Ordered VTE Drug Contraindication: N/A - Med Ordered
[2020-12-14] MEDS: polyethylene glycoL 3350 17 GM POWD.PACK PO (14:41)
[2020-12-14 16:20] LABS: Glucose, Whole Blood 194 mg/dL (60-115)
[2020-12-14] MEDS: Doxazosin Mesylate 2 MG TABLET 8 MG PO (20:17)
[2020-12-14] MEDS: Amitriptyline HCl 25 MG TABLET PO (20:18)
[2020-12-14] MEDS: Metoprolol Tartrate 25 MG TABLET 75 MG PO (20:18)
[2020-12-14] MEDS: Atorvastatin Calcium 20 MG TABLET PO (20:18)
[2020-12-14] MEDS: Finasteride 5 MG TABLET PO (20:19)
[2020-12-14] MEDS: oxyCODONE HCl Immed Release 5 MG TABLET PO (20:35)
[2020-12-14 20:42] LABS: Glucose, Whole Blood 201 mg/dL (60-115)
[2020-12-15 03:21] VITALS: BP 152/65; PULSE 68; RESP 20; TEMP 35.6; O2SAT 92
[2020-12-15 05:11] LABS: Anion Gap 16 (12-20); Blood Urea Nitrogen 20 mg/dL (9-16); Calcium 8.7 mg/dL (8.4-10.2); Carbon Dioxide 26 mmol/L (22-29); Chloride 101 mmol/L (96-108); Creatinine Clr Calc Pharmacy 51.5; Estimated Glomerular Filt Rate 45; Glucose Random 224 mg/dL (60-115); Magnesium 2.1 mg/dL (1.6-2.6); Potassium 3.9 mmol/L (3.3-5.1); Sodium 139 mmol/L (135-145)
[2020-12-15] MEDS: Omeprazole 20 MG CAPSULE.DR PO (05:26)
[2020-12-15 07:27] LABS: Glucose, Whole Blood 208 mg/dL (60-115)
[2020-12-15] MEDS: Albuterol/Iprat 2.5/0.5MG 3 ML AMPUL.NEB INHALE (07:56)
[2020-12-15] MEDS: Fluticasone/Vilanterol 100/25 BLST.W.DEV 1 PUFF INHALE (07:56)
[2020-12-15 07:57] VITALS: PULSE 60; O2SAT 93
[2020-12-15 08:00] VITALS: BP 147/68; PULSE 61; RESP 18; TEMP 37.4; O2SAT 99
[2020-12-15 08:22] VITALS: BP 147/68; PULSE 61
[2020-12-15] MEDS: Sertraline HCL 50 MG TABLET PO (08:22)
[2020-12-15] MEDS: Aspirin Enteric Coated 81 MG TABLET.DR PO (08:22)
[2020-12-15] MEDS: Gabapentin 300 MG CAPSULE PO (08:22)
[2020-12-15] MEDS: Docusate Sodium 100 MG CAPSULE PO (08:22)
[2020-12-15] MEDS: Furosemide 40 MG TABLET PO (08:22)
[2020-12-15] MEDS: Spironolactone 25 MG TABLET PO (08:22)
[2020-12-15] MEDS: Famotidine 20 MG TABLET PO (08:23)
[2020-12-15] MEDS: Insulin Lispro 100 UNIT/ML 3 ML VIAL SUBCUT (08:23)
[2020-12-15] MEDS: Magnesium Oxide 400 MG TABLET PO (08:23)
[2020-12-15] MEDS: Heparin Sodium,Porcine 5,000 UNIT/ML VIAL 5000 UNIT SUBCUT (08:24)
[2020-12-15] MEDS: 0.9 % Sodium Chloride Flush 3 ML SYRINGE IVFLUSH (08:26)
--- NOTE | 2020-12-15 08:28 | P.PNGS_ITS ---
Subjective Subjective Date of Service: 12/15/20 <Marcia Ron PA-C - Last Filed: 12/15/20 08:32> 12/15/20 <Martínez Monique MD - Last Filed: 12/15/20 09:58> Interval history: Had a large bowel movement overnight. Denies any pain. Tolerating solid diet. Has been OOB and ambulating with his walker without difficulty. Has bowel regimen at home which he will take while taking narcotics for pain. Wants to go home. <Marcia Ron PA-C - Last Filed: 12/15/20 08:32> Physical Exam Vital Signs: Vital Signs: Last Vital Signs Temp 99.4 F 12/15/20 08:00 Pulse 61 12/15/20 08:00 Resp 18 12/15/20 08:00 BP 147/68 H 12/15/20 08:00 Pulse Ox 99 12/15/20 08:00 Body Mass Index 40.6 <Marcia Ron PA-C - Last Filed: 12/15/20 08:32> Const: General: comfortable, no acute distress and alert <Marcia Ron PA-C - Last Filed: 12/15/20 08:32> Orientation/consciousness: patient oriented x3 <DANIE Roblero Last Filed: 12/15/20 08:32> Resp: Effort & Inspection: normal respiratory effort <Marcia Ron PA-C - Last Filed: 12/15/20 08:32> Cardio: Rate: regular rate <Marcia Ron PA-C - Last Filed: 12/15/20 08:32> GI: Inspection: Yes incision (clean, no erythema) <BEL Roblero - Last Filed: 12/15/20 08:32> Palpation (GI): Soft to palpation, nontender, no guarding and not rigid <DANIE Roblero Last Filed: 12/15/20 08:32> Skin: General skin exam: no rashes or lesions noted <DANIE Roblero Last Filed: 12/15/20 08:32> Neuro: General: patient oriented x3 <Marcia Rno PA-C - Last Filed: 12/15/20 08:32> Extrem: General: Yes edema (LE b/l nonpitting) <Marcia Ron PA-C - Last Filed: 12/15/20 08:32> Procedures Date of Service Date of Service: 12/15/20 <Marcia Ron PA-C - Last Filed: 12/15/20 08:32> Progress Note: A&P Assessment and plan (1) Acute renal failure superimposed on stage 3 chronic kidney disease: Status: Acute <Marcia Ron PA-C - Last Filed: 12/15/20 08:32> (2) S/P right colectomy: Status: Acute <Marcia Ron PA-C - Last Filed: 12/15/20 08:32> (3) Cecum mass: Status: Acute <Marcia Ron PA-C - Last Filed: 12/15/20 08:32> Assessment and Plan: Status post right colectomy Good GI function Looks well Abdomen soft and benign Incision clean and dry Patient says he is ready to be discharged Okay to DC home Discussed with Tatum Seen and examined -agree with BENIGNO Ron <Martínez Monique MD - Last Filed: 12/15/20 09:58> Assessment and Plan: 75-year-old male now postop day 6 following hand assisted laparoscopic right colectomy for sessile adenomatous polyps. Doing well overall. Now with complete return of GI function. Will continue his bowel regimen at home. Patient is stable for discharge to home today and feels ready. Will resume VNA services at home. F/u in office with Dr. monique. Acute kidney injury-has returned to baseline renal function. Per Dr. Short, medically stable for discharge. <Marcia Ron PA-C - Last Filed: 12/15/20 08:32> Fall Risk Details Current Medications: Current Medications Generic Name Dose Route Start Last Admin Trade Name Freq PRN Reason Stop Dose Admin Albuterol/Ipratropium 3 ml 12/09/20 16:00 12/15/20 07:56 Albuterol/Iprat 2.5/0.5mg 3 Ml Ampul.Neb INHALE 3 ml RQID OTILIA Administration Amitriptyline HCl 25 mg 12/09/20 21:00 12/14/20 20:18 Amitriptyline Hcl 25 Mg Tablet PO 25 mg BEDTIME OTILIA Administration Aspirin 81 mg 12/10/20 09:00 12/14/20 08:33 Aspirin Enteric Coated 81 Mg Tablet.Dr PO 81 mg DAILY OTILIA Administration Atorvastatin Calcium 20 mg 12/09/20 21:00 12/14/20 20:18 Atorvastatin Calcium 20 Mg Tablet PO 20 mg BEDTIME OTILIA Administration Dextrose 25 gm 12/09/20 12:39 Dextrose 50 % 25 Gm/50 Ml Vial IVPUSH Q15M PRN per Hypoglycemia Standing Ord. Protocol Docusate Sodium 100 mg 12/12/20 21:00 12/14/20 20:17 Docusate Sodium 100 Mg Capsule PO 100 mg BID OTILIA Administration Doxazosin Mesylate 8 mg 12/09/20 21:00 12/14/20 20:17 Doxazosin Mesylate 2 Mg Tablet PO 8 mg BEDTIME OTILIA Administration Protocol Famotidine 20 mg 12/10/20 09:00 12/14/20 08:33 Famotidine 20 Mg Tablet PO 20 mg DAILY OTILIA Administration Finasteride 5 mg 12/09/20 21:00 12/14/20 20:19 Finasteride 5 Mg Tablet PO 5 mg BEDTIME OTILIA Administration Fluticasone/Vilanterol 1 puff 12/10/20 09:00 12/15/20 07:56 Fluticasone/Vilanterol 100/25 Blst.W.Dev INHALE 1 puff RDAILY OTILIA Administration Furosemide 40 mg 12/13/20 09:00 12/14/20 16:34 Furosemide 40 Mg Tablet PO 40 mg BID@0900,1800 OTILIA Administration Protocol Gabapentin 300 mg 12/09/20 21:00 12/14/20 20:18 Gabapentin 300 Mg Capsule PO 300 mg BID OTILIA Administration Glucose 15 gm 12/09/20 12:39 Glucose Gel 15 Gm Gel..Gram. PO Q15M PRN per Hypoglycemia Standing Ord. Protocol Guaifenesin/Dextromethorphan 10 ml 12/13/20 15:00 12/14/20 20:20 Guaifenesin Dm 200/20/10 Ml 10 Ml Syrup PO Not Given TID OTILIA Heparin Sodium (Porcine) 5,000 unit 12/10/20 08:30 12/14/20 20:19 Heparin Sodium,Porcine 5,000 Unit/Ml Vial SUBCUT 5,000 unit Q12H OTILIA Administration Insulin Human Lispro 0 unit 12/09/20 16:30 12/14/20 20:54 Insulin Lispro 100 Unit/Ml 3 Ml Vial SUBCUT 4 unit QIDACHS [facility] Administration Protocol Magnesium Oxide 400 mg 12/10/20 09:00 12/14/20 08:33 Magnesium Oxide 400 Mg Tablet PO 400 mg DAILY OTILIA Administration Metoprolol Tartrate 75 mg 12/09/20 21:00 12/14/20 20:18 Metoprolol Tartrate 25 Mg Tablet PO 75 mg BEDTIME OTILIA Administration Protocol Omeprazole 20 mg 12/09/20 16:30 12/15/20 05:26 Omeprazole 20 Mg Capsule.Dr PO 20 mg BID@0630,1630 [facility] Administration Ondansetron HCl 4 mg 12/09/20 10:05 Ondansetron Hcl 4 Mg/2 Ml Vial IVPUSH Q8H PRN Nausea and Vomiting Oxycodone HCl 5 mg 12/09/20 10:05 12/14/20 20:35 Oxycodone Hcl Immed Release 5 Mg Tablet PO 5 mg Q4H PRN Administration Pain, Moderate (Pain Scale 4-6 Sertraline HCl 50 mg 12/10/20 09:00 12/14/20 08:34 Sertraline Hcl 50 Mg Tablet PO 50 mg DAILY [facility] Administration Sodium Chloride 3 ml 12/09/20 16:00 12/14/20 20:19 0.9 % Sodium Chloride Flush 3 Ml Syringe IVFLUSH 3 ml QSHIFT [facility] Administration Spironolactone 25 mg 12/13/20 18:00 12/14/20 16:34 Spironolactone 25 Mg Tablet PO 25 mg BID@0900,1800 [facility] Administration Protocol <Marcia Ron PA-C - Last Filed: 12/15/20 08:32> Time Spent With Patient Time: Total time spent is greater than 50% in coordination of care (as documented) at patient's floor/unit and/or counseling patient: <DANIE Roblero Last Filed: 12/15/20 08:32> Time with patient: 15 - 24 minutes <Marcia Ron PA-C - Last Filed: 12/15/20 08:32> Quality Stroke Does the patient have a stroke diagnosis?: No <Marcia Ron PA-C - Last Filed: 12/15/20 08:32> VTE Prior VTE?: No <Marcia Ron PA-C - Last Filed: 12/15/20 08:32> VTE Risk Level:: Surgical - high <Marcia Ron PA-C - Last Filed: 12/15/20 08:32> VTE Device Contraindication: N/A - Device Ordered <Marcia Ron PA-C - Last Filed: 12/15/20 08:32> VTE Drug Contraindication: N/A - Med Ordered <Marcia Ron PA-C - Last Filed: 12/15/20 08:32>
--- NOTE | 2020-12-15 08:38 | MHC.CM.PN ---
PT CLEARED TO DC HOME TODAY WITH RESUMPTION OF HIS [facility]. FAMILY TO TRANSPORT CM TO FAX DC SUMMARY TO [facility] AT [phone] ONCE AVAILABLE.
--- NOTE | 2020-12-15 14:33 | P.DS_ITS ---
DS: Providers Provider Date of Service: 12/15/20 Date of admission: 12/09/20 10:05 Primary care physician: Leon Joyner MD Consults: 12/09/20 10:10 Consult to Hospitalist Routine Consulting Provider: Hospitalist Reason For Exam: s/p right colectomy, PMH diabetes mellitus, CAD DS: Diagnosis Discharge Diagnosis (1) Acute renal failure superimposed on stage 3 chronic kidney disease: Status: Acute (2) S/P right colectomy: Status: Acute (3) Cecum mass: Status: Acute DS: Medications Discharge Medications Home Medications: Home Medications Medication Instructions Recorded Confirmed aspirin 81 mg tablet,delayed 81 mg PO DAILY 02/25/20 12/01/20 release (Adult Low Dose Aspirin) doxazosin 8 mg tablet 8 mg PO BEDTIME 02/25/20 12/01/20 finasteride 5 mg tablet 5 mg PO BEDTIME 02/25/20 12/01/20 furosemide 80 mg tablet 80 mg PO BID 02/25/20 12/01/20 magnesium 250 mg tablet 250 mg PO DAILY 02/25/20 12/01/20 sertraline 50 mg tablet 50 mg PO DAILY 02/25/20 12/01/20 simvastatin 40 mg tablet 40 mg PO BEDTIME 02/25/20 12/01/20 spironolactone 25 mg tablet 25 mg PO BID 02/25/20 12/01/20 amitriptyline 25 mg tablet 25 mg PO BEDTIME 03/05/20 12/01/20 lancets 33 gauge #100 ea 03/11/20 11/20/20 fluticasone 250 mcg-salmeterol 50 1 ea INHALATION BID 08/25/20 12/01/20 mcg/dose blistr powdr for inhalation gabapentin 300 mg capsule 300 mg PO BID cap 08/25/20 12/01/20 docusate sodium 100 mg capsule 100 mg PO BID 11/04/20 12/01/20 insulin human U-100 NPH-regulr 80 unit SUBCUT BID 11/04/20 12/02/20 70-30 mix 100 unit/mL subcutaneous susp (Humulin 70/30 U-100 Insulin) ipratropium 0.5 mg-albuterol 3 mg 3 ml INHALATION QID 11/04/20 12/01/20 (2.5 mg base)/3 mL nebulization soln metoprolol tartrate 25 mg tablet 75 mg PO BEDTIME tab 11/20/20 12/01/20 famotidine 20 mg tablet 1 tab PO DAILY 12/02/20 12/02/20 ferrous sulfate 325 mg (65 mg 325 mg PO DAILY 12/02/20 12/02/20 iron) tablet (iron) multivitamin 1 tab PO DAILY 12/02/20 12/02/20 polyethylene glycol 3350 17 gram 17 g PO DAILY 12/02/20 12/02/20 oral powder packet (Miralax) Previous Rx's Medication Instructions Recorded omeprazole 20 mg capsule,delayed 20 mg PO BID@0630,1630 #60 cap 11/07/20 release insulin syringe-needle U-100 1 mL #100 ea 11/25/20 31 gauge x 5/16 (BD Insulin Syringe Ultra-Fine) oxycodone-acetaminophen 5 mg-325 1 - 2 tab PO Q4-6H PRN #30 tab 12/12/20 mg tablet (Percocet) DS: Summary Hospital Course Hospital Course: BRIEF HPI: The patient is a 75-year-old male who had undergone colonoscopy with Dr. Rebolledo October, for a GI bleed and was noted to have a cecal polyp which could not be resected endoscopically because of its size.? 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 In view of this, explained to him the benefit of proceeding with a limited right colon resection which he presented for. HOSPITAL COURSE: On 12/09/20, hand assisted laparoscopic limited right colon res ection, repair of epigastric hernia was performed by Dr. Perea without complication. The patient tolerated the procedure well and was admitted to [facility] for observation following. Hospitalist consult was obtained for management of his medical comorbidities. He had an uncomplicated recovery course. He had difficulty with pain control on POD #1 and his analgesics were adjusted. He was gotten out of bed. His knight catheter was removed on POD #2. His diet was advanced slowly as tolerated once he began to pass continuous flatus with less belching. His pain became better controlled. His ambulation was increased as tolerated. He did have an HAYES on CKD which improved with gentle IVF. His home diuretics were held and home lasix dose reduced once it was restarted when his creatinine returned to baseline. His other medical comorbidities remained stable. He began a solid diet and began to move his bowels on 12/14/20. His pathology came back negative for malignancy. He was tolerating a solid diet with good GI function, had good pain control and was clinically appearring well with a benign abdominal exam and clean incision. He was therefore discharge to home on 12/15/20 with resumption of his home services. Status at Discharge Functional status at discharge: uses cane/walker Overall status at discharge: patient is progressing back to baseline Time Spent with Patient Time attestation: Total time spent providing and/or coordinating discharge s ervices: Discharge coordination time: Greater than 30 minutes Quality: Stroke Does the patient have a stroke diagnosis?: No Physical Exam Vital Signs: Vital Signs: Last Vital Signs Temp 99.4 F 12/15/20 08:00 Pulse 61 12/15/20 08:22 Resp 18 12/15/20 08:00 BP 147/68 H 12/15/20 08:22 Pulse Ox 99 12/15/20 08:00 Body Mass Index 40.6 Const: General: comfortable, no acute distress and alert Orientati on/consciousness: patient oriented x3 Cardio: Rate: regular rate GI: Inspection: No distended, Yes incision (clean) and Yes other (protuberant) Palpation (GI): Soft to palpation, Tenderness to palpation present (GI) (very mild incisional), no guarding and not rigid Skin: General skin exam: no rashes or lesions noted Neuro: General: patient oriented x3 DS: Data Data Completed and Pending Completed studies during hospitalization [Text1]: 12/09/20 09:22 Surgical [PTH] Stat Colon, right, ileocolecomy:? -Tubulovillous adenoma (1.8 cm in greatest dimension) arising within the cecum; negative for high grade dysplasia and carcinoma. -Additional tubular adenomas (x 2; negative for high grade dysplasia) and sessile serrated polyp (x 1; negative for cytologic dysplasia) within the cecum/ascending colon (up to 0.3 cm in greatest dimension). -Appendix with superficial acute mucosal inflammation and fibrous obliteration of the distal tip. ? -Proximal ileal, distal colonic, and mesenteric margins with no specific pathologic change. -Nine (9) benign lymph nodes; negative for malignancy. Procedures Excision of Cecum, Via Natural or Artificial Opening Endoscopic, Diagnostic (11/04/20) Excision of Stomach, Pylorus, Via Natural or Artificial Opening Endoscopic, Diagnostic (11/04/20) Transfusion of Nonautologous Red Blood Cells into Peripheral Vein, Percutaneous Approach (11/04/20) Labs on day of discharge: Laboratory Results - last 24 hr 12/14/20 12/14/20 12/15/20 16:16 20:37 04:20 Sodium 139 Potassium 3.9 Chloride 101 Carbon Dioxide 26 Anion Gap 16 BUN 20 H Creatinine 1.52 H Estim Creat Clear Calc 51.5 Estimated GFR 45 POC Glucose 194 H 201 H Random Glucose 224 H Calcium 8.7 Magnesium 2.1 12/15/20 07:12 Sodium Potassium Chloride Carbon Dioxide Anion Gap BUN Creatinine Estim Creat Clear Calc Estimated GFR POC Glucose 208 H Random Glucose Calcium Magnesium Discharge Plan Discharge Anticipated Discharge Date/Time: 12/15/20 08:48 Patient Disposition: Home Health Service Discharge Diagnosis: Adenoma on the cecum Referrals: [facility] [place] [Other] - 1 Week (RESUMPTION OF SERVICES ) Leon Joyner MD [Primary Care Provider] - 1 Week Martínez Perea MD [Physician] - 1 Week Discharge Medications: New oxycodone-acetaminophen [Percocet] 5-325 mg tablet 1 - 2 tab PO Q4-6H PRN (Reason: pain) Qty: 30 RF: 0 Continued (DME) insulin syringe-needle U-100 [BD Insulin Syringe Ultra-Fine] 1 mL 31 gauge x 5/16 syringe See Rx Instructions .ROUTE .MEDSUPPLY Qty: 100 RF: 6 docusate sodium 100 mg Capsule 100 mg PO BID RF: 0 Humulin 70/30 U-100 Insulin 100 unit/mL (70-30) Suspension 80 unit SUBCUT BID RF: 0 ipratropium-albuterol 0.5 mg-3 mg(2.5 mg base)/3 mL Solution For Nebulization 3 ml INHALATION QID RF: 0 omeprazole 20 mg Capsule,Delayed Release(Dr/Ec) 20 mg PO BID@0630,1630 Qty: 60 RF: 0 metoprolol tartrate 25 mg tablet 75 mg PO BEDTIME RF: 0 multivitamin Tablet 1 tab PO DAILY RF: 0 polyethylene glycol 3350 [Miralax] 17 gram Powder In Packet 17 g PO DAILY RF: 0 famotidine 20 mg tablet 1 tab PO DAILY RF: 0 ferrous sulfate [iron] 325 mg (65 mg iron) Tablet 325 mg PO DAILY RF: 0 amitriptyline 25 mg tablet 25 mg PO BEDTIME RF: 0 (DME) lancets 33 gauge misc See Rx Instructions gauge .ROUTE .MEDSUPPLY Qty: 100 RF: 0 spironolactone 25 mg tablet 25 mg PO BID RF: 0 sertraline 50 mg tablet 50 mg PO DAILY RF: 0 doxazosin 8 mg tablet 8 mg PO BEDTIME RF: 0 simvastatin 40 mg tablet 40 mg PO BEDTIME RF: 0 finasteride 5 mg tablet 5 mg PO BEDTIME RF: 0 furosemide 80 mg tablet 80 mg PO BID RF: 0 magnesium 250 mg tablet 250 mg PO DAILY RF: 0 aspirin [Adult Low Dose Aspirin] 81 mg tablet,delayed release (DR/EC) 81 mg PO DAILY RF: 0 gabapentin 300 mg capsule 300 mg PO BID RF: 0 fluticasone propion-salmeterol 250-50 mcg/dose blister with device 1 ea inhalation BID RF: 0 Discharge Orders: Discharge Order (Routine); Ordered 12/15/20 Ordered By: Marcia Ron Diet: diabetic diet and other Activity on Discharge: No heavy lifting Stand Alone Forms: Patient Portal Discharge page Activity Restrictions/Additional Instructions: If the incision area is tender, you may apply an ice pack for short intervals (No more than 20 minutes on, followed by at least 20 minutes off). Do not apply heat. Do not use creams, lotions, or topical antibiotics unless instructed to do so by your surgeon. These can cause infection or allergic reaction. OK to shower No dressings necessary No lifting more than 20 lb No strenuous activities Call the office for follow-up in 2 weeks - with Dr. Perea Call Your Doctor If: -Your temperature exceeds 101.5? F -You experience excessive pain or swelling -You have an unexpected reaction to medication -You have excessive bleeding -You experience continued vomiting/nausea -Your incision begins to separate -Your incision shows signs of infection such as increased redness, swelling, excessive pain, drainage (light blood or clear fluid is normal) or heat Care Plan Goals: Pain management Blood sugar control Health Concerns: Blood sugar control Plan of Treatment: Pain management Follow-up in the office Assessment: Doing well postoperatively Discharge Date/Time: 12/15/20 12:00
== END 2020-12-15 12:00 | disposition home health service (06) | DRG 330 ==
LOC: HO.SSSA 10:24 → HO.IMC 11:44
PROVIDERS: Hospitalist; Internal Medicine; Nurse Practitioner; Physician Assistant Surgical; Admitting Provider Surgery; PCP Family Medicine; Visit Provider Surgery
PROC: 0DTF0ZZ Resection of Right Large Intestine, Open Approach (ICD-10-PCS; principal; 2020-12-09 07:30)
DX: D12.0 Benign neoplasm of cecum (principal); I13.0 Hypertensive heart and chronic kidney disease with heart failure and stage 1 through stage 4 chronic kidney disease, or unspecified chronic kidney disease; I50.32 Chronic diastolic (congestive) heart failure; N17.9 Acute kidney failure, unspecified; Z68.41 Body mass index [BMI] 40.0-44.9, adult; K43.9 Ventral hernia without obstruction or gangrene; I25.10 Atherosclerotic heart disease of native coronary artery without angina pectoris; N40.0 Benign prostatic hyperplasia without lower urinary tract symptoms; E11.22 Type 2 diabetes mellitus with diabetic chronic kidney disease; E66.01 Morbid (severe) obesity due to excess calories; N18.30 Chronic kidney disease, stage 3 unspecified; Z95.1 Presence of aortocoronary bypass graft; Z20.822 Contact with and (suspected) exposure to COVID-19; Z87.891 Personal history of nicotine dependence; Z79.4 Long term (current) use of insulin; Z79.51 Long term (current) use of inhaled steroids; Z79.82 Long term (current) use of aspirin; Z79.899 Other long term (current) drug therapy
CPT/HCPCS: 36415; 80048; 82565; 82947; 83735; 84520; 85014; 85018; 85025; 85027; 86850; 86900; 86901; 87635; 88309; 88329; 94640; 99024; J0131; J1170; J2405; J3010

== ENCOUNTER → 2020-12-22 09:31 | Outpatient (BNVA) | payer SELFPAY | PROVIDERS: PCP Family Medicine; Visit Provider Surgery | DX: Z48.815 Encounter for surgical aftercare following surgery on the digestive system (principal); Z87.19 Personal history of other diseases of the digestive system | CPT/HCPCS: 99212 ==

== ENCOUNTER → 2021-01-06 13:25 | Outpatient (BNVA) | payer MEDICARE, SELFPAY | PROVIDERS: PCP Family Medicine; Visit Provider Surgery | DX: Z48.01 Encounter for change or removal of surgical wound dressing (principal); S40.812A Abrasion of left upper arm, initial encounter | CPT/HCPCS: 99212 ==

== ENCOUNTER 2021-01-17 10:10 | Outpatient (REF) | payer MEDICARE, SELFPAY ==
[2021-01-17 11:34] LABS: MANUAL DIFF FLAG NO
[2021-01-17 11:43] LABS: Basophils Percent Auto 0.3 % (0-2); Eosinophils Absolute Auto 0.4 X10*3/uL (0.0-0.4); Eosinophils Percent Auto 3.5 % (0-4); Hematocrit 30.4 % (42-52); Hemoglobin 8.8 g/dl (14.0-18.0); Imm Gran Abs Auto 0.08 X10*3/uL (0.00-0.03); Imm Gran Pct Auto 0.7 % (0.0-0.4); Lymphocytes Absolute Auto 0.8 X10*3/uL (1.2-4.9); Lymphocytes Percent Auto 7.8 % (20-40); Mean Corpuscular HGB Conc 28.9 g/dl (31.0-36.0); Mean Corpuscular Hemoglobin 23.3 pg (27.0-33.0); Mean Corpuscular Volume 80.4 fL (80-98); Mean Platelet Volume 9.5 fL (9.4-12.4); Monocytes Absolute Auto 0.9 X10*3/uL (0.1-1.2); Monocytes Percent Auto 8.4 % (2-11); Neutrophils Absolute Auto 8.5 X10*3/uL (2.0-8.3); Neutrophils Percent Auto 79.3 % (45-73); Platelet Count 230 X10*3/uL (160-400); Red Blood Count 3.78 X10*6/uL (4.60-5.80); Red Cell Distribution Width 18.2 % (11.0-16.0); White Blood Count 10.7 X10*3/uL (4.8-10.8)
[2021-01-17 12:04] LABS: Estimated Average Glucose 120 mg/dL; Hemoglobin A1c % 5.8 %
[2021-01-17 12:09] LABS: Anion Gap 14 (12-20); Blood Urea Nitrogen 18 mg/dL (9-16); Carbon Dioxide 29 mmol/L (22-29); Chloride 102 mmol/L (96-108); Estimated Glomerular Filt Rate 40; Potassium 4.4 mmol/L (3.3-5.1); Sodium 141 mmol/L (135-145)
== END 2021-01-17 10:11 | disposition home or self-care (01) ==
LOC: HO.HMGCLDS 10:10
PROVIDERS: PCP Family Medicine; Visit Provider Family Medicine
DX: D64.9 Anemia, unspecified (principal); N18.9 Chronic kidney disease, unspecified; E11.9 Type 2 diabetes mellitus without complications
CPT/HCPCS: 36415; 80051; 82565; 83036; 84520; 85025

== ENCOUNTER → 2021-01-22 10:27 | Outpatient (BNVA) | payer MEDICARE, SELFPAY | PROVIDERS: PCP Family Medicine; Visit Provider Surgery | DX: Z09 Encounter for follow-up examination after completed treatment for conditions other than malignant neoplasm (principal); Z87.19 Personal history of other diseases of the digestive system | CPT/HCPCS: 99212 ==

== ENCOUNTER → 2021-02-17 12:35 | Outpatient (BNVA) | payer MEDICARE, SELFPAY | PROVIDERS: PCP Family Medicine; Referring Provider Family Medicine; Visit Provider Internal Medicine Cardiovascular Disease | DX: I51.89 Other ill-defined heart diseases (principal); I25.10 Atherosclerotic heart disease of native coronary artery without angina pectoris | CPT/HCPCS: 99212 ==

== ENCOUNTER 2021-02-19 13:16 | Outpatient (REF) | payer MEDICARE, SELFPAY ==
[2021-02-19 16:55] LABS: Iron 39 mcg/dL (45-160); Percent Iron Saturation 9 % (15-50); Total Iron Binding Capacity 421 mcg/dL (228-428); Unsaturated Iron Binding 382 ug/dL
== END 2021-02-19 13:17 | disposition home or self-care (01) ==
LOC: HO.HMGCLDS 13:16
PROVIDERS: PCP Family Medicine; Visit Provider Family Medicine
DX: D50.9 Iron deficiency anemia, unspecified (principal)
CPT/HCPCS: 36415; 83540

== ENCOUNTER → 2021-04-27 08:56 | Outpatient (BNVA) | payer MEDICARE, SELFPAY | PROVIDERS: PCP Family Medicine; Visit Provider Surgery | DX: L02.212 Cutaneous abscess of back [any part, except buttock and flank] (principal) | CPT/HCPCS: 10061; 99212 ==

== ENCOUNTER → 2021-05-14 13:55 | Outpatient (BNVA) | payer MEDICARE, SELFPAY | PROVIDERS: PCP Family Medicine; Visit Provider Internal Medicine Cardiovascular Disease | DX: I25.10 Atherosclerotic heart disease of native coronary artery without angina pectoris (principal); I51.89 Other ill-defined heart diseases | CPT/HCPCS: 99212 ==

== ENCOUNTER → 2021-05-20 12:25 | Outpatient (BNVA) | payer MEDICARE, SELFPAY | PROVIDERS: PCP Family Medicine; Visit Provider Nurse Practitioner Gerontology | DX: E11.65 Type 2 diabetes mellitus with hyperglycemia (principal); E11.21 Type 2 diabetes mellitus with diabetic nephropathy; E11.22 Type 2 diabetes mellitus with diabetic chronic kidney disease; I12.9 Hypertensive chronic kidney disease with stage 1 through stage 4 chronic kidney disease, or unspecified chronic kidney disease; N18.30 Chronic kidney disease, stage 3 unspecified; E78.5 Hyperlipidemia, unspecified; E66.01 Morbid (severe) obesity due to excess calories; Z79.4 Long term (current) use of insulin; Z68.36 Body mass index [BMI] 36.0-36.9, adult | CPT/HCPCS: 82947; 99212 ==

== ENCOUNTER 2021-06-18 11:38 | Outpatient (REF) | payer MEDICARE, SELFPAY ==
[2021-06-18 14:12] LABS: Estimated Average Glucose 154 mg/dL
[2021-06-18 14:26] LABS: Iron 144 mcg/dL (45-160); Percent Iron Saturation 33 % (15-50); Total Iron Binding Capacity 432 mcg/dL (228-428); Unsaturated Iron Binding 288 ug/dL
[2021-06-18 14:27] LABS: Creatinine Urine 36.48 mg/dL; Microalbum/Creatinine Ratio Ur 46.6 ug/mg cr
[2021-06-18 14:30] LABS: Alanine Aminotransferase 12 U/L (0-40); Albumin Level 4.5 g/dL (3.5-5.0); Alkaline Phosphatase 129 U/L (39-117); Anion Gap 15 (12-20); Aspartate Amino Transferase 19 U/L (5-37); Bilirubin Total 0.4 mg/dL (0.0-1.0); Blood Urea Nitrogen 23 mg/dL (9-16); Calcium 9.7 mg/dL (8.4-10.2); Carbon Dioxide 34 mmol/L (22-29); Chloride 98 mmol/L (96-108); Cholesterol 177 mg/dL; Estimated Glomerular Filt Rate 34; Glucose Fasting 105 mg/dL (60-99); HDL Cholesterol 31 mg/dL; LDL Cholesterol Calculated 86 mg/dl; Potassium 4.6 mmol/L (3.3-5.1); Sodium 142 mmol/L (135-145); Total Protein 7.2 g/dL (6.5-8.0); Triglycerides 300 mg/dL
[2021-06-19 07:26] LABS: LDL Cholesterol Direct 102 mg/dL (<100)
== END 2021-06-18 11:39 | disposition home or self-care (01) ==
LOC: HO.10HDL 11:38
PROVIDERS: Absent Provider Family Medicine; Referring Provider Internal Medicine Cardiovascular Disease; Visit Provider Nurse Practitioner Gerontology
DX: E11.21 Type 2 diabetes mellitus with diabetic nephropathy (principal)
CPT/HCPCS: 36415; 80053; 80061; 82043; 83036; 83540; 83721

== ENCOUNTER 2021-07-11 11:40 | Emergency (ER) | payer MEDICARE, SELFPAY ==
[2021-07-11 12:14] VITALS: BP 118/58; PULSE 58; RESP 18; TEMP 36.6; O2SAT 96; BMI 37.7
[2021-07-11] MEDS: Diphth,Pertus(ACell),Tet Adult 0.5 ML SYRINGE IM (15:27)
[2021-07-11] MEDS: Amoxicillin/Potassium Clav 875 MG TABLET PO (15:30)
[2021-07-11] MEDS: Rabies Immune Globulin/PF 900 UNIT/3 ML VIAL 2249.82 UNIT IM (15:32)
--- NOTE | 2021-07-11 15:36 | ED_ITS ---
HPI - Animal Bite General Chief Complaint: Animal Bite Stated Complaint: Animal bite Time Seen by Provider: 07/11/21 14:35 Source: patient Mode of arrival: ambulatory History of Present Illness HPI narrative: 75-year-old male with past medical history of anemia, CAD, CKD, COPD, depression, dm, HLD, GERD, HTN, s/p CABG, TIA, presenting to the ED complaining of bite wound to right index finger from [place] s/p trying to free it from his fence. Tetanus unknown/out of date. Denies injury to the area, numbness, tingling, weakness. MD complaint: animal bite Onset (ago): hour(s) Animal: rodent Related Data Home Medications Medication Instructions Recorded Confirmed aspirin 81 mg tablet,delayed 81 mg PO DAILY 02/25/20 05/14/21 release (Adult Low Dose Aspirin) doxazosin 8 mg tablet 8 mg PO BEDTIME 02/25/20 05/14/21 finasteride 5 mg tablet 5 mg PO BEDTIME 02/25/20 05/14/21 furosemide 80 mg tablet 80 mg PO BID 02/25/20 05/14/21 magnesium 250 mg tablet 250 mg PO DAILY 02/25/20 05/14/21 sertraline 50 mg tablet 50 mg PO DAILY 02/25/20 05/14/21 simvastatin 40 mg tablet 40 mg PO BEDTIME 02/25/20 05/20/21 spironolactone 25 mg tablet 25 mg PO BID 02/25/20 05/20/21 amitriptyline 25 mg tablet 25 mg PO BEDTIME 03/05/20 05/14/21 lancets 33 gauge #100 ea 03/11/20 05/20/21 fluticasone 250 mcg-salmeterol 50 1 ea INHALATION BID 08/25/20 05/14/21 mcg/dose blistr powdr for inhalation gabapentin 300 mg capsule 300 mg PO BID cap 08/25/20 05/20/21 docusate sodium 100 mg capsule 100 mg PO BID 11/04/20 05/14/21 ipratropium 0.5 mg-albuterol 3 mg 3 ml INHALATION QID 11/04/20 05/14/21 (2.5 mg base)/3 mL nebulization soln metoprolol tartrate 25 mg tablet 75 mg PO BEDTIME tab 11/20/20 05/20/21 multivitamin 1 tab PO DAILY 12/02/20 05/14/21 polyethylene glycol 3350 17 gram 17 g PO DAILY 12/02/20 05/14/21 oral powder packet (Miralax) famotidine 20 mg tablet 20 mg PO DAILY 02/17/21 05/14/21 ferrous sulfate 325 mg (65 mg 325 mg PO BID tab 05/14/21 05/20/21 iron) tablet (iron) Previous Rx's Medication Instructions Recorded omeprazole 20 mg capsule,delayed 20 mg PO BID@0630,1630 #60 cap 11/07/20 release insulin syringe-needle U-100 1 mL #100 ea 11/25/20 31 gauge x 5/16 (BD Insulin Syringe Ultra-Fine) oxycodone-acetaminophen 5 mg-325 1 - 2 tab PO Q4-6H PRN #30 tab 12/12/20 mg tablet (Percocet) blood sugar diagnostic (OneTouch 1 strip MISCELLANEOUS TID #300 12/29/20 Verio test strips) strip metformin 500 mg tablet,extended 500 mg PO BID #180 tab 04/16/21 release 24 hr insulin human U-100 NPH-regulr 80 unit (0.8 mL) SUBCUT BID 30 07/06/21 70-30 mix 100 unit/mL subcutaneous Days #50 ml susp (Humulin 70/30 U-100 Insulin) amoxicillin 875 mg-potassium 1 tab PO Q12H 7 Days #14 tab 07/11/21 clavulanate 125 mg tablet Allergies Allergy/AdvReac Type Severity Reaction Status Date / Time No Known Allergies Allergy Verified 05/20/21 12:49 Review of Systems Review of Systems: Constitutional: No Fever, No Chills ENT/Mouth: No Ear Pain, No sore throat, No Rhinorrhea, No Swallowing Difficulty Cardiovascular: No Chest Pain, No SOB Respiratory: No Cough, No Sputum Gastrointestinal: No Nausea, No Vomiting, No Abdominal pain Musculoskeletal: No joint pain, No Myalgias, No Joint Swelling Skin: +bite wound, No rash Neuro: No Weakness, No Numbness, No Paresthesias Yes all other systems are reviewed and are negative Neurologic: Denies Sensory deficit (Neuro) [facility] Past Medical History Attestation statement: The following information was validated with the patient. 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 Mother Cancer Social History Social History Household Members: Spouse Housing: House Are you a primary health care social worker to a significant other at home: No Do you presently have visiting nurse or other home services: Yes ([employer] [employer] Alcohol intake: former Patient Tobacco Use Status: Former Tobacco user Quit Date: 1990 Tobacco use type: Cigarette Years Smoked: 30 Advance Directives: Yes Advance Directives on File: Yes Advance Directives Date on File: 12/02/20 service: No Current occupational status: retired Physical Exam ED Vital Signs: Vital Signs - 24 hr 07/11/21 12:14 Temperature 97.8 F Pulse Rate 58 Respiratory Rate 18 Blood Pressure 118/58 L Pulse Oximetry 96 BMI result Body Mass Index 37.7 Const General: cooperative, healthy appearing, no acute distress, alert and awake Orientation/consciousness: patient oriented x3 Limitations: no limitations HENMT Head: Yes normal to inspection Ears: hearing grossly normal bilaterally General nose exam: Normal external nose present Face and sinus: Yes normal facial exam Eyes General: appearance normal, both eyes and all related structures EOM: EOMs intact bilaterally Neck Neck: Yes normal visual inspection, Yes no meningeal signs and Yes supple Resp Effort & Inspection: normal respiratory effort and no respiratory distress Cardio Rate: regular rate Peripheral pulses: radial pulses present Skin Other: + small bite wound to radial aspect of right index finger at DIP. Bleeding controlled. No surrounding erythema, no drainage, no streaking, no fluctuance/induration Rashes: no rashes Neuro General: patient oriented x3, tone normal, moves all extremities and no meningeal signs Gait exam (Neuro): Normal gait present Sensory Exam: No Sensory deficit (Neuro) Extrem General: Yes normal to inspection MDM - Animal Bite MDM Narrative Medical decision making narrative: 75-year-old male with past medical history of anemia, CAD, CKD, COPD, depression, dm, HLD, GERD, HTN, s/p CABG, TIA, presenting to the ED complaining of bite wound to right index finger from [place] s/p trying to free it from his fence. On exam vital signs stable, NAD, physical exam as above both noted bite wound to right index finger. [place] at do have small chance of caring rabies--will give tetanus prophylaxis, rabies immune globulin, rabies vaccination, and 1st dose of Augmentin Differential Diagnosis Differential diagnosis: Likely bite by animal Medical Records Attestation: I reviewed the patient's medical records. Lab Data Attestation: I reviewed the patient's lab results. Discharge Plan Discharge Clinical Impression: Bite by animal Patient Disposition: Home, Self-Care Instructions: Animal Bite (ED) Additional Instructions: You were given tetanus vaccine today as well as rabies immune globulin and 1st dose of rabies vaccine You need additional rabies vaccines on July 14, July 18, and July 25. You need to follow-up in medical day stay for the remainder of these vaccinations. Please call [phone] to schedule your appointments Augmentin is an antibiotic please take as prescribed If area begins to look infected, is red, there is drainage from the area there is red streaking or pus drainage please return to the emergency department. Apply bacitracin and or Neosporin at home Prescriptions: New amoxicillin-pot clavulanate 875-125 mg tablet 1 tab PO Q12H 7 Days Qty: 14 0RF No Action (DME) insulin syringe-needle U-100 [BD Insulin Syringe Ultra-Fine] 1 mL 31 gauge x 5/16 syringe See Rx Instructions .ROUTE .MEDSUPPLY Qty: 100 6RF Rx Instructions: Twice a day OneTouch Verio test strips Strip 1 strip miscellaneous TID Qty: 300 3RF metformin 500 mg tablet extended release 24 hr 500 mg PO BID Qty: 180 2RF Humulin 70/30 U-100 Insulin 100 unit/mL (70-30) suspension 80 unit SUBCUT BID 30 Days Qty: 50 3RF docusate sodium 100 mg Capsule 100 mg PO BID 0RF ipratropium-albuterol 0.5 mg-3 mg(2.5 mg base)/3 mL Solution For Nebulization 3 ml INHALATION QID 0RF omeprazole 20 mg Capsule,Delayed Release(Dr/Ec) 20 mg PO BID@0630,1630 Qty: 60 0RF metoprolol tartrate 25 mg tablet 75 mg PO BEDTIME 0RF multivitamin Tablet 1 tab PO DAILY 0RF polyethylene glycol 3350 [Miralax] 17 gram Powder In Packet 17 g PO DAILY 0RF oxycodone-acetaminophen [Percocet] 5-325 mg tablet 1 - 2 tab PO Q4-6H PRN (Reason: pain) Qty: 30 0RF famotidine 20 mg tablet 20 mg PO DAILY 0RF ferrous sulfate [iron] 325 mg (65 mg iron) tablet 325 mg PO BID 0RF amitriptyline 25 mg tablet 25 mg PO BEDTIME 0RF (DME) lancets 33 gauge misc See Rx Instructions gauge .ROUTE .MEDSUPPLY Qty: 100 0RF Rx Instructions: As directed spironolactone 25 mg tablet 25 mg PO BID 0RF sertraline 50 mg tablet 50 mg PO DAILY 0RF doxazosin 8 mg tablet 8 mg PO BEDTIME 0RF simvastatin 40 mg tablet 40 mg PO BEDTIME 0RF finasteride 5 mg tablet 5 mg PO BEDTIME 0RF furosemide 80 mg tablet 80 mg PO BID 0RF magnesium 250 mg tablet 250 mg PO DAILY 0RF aspirin [Adult Low Dose Aspirin] 81 mg tablet,delayed release (DR/EC) 81 mg PO DAILY 0RF gabapentin 300 mg capsule 300 mg PO BID 0RF fluticasone propion-salmeterol 250-50 mcg/dose blister with device 1 ea inhalation BID 0RF Referrals: Delmar Joyner DO [Primary Care Provider] - 5 days
[2021-07-11] MEDS: Rabies Vaccine (PCEC)/PF 1 ML VIAL IM (15:38)
== END 2021-07-11 16:37 | disposition home or self-care (01) ==
PROVIDERS: Emergency Provider Emergency Medicine Emergency Medical Services; PCP Student in an Organized Health Care Education/Training Program
DX: S61.250A Open bite of right index finger without damage to nail, initial encounter (principal); W53.81XA Bitten by other rodent, initial encounter; Y93.89 Activity, other specified; Y92.017 Garden or yard in single-family (private) house as the place of occurrence of the external cause; Y99.9 Unspecified external cause status; Z20.3 Contact with and (suspected) exposure to rabies
CPT/HCPCS: 90375; 90471; 90675; 90715; 96372; 99283; 99284

== ENCOUNTER 2021-07-14 13:52 | Outpatient (REF) | payer MEDICARE, SELFPAY | END 2021-07-14 13:53 | disposition home or self-care (01) | LOC: HO.MDS 13:52 | DX: Z29.14 Encounter for prophylactic rabies immune globulin (principal); S61.250D Open bite of right index finger without damage to nail, subsequent encounter; W53.81XD Bitten by other rodent, subsequent encounter; Z20.3 Contact with and (suspected) exposure to rabies; Z66 Do not resuscitate | CPT/HCPCS: 90471; 90675 ==

== ENCOUNTER 2021-07-18 09:58 | Outpatient (REF) | payer MEDICARE, SELFPAY | END 2021-07-18 09:59 | disposition home or self-care (01) | LOC: HO.MDS 09:58 | PROVIDERS: PCP Family Medicine | DX: Z29.14 Encounter for prophylactic rabies immune globulin (principal); S61.250D Open bite of right index finger without damage to nail, subsequent encounter; W53.81XD Bitten by other rodent, subsequent encounter; Z20.3 Contact with and (suspected) exposure to rabies; Z66 Do not resuscitate | CPT/HCPCS: 90471; 90675 ==

== ENCOUNTER 2021-07-25 09:37 | Outpatient (REF) | payer MEDICARE, SELFPAY | END 2021-07-25 09:38 | disposition home or self-care (01) | LOC: HO.MDS 09:37 | DX: Z29.14 Encounter for prophylactic rabies immune globulin (principal); S61.250D Open bite of right index finger without damage to nail, subsequent encounter; W53.81XD Bitten by other rodent, subsequent encounter; Z20.3 Contact with and (suspected) exposure to rabies | CPT/HCPCS: 90471; 90675 ==

== ENCOUNTER → 2021-07-28 12:48 | Outpatient (BNVA) | payer MEDICARE, SELFPAY | PROVIDERS: PCP Family Medicine; Visit Provider Registered Nurse Diabetes Educator | DX: E11.21 Type 2 diabetes mellitus with diabetic nephropathy (principal); Z79.4 Long term (current) use of insulin; Z87.891 Personal history of nicotine dependence | CPT/HCPCS: 95250 ==

== ENCOUNTER → 2021-08-03 12:40 | Outpatient (REF) | payer MEDICARE, SELFPAY ==
--- NOTE | 2021-08-03 12:44 | CA_ITS ---
Transthoracic Echocardiogram Patient (Last, First, Middle): Josr Hart, Gender: Male Date of : 1945 Age: 75 Procedure Date: 08/03/2021 Procedure Type: Transthoracic Echocardiogram Location: OP Height: 172.72 cm Weight: 111.13 kg BSA: 2.23 m2 Heart Rate: bpm BP: 140 / 66 mmHg Lead Enterprise Architect: KELSIE Cervantes MD: Jamir Cobb MD Certified Pharmacy Technician: Jamir Cobb MD Symptoms: I51.89 - Other ill-defined heart diseases Study Quality: Technically Difficult/Contrast ECG Rhythm: Sinus Conclusions: - 1. Normal LV systolic function with pseudonormal filling pattern 2. Moderately dilated left atrium 3. Severe mitral calcification with normal cardiac valvular Doppler 4. Mildly elevated right ventricular systolic pressure 5. No gross pericardial effusion Findings Procedure Information Contrast agent, definity, is being given per protocol without apparent complications. Left Ventricle Normal left ventricular size, thickness, and systolic function. The visually estimated ejection fraction is between 60-65%. There is paradoxical septal motion consistent with post-operative status. Spectral Doppler is indicative of a pseudonormal filling pattern. E/E prime ratio is between 8 and 15 consistent with indeterminate filling pressures. Right Ventricle Mildly increased right ventricular cavity size. Atria The left atrium is moderately dilated. Interatrial shunt cannot be excluded. The right atrium is mildly dilated. Aortic Valve There is mild calcification of the aortic valve. There is mild thickening of the aortic valve. There is no aortic valve stenosis. There is no aortic valve regurgitation. Mitral Valve There is mild anterior and moderate posterior mitral leaflet thickening. There is severe mitral annular calcification. There is trace mitral valve regurgitation. There is no mitral valve stenosis. Pulmonic Valve The pulmonic valve was not well visualized. Tricuspid Valve Likely normal tricuspid valve structure and function. There is mild tricuspid valve regurgitation. The right ventricular systolic pressure is normal. Mild pulmonary hypertension is present. Great Vessels All visible segments of the aorta are normal in size. Venous The inferior vena cava is moderately dilated and collapses greater than 50% with inspiration. Pericardium/Pleural There is no evidence of pericardial effusion. Prior Study Comparison No significant change compared to prior study dated: 11/01/2019. Measurements 2D Linear Measurements IVSd: 1.05 0.6-0.9/0.6-1.0 cm LVIDd: 4.67 3.9-5.3/4.2-5.9 cm LVIDd Index: 2.09 2.4-3.2/2.2-3.1 cm/m2 LVIDs: 2.94 2.0-3.6 cm LVPWd: 1.03 0.7-1.1 cm LA Diam: 4.50 2.7-3.8/3.0-4.0 cm LAIDs Index: 2.02 1.5-2.3 cm/m2 LV Mass: 213.93 67-162/88-224 g LV Mass Index: 95.93 43-95/49-115 g/m2 LVOT Diam: 2.00 3.0+(-)1.3 cm 2D Systolic Function EF 4C: 55.10 >55% EF 2C: 72.90 >55% EF BiP: 65.00 >55% Mitral Valve MV Pk E: 0.88 MV PK A: 0.77 MV Decel Time: 210.00 E/A: 1.20 E'Lateral: 7.07 E'Medial: 10.90 E/E' Med: 8.10 E/E' Lat: 12.50 PHT: 61.00 MVA PHT: 3.61 Decel Cotton: 4.21 Aortic Valve AoV Pk Maninder: 1.42 AoV Mn Maninder: 0.97 AoV VTI: 0.27 AoV Pk Grad: 8.00 Aov Mn Grad: 4.00 WHITNEY Cont.VTI: 2.11 LVOT LVOT Pk Maninder: 0.85 LVOT Mn Maninder: 0.59 LVOT VTI: 0.18 LVOT Pk Grad: 3.00 LVOT Mn Grad: 2.00 LVOT Diam: 2.00 LVOT Area: 3.14 Diastolic Function MV Pk E: 0.88 MV Pk A: 0.77 E/A: 1.20 E'Medial: 10.90 E/E' Med: 8.10 E' Laterial: 7.07 E/E' Lat: 12.50 Right Ventricle TAPSE (mm): 18.00 TVS' Maninder: 12.20 Tricuspid Valve TR Pk Maninder: 2.71 TR Pk Grad: 29.00 RA Press: 15.00 RVSP: 44.00 Great Vessels Aorta Sinus of Valsalva: 3.39 2.0-3.[address] Ridge: 2.89 1.7-3.4 cm Ao Asc: 3.30 2.1-3.4 cm Updated in Other Vendor System with Status of Final Jamir Cobb MD electronically signed on 08/03/2021 6:22:09 PM with status of Final
== END ==
LOC: HO.CARD 12:40
PROVIDERS: PCP Family Medicine; Visit Provider Internal Medicine Cardiovascular Disease
DX: I51.89 Other ill-defined heart diseases (principal)
CPT/HCPCS: 93306; Q9957

== ENCOUNTER → 2021-08-11 12:36 | Outpatient (BNVA) | payer MEDICARE, SELFPAY | PROVIDERS: PCP Family Medicine; Visit Provider Nurse Practitioner Gerontology | DX: E11.65 Type 2 diabetes mellitus with hyperglycemia (principal); E11.21 Type 2 diabetes mellitus with diabetic nephropathy; E11.22 Type 2 diabetes mellitus with diabetic chronic kidney disease; I12.9 Hypertensive chronic kidney disease with stage 1 through stage 4 chronic kidney disease, or unspecified chronic kidney disease; N18.30 Chronic kidney disease, stage 3 unspecified; E66.01 Morbid (severe) obesity due to excess calories; E78.5 Hyperlipidemia, unspecified; Z79.4 Long term (current) use of insulin; Z68.37 Body mass index [BMI] 37.0-37.9, adult | CPT/HCPCS: 82947; 99212 ==

== ENCOUNTER 2021-08-31 12:24 | Outpatient (REF) | payer MEDICARE, SELFPAY ==
[2021-08-31 13:38] LABS: MANUAL DIFF FLAG NO
[2021-08-31 13:49] LABS: Basophils Percent Auto 0.4 % (0-2); Eosinophils Absolute Auto 0.1 X10*3/uL (0.0-0.4); Eosinophils Percent Auto 1.4 % (0-4); Hematocrit 43.3 % (42.0-52.0); Hemoglobin 13.2 g/dl (14.0-18.0); Imm Gran Abs Auto 0.05 X10*3/uL (0.00-0.03); Imm Gran Pct Auto 0.5 % (0.0-0.4); Lymphocytes Absolute Auto 0.9 X10*3/uL (1.2-4.9); Lymphocytes Percent Auto 9.1 % (20-40); Mean Corpuscular HGB Conc 30.5 g/dl (31.0-36.0); Mean Corpuscular Hemoglobin 24.6 pg (27.0-33.0); Mean Corpuscular Volume 80.8 fL (80.0-98.0); Mean Platelet Volume 9.8 fL (9.4-12.4); Monocytes Absolute Auto 0.7 X10*3/uL (0.1-1.2); Monocytes Percent Auto 7.7 % (2-11); Neutrophils Absolute Auto 7.7 x10*3/uL (2.0-8.3); Neutrophils Percent Auto 80.9 % (45-73); Platelet Count 241 X10*3/uL (160-400); Red Blood Count 5.36 X10*6/uL (4.60-5.80); White Blood Count 9.5 X10*3/uL (4.8-10.8)
[2021-08-31 14:01] LABS: Blood Urea Nitrogen 26 mg/dL (9-16); Estimated Glomerular Filt Rate 32
== END 2021-08-31 12:25 | disposition home or self-care (01) ==
LOC: HO.HMGCLDS 12:24
PROVIDERS: Visit Provider Family Medicine
DX: I10 Essential (primary) hypertension (principal); D50.9 Iron deficiency anemia, unspecified; Z66 Do not resuscitate
CPT/HCPCS: 36415; 82565; 84520; 85025

== ENCOUNTER 2021-09-19 19:07 | Emergency (ER) | payer MEDICARE, SELFPAY ==
--- NOTE | 2021-09-19 19:13 | ED.AMS ---
HPI - Altered Mental Status General Chief Complaint: Altered Mental Status Stated Complaint: hypoglycemia Time Seen by Provider: 09/19/21 19:11 Source: patient Mode of arrival: EMS Limitations: no limitations History of Present Illness HPI narrative: patient diabetic on insulin was sitting on the kitchen table took his insulin 70/30 half an hour prior to arrival working on the grocery list waiting for the food noticed him slumped down with face down on the table. On EMS arrival patient POC was 33 was given 250 cc of D10 patient improved while in the ambulance blood sugar improved to 204 patient back alert oriented x3 no focal deficit no chest pain no palpitation patient was doing otherwise okay prior to arrival no fever no chills Related Data Home Medications Medication Instructions Recorded Confirmed aspirin 81 mg tablet,delayed 81 mg PO DAILY 02/25/20 09/15/21 release (Adult Low Dose Aspirin) doxazosin 8 mg tablet 8 mg PO BEDTIME 02/25/20 09/15/21 finasteride 5 mg tablet 5 mg PO BEDTIME 02/25/20 09/15/21 furosemide 80 mg tablet 80 mg PO BID 02/25/20 09/15/21 magnesium 250 mg tablet 250 mg PO DAILY 02/25/20 09/15/21 sertraline 50 mg tablet 50 mg PO DAILY 02/25/20 09/15/21 simvastatin 40 mg tablet 40 mg PO BEDTIME 02/25/20 09/15/21 spironolactone 25 mg tablet 25 mg PO BID 02/25/20 09/15/21 amitriptyline 25 mg tablet 25 mg PO BEDTIME 03/05/20 09/15/21 lancets 33 gauge #100 ea 03/11/20 05/20/21 fluticasone 250 mcg-salmeterol 50 1 ea INHALATION BID 08/25/20 09/15/21 mcg/dose blistr powdr for inhalation gabapentin 300 mg capsule 300 mg PO BID cap 08/25/20 09/15/21 docusate sodium 100 mg capsule 100 mg PO BID 11/04/20 09/15/21 ipratropium 0.5 mg-albuterol 3 mg 3 ml INHALATION QID 11/04/20 09/15/21 (2.5 mg base)/3 mL nebulization soln metoprolol tartrate 25 mg tablet 75 mg PO BEDTIME tab 11/20/20 09/15/21 multivitamin 1 tab PO DAILY 12/02/20 09/15/21 polyethylene glycol 3350 17 gram 17 g PO DAILY 12/02/20 09/15/21 oral powder packet (Miralax) famotidine 20 mg tablet 20 mg PO BEDTIME 02/17/21 09/15/21 ferrous sulfate 325 mg (65 mg 325 mg PO BID tab 05/14/21 09/15/21 iron) tablet (iron) Previous Rx's Medication Instructions Recorded omeprazole 20 mg capsule,delayed 20 mg PO BID@0630,1630 #60 cap 11/07/20 release insulin syringe-needle U-100 1 mL #100 ea 11/25/20 31 gauge x 5/16 (BD Insulin Syringe Ultra-Fine) oxycodone-acetaminophen 5 mg-325 1 - 2 tab PO Q4-6H PRN #30 tab 12/12/20 mg tablet (Percocet) blood sugar diagnostic (OneTouch 1 strip MISCELLANEOUS TID #300 12/29/20 Verio test strips) strip metformin 500 mg tablet,extended 500 mg PO BID #180 tab 04/16/21 release 24 hr insulin human U-100 NPH-regulr See Rx Instructions SUBCUT BID 30 08/11/21 70-30 mix 100 unit/mL subcutaneous Days #50 ml susp (Humulin 70/30 U-100 Insulin) Allergies Allergy/AdvReac Type Severity Reaction Status Date / Time No Known Allergies Allergy Verified 09/15/21 10:48 Review of Systems Review of Systems: Yes all other systems are reviewed and are negative PMFSH Past Medical History Medical History Abscess Anemia CAD (coronary artery disease) Cataract Cecum mass CKD (chronic kidney disease) stage 3, GFR 30-59 ml/min COPD (chronic obstructive pulmonary disease) case management patient COVID-19 vaccine series completed Depression Diabetes type 2, uncontrolled Diabetic nephropathy associated with type 2 diabetes mellitus Diastolic dysfunction Drainage from surgical wound Dyslipidemia GERD (gastroesophageal reflux disease) History of snoring HTN (hypertension) Hyperlipidemia halfway (current) use of insulin Morbid obesity Peptic ulcer TIA (transient ischemic attack) Surgical History History of esophagogastroduodenoscopy (EGD) Hx of CABG Hx of colonoscopy Hx of knee surgery Hx of rotator cuff surgery Hx of shoulder replacement Hx of umbilical hernia repair Family History Family History Father No problems noted. Mother Cancer Social History Social History Household Members: Spouse Housing: House Are you a primary rn progressive care unit to a significant other at home: No Do you presently have visiting nurse or other home services: No Alcohol intake: never Patient Tobacco Use Status: Former Tobacco user Quit Date: 1986 Tobacco use type: Cigarette Years Smoked: 30 Use of substances other than those prescribed or required for medical reasons: No Advance Directives: Yes Advance Directives on File: Yes Advance Directives Date on File: 12/02/20 service: No Current occupational status: retired Physical Exam ED Vital Signs: Vital Signs - 24 hr 09/19/21 19:19 09/19/21 19:27 09/19/21 21:10 Temperature 97.5 F 97.7 F Pulse Rate 65 52 54 Respiratory Rate 14 12 14 Blood Pressure 111/54 L 118/54 L Pulse Oximetry 93 94 94 BMI result Body Mass Index 36.5 Appearance: Alert. Oriented X3. No acute distress. Eyes: PERRLA, No Nystagmus ENT: Pharynx normal. Oral Mucosa moist Neck: Normal inspection. Neck supple. CVS: Normal heart rate and rhythm. Pulses normal. Respiratory: No respiratory distress. Equal air entry bilateral, no wheezing/rales/rhonchi Abdomen: Soft and nontender. Bowel sounds are present, no mass palpable, no CVA tenderness Skin: Skin warm and dry. Normal skin color. Normal skin turgor. Extremities: No lower extremity edema. No calf tenderness Neuro: Oriented X 3. No motor deficit. No sensory deficit.No cerebellar signs , cranial nerves II-XII intact MDM - Altered Mental Status MDM Narrative Medical decision making narrative: patient with altered mental status secondary to hypoglycemia with full recovery after dextrose 10 was given. Patient to 20 x 3 now labs were stable patient advised not to wait for 30 minutes after taking insulin and have the meal immediately specially when blood sugar is less than 100 Lab Data Attestation: I reviewed the patient's lab results. Result diagrams: 09/19/21 19:39 05/21/22 19:39 Labs: Lab Results 09/19/21 09/19/21 09/19/21 Range/Units 19:16 19:39 19:39 WBC 8.9 (4.8-10.8) X10*3/uL RBC 4.53 L (4.60-5.80) X10*6/uL Hgb 11.6 L (14.0-18.0) g/dl Hct 36.9 L (42.0-52.0) % MCV 81.5 (80.0-98.0) fL MCH 25.6 L (27.0-33.0) pg MCHC 31.4 (31.0-36.0) g/dl RDW 15.7 (11.0-16.0) % Plt Count 209 (160-400) X10*3/uL MPV 9.4 (9.4-12.4) fL Immature Gran % (Auto) 0.6 H (0.0-0.4) % Neut % (Auto) 79.8 H (45-73) % Lymph % (Auto) 7.0 L (20-40) % [place] % (Auto) 10.3 (2-11) % Eos % (Auto) 1.8 (0-4) % Baso % (Auto) 0.5 (0-2) % Lymph # (Auto) 0.6 L (1.2-4.9) X10*3/uL [place] # (Auto) 0.9 (0.1-1.2) X10*3/uL Eos # (Auto) 0.2 (0.0-0.4) X10*3/uL Baso # (Auto) 0.0 (0.0-0.2) X10*3/uL Abs Immat Gran (auto) 0.05 H (0.00-0.03) X10*3/uL Absolute Neuts (auto) 7.1 (2.0-8.3) x10*3/uL Absolute Nucleated RBC 0.000 (0.0-0.012) X10*3/uL Nucleated RBC % (auto) 0.0 (0.0-0.2) /100WBC Sodium 141 (135-145) mmol/L Potassium 3.2 L D (3.3-5.1) mmol/L Chloride 100 (96-108) mmol/L Carbon Dioxide 30 H (22-29) mmol/L Anion Gap 14 (12-20) BUN 24 H (9-16) mg/dL Creatinine 1.78 H (0.5-1.4) mg/dL Estim Creat Clear Calc 41.5 Estimated GFR 37 POC Glucose 123 H (60-115) mg/dL Random Glucose 88 D (60-115) mg/dL Calcium 9.1 D (8.4-10.2) mg/dL Total Bilirubin 0.5 (0.0-1.0) mg/dL AST 27 D (5-37) U/L ALT 17 (0-40) U/L Alkaline Phosphatase 115 (39-117) U/L Troponin I High Sens (<3.5-35.0) ng/L Total Protein 7.1 (6.5-8.0) g/dL Albumin 4.1 (3.5-5.0) g/dL 09/19/21 09/19/21 Range/Units 19:40 21:09 WBC (4.8-10.8) X10*3/uL RBC (4.60-5.80) X10*6/uL Hgb (14.0-18.0) g/dl Hct (42.0-52.0) % MCV (80.0-98.0) fL MCH (27.0-33.0) pg MCHC (31.0-36.0) g/dl RDW (11.0-16.0) % Plt Count (160-400) X10*3/uL MPV (9.4-12.4) fL Immature Gran % (Auto) (0.0-0.4) % Neut % (Auto) (45-73) % Lymph % (Auto) (20-40) % [place] % (Auto) (2-11) % Eos % (Auto) (0-4) % Baso % (Auto) (0-2) % Lymph # (Auto) (1.2-4.9) X10*3/uL [place] # (Auto) (0.1-1.2) X10*3/uL Eos # (Auto) (0.0-0.4) X10*3/uL Baso # (Auto) (0.0-0.2) X10*3/uL Abs Immat Gran (auto) (0.00-0.03) X10*3/uL Absolute Neuts (auto) (2.0-8.3) x10*3/uL Absolute Nucleated RBC (0.0-0.012) X10*3/uL Nucleated RBC % (auto) (0.0-0.2) /100WBC Sodium (135-145) mmol/L Potassium (3.3-5.1) mmol/L Chloride (96-108) mmol/L Carbon Dioxide (22-29) mmol/L Anion Gap (12-20) BUN (9-16) mg/dL Creatinine (0.5-1.4) mg/dL Estim Creat Clear Calc Estimated GFR POC Glucose 98 (60-115) mg/dL Random Glucose (60-115) mg/dL Calcium (8.4-10.2) mg/dL Total Bilirubin (0.0-1.0) mg/dL AST (5-37) U/L ALT (0-40) U/L Alkaline Phosphatase (39-117) U/L Troponin I High Sens 5.6 (<3.5-35.0) ng/L Total Protein (6.5-8.0) g/dL Albumin (3.5-5.0) g/dL ECG Data ECG #1: Attestation: I personally reviewed and interpreted this ECG as follows: Interpretation: cellular bradycardia with heart rate 52 beats per minute PACs no acute ST T wave changes no acute ischemia Discharge Plan Discharge Clinical Impression: Diabetic hypoglycemia Patient Disposition: Home, Self-Care Instructions: Hypoglycemia in a Person with Diabetes (ED) Additional Instructions: Have meal Ready when you take your insulin, do not wait for 30 minutes especially when blood sugar is less than 100 follow-up with your PCP Prescriptions: No Action (DME) insulin syringe-needle U-100 [BD Insulin Syringe Ultra-Fine] 1 mL 31 gauge x 5/16 syringe See Rx Instructions .ROUTE .MEDSUPPLY Qty: 100 6RF Rx Instructions: Twice a day OneTouch Verio test strips Strip 1 strip miscellaneous TID Qty: 300 3RF metformin 500 mg tablet extended release 24 hr 500 mg PO BID Qty: 180 2RF docusate sodium 100 mg Capsule 100 mg PO BID 0RF ipratropium-albuterol 0.5 mg-3 mg(2.5 mg base)/3 mL Solution For Nebulization 3 ml INHALATION QID 0RF omeprazole 20 mg Capsule,Delayed Release(Dr/Ec) 20 mg PO BID@0630,1630 Qty: 60 0RF metoprolol tartrate 25 mg tablet 75 mg PO BEDTIME 0RF multivitamin Tablet 1 tab PO DAILY 0RF polyethylene glycol 3350 [Miralax] 17 gram Powder In Packet 17 g PO DAILY 0RF oxycodone-acetaminophen [Percocet] 5-325 mg tablet 1 - 2 tab PO Q4-6H PRN (Reason: pain) Qty: 30 0RF famotidine 20 mg tablet 20 mg PO BEDTIME 0RF ferrous sulfate [iron] 325 mg (65 mg iron) tablet 325 mg PO BID 0RF amitriptyline 25 mg tablet 25 mg PO BEDTIME 0RF (DME) lancets 33 gauge misc See Rx Instructions gauge .ROUTE .MEDSUPPLY Qty: 100 0RF Rx Instructions: As directed spironolactone 25 mg tablet 25 mg PO BID 0RF sertraline 50 mg tablet 50 mg PO DAILY 0RF doxazosin 8 mg tablet 8 mg PO BEDTIME 0RF simvastatin 40 mg tablet 40 mg PO BEDTIME 0RF finasteride 5 mg tablet 5 mg PO BEDTIME 0RF furosemide 80 mg tablet 80 mg PO BID 0RF magnesium 250 mg tablet 250 mg PO DAILY 0RF aspirin [Adult Low Dose Aspirin] 81 mg tablet,delayed release (DR/EC) 81 mg PO DAILY 0RF gabapentin 300 mg capsule 300 mg PO BID 0RF fluticasone propion-salmeterol 250-50 mcg/dose blister with device 1 ea inhalation BID 0RF Humulin 70/30 U-100 Insulin 100 unit/mL (70-30) suspension See Rx Instructions SUBCUT BID 30 Days Qty: 50 3RF Rx Instructions: 80 units before breakfast and 50 units before dinner subcut 2 times a day;
[2021-09-19 19:19] VITALS: BP 111/54; PULSE 65; RESP 14; TEMP 36.4; O2SAT 93
--- NOTE | 2021-09-19 19:24 | ECG_ITS ---
Test Reason : AMS Blood Pressure : / mmHG Vent. Rate : 052 BPM Atrial Rate : 052 BPM P-R Int : 238 ms QRS Dur : 106 ms QT Int : 464 ms P-R-T Axes : 079 051 050 degrees QTc Int : 431 ms Sinus bradycardia with 1st degree A-V block with Premature atrial complexes Nonspecific ST and T wave abnormality Abnormal ECG When compared with ECG of 04-NOV-2020 13:20, Premature atrial complexes are now Present T wave inversion now evident in Anterior leads Referred By: Raza Hastings Electronically Signed By:EMILY ARMAS
[2021-09-19 19:26] LABS: Glucose, Whole Blood 123 mg/dL (60-115)
[2021-09-19 19:27] VITALS: PULSE 52; RESP 12; O2SAT 94; BMI 36.5
[2021-09-19 19:44] LABS: MANUAL DIFF FLAG NO
[2021-09-19 19:46] LABS: Basophils Percent Auto 0.5 % (0-2); Eosinophils Absolute Auto 0.2 X10*3/uL (0.0-0.4); Eosinophils Percent Auto 1.8 % (0-4); Hematocrit 36.9 % (42.0-52.0); Hemoglobin 11.6 g/dl (14.0-18.0); Imm Gran Abs Auto 0.05 X10*3/uL (0.00-0.03); Imm Gran Pct Auto 0.6 % (0.0-0.4); Lymphocytes Absolute Auto 0.6 X10*3/uL (1.2-4.9); Mean Corpuscular HGB Conc 31.4 g/dl (31.0-36.0); Mean Corpuscular Hemoglobin 25.6 pg (27.0-33.0); Mean Corpuscular Volume 81.5 fL (80.0-98.0); Mean Platelet Volume 9.4 fL (9.4-12.4); Monocytes Absolute Auto 0.9 X10*3/uL (0.1-1.2); Monocytes Percent Auto 10.3 % (2-11); Neutrophils Absolute Auto 7.1 x10*3/uL (2.0-8.3); Neutrophils Percent Auto 79.8 % (45-73); Platelet Count 209 X10*3/uL (160-400); Red Blood Count 4.53 X10*6/uL (4.60-5.80); Red Cell Distribution Width 15.7 % (11.0-16.0); White Blood Count 8.9 X10*3/uL (4.8-10.8)
[2021-09-19 20:05] LABS: Alanine Aminotransferase 17 U/L (0-40); Albumin Level 4.1 g/dL (3.5-5.0); Alkaline Phosphatase 115 U/L (39-117); Anion Gap 14 (12-20); Aspartate Amino Transferase 27 U/L (5-37); Bilirubin Total 0.5 mg/dL (0.0-1.0); Blood Urea Nitrogen 24 mg/dL (9-16); Calcium 9.1 mg/dL (8.4-10.2); Carbon Dioxide 30 mmol/L (22-29); Chloride 100 mmol/L (96-108); Creatinine Clr Calc Pharmacy 41.5; Estimated Glomerular Filt Rate 37; Glucose Random 88 mg/dL (60-115); Potassium 3.2 mmol/L (3.3-5.1); Sodium 141 mmol/L (135-145); Total Protein 7.1 g/dL (6.5-8.0)
[2021-09-19 20:06] LABS: Troponin-I High Sensitivity 5.6 ng/L (<3.5-35.0)
[2021-09-19 21:10] VITALS: BP 118/54; PULSE 54; RESP 14; TEMP 36.5; O2SAT 94
[2021-09-19 21:14] LABS: Glucose, Whole Blood 98 mg/dL (60-115)
[2021-09-19 21:38] VITALS: BP 127/55; PULSE 55; RESP 13; O2SAT 95
== END 2021-09-19 22:01 | disposition home or self-care (01) ==
PROVIDERS: Emergency Provider Internal Medicine
DX: E11.649 Type 2 diabetes mellitus with hypoglycemia without coma (principal); I12.9 Hypertensive chronic kidney disease with stage 1 through stage 4 chronic kidney disease, or unspecified chronic kidney disease; N18.30 Chronic kidney disease, stage 3 unspecified; Z79.4 Long term (current) use of insulin; Z79.82 Long term (current) use of aspirin; Z79.02 Long term (current) use of antithrombotics/antiplatelets
CPT/HCPCS: 36415; 80053; 82947; 84484; 85025; 93005; 99283; 99284

== ENCOUNTER 2021-09-21 08:07 | Day surgery (SDC) | payer MEDICARE, SELFPAY ==
--- NOTE | 2021-09-15 08:24 | CONS_ITS ---
DATE OF SERVICE: 09/21/2021 HISTORY OF PRESENT ILLNESS: This is a 75-year-old white male well known to me who presented to my office today for preoperative consultation for cataract surgery, his first cataract surgery is for left eye scheduled for the September 21 and second one for October 05 his year. Patient has an extensive past medical history which I will review. He has history of high blood pressure, high cholesterol, triglycerides, obesity, GERD with history of peptic ulcer disease. He has history of some asthma/COPD and restrictive component secondary to obesity. In 2005 he was diagnosed with diabetes. He is now insulin dependent. He has history of neuropathy and microalbuminemia. He has significant arthritis particularly in his knees and shoulders. He has had right and left rotator cuff surgery in the past as well right and left shoulder arthroplasty in September 2020. He has had a history of chronic anasarca and venous insufficiency. He is on diuretics. He has had right sided peripheral neuropathy. Known coronary artery disease (he had a triple bypass in 2013). He also has BPH, CKD 3 and in 2019 he had left retinal vein thrombosis. Several years ago his ejection fraction was still normal postop and he has mild MR as well as an RVSP of 21. He has known history of sleep apnea but he refuses CPAP. Other medical problems include secondary allergic sinusitis, right apical bullae of the lung, ventral hernia, in 2001 he had shingles. 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 I reviewed those records. MEDICATIONS: Doxazosin 8 mg at bedtime. Amitriptyline 25 at bedtime. Finasteride 5 mg. He is also on Humulin 70/30. He takes 80 mg in morning, 60 at night. He has simvastatin 40 along with CoQ10. Spironolactone 25 b.i.d. Albuterol nebulizer q.i.d. Lasix 80 mg tablets 2 in the morning and 1 at night. Sertraline 50. Gabapentin 300 b.i.d. (higher doses are not tolerated). Metoprolol 25 in the morning, 50 at night. Baby aspirin. Advair, omeprazole 20 daily, iron pills 2 tablets daily, multivitamin, Pepcid 20 along with omeprazole, MiraLax p.r.n. He also takes magnesium pill and Claritin p.r.n. Speaking with the patient he says generally he has not been too bad, his shortness of breath on exertion is relatively stable. He has had no chest pains. No palpitations or vertigo. He is orthostatic at times and he was advised accordingly. His BPH is actually pretty good, better flow with his medications. His knees have degenerative arthritis are sore but the same. The edema in his legs is relatively stable and is much better than use to be. He has no recent history of GERD, bowel change, headache, syncope or rashes (except what appears to be some minor tinea in groin and abdominal folds). No history of myalgias. Occasionally he gets epistaxis in the right nostril. His recent blood sugars have been somewhat labile and his fasting blood sugars are mostly averaging between 175-185. His blood pressures at home have been in the 140/70 range. I have seen multiple checks today it is 125/60. He has no other specific complaints. His p.m. blood sugars are labile but better than his fasting ones. He is not on metformin. ALLERGIES: HE HAS ALLERGIES OR MEDICATION SIDE EFFECTS FROM THE FOLLOWING MEDICINES: FLEXERIL, TRAZODONE, FLOMAX, ESTEFANY INHIBITORS, HIGH DOSE GABAPENTIN AND ULORIC. PHYSICAL EXAMINATION: GENERAL: On examination we find a pleasant white male in no acute distress. HEENT: Conjunctivae pink, sclerae white. Mucous membranes are moist. Ears, nose and throat exam unremarkable. NECK: Neck veins are flat. There is no lymphadenopathy. Carotids are 1+ without bruits. LUNGS: Clear with slight decreased breath sounds. HEART: Sinus rhythm, 70. No murmurs. ABDOMEN: Obese, soft, nontender. No masses. EXTREMITIES: Legs not much evidence of peripheral vascular disease but severe venous insufficiency. The edema that is 1+ to 2+ really much better than it use to be in the past. NEUROLOGIC: Secondary ataxia and neuropathy, the right chest area seems to be much less than it use to be. LABORATORY DATA: He has had some recent lab work. Hematocrit is 43.3 it had been 30.4 after surgery so he has been on iron 2 tablets a day, we will decrease it to one a day. His BUN and creatinine are 26 and 2.05 which is roughly what has been running. IMPRESSION: 1. Insulin dependent diabetes with neuropathy and renal changes. 2. Hypertension. 3. CKD 3. 4. Obesity. 5. BPH. 6. Coronary artery disease. 7. COPD, CRPD. 8. Venous insufficiency. 9. Osteoarthritis. 10. Secondary mild pulmonary hypertension. 11. High cholesterol. 12. Sleep apnea. PLAN: From medical standpoint, the patient is relatively stable for his cataract surgery. He will continue his medications. He will continue his diet and work on weight loss as well as insulin. I reviewed diabetes, weight loss and cardiovascular risks. He is however medically stable for the procedures that are indicated. I will follow him postop. MD TYSON Gambino/MODL / [id number]
[2021-09-15 10:48] VITALS: BMI 38.0
--- NOTE | 2021-09-17 08:06 | MHC.SHP ---
Pre-Procedural Eval Section A Date of Service: 09/17/21 The patient is an INPATIENT: No Changes since office visit: No Cold of Flu in the past 2 weeks, No New Medical Problems, No Changes in Medication and No Patient answered all questions The History & Physical has been completed within 30 days and I have reviewed it.: Yes Section B Chief Complaint: cataract Allergies: Allergies Allergy/AdvReac Type Severity Reaction Status Date / Time No Known Allergies Allergy Verified 09/15/21 10:48 Plan Diagnosis/Plan: Unchanged I have reviewed the history and physical and performed a pertinent physical examination on my patient. No changes have occurred unless specified.
--- NOTE | 2021-09-18 09:17 | HO.ANESPROP2 ---
Documented by User: Analy Santoyo NP 09/18/21 09:18 HPI - Anesthesia Eval Consult details Narrative: 75yo M for Left Cataract Extraction IOL Insertion PCP cleared No previous cataract on record [facility] Active Problems Active Problems: All Active Problems (Updated 09/15/21 @ 10:48 by Val Reno, JULI) Preoperative cardiovascular examination (Acute) GIB (gastrointestinal bleeding) (Acute) Traumatic injury of back (Acute) S/P right colectomy (Acute) Acute renal failure superimposed on stage 3 chronic kidney disease (Acute) Open abdominal incision with drainage (Acute) Abscess (Acute) Diastolic dysfunction (Acute) CAD (coronary artery disease) (Acute) Drainage from surgical wound (Acute) Diabetic nephropathy associated with type 2 diabetes mellitus (Acute) Past Medical History Medical History Abscess Anemia CAD (coronary artery disease) Cataract Cecum mass CKD (chronic kidney disease) stage 3, GFR 30-59 ml/min COPD (chronic obstructive pulmonary disease) case management patient COVID-19 vaccine series completed Depression Diabetes type 2, uncontrolled Diabetic nephropathy associated with type 2 diabetes mellitus Diastolic dysfunction Drainage from surgical wound Dyslipidemia GERD (gastroesophageal reflux disease) History of snoring HTN (hypertension) Hyperlipidemia jail (current) use of insulin Morbid obesity Peptic ulcer TIA (transient ischemic attack) Family History Family History Father No problems noted. Mother Cancer Family history of problems with anesthesia: No Surgical History Surgical History History of esophagogastroduodenoscopy (EGD) Hx of CABG Hx of colonoscopy Hx of knee surgery Hx of rotator cuff surgery Hx of shoulder replacement Hx of umbilical hernia repair History of Problems with Anesthesia: No Social History Social History Household Members: Spouse Housing: House Are you a primary healthcare administration intern to a significant other at home: No Do you presently have visiting nurse or other home services: No Alcohol intake: never Patient Tobacco Use Status: Former Tobacco user Quit Date: 1986 Tobacco use type: Cigarette Years Smoked: 30 Have you been hit, kicked, punched, or otherwise hurt by someone within the past year? If so, by whom?: No Are you DNR?: No Advance Directives: Yes Advance Directives Information Provided: Yes Advance Directives on File: Yes Advance Directives Date on File: 12/02/20 Recently lost weight without trying: No Nutrition Risks: Surgical patient >75years Poor oral hygiene: No (full dentures-wears only upper) service: No Current occupational status: retired Meds Allergies Allergy/AdvReac Type Severity Reaction Status Date / Time No Known Allergies Allergy Verified 09/15/21 10:48 Home Medications Medication Instructions Recorded Confirmed Last Taken Type aspirin 81 mg tablet,delayed 81 mg PO DAILY 02/25/20 09/15/21 12/08/20 History release (Adult Low Dose Aspirin) doxazosin 8 mg tablet 8 mg PO BEDTIME 02/25/20 09/15/21 11/03/20 History finasteride 5 mg tablet 5 mg PO BEDTIME 02/25/20 09/15/21 11/03/20 History furosemide 80 mg tablet 80 mg PO BID 02/25/20 09/15/21 11/04/20 History magnesium 250 mg tablet 250 mg PO DAILY 02/25/20 09/15/21 11/04/20 History sertraline 50 mg tablet 50 mg PO DAILY 02/25/20 09/15/21 09/21/21 History simvastatin 40 mg tablet 40 mg PO BEDTIME 02/25/20 09/15/21 11/03/20 History spironolactone 25 mg tablet 25 mg PO BID 02/25/20 09/15/21 11/04/20 History amitriptyline 25 mg tablet 25 mg PO BEDTIME 03/05/20 09/15/21 11/03/20 History lancets 33 gauge #100 ea 03/11/20 05/20/21 Unknown History fluticasone 250 mcg-salmeterol 50 1 ea INHALATION BID 08/25/20 09/15/21 11/04/20 History mcg/dose blistr powdr for inhalation gabapentin 300 mg capsule 300 mg PO BID cap 08/25/20 09/15/21 09/21/21 History docusate sodium 100 mg capsule 100 mg PO BID 11/04/20 09/15/21 11/04/20 History ipratropium 0.5 mg-albuterol 3 mg 3 ml INHALATION QID 11/04/20 09/15/21 12/09/20 History (2.5 mg base)/3 mL nebulization soln metoprolol tartrate 25 mg tablet 75 mg PO BEDTIME tab 11/20/20 09/15/21 09/21/21 History multivitamin 1 tab PO DAILY 12/02/20 09/15/21 Unknown History polyethylene glycol 3350 17 gram 17 g PO DAILY 12/02/20 09/15/21 Unknown History oral powder packet (Miralax) famotidine 20 mg tablet 20 mg PO BEDTIME 02/17/21 09/15/21 Unknown History ferrous sulfate 325 mg (65 mg 325 mg PO BID tab 05/14/21 09/15/21 Unknown History iron) tablet (iron) Exam Exam Date and Time: September 18, 2021 0917 Height,Weight and Vital Signs: Height 5 ft 8 in Weight 113.398 kg Narrative Narrative: ECHO 07/2021 Conclusions: - 1. Normal LV systolic function with pseudonormal filling ? ? ? pattern? 2. Moderately dilated left atrium? 3. Severe mitral calcification with normal cardiac valvular? ? ? Doppler? 4.? Mildly elevated right ventricular systolic pressure? 5. No gross pericardial effusion? Assessment and Plan Assessment Anesthesia Assessment: Chart Reviewed Final Anesthetic Review Family History of Problems with Anesthesia: No History of Problems with Anesthesia: No Documented by User: Louis Hensley MD 09/21/21 09:11 [facility] Past Medical History Medical History Abscess Anemia CAD (coronary artery disease) Cataract Cecum mass CKD (chronic kidney disease) stage 3, GFR 30-59 ml/min COPD (chronic obstructive pulmonary disease) case management patient COVID-19 vaccine series completed Depression Diabetes type 2, uncontrolled Diabetic nephropathy associated with type 2 diabetes mellitus Diastolic dysfunction Drainage from surgical wound Dyslipidemia GERD (gastroesophageal reflux disease) History of snoring HTN (hypertension) Hyperlipidemia jail (current) use of insulin Morbid obesity Peptic ulcer TIA (transient ischemic attack) Family History Family History Father No problems noted. Mother Cancer Surgical History Surgical History History of esophagogastroduodenoscopy (EGD) Hx of CABG Hx of colonoscopy Hx of knee surgery Hx of rotator cuff surgery Hx of shoulder replacement Hx of umbilical hernia repair Social History Social History Household Members: Spouse Housing: House Are you a primary healthcare administration intern to a significant other at home: No Do you presently have visiting nurse or other home services: No Alcohol intake: never Patient Tobacco Use Status: Former Tobacco user Quit Date: 1986 Tobacco use type: Cigarette Years Smoked: 30 Have you been hit, kicked, punched, or otherwise hurt by someone within the past year? If so, by whom?: No Are you DNR?: No Advance Directives: Yes Advance Directives Information Provided: Yes Advance Directives on File: Yes Advance Directives Date on File: 12/02/20 Recently lost weight without trying: No Nutrition Risks: Surgical patient >75years Poor oral hygiene: No (full dentures-wears only upper) service: No Current occupational status: retired [employer] Allergies Allergy/AdvReac Type Severity Reaction Status Date / Time No Known Allergies Allergy Verified 09/15/21 10:48 Home Medications Medication Instructions Recorded Confirmed Last Taken Type aspirin 81 mg tablet,delayed 81 mg PO DAILY 02/25/20 09/15/21 12/08/20 History release (Adult Low Dose Aspirin) doxazosin 8 mg tablet 8 mg PO BEDTIME 02/25/20 09/15/21 11/03/20 History finasteride 5 mg tablet 5 mg PO BEDTIME 02/25/20 09/15/21 11/03/20 History furosemide 80 mg tablet 80 mg PO BID 02/25/20 09/15/21 11/04/20 History magnesium 250 mg tablet 250 mg PO DAILY 02/25/20 09/15/21 11/04/20 History sertraline 50 mg tablet 50 mg PO DAILY 02/25/20 09/15/21 09/21/21 History simvastatin 40 mg tablet 40 mg PO BEDTIME 02/25/20 09/15/21 11/03/20 History spironolactone 25 mg tablet 25 mg PO BID 02/25/20 09/15/21 11/04/20 History amitriptyline 25 mg tablet 25 mg PO BEDTIME 03/05/20 09/15/21 11/03/20 History lancets 33 gauge #100 ea 03/11/20 05/20/21 Unknown History fluticasone 250 mcg-salmeterol 50 1 ea INHALATION BID 08/25/20 09/15/21 11/04/20 History mcg/dose blistr powdr for inhalation gabapentin 300 mg capsule 300 mg PO BID cap 08/25/20 09/15/21 09/21/21 History docusate sodium 100 mg capsule 100 mg PO BID 11/04/20 09/15/21 11/04/20 History ipratropium 0.5 mg-albuterol 3 mg 3 ml INHALATION QID 11/04/20 09/15/21 12/09/20 History (2.5 mg base)/3 mL nebulization soln metoprolol tartrate 25 mg tablet 75 mg PO BEDTIME tab 11/20/20 09/15/21 09/21/21 History multivitamin 1 tab PO DAILY 12/02/20 09/15/21 Unknown History polyethylene glycol 3350 17 gram 17 g PO DAILY 12/02/20 09/15/21 Unknown History oral powder packet (Miralax) famotidine 20 mg tablet 20 mg PO BEDTIME 02/17/21 09/15/21 Unknown History ferrous sulfate 325 mg (65 mg 325 mg PO BID tab 05/14/21 09/15/21 Unknown History iron) tablet (iron) Exam Airway Mallampati Class: III TM Dist: >3cm Neck ROM: Full Denture: Upper and Lower Heart: [id number] Lungs: cta b/l Assessment and Plan Assessment Anesthesia Assessment: Anesthesia Plan Discussed Final Anesthetic Review NPO: Yes ASA Class: III Final Preanesthetic Review: No Changes in Pt Med Stat, Meds/Allgs Chart Reviewed, Consent Obtained/Reviewed and Anes Risks/Benef Reviewed Patient Risk: Intermediate Procedure Risk: Low Assessment/Block/Sedation in SS: Assess/Block/Sedation-SS Anesthetic Plan Anesthetic Plan: MAC: and Agree w/ Assess. and Plan Disposition: Standard PACU
[2021-09-21 08:38] VITALS: BP 149/76; PULSE 58; RESP 18; TEMP 36.1; O2SAT 94
[2021-09-21] MEDS: Lactated Ringers 500 ML 50 ML IV (08:54)
[2021-09-21] MEDS: Tetracaine HCl/PF 0.5% Oph Sol 4 ML DROPS 1 DROP EYE-LEFT (08:54)
[2021-09-21] MEDS: Tropicamide 1 % Ophth Sol 3 ML BTL 1 DROP EYE-LEFT ×2 (08:54→08:56)
[2021-09-21] MEDS: Phenylephrine HCL 2.5% Oph SoL 2 ML BOTTLE 1 DROP EYE-LEFT ×2 (08:55→08:57)
[2021-09-21 09:06] LABS: Glucose, Whole Blood 173 mg/dL (60-115)
--- NOTE | 2021-09-21 09:51 | HO.PNOPHT ---
Ophthalmology Procedure Procedure Date of Service: 09/21/21 Ophthalmology Viscoelastic: Healon Duet Dual Pack Pro Ophthalmology Lenses: TECNIS [id number] (18.5) Procedure Notes: PREOPERATIVE DIAGNOSIS: Decreased visual acuity left eye secondary to cataract POSTOPERATIVE DIAGNOSIS: Same PROCEDURE: Left cataract extraction with intraocular lens insertion SURGEON: Carlos Thomas M.D. ANESTHESIA: Topical/MAC ESTIMATED BLOOD LOSS: None COMPLICATIONS: None After obtaining informed consent, the patient was brought to the operation room suite and placed in the supine position. After adequate sedation per anesthesia, topical drops of Tetracaine were given to the left eye. The eye was then prepped and draped in the usual sterile fashion. The operating room microscope was then positioned over the operative eye and a lid speculum placed. A paracentesis was created. Viscoelastic was then instilled into the anterior chamber. A three plane incision was then created temporally, utilizing a 2.85 mm keratome. Capsulotomy forceps were then utilized to create a circular tear capsulotomy. Hydrodissection and hydrodelineation were carried out until adequate mobilization of the nucleus occurred. Phacoemulsification was then utilized to remove the dense central nucleus followed by removal of the cortical material utilizing the automated aspiration irrigation unit. Viscoat elastic was instilled into the posterior capsular bag followed by placement of a posterior chamber intraocular lens without difficulty. The residual Viscoat elastic was then removed utilizing the automated IA machine. The wound was check and found to be watertight. The patient tolerated the procedure well and the lid speculum was removed. Intracameral injection of Vigamox 0.1 mL followed by a subtenon injection of Kenalog-40 0.2 mL were administered. The patient will be seen in the a.m.
[2021-09-21 10:22] VITALS: BP 149/64; PULSE 61; RESP 16; TEMP 36.6; O2SAT 94
== END 2021-09-21 10:27 | disposition home or self-care (01) ==
PROVIDERS: Visit Provider Ophthalmology
PROC: (CPT 66985; principal; 2021-09-21 10:00)
DX: H25.12 Age-related nuclear cataract, left eye (principal); H54.7 Unspecified visual loss; I25.10 Atherosclerotic heart disease of native coronary artery without angina pectoris; J44.9 Chronic obstructive pulmonary disease, unspecified; E78.00 Pure hypercholesterolemia, unspecified; E11.22 Type 2 diabetes mellitus with diabetic chronic kidney disease; E11.21 Type 2 diabetes mellitus with diabetic nephropathy; I12.9 Hypertensive chronic kidney disease with stage 1 through stage 4 chronic kidney disease, or unspecified chronic kidney disease; N18.30 Chronic kidney disease, stage 3 unspecified; N17.9 Acute kidney failure, unspecified; Z79.4 Long term (current) use of insulin; Z79.82 Long term (current) use of aspirin; Z79.899 Other long term (current) drug therapy; Z87.891 Personal history of nicotine dependence; Z66 Do not resuscitate
CPT/HCPCS: 66984; 82947; J2250; J3010; J3300; V2632

== ENCOUNTER 2021-10-05 09:00 | Day surgery (SDC) | payer MEDICARE, SELFPAY ==
[2021-09-15 10:53] VITALS: BMI 38.0
[2021-09-15 11:11] VITALS: BMI 38.0
--- NOTE | 2021-10-01 08:17 | MHC.SHP ---
Pre-Procedural Eval Section A Date of Service: 10/01/21 The patient is an INPATIENT: No Changes since office visit: No Cold of Flu in the past 2 weeks, No New Medical Problems, No Changes in Medication and No Patient answered all questions The History & Physical has been completed within 30 days and I have reviewed it.: Yes Section B Chief Complaint: cataract Allergies: Allergies Allergy/AdvReac Type Severity Reaction Status Date / Time No Known Allergies Allergy Verified 09/15/21 10:48 Plan Diagnosis/Plan: Unchanged I have reviewed the history and physical and performed a pertinent physical examination on my patient. No changes have occurred unless specified.
--- NOTE | 2021-10-01 12:13 | HO.ANESPROP2 ---
Documented by User: Analy Santoyo NP 10/01/21 12:14 HPI - Anesthesia Eval Consult details Narrative: 76yo M for Right Cataract Extraction IOL Insertion PCP cleared Left eye 09/21/21 with MAC: Fent 50, Midaz 1 PMFSH Active Problems Active Problems: All Active Problems (Updated 09/25/21 @ 12:33 by Argelia Yuen RN) Preoperative cardiovascular examination (Acute) GIB (gastrointestinal bleeding) (Acute) Traumatic injury of back (Acute) S/P right colectomy (Acute) Acute renal failure superimposed on stage 3 chronic kidney disease (Acute) Open abdominal incision with drainage (Acute) Abscess (Acute) Diastolic dysfunction (Acute) CAD (coronary artery disease) (Acute) Drainage from surgical wound (Acute) Diabetic nephropathy associated with type 2 diabetes mellitus (Acute) Past Medical History Medical History (Updated 09/25/21 @ 12:33 by Argelia Yuen RN) Abscess Anemia CAD (coronary artery disease) Cataract Cecum mass CKD (chronic kidney disease) stage 3, GFR 30-59 ml/min COPD (chronic obstructive pulmonary disease) case management patient COVID-19 vaccine series completed Depression Diabetes type 2, uncontrolled Diabetic nephropathy associated with type 2 diabetes mellitus Diastolic dysfunction Drainage from surgical wound Dyslipidemia GERD (gastroesophageal reflux disease) History of snoring HTN (hypertension) Hyperlipidemia MCFP (current) use of insulin Morbid obesity Peptic ulcer TIA (transient ischemic attack) Family History Family History Father No problems noted. Mother Cancer Family history of problems with anesthesia: No Surgical History Surgical History (Updated 09/25/21 @ 12:33 by Argelia Yuen RN) History of colon resection History of esophagogastroduodenoscopy (EGD) Hx of CABG Hx of cataract extraction Hx of colonoscopy Hx of knee surgery Hx of rotator cuff surgery Hx of shoulder replacement Hx of umbilical hernia repair History of Problems with Anesthesia: No Social History Social History Household Members: Spouse Housing: House Are you a primary healthcare consultant to a significant other at home: No Do you presently have visiting nurse or other home services: No Alcohol intake: never Patient Tobacco Use Status: Former Tobacco user Quit Date: 1986 Tobacco use type: Cigarette Years Smoked: 30 Have you been hit, kicked, punched, or otherwise hurt by someone within the past year? If so, by whom?: No Are you DNR?: No Advance Directives: Yes Advance Directives Information Provided: Yes Advance Directives on File: Yes Advance Directives Date on File: 12/02/20 Recently lost weight without trying: No Nutrition Risks: Surgical patient >75years Poor oral hygiene: No (full dentures-wears only upper) service: No Current occupational status: retired [employer] Allergies Allergy/AdvReac Type Severity Reaction Status Date / Time No Known Allergies Allergy Verified 09/15/21 10:48 Home Medications Medication Instructions Recorded Confirmed Last Taken Type aspirin 81 mg tablet,delayed 81 mg PO DAILY 02/25/20 09/25/21 12/08/20 History release (Adult Low Dose Aspirin) doxazosin 8 mg tablet 8 mg PO BEDTIME 02/25/20 09/25/21 11/03/20 History finasteride 5 mg tablet 5 mg PO BEDTIME 02/25/20 09/25/21 11/03/20 History furosemide 80 mg tablet 80 mg PO BID 02/25/20 09/25/21 11/04/20 History magnesium 250 mg tablet 250 mg PO DAILY 02/25/20 09/25/21 11/04/20 History sertraline 50 mg tablet 50 mg PO DAILY 02/25/20 09/25/21 09/21/21 History simvastatin 40 mg tablet 40 mg PO BEDTIME 02/25/20 09/25/21 11/03/20 History spironolactone 25 mg tablet 25 mg PO BID 02/25/20 09/25/21 11/04/20 History amitriptyline 25 mg tablet 25 mg PO BEDTIME 03/05/20 09/25/21 11/03/20 History lancets 33 gauge #100 ea 03/11/20 05/20/21 Unknown History fluticasone 250 mcg-salmeterol 50 1 ea INHALATION BID 08/25/20 09/25/21 11/04/20 History mcg/dose blistr powdr for inhalation gabapentin 300 mg capsule 300 mg PO BID cap 08/25/20 09/25/21 09/21/21 History docusate sodium 100 mg capsule 100 mg PO BID 11/04/20 09/25/21 11/04/20 History ipratropium 0.5 mg-albuterol 3 mg 3 ml INHALATION QID 11/04/20 09/25/21 12/09/20 History (2.5 mg base)/3 mL nebulization soln metoprolol tartrate 25 mg tablet 75 mg PO BEDTIME tab 11/20/20 09/25/21 09/21/21 History multivitamin 1 tab PO DAILY 12/02/20 09/25/21 Unknown History polyethylene glycol 3350 17 gram 17 g PO DAILY 12/02/20 09/15/21 Unknown History oral powder packet (Miralax) famotidine 20 mg tablet 20 mg PO BEDTIME 02/17/21 09/25/21 Unknown History ferrous sulfate 325 mg (65 mg 325 mg PO BID tab 05/14/21 09/25/21 Unknown History iron) tablet (iron) Exam Exam Date and Time: October 01, 2021 1213 Height,Weight and Vital Signs: Height 5 ft 8 in Weight 113.398 kg Narrative Narrative: ECHO 07/2021 Conclusions: - 1. Normal LV systolic function with pseudonormal filling ? ? ? pattern? 2. Moderately dilated left atrium? 3. Severe mitral calcification with normal cardiac valvular? ? ? Doppler? 4.? Mildly elevated right ventricular systolic pressure? 5. No gross pericardial effusion? Assessment and Plan Assessment Anesthesia Assessment: Chart Reviewed Final Anesthetic Review Family History of Problems with Anesthesia: No History of Problems with Anesthesia: No Documented by User: Louis Hensley MD 10/05/21 06:34 [facility] Past Medical History Medical History (Updated 09/25/21 @ 12:33 by Argelia Yuen RN) Abscess Anemia CAD (coronary artery disease) Cataract Cecum mass CKD (chronic kidney disease) stage 3, GFR 30-59 ml/min COPD (chronic obstructive pulmonary disease) case management patient COVID-19 vaccine series completed Depression Diabetes type 2, uncontrolled Diabetic nephropathy associated with type 2 diabetes mellitus Diastolic dysfunction Drainage from surgical wound Dyslipidemia GERD (gastroesophageal reflux disease) History of snoring HTN (hypertension) Hyperlipidemia 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 Mother Cancer Surgical History Surgical History (Updated 09/25/21 @ 12:33 by Argelia Yuen RN) History of colon resection History of esophagogastroduodenoscopy (EGD) Hx of CABG Hx of cataract extraction Hx of colonoscopy Hx of knee surgery Hx of rotator cuff surgery Hx of shoulder replacement Hx of umbilical hernia repair Social History Social History Household Members: Spouse Housing: House Are you a primary healthcare consultant to a significant other at home: No Do you presently have visiting nurse or other home services: No Alcohol intake: never Patient Tobacco Use Status: Former Tobacco user Quit Date: 1986 Tobacco use type: Cigarette Years Smoked: 30 Have you been hit, kicked, punched, or otherwise hurt by someone within the past year? If so, by whom?: No Are you DNR?: No Advance Directives: Yes Advance Directives Information Provided: Yes Advance Directives on File: Yes Advance Directives Date on File: 12/02/20 Recently lost weight without trying: No Nutrition Risks: Surgical patient >75years Poor oral hygiene: No (full dentures-wears only upper) service: No Current occupational status: retired [employer] Allergies Allergy/AdvReac Type Severity Reaction Status Date / Time No Known Allergies Allergy Verified 09/15/21 10:48 Home Medications Medication Instructions Recorded Confirmed Last Taken Type aspirin 81 mg tablet,delayed 81 mg PO DAILY 02/25/20 09/25/21 12/08/20 History release (Adult Low Dose Aspirin) doxazosin 8 mg tablet 8 mg PO BEDTIME 02/25/20 09/25/21 11/03/20 History finasteride 5 mg tablet 5 mg PO BEDTIME 1009/25/21 11/03/20 History furosemide 80 mg tablet 80 mg PO BID 02/25/20 09/25/21 11/04/20 History magnesium 250 mg tablet 250 mg PO DAILY 02/25/20 09/25/21 11/04/20 History sertraline 50 mg tablet 50 mg PO DAILY 02/25/20 09/25/21 09/21/21 History simvastatin 40 mg tablet 40 mg PO BEDTIME 02/25/20 09/25/21 11/03/20 History spironolactone 25 mg tablet 25 mg PO BID 02/25/20 09/25/21 11/04/20 History amitriptyline 25 mg tablet 25 mg PO BEDTIME 03/05/20 09/25/21 11/03/20 History lancets 33 gauge #100 ea 03/11/20 05/20/21 Unknown History fluticasone 250 mcg-salmeterol 50 1 ea INHALATION BID 08/25/20 09/25/21 11/04/20 History mcg/dose blistr powdr for inhalation gabapentin 300 mg capsule 300 mg PO BID cap 08/25/20 09/25/21 09/21/21 History docusate sodium 100 mg capsule 100 mg PO BID 11/04/20 09/25/21 11/04/20 History ipratropium 0.5 mg-albuterol 3 mg 3 ml INHALATION QID 11/04/20 09/25/21 12/09/20 History (2.5 mg base)/3 mL nebulization soln metoprolol tartrate 25 mg tablet 75 mg PO BEDTIME tab 11/20/20 09/25/21 09/21/21 History multivitamin 1 tab PO DAILY 12/02/20 09/25/21 Unknown History polyethylene glycol 3350 17 gram 17 g PO DAILY 12/02/20 09/15/21 Unknown History oral powder packet (Miralax) famotidine 20 mg tablet 20 mg PO BEDTIME 02/17/21 09/25/21 Unknown History ferrous sulfate 325 mg (65 mg 325 mg PO BID tab 05/14/21 09/25/21 Unknown History iron) tablet (iron) Exam Airway Mallampati Class: III TM Dist: >3cm Neck ROM: Full Denture: Upper and Lower Loose/Missing/Broken Teeth: Yes Heart: [id number] Lungs: cta b/l Assessment and Plan Assessment Anesthesia Assessment: Anesthesia Plan Discussed Final Anesthetic Review NPO: Yes ASA Class: III Final Preanesthetic Review: No Changes in Pt Med Stat and Anes Risks/Benef Reviewed Patient Risk: Intermediate Procedure Risk: Low Assessment/Block/Sedation in SS: Assess/Block/Sedation-SS Anesthetic Plan Anesthetic Plan: MAC: and Agree w/ Assess. and Plan Disposition: Standard PACU
[2021-10-05] MEDS: Tetracaine HCl/PF 0.5% Oph Sol 4 ML DROPS 1 DROP EYE-RIGHT (09:30)
[2021-10-05 09:47] VITALS: BP 123/57; PULSE 55; RESP 16; TEMP 36.4; O2SAT 94
[2021-10-05] MEDS: Tropicamide 1 % Ophth Sol 3 ML BTL 1 DROP EYE-RIGHT ×3 (10:05→10:17)
[2021-10-05] MEDS: Lactated Ringers 500 ML 50 ML IV (10:06)
[2021-10-05 10:08] LABS: Glucose, Whole Blood 171 mg/dL (60-115)
[2021-10-05] MEDS: Phenylephrine HCL 2.5% Oph SoL 2 ML BOTTLE 1 DROP EYE-RIGHT ×3 (10:12→10:19)
--- NOTE | 2021-10-05 10:33 | HO.PNOPHT ---
Ophthalmology Procedure Procedure Date of Service: 10/05/21 Ophthalmology Viscoelastic: Healfrancois Simont Dual Pack Pro Ophthalmology Lenses: TECHANK [id number] (18) Procedure Notes: PREOPERATIVE DIAGNOSIS: Decreased visual acuity right eye secondary to cataract POSTOPERATIVE DIAGNOSIS: Same PROCEDURE: Right cataract extraction with intraocular lens insertion SURGEON: Carlos Thomas M.D. ANESTHESIA: Topical/MAC ESTIMATED BLOOD LOSS: None COMPLICATIONS: None After obtaining informed consent, the patient was brought to the operating room suite and placed in the supine position. After adequate sedation per anesthesia, topical drops of Tetracaine were given to the right eye. The eye was then prepped and draped in the usual sterile fashion. The operating room microscope was then positioned over the operative eye and a lid speculum placed. A paracentesis was created. Viscoelastic was then instilled into the anterior chamber. A three plane incision was then created temporally, utilizing a 2.85 mm keratome. Capsulotomy forceps were then utilized to create a circular tear capsulotomy. Hydrodissection and hydrodelineation were carried out until adequate mobilization of the nucleus occurred. Phacoemulsification was then utilized to remove the dense central nucleus followed by removal of the cortical material utilizing the automated aspiration irrigation unit. Viscoelastic was instilled into the posterior capsular bag followed by placement of a posterior chamber intraocular lens without difficulty. The residual Viscoelastic was then removed utilizing the automated IA machine. The wound was checked and found to be watertight. The patient tolerated the procedure well and the lid speculum was removed. Intracameral injection of Vigamox 0.1 mL followed by a subtenon injection of Kenalog-40 0.2 mL were administered. The patient will be seen in the a.m.
[2021-10-05 10:57] VITALS: BP 137/62; PULSE 60; RESP 14; TEMP 36.1; O2SAT 95
== END 2021-10-05 11:15 | disposition home or self-care (01) ==
PROVIDERS: Visit Provider Ophthalmology
PROC: (CPT 66985; principal; 2021-10-05 10:50)
DX: H25.11 Age-related nuclear cataract, right eye (principal); H54.7 Unspecified visual loss; I10 Essential (primary) hypertension; E78.00 Pure hypercholesterolemia, unspecified; E11.9 Type 2 diabetes mellitus without complications; Z79.4 Long term (current) use of insulin; Z79.899 Other long term (current) drug therapy; Z66 Do not resuscitate; Z87.891 Personal history of nicotine dependence
CPT/HCPCS: 66984; 82947; J2250; J3010; J3300; V2632

== ENCOUNTER → 2021-11-12 14:19 | Outpatient (BNVA) | payer MEDICARE, SELFPAY | PROVIDERS: PCP Family Medicine; Visit Provider Internal Medicine Cardiovascular Disease | DX: I25.10 Atherosclerotic heart disease of native coronary artery without angina pectoris (principal); I51.89 Other ill-defined heart diseases | CPT/HCPCS: 99212 ==

== ENCOUNTER 2022-01-08 11:47 | Outpatient (REF) | payer MEDICARE, SELFPAY ==
[2022-01-08 13:49] LABS: Basophils Percent Auto 0.5 % (0-2); Eosinophils Absolute Auto 0.2 X10*3/uL (0.0-0.4); Eosinophils Percent Auto 2.2 % (0-4); Hematocrit 45.4 % (42.0-52.0); Hemoglobin 14.3 g/dl (14.0-18.0); Imm Gran Abs Auto 0.06 X10*3/uL (0.00-0.03); Imm Gran Pct Auto 0.7 % (0.0-0.4); Lymphocytes Absolute Auto 0.9 X10*3/uL (1.2-4.9); Lymphocytes Percent Auto 11.1 % (20-40); MANUAL DIFF FLAG NO; Mean Corpuscular HGB Conc 31.5 g/dl (31.0-36.0); Mean Corpuscular Hemoglobin 25.5 pg (27.0-33.0); Mean Corpuscular Volume 80.9 fL (80.0-98.0); Mean Platelet Volume 9.7 fL (9.4-12.4); Monocytes Absolute Auto 0.8 X10*3/uL (0.1-1.2); Monocytes Percent Auto 9.7 % (2-11); Neutrophils Absolute Auto 6.4 x10*3/uL (2.0-8.3); Neutrophils Percent Auto 75.8 % (45-73); Platelet Count 235 X10*3/uL (160-400); Red Blood Count 5.61 X10*6/uL (4.60-5.80); Red Cell Distribution Width 16.4 % (11.0-16.0); White Blood Count 8.5 X10*3/uL (4.8-10.8)
[2022-01-08 14:06] LABS: Estimated Average Glucose 189 mg/dL; Hemoglobin A1c % 8.2 %
[2022-01-08 14:20] LABS: Anion Gap 20 (12-20); Blood Urea Nitrogen 22 mg/dL (9-16); Carbon Dioxide 29 mmol/L (22-29); Chloride 95 mmol/L (96-108); Estimated Glomerular Filt Rate 38; Glucose Fasting 161 mg/dL (60-99); Potassium 4.5 mmol/L (3.3-5.1); Sodium 139 mmol/L (135-145)
== END 2022-01-08 11:48 | disposition home or self-care (01) ==
LOC: HO.HMGCLDS 11:47
PROVIDERS: PCP Family Medicine; Visit Provider Family Medicine
DX: E11.9 Type 2 diabetes mellitus without complications (principal); D64.9 Anemia, unspecified; I10 Essential (primary) hypertension
CPT/HCPCS: 36415; 80051; 82565; 82947; 83036; 84520; 85025

== ENCOUNTER → 2022-04-01 12:28 | Outpatient (BNVA) | payer MEDICARE, SELFPAY | PROVIDERS: PCP Family Medicine; Visit Provider Internal Medicine Endocrinology, Diabetes & Metabolism | DX: E11.21 Type 2 diabetes mellitus with diabetic nephropathy (principal); Z79.4 Long term (current) use of insulin; Z79.84 Long term (current) use of oral hypoglycemic drugs | CPT/HCPCS: 82947; 83036; 99212 ==

== ENCOUNTER → 2022-05-13 14:09 | Outpatient (BNVA) | payer MEDICARE, SELFPAY | PROVIDERS: PCP Family Medicine; Referring Provider Family Medicine; Visit Provider Internal Medicine Cardiovascular Disease | DX: I25.10 Atherosclerotic heart disease of native coronary artery without angina pectoris (principal); I51.89 Other ill-defined heart diseases | CPT/HCPCS: 99212 ==

== ENCOUNTER 2022-06-22 10:24 | Outpatient (REF) | payer MEDICARE, SELFPAY ==
[2022-06-22 11:43] LABS: Alanine Aminotransferase 26 U/L (0-40); Anion Gap 16 (12-20); Aspartate Amino Transferase 24 U/L (5-37); Blood Urea Nitrogen 34 mg/dL (9-16); Carbon Dioxide 32 mmol/L (22-29); Chloride 96 mmol/L (96-108); Cholesterol 211 mg/dL; Estimated Glomerular Filt Rate 28; Glucose Fasting 199 mg/dL (60-99); HDL Cholesterol 32 mg/dL; Potassium 5.1 mmol/L (3.3-5.1); Sodium 139 mmol/L (135-145); Triglycerides 490 mg/dL
[2022-06-22 11:59] LABS: Estimated Average Glucose 186 mg/dL; Hemoglobin A1c % 8.1 %
== END 2022-06-22 10:25 | disposition home or self-care (01) ==
LOC: HO.HMGCLDS 10:24
PROVIDERS: Visit Provider Family Medicine
DX: E78.00 Pure hypercholesterolemia, unspecified (principal); E11.9 Type 2 diabetes mellitus without complications; I10 Essential (primary) hypertension; Z79.899 Other long term (current) drug therapy
CPT/HCPCS: 36415; 80051; 80061; 82550; 82565; 82947; 83036; 84450; 84460; 84520

== ENCOUNTER 2022-07-06 09:58 | Outpatient (REF) | payer MEDICARE, SELFPAY ==
[2022-07-06 11:42] LABS: Blood Urea Nitrogen 33 mg/dL (9-16); Estimated Glomerular Filt Rate 33
== END 2022-07-06 09:59 | disposition home or self-care (01) ==
LOC: HO.LAB 09:58
PROVIDERS: PCP Family Medicine; Visit Provider Family Medicine
DX: N18.30 Chronic kidney disease, stage 3 unspecified (principal)
CPT/HCPCS: 36415; 82565; 84520

== ENCOUNTER → 2022-07-28 14:19 | Outpatient (REF) | payer MEDICARE, SELFPAY ==
--- NOTE | 2022-07-28 14:22 | HM_ITS ---
* Total monitoring time 3 days. * Underlying rhythm is sinus. Average ventricular rate 66/Min. Range 58 to 81/Min. * Frequent supraventricular ectopy. [place] of 2.6%. * Frequent ventricular ectopy, burden of 2.6%. Rare couplets, triplets; trigeminy. 6 brief runs, longest 10 beats. * No pauses or AV blocks. * One patient marker, used in association with sinus rhythm, PAC/PVC. MTDD
== END ==
LOC: HO.CARD 14:19
PROVIDERS: PCP Family Medicine; Visit Provider Family Medicine
DX: I25.10 Atherosclerotic heart disease of native coronary artery without angina pectoris (principal); R55 Syncope and collapse
CPT/HCPCS: 93242

== ENCOUNTER → 2022-08-17 13:20 | Outpatient (REF) | payer MEDICARE, SELFPAY ==
--- NOTE | 2022-08-17 13:23 | CA_ITS ---
Transthoracic Echocardiogram Patient (Last, First, Middle): Josr Hart, Gender: Male Date of : 1945 Age: 76 Procedure Date: 08/17/2022 Procedure Type: Transthoracic Echocardiogram Location: OP Height: 172.72 cm Weight: 109.32 kg BSA: 2.21 m2 Heart Rate: 59 bpm BP: 132 / 68 mmHg Dispatcher Chief Coal Slurry: [place] Referring MD: Jamir Cobb MD Symptoms: I47.1 - Supraventricular tachycardia Study Quality: Fair ECG Rhythm: Bradycardia Conclusions: - The left ventricular systolic function is normal. The calculated ejection fraction is 55% by biplane method. (in some views, 50-55%). - Evidence suggests grade II (moderate) diastolic dysfunction. - There is mild calcification of the aortic valve. - There is mild mitral annular calcification. Findings Procedure Information Contrast agent, definity, is being given per protocol without apparent complications. The quality of the study was technically difficult. The study quality is limited by patients body habitus. Left Ventricle Mildly increased left ventricular cavity size. There is normal left ventricular wall thickness. The left ventricular systolic function is normal. The calculated ejection fraction is 55% by biplane method. There is no evidence of regional wall motion abnormalities. Evidence suggests grade II (moderate) diastolic dysfunction. Right Ventricle The right ventricle was not well visualized. Normal right ventricular cavity size. Atria Both atria are normal in size. Aortic Valve The aortic valve was not well visualized. There is a normal trileaflet aortic valve. There is mild calcification of the aortic valve. There is no aortic valve stenosis. There is no aortic valve regurgitation. Mitral Valve There is mild anterior mitral leaflet thickening. There is mild mitral annular calcification. There is trace mitral valve regurgitation. There is no mitral valve stenosis. Pulmonic Valve The pulmonic valve is likely normal. Tricuspid Valve There is trace tricuspid valve regurgitation. There is no evidence of pulmonary hypertension. Great Vessels The asc aorta is normal in size. Venous The inferior vena cava is mildly dilated and collapses greater than 50% with inspiration. Pericardium/Pleural There is no evidence of pericardial effusion. Prior Study Comparison No significant change compared to prior study dated: 08/03/2021. Measurements 2D Linear Measurements IVSd: 0.54 0.6-0.9/0.6-1.0 cm LVIDd: 5.86 3.9-5.3/4.2-5.9 cm LVIDd Index: 2.65 2.4-3.2/2.2-3.1 cm/m2 LVIDs: 3.89 2.0-3.6 cm LVPWd: 0.66 0.7-1.1 cm LA Diam: 4.50 2.7-3.8/3.0-4.0 cm LAIDs Index: 2.04 1.5-2.3 cm/m2 LV Mass: 157.47 67-162/88-224 g LV Mass Index: 71.25 43-95/49-115 g/m2 LVOT Diam: 2.10 3.0+(-)1.3 cm 2D Systolic Function EF 4C: 57.80 >55% EF 2C: 49.40 >55% EF BiP: 54.70 >55% Mitral Valve MV Pk E: 0.94 MV PK A: 0.89 MV Decel Time: 219.00 E/A: 1.10 E'Lateral: 8.49 E'Medial: 7.40 E/E' Med: 12.70 E/E' Lat: 11.00 PHT: 64.00 MVA PHT: 3.44 Decel Lajas: 4.28 Aortic Valve AoV Pk Maninder: 1.11 AoV Pk Grad: 5.00 WHITNEY: 2.94 LVOT LVOT Pk Maninder: 0.88 LVOT Mn Maninder: 0.58 LVOT VTI: 0.17 LVOT Pk Grad: 3.00 LVOT Mn Grad: 2.00 LVOT Diam: 2.10 LVOT Area: 3.46 Diastolic Function MV Pk E: 0.94 MV Pk A: 0.89 E/A: 1.10 E'Medial: 7.40 E/E' Med: 12.70 E' Laterial: 8.49 E/E' Lat: 11.00 Right Ventricle TVS' Maninder: 9.90 Tricuspid Valve TR Pk Grad: 14.00 RA Press: 3.00 RVSP: 17.00 Great Vessels Aorta Sinus of Valsalva: 3.20 2.0-3.5 cm Ao Asc: 3.20 2.1-3.4 cm Pulmonary Valve PV Pk Maninder: 1.30 Peak PV Grad: 7.00 Updated in Other Vendor System with Status of Final Jase Montemayor MD electronically signed on 08/18/2022 10:49:26 AM with status of Final
== END ==
LOC: HO.CARD 13:20
PROVIDERS: PCP Family Medicine; Visit Provider Internal Medicine Cardiovascular Disease
DX: I47.1 Supraventricular tachycardia (principal)
CPT/HCPCS: 93306; Q9957

== ENCOUNTER → 2022-08-30 09:26 | Outpatient (REF) | payer MEDICARE, SELFPAY ==
--- NOTE | ~2022-08-30 | NM_ITS ---
Lexiscan Myocardial perfusion study Indication: Coronary disease, assess for ischemia Technique: The patient was brought in for a Lexiscan perfusion study on 08/30/2022 and was injected 0.4 mg of Lexiscan intravenously. Within a minute of this injection 40 mCi of sestamibi was given intravenously. Images were obtained using the SPECT gamma camera interlaced with the gating device. Images were obtained in supine position. Resting perfusion study was performed on 08/31/2022. Patient was administered 40 mCi of sestamibi intravenously at rest. Images were then obtained in supine position. Images were processed with the software and compared side to side in short axis, horizontal long axis and vertical long axis views. Total DLP 124mGy-cm. Findings: Raw acquisition reviewed. The stress perfusion study showed mildly diminished tracer uptake in the septum. This is seen in both uncorrected as well as CT attenuation corrected images. Could very well be artifactual but difficult to say. The gated study shows normal LV systolic function with calculated LVEF of 56%. LV cavity is normal in size. The gated study shows normal wall thickening and contraction of segments. Resting study shows mildly diminished tracer uptake in the basal septum similar to the stress acquisition. Slight improvement with CT attenuation correction. Gating at rest reveals normal wall motion with ejection fraction at 56%. The findings are consistent with mild intensity septal defect with suggestion of some reversible and fixed components. NM/NM cardiolite stress test Impression: 1. Myocardial perfusion imaging study shows possible mild intensity ischemia/infarct pattern in septum. Cannot exclude artifactual etiology. 2. Gated LVEF is 56% during stress and rest. 3. Transient ischemic dilatation not present. EKG component of the test reported separately.
--- NOTE | 2022-08-30 09:29 | CA_ITS ---
Acquisition Time: 2022-08-30 10:32:06 Total Exercise Time: 00:02:00 Test Indications: CAD Medications: SEE H Protocol: LEXISCAN Max HR: 074 BPM 52% of Pred: 142 BPM Max BP: 120/072 mmHG Max Work Load: 1.0 METS Pharmacological stress test with Lexiscan injection, while sitting and kicking his legs, without anginal symptoms, with sinus arrythmia, with normotensive response to injection, with nondiagnostic EKG for ischemia. Nuclear images pending. Test reviewed with Dr Cobb Referred By: Jamir Cobb Overread By: ANDREZ DICK
== END ==
LOC: HO.CARD 09:26
PROVIDERS: PCP Family Medicine; Visit Provider Internal Medicine Cardiovascular Disease
DX: I47.1 Supraventricular tachycardia (principal)
CPT/HCPCS: 78452; 93017; A9500; J0280; J2785

== ENCOUNTER → 2022-09-14 13:01 | Outpatient (BNVA) | payer MEDICARE, SELFPAY | PROVIDERS: PCP Family Medicine; Visit Provider Surgery Vascular Surgery | DX: I83.11 Varicose veins of right lower extremity with inflammation (principal); L03.115 Cellulitis of right lower limb; E11.65 Type 2 diabetes mellitus with hyperglycemia; E11.22 Type 2 diabetes mellitus with diabetic chronic kidney disease; E11.21 Type 2 diabetes mellitus with diabetic nephropathy; N18.30 Chronic kidney disease, stage 3 unspecified; Z87.891 Personal history of nicotine dependence | CPT/HCPCS: 99202 ==

== ENCOUNTER 2022-09-20 09:52 | Outpatient (REF) | payer MEDICARE, SELFPAY ==
--- NOTE | ~2022-09-20 | CT_ITS ---
EXAMINATION: CT MAXILLOFACIAL WITHOUT CONTRAST CLINICAL INFORMATION: Polyp of nasal cavity. Epistaxis. COMPARISON: None. TECHNIQUE: Multidetector helical imaging was performed in the axial plane with generation of coronal and sagittal reformatted images. This CT examination was performed using dose optimization techniques as appropriate, variously including the following: *Automated exposure control *Adjustment of mA and/or kV according to patient size (this includes techniques or standardized protocols for targeted exams where dose is matched to indication/reason for exam; i.e. extremities or head) *Use of iterative reconstruction technique DLP: 99 mGy-cm. FINDINGS: The frontal sinuses are clear. There is minimal ethmoid mucosal thickening. The sphenoid sinuses are clear. There is mild mucosal thickening in the hypoplastic maxillary sinuses. The ethmoidal infundibula are clear. There is a left-sided mercedes bullosa which is clear. The ethmoid roofs are nearly symmetric. The lamina papyracea are intact. The carotid impressions are covered with bone. There is leftward deviation nasal septum with leftward projecting septal spur. No maxillary periapical disease is seen. The mastoid air cells and visualized middle ear cavities are well aerated. The orbits are normal. The TMJs are unremarkable. The imaged portions of the brain demonstrate no acute abnormality. CT/CT sinus wo IV con IMPRESSION: Minimal ethmoid mucosal thickening. Mild mucosal thickening in the hypoplastic maxillary sinuses. No fluid levels.
== END 2022-09-20 09:53 | disposition home or self-care (01) ==
LOC: HO.CT 09:52
PROVIDERS: PCP Family Medicine; Visit Provider Otolaryngology
DX: J33.0 Polyp of nasal cavity (principal); R04.0 Epistaxis
CPT/HCPCS: 70486

== ENCOUNTER 2022-09-21 12:36 | Outpatient (REF) | payer MEDICARE, SELFPAY ==
--- NOTE | ~2022-09-21 | US_ITS ---
EXAMINATION: US LOWER EXTREMITY VENOUS (REFLUX EXAM), BILATERAL CLINICAL INDICATION: Varicose veins COMPARISON: Right lower extremity duplex on 08/22/2014 TECHNIQUE: Color flow triplex imaging and compression Doppler was performed to evaluate both the deep and the superficial systems bilaterally. To evaluate the superficial system, the examination was performed in the upright position. Color-flow Doppler ultrasound and compression ultrasound were utilized. In addition, maneuvers were utilized to demonstrate reflux. FINDINGS: 1. DEEP VENOUS ULTRASOUND OF THE RIGHT LOWER EXTREMITY: Common Femoral Vein: Compressible, normal respiratory variation and augmented flow. Femoral Vein: Compressible, normal color flow and augmentation. Popliteal Vein: Compressible, normal augmentation. Deep Reflux: There is no evidence of reflux in the deep system in either the common femoral vein or the popliteal vein. There is no evidence of a Calderon's cyst. 2. SUPERFICIAL ULTRASOUND WITH DOPPLER OF RIGHT LOWER EXTREMITY: GREAT SAPHENOUS VEIN: Saphenofemoral Junction: 1.0 cm; Reflux: 0 ms Proximal Thigh: 0.6 cm; Reflux: 0 ms GSV Not visualized distal to the mid thigh. DUPLICATED MEDIAL GREAT SAPHENOUS VEIN: Diameter: None imaged Reflux: NA DUPLICATED LATERAL GREAT SAPHENOUS VEIN: Diameter: None imaged Reflux: NA SMALL SAPHENOUS VEIN: Proximal: 0.4 cm; Reflux: 0 ms Distal: 0.4 cm; Reflux: 0 ms VEIN OF GIACOMINI: Size: NA Reflux: NA PERFORATORS: Location: Mid calf Size: 0.3 Reflux: NA VARICOSITIES: Location: Prox thigh Size: 0.4 Reflux: NA 3. DEEP VENOUS ULTRASOUND OF THE LEFT LOWER EXTREMITY: Common Femoral Vein: Compressible, normal respiratory variation and augmented flow. Femoral Vein: Compressible, normal color flow and augmentation. Popliteal Vein: Compressible, normal augmentation. Deep Reflux: There is no evidence of reflux in the deep system in either the common femoral vein or the popliteal vein. There is no evidence of a Calderon's cyst. 4. SUPERFICIAL ULTRASOUND WITH DOPPLER OF LEFT LOWER EXTREMITY: GREAT SAPHENOUS VEIN: Saphenofemoral Junction: 0.7 cm; Reflux: 0 ms Proximal Thigh: 0.5 cm; Reflux: 0 ms Mid Thigh: 0.5 cm; Reflux: 1712 ms Above Knee: 0.6 cm; Reflux: 2592 ms At Knee: 0.5 cm; Reflux: 2460 ms Below Knee: 0.5 cm; Reflux: 2536 ms Mid Calf: 0.4 cm; Reflux: 0 ms Ankle: 0.3 cm; Reflux: 2304 ms DUPLICATED MEDIAL GREAT SAPHENOUS VEIN: Diameter: None Imaged Reflux: NA DUPLICATED LATERAL GREAT SAPHENOUS VEIN: Proximal: 0.4 cm; Reflux: 0 ms Distal: 0.3 cm; Reflux: 0 ms SMALL SAPHENOUS VEIN: Proximal: 0.2 cm; Reflux: 0 ms Distal: 0.1 cm; Reflux: 0 ms VEIN OF GIACOMINI: Size: NA Reflux: NA PERFORATORS: Location: Mid calf and multiple thigh Size: 0.2-0.3 Reflux: NA Location: 33 cm from the heel Size: 0.2-0.3 Reflux: 1036ms VARICOSITIES: Location: Proximal calf and thigh Size: 0.3-0.4 cm Reflux: NA US/US venous duplex LE BI IMPRESSION: 1. No DVT or deep venous reflux. 2. The right great saphenous vein is not visualized distal to the mid thigh. 3. Segmental reflux in the left great saphenous vein at the ankle. 4. Left small saphenous venous insufficiency. 5. Bilateral lower extremity varicosities.
== END 2022-09-21 12:37 | disposition home or self-care (01) ==
LOC: HO.US 12:36
PROVIDERS: PCP Family Medicine; Visit Provider Surgery Vascular Surgery
DX: I83.11 Varicose veins of right lower extremity with inflammation (principal)
CPT/HCPCS: 93970

== ENCOUNTER → 2022-09-30 12:55 | Outpatient (BNVA) | payer MEDICARE, SELFPAY | PROVIDERS: PCP Family Medicine; Visit Provider Surgery Vascular Surgery | DX: I83.12 Varicose veins of left lower extremity with inflammation (principal) | CPT/HCPCS: 99212 ==

== ENCOUNTER → 2022-11-05 08:13 | Outpatient (BNVA) | payer MEDICARE, SELFPAY | PROVIDERS: PCP Family Medicine; Visit Provider Surgery Vascular Surgery | DX: I83.12 Varicose veins of left lower extremity with inflammation (principal) | CPT/HCPCS: 36482 ==

== ENCOUNTER 2022-11-08 13:39 | Outpatient (REF) | payer MEDICARE, SELFPAY ==
--- NOTE | ~2022-11-08 | US_ITS ---
EXAMINATION: TRIPLEX SCANNING OF LEFT LOWER EXTREMITY; SUPERFICIAL ULTRASOUND WITH DOPPLER OF LEFT LOWER EXTREMITY CLINICAL INFORMATION: Status post Venaseal of the left great saphenous vein COMPARISON: 09/21/2022. TECHNIQUE: Color flow triplex imaging and compression Doppler were performed as well as superficial ultrasound with Doppler. FINDINGS: LEFT LOWER EXTREMITY DEEP VENOUS SYSTEM: Respiratory variation, normal compression and augmented flow are noted throughout the lower extremity. The visualized common femoral vein, femoral vein, profunda femoral vein, popliteal vein and the calf veins show no evidence of deep venous thrombosis. There is no evidence of Calderon's cyst. SUPERFICIAL VENOUS SYSTEM: The great saphenous vein is occluded from the access site to 2.2 cm before the saphenofemoral junction. There is no extension of thrombus into the deep system. US/US venous duplex LE LT IMPRESSION: 1. No evidence of DVT. 2. Excellent appearance status post ablation of the left great saphenous vein.
== END 2022-11-08 13:40 | disposition home or self-care (01) ==
LOC: HO.HMGCX 13:39
PROVIDERS: PCP Family Medicine; Visit Provider Surgery Vascular Surgery
DX: M79.605 Pain in left leg (principal)
CPT/HCPCS: 93971

== ENCOUNTER 2022-11-15 13:17 | Outpatient (AMB) | payer MEDICARE, SELFPAY ==
--- NOTE | 2022-11-15 13:21 | A.OFFVIS_ITS ---
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 Accompanied by: Spouse Allergies No Known Allergies Allergy (Verified 11/05/22 08:30) Medication List - Last Reconciled 11/15/22 by Jamir Cobb MD amitriptyline 25 mg PO BEDTIME aspirin (Adult Low Dose Aspirin) 81 mg PO DAILY blood sugar diagnostic ([employer] Verio test strips) 1 strip miscellaneous TID clopidogrel 75 mg PO DAILY docusate sodium 100 mg PO BID doxazosin 8 mg PO BEDTIME dulaglutide (Trulicity) 1.5 mg (0.5 mL) subcut QWEEK famotidine 20 mg PO BEDTIME ferrous sulfate (iron) 325 mg PO DAILY finasteride 5 mg PO BEDTIME furosemide 80 mg PO BID gabapentin 300 mg PO BID insulin regular hum U-500 conc (Humulin R U-500 (Concentrated) Insulin) 40 units with breakfast and 60 units with supper subcutaneously 2 times per day with meals; insulin U-500 syringe-needle (BD Insulin Syringe U-500) As directed injects 3 X/day ipratropium-albuterol 0.5 mg-3 mg(2.5 mg base)/3 mL 3 mL inhalation QID lancets As directed magnesium 250 mg PO DAILY metformin ER 500 mg PO BID metoprolol tartrate 75 mg PO BEDTIME multivitamin 1 tab PO DAILY omeprazole 20 mg PO BID@0630,1630 oxycodone-acetaminophen 5-325 mg (Percocet) 1 - 2 tabs PO Q4-6H PRN polyethylene glycol 3350 (Miralax) 17 grams PO DAILY sertraline 50 mg PO DAILY simvastatin 40 mg PO BEDTIME spironolactone 25 mg PO BID HPI HPI Comments History of Present Illness Details Ramon comes for follow-up. He has significant issues with epistaxis. He seems to be currently taking both aspirin and Plavix therapy. He recently had treatment for venous disease. He denies any worsening chest pain or shortness of breath. Denies any heart failure symptoms no orthopnea, PND, leg edema. Denies any prolonged palpitations, irregular heartbeat, lightheadedness, syncope. His recent myocardial perfusion imaging does not show any significant level of ischemia. [facility] Medical History Abscess Anemia CAD (coronary artery disease) Cataract Cecum mass CKD (chronic kidney disease) stage 3, GFR 30-59 ml/min COPD (chronic obstructive pulmonary disease) case management patient COVID-19 vaccine series completed Depression Diabetes type 2, uncontrolled Diabetic nephropathy associated with type 2 diabetes mellitus Diastolic dysfunction Drainage from surgical wound Dyslipidemia GERD (gastroesophageal reflux disease) History of snoring HTN (hypertension) Hyperlipidemia correction (current) use of insulin Morbid obesity Peptic ulcer TIA (transient ischemic attack) 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 Surgical History History of colon resection History of esophagogastroduodenoscopy (EGD) Hx of CABG Hx of cataract extraction Hx of colonoscopy Hx of knee surgery Hx of rotator cuff surgery Hx of shoulder replacement Hx of umbilical hernia repair Family History Father No problems noted. Mother Cancer Social History Household Members: Spouse Housing: House Are you a primary intensive care medicine specialist to a significant other at home: No Do you presently have visiting nurse or other home services: No Alcohol intake: never Patient Tobacco Use Status: Former Tobacco user Quit Date: 1986 Tobacco use type: Cigarette Years Smoked: 30 Advance Directives Date on File: 12/02/20 service: No Current occupational status: retired Review of Systems Const Denies chills, Denies fatigue, Denies fever(s), Denies frequent falls, Denies weakness, Denies weight gain and Denies weight loss ENT Denies dizziness Card Denies chest pain, Denies leg edema, Denies lightheadedness, Denies palpitations, Denies dyspnea, Denies dyspnea on exertion, Denies orthopnea and Denies other (loss of consciousness) Resp Denies cough, Denies dyspnea and Denies dyspnea on exertion GI Denies hematochezia and Denies change in stool character Musc Denies abnormal gait, Denies muscle weakness, Denies numbness, Denies radiating pain into limb and Denies tingling Neuro Denies abnormal gait, Denies dizziness, Denies frequent falls, Denies numbness, Denies tingling and Denies weakness Endo Denies fatigue and Denies palpitations Physical Exam Vital Signs: Last Vital Signs Pulse 66 11/15/22 13:26 BP 120/70 11/15/22 13:26 BMI result Body Mass Index 36.9 Const General: cooperative, comfortable, alert and awake Nutritional Appearance: obese Orientation/consciousness: patient oriented x3 Neck Neck: Yes trachea midline, Yes supple and Yes no JVD Chest Chest palpation & inspection: normal inspection of the chest and other (Well- healed sternotomy scar) Resp Effort & Inspection: normal respiratory effort Auscultation: clear to auscultation bilaterally and diminished lung sounds Cardio Jugular venous distension: no JVD Palpation: normal PMI Rate: regular rate Heart sounds: S1 normal heart sound present, S2 normal heart sound present and Other heart sounds present (S4 present) Skin General skin exam: no rashes or lesions noted Neuro General: patient oriented x3 and no focal motor deficits Extrem Other: Left arm in a sling General: Yes no clubbing, cyanosis or edema Office Procedures EKG Details: EKG shows normal sinus rhythm with sinus arrhythmia with first-degree AV block 36529-[id number], Complete Assessment & Plan Assessment & Plan (1) CAD (coronary artery disease): Comment: stable coronary artery disease with remote surgical revascularization. status post 3 vessel coronary artery bypass grafting including CUELLAR to LAD and SVG to OM and RCA, June 2013 Code(s): I25.10 - Atherosclerotic heart disease of [place] coronary artery without angina pectoris Plan: CAD status post 3 vessel coronary bypass grafting 2013 with recent myocardial perfusion imaging showing no significant ischemia. Continue aggressive risk factor modification. He does not require dual antiplatelet therapy from cardiac perspective. Consider switching to low-dose aspirin therapy. Further referral to ENT for posterior fossa evaluation treatment. Continue aggressive risk factor modification. Blood pressure is currently well optimized. Encouraged to participate in weight loss program regular physical activity. Diabetes under yo ur care with goal hemoglobin A1c less than 7%. Goal LDL less than 70 mg/dL. (2) Diastolic dysfunction: Code(s): I51.89 - Other ill-defined heart diseases Plan: Diastolic dysfunction without any overt signs of heart failure. Advised to monitor for signs and symptoms of heart failure. Daily weight monitoring avoidance of salt loading was discussed. Continue aggressive blood pressure control. Continue participate in physical activity as tolerated. Will follow up in the clinic in 6 months time, sooner p.r.n.. Thank you for allowing me to partake in his care Coding Level of Care Code Est Pt Level 4 (45580) Diagnoses CAD (coronary artery disease) I25.10 Diastolic dysfunction I51.89 CPT Codes EKG - CPT: 23513-[id number], Complete ([id number])
[2022-11-15 13:26] VITALS: BP 120/70; PULSE 66; BMI 36.9
== END 2022-11-15 13:49 | disposition home or self-care (01) ==
PROVIDERS: Visit Provider Internal Medicine Cardiovascular Disease
DX: I25.10 Atherosclerotic heart disease of native coronary artery without angina pectoris (principal); I51.89 Other ill-defined heart diseases
CPT/HCPCS: 93010; 99214

== ENCOUNTER → 2022-11-15 13:17 | Outpatient (BNVA) | payer MEDICARE, SELFPAY | PROVIDERS: Visit Provider Internal Medicine Cardiovascular Disease | DX: I25.10 Atherosclerotic heart disease of native coronary artery without angina pectoris (principal); I51.89 Other ill-defined heart diseases | CPT/HCPCS: 93005; 99212 ==

== ENCOUNTER 2022-11-18 12:48 | Outpatient (AMB) | payer MEDICARE, SELFPAY ==
[2022-11-18 12:58] VITALS: BMI 36.8
--- NOTE | 2022-11-18 12:58 | A.OFFVIS_ITS ---
Intake Vital Signs 11/18/22 12:58 Height 5 ft 8 in Weight 242 lb BMI 36.8 Intake Visit Reasons: 2 week follow up Left GSV Venaseal 11/05/22 Intake Note: 2 week follow up Left Venaseal 11/05/2022. Pt states that the first week after the procedure he was sore, but legs are feelings better now. He has been wearing compression socks Accompanied by: Spouse Allergies No Known Allergies Allergy (Verified 11/18/22 13:06) HPI 2 week follow up Left GSV Venaseal 11/05/22 HPI Details Very pleasant 77-year-old foot gentleman presents for follow-up regarding left lower extremity great saphenous vein ablation. He reports he did well after the procedure. He notes no significant postprocedure discomfort. Overall he reports that the swelling and discomfort have decreased. He of note postprocedure ultrasound was negative for DVT. In addition he has had prior right great saphenous vein removed for CABG. 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 Mother Cancer Social History Household Members: Spouse Housing: House Are you a primary resident care director to a significant other at home: No Do you presently have visiting nurse or other home services: No Alcohol intake: never Patient Tobacco Use Status: Former Tobacco user Quit Date: 1986 Tobacco use type: Cigarette Years Smoked: 30 Advance Directives Date on File: 12/02/20 service: No Current occupational status: retired Review of Systems Const All systems reviewed & are unremarkable except as noted in HPI and below Reports no additional complaints ENT Reports Normal hearing present Card Denies chest pain, Denies chest pain at rest, Denies chest pain with activity and Denies pedal edema Resp Denies cough GI Denies abdominal pain Musc Denies abnormal gait, Denies muscle cramps and Denies radiating pain into limb Skin/Breast Denies skin ulcer and Denies wounds Neuro Reports Normal hearing present and Denies abnormal gait Psych Reports no additional complaints Physical Exam Vital Signs: BMI result Body Mass Index 36.8 Const General: cooperative, healthy appearing and comfortable Orientation/consciousness: oriented to person, oriented to place and oriented to time HEENT Head: Yes normal to inspection Neck Neck: Yes normal visual inspection Carotids: no bruits Chest Chest palpation & inspection: normal inspection of the chest Resp Effort & Inspection: normal respiratory effort and able to speak in complete sentences Auscultation: clear to auscultation bilaterally, no crackles, no rales, no rhonchi and no wheezes Cardio Rate: regular rate Rhythm: regular rhythm Heart sounds: S1 normal heart sound present and S2 normal heart sound present Bruits: no carotid bruits Peripheral pulses: Peripheral pulses 2+ throughout GI Inspection: Yes normal to inspection Skin Wounds: no wounds Hair: normal Neuro General: oriented to person, oriented to place and oriented to time Cranial nerves: Yes CN's II-XII intact bilaterally and Yes Normal hearing present Cognition (Neuro): normal cognition Motor exam (neuro): 5/5 motor strength present throughout Extrem Other: venous exam: No significant superficial varicosities or spider telangiectasias, minimal edema General: No clubbing, No cyanosis and No edema Psych Appearance: grossly normal Mental Status: mental status grossly normal Speech and movement: Normal speech and movement present Assessment & Plan Assessment & Plan (1) Varicose veins of left lower extremity with inflammation: Comment: 11/05/2022 left great saphenous vein radiofrequency ablation Code(s): I83.12 - Varicose veins of left lower extremity with inflammation Plan: The patient has done extremely well with all venous treatments. Patient's may often experience postprocedure phlebitic episodes and I have discussed with the patient use of warm compresses and NSAIDS if tolerated for pain discomfort. In addition, I have discussed continued conservative measures including use of compression, leg elevation, and exercise. The patient was also given an information sheet regarding appropriate use of compression stockings and future purchases. Thank you for allowing us to care for your patient with venous disease. Coding Level of Care Code Est Pt Level 3 (88270) Diagnoses Varicose veins of left lower extremity with inflammation I83.12
== END 2022-11-18 13:16 | disposition home or self-care (01) ==
PROVIDERS: PCP Family Medicine; Visit Provider Surgery Vascular Surgery
DX: I83.12 Varicose veins of left lower extremity with inflammation (principal)
CPT/HCPCS: 99213

== ENCOUNTER → 2022-11-18 12:48 | Outpatient (BNVA) | payer MEDICARE, SELFPAY | PROVIDERS: PCP Family Medicine; Visit Provider Surgery Vascular Surgery | DX: I83.12 Varicose veins of left lower extremity with inflammation (principal) | CPT/HCPCS: 99212 ==

== ENCOUNTER 2023-03-16 11:40 | Outpatient (REF) | payer MEDICARE, SELFPAY ==
[2023-03-16 13:23] LABS: MANUAL DIFF FLAG NO
[2023-03-16 13:31] LABS: Basophils Percent Auto 0.4 % (0-2); Eosinophils Absolute Auto 0.2 X10*3/uL (0.0-0.4); Eosinophils Percent Auto 2.9 % (0-4); Hematocrit 38.4 % (42.0-52.0); Hemoglobin 11.8 g/dl (14.0-18.0); Imm Gran Abs Auto 0.04 X10*3/uL (0.00-0.03); Imm Gran Pct Auto 0.6 % (0.0-0.4); Lymphocytes Absolute Auto 1.1 X10*3/uL (1.2-4.9); Lymphocytes Percent Auto 15.3 % (20-40); Mean Corpuscular HGB Conc 30.7 g/dl (31.0-36.0); Mean Corpuscular Hemoglobin 24.9 pg (27.0-33.0); Mean Corpuscular Volume 81.2 fL (80.0-98.0); Mean Platelet Volume 9.9 fL (9.4-12.4); Monocytes Absolute Auto 0.7 X10*3/uL (0.1-1.2); Monocytes Percent Auto 9.6 % (2-11); Neutrophils Absolute Auto 5.2 x10*3/uL (2.0-8.3); Neutrophils Percent Auto 71.2 % (45-73); Platelet Count 247 X10*3/uL (160-400); Red Blood Count 4.73 X10*6/uL (4.60-5.80); Red Cell Distribution Width 15.8 % (11.0-16.0); White Blood Count 7.3 X10*3/uL (4.8-10.8)
[2023-03-16 14:15] LABS: Erythrocyte Sedimentation Rate 44 MM/HR (0-15)
== END 2023-03-16 11:41 | disposition home or self-care (01) ==
LOC: HO.HMGCLDS 11:40
PROVIDERS: PCP Family Medicine; Visit Provider Family Medicine
DX: H40.9 Unspecified glaucoma (principal)
CPT/HCPCS: 36415; 85025; 85652

== ENCOUNTER 2023-04-04 11:30 | Outpatient (REF) | payer MEDICARE, SELFPAY ==
--- NOTE | ~2023-04-04 | XR_ITS ---
EXAMINATION: XR CHEST CLINICAL INFORMATION: Cough and SOB. COMPARISON: None available. TECHNIQUE: 2 views of the chest were obtained. FINDINGS: The lungs are hyperinflated but clear. Heart size and pulmonary vascularity is normal. There is mild spondylosis dorsal spine. There is a total left shoulder prosthesis in alignment. Median sternotomy sutures and nasal fide are seen from previous CABG. No gross bony abnormality seen. XR/XR chest 2V IMPRESSION: Hyperinflated lungs without acute process.
== END 2023-04-04 11:31 | disposition home or self-care (01) ==
LOC: HO.HMGCX 11:30
PROVIDERS: PCP Family Medicine; Visit Provider Family Medicine
DX: R05.9 Cough, unspecified (principal); R06.02 Shortness of breath
CPT/HCPCS: 71046

== ENCOUNTER 2023-05-13 11:34 | Outpatient (REF) | payer MEDICARE, SELFPAY ==
--- NOTE | ~2023-05-13 | XR_ITS ---
EXAMINATION: XR CHEST CLINICAL INFORMATION: Coughing and wheezing COMPARISON: 04/04/2023 TECHNIQUE: 2 views of the chest were obtained. FINDINGS: Lungs are well expanded and clear. No interstitial infiltrate, consolidation or pleural effusion. Cardiac silhouette is normal in size. The hilar contours are normal. Atherosclerotic calcification of the aorta. Sternotomy wires are intact, status post CABG. Normal alignment at the left shoulder status post reverse total shoulder arthroplasty. XR/XR chest 2V IMPRESSION: No evidence of pneumonia. No acute cardiopulmonary abnormality.
== END 2023-05-13 11:35 | disposition home or self-care (01) ==
LOC: HO.HMGCX 11:34
PROVIDERS: PCP Family Medicine; Visit Provider Family Medicine
DX: R06.2 Wheezing (principal); R05.9 Cough, unspecified; R06.02 Shortness of breath
CPT/HCPCS: 71046

== ENCOUNTER 2023-05-24 10:29 | Outpatient (AMB) | payer MEDICARE, SELFPAY ==
--- NOTE | 2023-05-24 10:35 | A.OFFVIS_ITS ---
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 Required: No Allergies No Known Allergies Allergy (Verified 11/18/22 13:06) Medication List - Last Reviewed 05/24/23 by NIMESH Jo amitriptyline 25 mg PO BEDTIME aspirin (Adult Low Dose Aspirin) 81 mg PO DAILY blood sugar diagnostic ([employer] Ver[employer] test strips) 1 strip miscellaneous TID clopidogrel 75 mg PO DAILY docusate sodium 100 mg PO BID doxazosin 8 mg PO BEDTIME dulaglutide (Trulicity) 1.5 mg (0.5 mL) subcut QWEEK ferrous sulfate (iron) 325 mg PO DAILY finasteride 5 mg PO BEDTIME furosemide 80 mg PO BID gabapentin 300 mg PO BID insulin regular hum U-500 conc (Humulin R U-500 (Concentrated) Insulin) 40 units with breakfast and 60 units with supper subcutaneously 2 times per day with meals; insulin U-500 syringe-needle (BD Insulin Syringe U-500) As directed injects 3 X/day ipratropium-albuterol 0.5 mg-3 mg(2.5 mg base)/3 mL 3 mL inhalation QID lancets As directed magnesium 250 mg PO DAILY metformin ER 500 mg PO BID metoprolol tartrate 25 mg PO BID multivitamin 1 tab PO DAILY omeprazole 20 mg PO BID@0630,1630 oxycodone-acetaminophen 5-325 mg (Percocet) 1 - 2 tabs PO Q4-6H PRN polyethylene glycol 3350 (Miralax) 17 grams PO DAILY sertraline 50 mg PO DAILY simvastatin 40 mg PO BEDTIME spironolactone 25 mg PO BID HPI HPI Comments History of Present Illness Details Hardik comes for follow-up. He denies any exertional chest discomfort. However is limited in activity level due to back issues and knee issues. He said when he walks long distances does get short of breath, has knee pain and b ack pain and he has to stop. He denies any symptoms of orthopnea, PND, leg edema. Weight has remained stable. Denies any prolonged palpitation irregular heartbeat. Takes all his medications. No lightheadedness, syncope. 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 Mother Cancer Social History Household Members: Spouse Housing: House Are you a primary career guidance counselor to a significant other at home: No Do you presently have visiting nurse or other home services: No Alcohol intake: never Comment: at bedside Patient Tobacco Use Status: Former Tobacco user Quit Date: 1986 Tobacco use type: Cigarette Years Smoked: 30 Advance Directives Date on File: 12/02/20 service: No Current occupational status: retired Review of Systems Const Denies chills, Denies fatigue, Denies fever(s), Denies frequent falls, Denies weakness, Denies weight gain and Denies weight loss ENT Denies dizziness Card Denies chest pain, Denies leg edema, Denies lightheadedness, Denies palpitations, Denies dyspnea, Denies dyspnea on exertion, Denies orthopnea and Denies other (loss of consciousness) Resp Denies cough, Denies dyspnea and Denies dyspnea on exertion GI Denies hematochezia and Denies change in stool character Musc Denies abnormal gait, Denies muscle weakness, Denies numbness, Denies radiating pain into limb and Denies tingling Neuro Denies abnormal gait, Denies dizziness, Denies frequent falls, Denies numbness, Denies tingling and Denies weakness Endo Denies fatigue and Denies palpitations Physical Exam Vital Signs: Last Vital Signs Pulse 66 05/24/23 10:36 BP 120/80 05/24/23 10:36 BMI result Body Mass Index 34.5 Const General: cooperative, comfortable, alert and awake Nutritional Appearance: obese Orientation/consciousness: patient oriented x3 Neck Neck: Yes trachea midline, Yes supple and Yes no JVD Chest Chest palpation & inspection: normal inspection of the chest and other (Well- healed sternotomy scar) Resp Effort & Inspection: normal respiratory effort Auscultation: clear to auscultation bilaterally and diminished lung sounds Cardio Jugular venous distension: no JVD Palpation: normal PMI Rate: regular rate Heart sounds: S1 normal heart sound present, S2 normal heart sound present and Other heart sounds present (S4 present) Skin General skin exam: no rashes or lesions noted Neuro General: patient oriented x3 and no focal motor deficits Extrem Other: Left arm in a sling General: Yes no clubbing, cyanosis or edema Assessment & Plan Assessment & Plan (1) CAD (coronary artery disease): Comment: stable coronary artery disease with remote surgical revascularization. status post 3 vessel coronary artery bypass grafting including CUELLAR to LAD and SVG to OM and RCA, June 2013 Code(s): I25.10 - Atherosclerotic heart disease of [place] coronary artery without angina pectoris Plan: CAD status post remote coronary artery bypass grafting. Follow-up vasodilating myocardial perfusion imaging as per recommendations in 5 months time to assess for graft patency. Patient has limited exercise capacity and exertional shortness of breath but this appears to be most likely related to deconditioning. Continue aggressive medical therapy including low-dose aspirin therapy for life. Importance of this was discussed. He is also on Plavix therapy from vascular perspective. This can be reconsidered. Continue aggressive risk factor modification. Continue high-intensity statin therapy with target goal LDL less than 70 mg/dL. Goal hemoglobin A1c less than 7%. Blood pressure is currently well optimized advised to monitor blood pressure at home maintain a log. (2) Diastolic dysfunction: Code(s): I51.89 - Other ill-defined heart diseases Plan: Patient with prior diastolic dysfunction with leg edema currently doing well on high-intensity diuretic therapy. No clinical signs or symptoms of heart failure. These were discussed. Importance of continue diuretic therapy was discussed. Importance of daily weight monitoring avoidance salt loading was discussed. Follow-up echocardiogram in 5 months time. Will follow up in the clinic in 6 months time, sooner p.r.n.. Thank you for allowing me to partake in his care Orders: Orders CA lexiscan stress w misti 5 Months Z95.1 - Presence of aortocoronary bypass graft CA echo transthoracic complete 5 Months I51.89 - Other ill-defined heart diseases Coding Level of Care Code Est Pt Level 4 (54333) Diagnoses CAD (coronary artery disease) I25.10 Diastolic dysfunction I51.89
[2023-05-24 10:36] VITALS: BP 120/80; PULSE 66; BMI 34.5
== END 2023-05-24 11:07 | disposition home or self-care (01) ==
PROVIDERS: PCP Family Medicine; Visit Provider Internal Medicine Cardiovascular Disease
DX: I25.10 Atherosclerotic heart disease of native coronary artery without angina pectoris (principal); I51.89 Other ill-defined heart diseases
CPT/HCPCS: 99214

== ENCOUNTER → 2023-05-24 10:29 | Outpatient (BNVA) | payer MEDICARE, SELFPAY | PROVIDERS: PCP Family Medicine; Visit Provider Internal Medicine Cardiovascular Disease | DX: I25.10 Atherosclerotic heart disease of native coronary artery without angina pectoris (principal); I51.89 Other ill-defined heart diseases; Z79.02 Long term (current) use of antithrombotics/antiplatelets; Z79.899 Other long term (current) drug therapy | CPT/HCPCS: 99212 ==

== ENCOUNTER 2023-06-24 09:53 | Outpatient (REF) | payer MEDICARE, SELFPAY ==
[2023-06-24 13:31] LABS: MANUAL DIFF FLAG NO
[2023-06-24 13:41] LABS: Basophils Percent Auto 0.4 % (0-2); Eosinophils Absolute Auto 0.2 X10*3/uL (0.0-0.4); Eosinophils Percent Auto 2.9 % (0-4); Estimated Average Glucose 137 mg/dL; Hematocrit 43.1 % (42.0-52.0); Hemoglobin 13.3 g/dl (14.0-18.0); Hemoglobin A1c % 6.4 % (<6.0); Imm Gran Abs Auto 0.03 X10*3/uL (0.00-0.03); Imm Gran Pct Auto 0.4 % (0.0-0.4); Lymphocytes Absolute Auto 0.9 X10*3/uL (1.2-4.9); Lymphocytes Percent Auto 12.3 % (20-40); Mean Corpuscular HGB Conc 30.9 g/dl (31.0-36.0); Mean Corpuscular Hemoglobin 25.4 pg (27.0-33.0); Mean Corpuscular Volume 82.4 fL (80.0-98.0); Mean Platelet Volume 9.8 fL (9.4-12.4); Monocytes Absolute Auto 0.7 X10*3/uL (0.1-1.2); Monocytes Percent Auto 9.8 % (2-11); Neutrophils Absolute Auto 5.2 x10*3/uL (2.0-8.3); Neutrophils Percent Auto 74.2 % (45-73); Platelet Count 227 X10*3/uL (160-400); Red Blood Count 5.23 X10*6/uL (4.60-5.80); Red Cell Distribution Width 16.5 % (11.0-16.0)
[2023-06-24 13:56] LABS: Alanine Aminotransferase 17 U/L (0-40); Anion Gap 15 (12-20); Aspartate Amino Transferase 23 U/L (5-37); Blood Urea Nitrogen 19 mg/dL (9-16); Carbon Dioxide 29 mmol/L (22-29); Chloride 100 mmol/L (96-108); Estimated Glomerular Filt Rate 40; Glucose Fasting 151 mg/dL (60-99); Iron 38 mcg/dL (45-160); Percent Iron Saturation 12 % (15-50); Sodium 140 mmol/L (135-145); Total Iron Binding Capacity 330 mcg/dL (228-428); Unsaturated Iron Binding 292 ug/dL
[2023-06-24 14:25] LABS: Creatinine Urine 83.55 mg/dL; Microalbum/Creatinine Ratio Ur 98.1 ug/mg cr (<30)
== END 2023-06-24 09:54 | disposition home or self-care (01) ==
LOC: HO.HMGCLDS 09:53
PROVIDERS: PCP Family Medicine; Visit Provider Family Medicine
DX: I10 Essential (primary) hypertension (principal); D64.9 Anemia, unspecified; E11.9 Type 2 diabetes mellitus without complications; E78.00 Pure hypercholesterolemia, unspecified; Z79.899 Other long term (current) drug therapy; Z66 Do not resuscitate
CPT/HCPCS: 36415; 80051; 82043; 82550; 82565; 82570; 82947; 83036; 83540; 84450; 84460; 84520; 85025

== ENCOUNTER → 2023-10-20 08:35 | Outpatient (REF) | payer MEDICARE, SELFPAY ==
--- NOTE | ~2023-10-20 | NM_ITS ---
Lexiscan Myocardial perfusion study Indication: Coronary disease, history of bypass surgery, assess for ischemia Technique: The patient was brought in for a Lexiscan perfusion study on 10/20/2023 and was injected 0.4 mg of Lexiscan intravenously. Within a minute of this injection 35 mCi of sestamibi was given intravenously. Images were obtained using the SPECT gamma camera interlaced with the gating device. Images were obtained in supine position. Resting perfusion study was performed on 10/25/2023. Patient was 35 mCi of sestamibi intravenously at rest. Images were then obtained in supine position. Images were processed with the software and compared side to side in short axis, horizontal long axis and vertical long axis views. Total DLP 162mGy-cm. Findings: Raw acquisition reviewed. Arms by the patient's side. The stress perfusion study showed diminished tracer uptake in the anterior apex; no major change with CT attenuation correction. The gated study shows normal LV systolic function with calculated LVEF of 58%. LV cavity is normal in size. The gated study shows normal wall thickening and contraction of segments. Resting study shows no significant perfusion abnormality. With CT attenuation correction, there is reduced uptake at the anterior apex and adjacent apex. Gating at rest reveals normal wall motion with ejection fraction at 52%. The findings are consistent with anteroapical perfusion defect with reversible/fixed components. NM/NM misti perf SPECT rest & str Impression: 1. Myocardial perfusion imaging study shows mixed ischemia/infarct pattern in the apical anterior wall; more towards fixed. 2. Gated LVEF is 58% during stress and 52% during rest. 3. Transient ischemic dilatation not present. EKG component of the test reported separately.
--- NOTE | 2023-10-20 08:38 | CA_ITS ---
Transthoracic Echocardiogram Patient (Last, First, Middle): Josr Hart, Gender: Male Date of : 1945 Age: 78 Procedure Date: 10/20/2023 Procedure Type: Transthoracic Echocardiogram Location: OP Height: 172.72 cm Weight: 107.5 kg BSA: 2.20 m2 Heart Rate: 60 bpm BP: 118 / 62 mmHg Bindery Production Manager: TO Referring MD: Jamir Cobb MD Insolvency Consultant: Jamir Cobb MD Symptoms: CAD, HFpEF Study Quality: Adequate w contrast ECG Rhythm: Sinus Conclusions: - 1. Normal LV ejection fraction of 60 65% with grade 2 diastolic dysfunction 2. Mild biatrial enlargement 3. Mild aortic stenosis 4. Upper limits of normal right ventricular systolic pressure with mildly elevated right atrial pressures 5. No gross pericardial effusion Findings Procedure Information Contrast agent, definity, is being given per protocol without apparent complications. Left Ventricle Normal left ventricular size, thickness, and systolic function. The visually estimated ejection fraction is between 60-65%. There is paradoxical septal motion consistent with post-operative status. Spectral Doppler is indicative of a pseudonormal filling pattern. E/E prime ratio is >15, consistent with elevated filling pressures. Evidence suggests grade II (moderate) diastolic dysfunction. Wall Motion Rest Echo Findings The basal inferior segment is hypokinetic. All other scored wall segments showed normal motion. Right Ventricle Mildly increased right ventricular cavity size. There is mildly decreased right ventricular systolic function. Atria Mild biatrial enlargement. Interatrial shunt cannot be excluded. Aortic Valve There is mild calcification of the aortic valve. There is mild thickening of the aortic valve. There is mild aortic valve stenosis. There is no aortic valve regurgitation. Mitral Valve There is mild anterior and moderate posterior mitral leaflet thickening. The posterior mitral leaflet has restricted mobility. There is moderate mitral annular calcification. There is trace mitral valve regurgitation. There is no mitral valve stenosis. Pulmonic Valve The pulmonic valve is likely normal. There is trace pulmonic valve regurgitation. Tricuspid Valve Normal tricuspid valve structure. There is mild tricuspid valve regurgitation. The right ventricular systolic pressure is 39 mmHg. Mildly elevated right atrial pressure. There is no evidence of pulmonary hypertension. Great Vessels All visible segments of the aorta are normal in size. The pulmonary artery was not well visualized. Small plaque is seen in the sino tubular ridge. Venous The inferior vena cava is mildly dilated and collapses greater than 50% with inspiration. Pericardium/Pleural There is no evidence of pericardial effusion. Prior Study Comparison Changes noted compared to prior study dated: 08/17/2022. mild aortic stenosis is noted Measurements 2D Linear Measurements IVSd: 0.93 0.6-0.9/0.6-1.0 cm LVIDd: 4.90 3.9-5.3/4.2-5.9 cm LVIDd Index: 2.23 2.4-3.2/2.2-3.1 cm/m2 LVIDs: 3.02 2.0-3.6 cm LVPWd: 0.93 0.7-1.1 cm LA Diam: 4.60 2.7-3.8/3.0-4.0 cm LAIDs Index: 2.09 1.5-2.3 cm/m2 LV Mass: 198.92 67-162/88-224 g LV Mass Index: 90.42 43-95/49-115 g/m2 LVOT Diam: 2.20 3.0+(-)1.3 cm 2D Systolic Function EF 4C: 63.10 >55% EF 2C: 56.40 >55% EF BiP: 59.50 >55% Mitral Valve MV VTI: 0.39 MV Pk Maninder: 1.10 MV Mn Maninder: 0.53 MV Pk Grad: 5.00 MV Mn Grad: 1.00 MV Pk E: 0.93 MV PK A: 0.60 MV Decel Time: 198.00 E/A: 1.50 E'Lateral: 7.18 E'Medial: 7.29 E/E' Med: 12.80 E/E' Lat: 13.00 PHT: 58.00 MVA PHT: 3.79 MVA Continuity: 1.88 Decel [place]: 4.70 Aortic Valve AoV Pk Maninder: 1.77 AoV Mn Maninder: 1.29 AoV VTI: 0.41 AoV Pk Grad: 13.00 Aov Mn Grad: 7.00 WHITNEY Cont.VTI: 1.80 LVOT LVOT Pk Maninder: 0.92 LVOT Mn Manidner: 0.56 LVOT VTI: 0.19 LVOT Pk Grad: 3.00 LVOT Mn Grad: 2.00 LVOT Diam: 2.20 LVOT Area: 3.80 Diastolic Function MV Pk E: 0.93 MV Pk A: 0.60 E/A: 1.50 E'Medial: 7.29 E/E' Med: 12.80 E' Laterial: 7.18 E/E' Lat: 13.00 Right Ventricle TAPSE (mm): 16.60 TVS' Maninder: 10.80 Tricuspid Valve TR Pk Maninder: 2.80 TR Pk Grad: 31.00 RA Press: 8.00 RVSP: 39.00 Great Vessels Aorta Sinus of Valsalva: 3.54 2.0-3.5 cm Ao Asc: 3.20 2.1-3.4 cm Updated in Other Vendor System with Status of Final Jamir Cobb MD electronically signed on 10/20/2023 12:04:10 PM with status of Final
--- NOTE | 2023-10-20 08:38 | CA_ITS ---
Acquisition Time: 2023-10-20 09:59:36 Total Exercise Time: 00:02:00 Test Indications: SOB, CARDIAC BYPASS GRAFT Medications: SEE H Protocol: LEXISCAN Max HR: 068 BPM 48% of Pred: 140 BPM Max BP: 124/060 mmHG Max Work Load: 1.0 METS Pharmacological stress test with lexiscan injection, while sitting and kicking his legs, without anginal symptoms, with isolated PVC, with normotensive response to injection, with nondiagnostic EKG for ischemia. In recovery he reported feeling woozy and was treated with Aminophylline 75mg IVP to reverse Lexiscan with resolution of symptom. Nuclear images pending. Test reviewed with Dr Martinez. Referred By: Jamir Cobb Overread By: ANDREZ DICK
== END ==
LOC: HO.CARD 08:35
PROVIDERS: PCP Family Medicine; Visit Provider Internal Medicine Cardiovascular Disease
DX: Z95.1 Presence of aortocoronary bypass graft (principal); I51.89 Other ill-defined heart diseases
CPT/HCPCS: 78452; 93017; 93306; A9500; J0280; J2785; Q9957

== ENCOUNTER → 2023-10-20 08:38 | Outpatient (BNV) | payer MEDICARE, SELFPAY | PROVIDERS: PCP Family Medicine; Visit Provider Internal Medicine Cardiovascular Disease | DX: I25.10 Atherosclerotic heart disease of native coronary artery without angina pectoris (principal); Z95.1 Presence of aortocoronary bypass graft | CPT/HCPCS: 78452; 93016; 93018; 93320; 93325; 93350; 93352 ==

== ENCOUNTER 2023-11-24 14:33 | Outpatient (AMB) | payer MEDICARE, SELFPAY ==
[2023-11-24 14:35] VITALS: BP 122/80; PULSE 64; BMI 34.9
--- NOTE | 2023-11-24 14:35 | A.OFFVIS_ITS ---
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: No Allergies No Known Allergies Allergy (Verified 11/18/22 13:06) Medication List - Last Reconciled 11/24/23 by Jamir Cobb MD amitriptyline 25 mg PO BEDTIME aspirin (Adult Low Dose Aspirin) 81 mg PO DAILY blood sugar diagnostic ([employer] Verio test strips) 1 strip miscellaneous TID clopidogrel 75 mg PO DAILY docusate sodium 100 mg PO BID doxazosin 8 mg PO BEDTIME dulaglutide (Trulicity) 1.5 mg (0.5 mL) subcut QWEEK ferrous sulfate (iron) 325 mg PO DAILY finasteride 5 mg PO BEDTIME furosemide 80 mg PO BID gabapentin 300 mg PO BID insulin regular hum U-500 conc (Humulin R U-500 (Concentrated) Insulin) 40 units with breakfast and 60 units with supper subcutaneously 2 times per day with meals; insulin U-500 syringe-needle (BD Insulin Syringe U-500) As directed injects 3 X/day ipratropium-albuterol 0.5 mg-3 mg(2.5 mg base)/3 mL 3 mL inhalation QID lancets As directed magnesium 250 mg PO DAILY metformin ER 500 mg PO BID metoprolol tartrate 25 mg PO BID multivitamin 1 tab PO DAILY omeprazole 20 mg PO BID@0630,1630 oxycodone-acetaminophen 5-325 mg (Percocet) 1 - 2 tabs PO Q4-6H PRN polyethylene glycol 3350 (Miralax) 17 grams PO DAILY sertraline 50 mg PO DAILY simvastatin 40 mg PO BEDTIME spironolactone 25 mg PO BID HPI Comments Details: Hardik comes for follow-up. Recent myocardial perfusion imaging for surveillance did not show any significant myocardial ischemia but showed small area of infarct. This is probably around the time of surgery. He denies any symptoms of angina. He has been losing weight regularly. No recent lipid panel. Denies any shortness of breath, orthopnea, PND. No leg edema. Taking all his medications regularly. Denies any prolonged palpitation irregular heartbeat. 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 Mother Cancer Social History Household Members: Spouse Housing: House Are you a primary nursing care partner to a significant other at home: No Do you presently have visiting nurse or other home services: No Alcohol intake: never Comment: at bedside Patient Tobacco Use Status: Former Tobacco user Tobacco use type: Cigarette Years Smoked: 30 Advance Directives Date on File: 12/02/20 service: No Current occupational status: retired Review of Systems Const Denies chills, Denies fatigue, Denies fever(s), Denies frequent falls, Denies weakness, Denies weight gain and Denies weight loss ENT Denies dizziness Card Denies chest pain, Denies leg edema, Denies lightheadedness, Denies palpitations, Denies dyspnea, Denies dyspnea on exertion, Denies orthopnea and Denies other (loss of consciousness) Resp Denies cough, Denies dyspnea and Denies dyspnea on exertion GI Denies hematochezia and Denies change in stool character Musc Denies abnormal gait, Denies muscle weakness, Denies numbness, Denies radiating pain into limb and Denies tingling Neuro Denies abnormal gait, Denies dizziness, Denies frequent falls, Denies numbness, Denies tingling and Denies weakness Endo Denies fatigue and Denies palpitations Physical Exam Vital Signs: Last Vital Signs Pulse 64 11/24/23 14:35 BP 122/80 11/24/23 14:35 BMI result Body Mass Index 34.9 Const General: cooperative, comfortable, alert and awake Nutritional Appearance: obese Orientation/consciousness: patient oriented x3 Neck Neck: Yes trachea midline, Yes supple and Yes no JVD Chest Chest palpation & inspection: normal inspection of the chest and other (Well- healed sternotomy scar) Resp Effort & Inspection: normal respiratory effort Auscultation: clear to auscultation bilaterally and diminished lung sounds Cardio Jugular venous distension: no JVD Palpation: normal PMI Rate: regular rate Heart sounds: S1 normal heart sound present, S2 normal heart sound present and Other heart sounds present (S4 present) Skin General skin exam: no rashes or lesions noted Neuro General: patient oriented x3 and no focal motor deficits Extrem Other: Left arm in a sling General: Yes no clubbing, cyanosis or edema Assessment & Plan Assessment & Plan (1) CAD (coronary artery disease): Comment: stable coronary artery disease with remote surgical revascularization. status post 3 vessel coronary artery bypass grafting including CUELLAR to LAD and SVG to OM and RCA, June 2013 Code(s): I25.10 - Atherosclerotic heart disease of [place] coronary artery without angina pectoris Category: Medical Plan: Stable CAD with prior coronary artery bypass grafting 2013 with recent myocardial perfusion imaging showing no significant ischemia with a small area of defect suggestive of prior CA. no symptoms of angina. No symptoms of heart failure. Clinically doing very well. Continue Plavix therapy given his prior TIA. Continue aggressive blood pressure control which is currently well optimized. Continue aggressive diabetes management which is being pursue through office. Goal hemoglobin A1c less than 7%. Advised lipid panel in near future to target goal LDL less than 70 mg/dL and triglycerides less than 200 mg/dL. Further treatment based on the findings. Continue current high- intensity statin therapy. Blood pressure is well optimized. Advised to monitor blood pressure at home maintain a log. Goal blood pressure less than 130/84. Discussed with him about regular physical activity and continued weight loss program. He understands agrees. Will follow up in the clinic in 1 year's time, sooner p.r.n.. Thank you for allowing me to partake in his Coding Level of Care Code Est Pt Level 4 (18309) Diagnoses CAD (coronary artery disease) I25.10
== END 2023-11-24 14:53 | disposition home or self-care (01) ==
PROVIDERS: PCP Family Medicine; Referring Provider Family Medicine; Visit Provider Internal Medicine Cardiovascular Disease
DX: I25.10 Atherosclerotic heart disease of native coronary artery without angina pectoris (principal)
CPT/HCPCS: 99214

== ENCOUNTER → 2023-11-24 14:33 | Outpatient (BNVA) | payer MEDICARE, SELFPAY | PROVIDERS: PCP Family Medicine; Visit Provider Internal Medicine Cardiovascular Disease | DX: I25.10 Atherosclerotic heart disease of native coronary artery without angina pectoris (principal) | CPT/HCPCS: 99212 ==

== ENCOUNTER 2023-12-17 09:29 | Outpatient (REF) | payer MEDICARE, SELFPAY ==
--- NOTE | ~2023-12-17 | XR_ITS ---
EXAMINATION: XR CHEST CLINICAL INFORMATION: Shortness of breath COMPARISON: 05/13/2023 TECHNIQUE: 2 views of the chest were obtained. FINDINGS: Lungs are well expanded and without acute disease. No evidence of pulmonary edema, pleural effusion or pneumothorax. Cardiac silhouette has normal size and contour, status post coronary artery bypass graft surgery. Normal alignment at the left shoulder, status post reverse total shoulder arthroplasty. XR/XR chest 2V IMPRESSION: No evidence of acute cardiopulmonary disease.
[2023-12-17 11:16] LABS: Estimated Average Glucose 154 mg/dL
[2023-12-17 11:29] LABS: Anion Gap 18 (12-20); Blood Urea Nitrogen 16 mg/dL (9-16); Carbon Dioxide 29 mmol/L (22-29); Chloride 100 mmol/L (96-108); Potassium 3.8 mmol/L (3.3-5.1); Sodium 143 mmol/L (135-145)
[2023-12-17 11:30] LABS: Alanine Aminotransferase 17 U/L (0-40); Aspartate Amino Transferase 26 U/L (5-37); Estimated Glomerular Filt Rate 42
[2023-12-17 12:20] LABS: Glucose Fasting 48 mg/dL (60-99)
== END 2023-12-17 09:30 | disposition home or self-care (01) ==
LOC: HO.HMGCX 09:29
PROVIDERS: PCP Family Medicine; Visit Provider Family Medicine
DX: R06.02 Shortness of breath (principal); E11.9 Type 2 diabetes mellitus without complications; I10 Essential (primary) hypertension; E78.00 Pure hypercholesterolemia, unspecified; Z79.899 Other long term (current) drug therapy
CPT/HCPCS: 36415; 71046; 80051; 82550; 82565; 82947; 83036; 84450; 84460; 84520

== ENCOUNTER 2024-01-04 10:18 | Outpatient (REF) | payer MEDICARE, SELFPAY ==
--- NOTE | ~2024-01-04 | XR_ITS ---
EXAMINATION: XR KNEE, LEFT CLINICAL INFORMATION: Pain COMPARISON: None available. TECHNIQUE: Three views of the left knee. FINDINGS: Tricompartment marginal osteophytes. Severe medial compartment joint space narrowing. Mild-moderate patellofemoral compartment narrowing. No acute fracture or dislocation. Small suprapatellar joint fluid. Vascular calcification. XR/XR knee LT 3V IMPRESSION: Tricompartment osteoarthritis. Severe medial compartment arthritis. Electronically signed by: Fred Lopez MD 01/10/2024 12:44 PM EDT
== END 2024-01-04 10:19 | disposition home or self-care (01) ==
LOC: HO.HOSX 10:18
PROVIDERS: PCP Family Medicine; Visit Provider Orthopaedic Surgery
DX: M17.12 Unilateral primary osteoarthritis, left knee (principal)
CPT/HCPCS: 73562; 99202

== ENCOUNTER 2024-01-04 11:12 | Outpatient (AMB) | payer MEDICARE, SELFPAY ==
[2024-01-04 11:16] VITALS: BMI 34.8
--- NOTE | 2024-01-04 11:16 | A.OFFVIS_ITS ---
Vital Signs 01/04/24 11:16 Height 5 ft 8 in Weight 229 lb BMI 34.8 Intake Visit Reasons: Left knee pain Intake Note: Mr. Hart is an 78-year-old male who presents with complaints of progressively worsening left knee pain. He describes his pain as sharp and severe in nature, /. His pain has gotten worse over the last few years in spite of continued non operative treatments. He has tried Tylenol and anti- inflammatory medicines which gave him minimal relief. He has had multiple injections. The most recent injection gave him no relief. The patient has dif ficulty walking even short distances because of his pain. At this point is left knee pain is interfering with his activities of daily living and his ability to sleep well through the night. Allergies No Known Allergies Allergy (Verified 01/04/24 11:16) Medication List - Last Reconciled 01/04/24 by Virgilio Luz MD amitriptyline 25 mg PO BEDTIME aspirin (Adult Low Dose Aspirin) 81 mg PO DAILY blood sugar diagnostic ([employer]Touch Verio test strips) 1 strip miscellaneous TID clopidogrel 75 mg PO DAILY docusate sodium 100 mg PO BID doxazosin 8 mg PO BEDTIME dulaglutide (Trulicity) 1.5 mg (0.5 mL) subcut QWEEK ferrous sulfate (iron) 325 mg PO DAILY finasteride 5 mg PO BEDTIME furosemide 80 mg PO BID gabapentin 300 mg PO BID insulin regular hum U-500 conc (Humulin R U-500 (Concentrated) Insulin) 40 units with breakfast and 60 units with supper subcutaneously 2 times per day with meals; insulin U-500 syringe-needle (BD Insulin Syringe U-500) As directed injects 3 X/day ipratropium-albuterol 0.5 mg-3 mg(2.5 mg base)/3 mL 3 mL inhalation QID lancets As directed magnesium 250 mg PO DAILY metformin ER 500 mg PO BID metoprolol tartrate 25 mg PO BID multivitamin 1 tab PO DAILY omeprazole 20 mg PO BID@0630,1630 oxycodone-acetaminophen 5-325 mg (Percocet) 1 - 2 tabs PO Q4-6H PRN polyethylene glycol 3350 (Miralax) 17 grams PO DAILY sertraline 50 mg PO DAILY simvastatin 40 mg PO BEDTIME spironolactone 25 mg PO BID [facility] Medical History 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 Cataract Abscess Diastolic dysfunction Drainage from surgical wound Anemia Peptic ulcer GERD (gastroesophageal reflux disease) Depression TIA (transient ischemic attack) History of snoring COVID-19 vaccine series completed Cecum mass COPD (chronic obstructive pulmonary disease) case management patient Dyslipidemia half-way (current) use of insulin CKD (chronic kidney disease) stage 3, GFR 30-59 ml/min Diabetic nephropathy associated with type 2 diabetes mellitus Diabetes type 2, uncontrolled Hyperlipidemia Morbid obesity HTN (hypertension) CAD (coronary artery disease) Surgical History Hx of CABG Hx of cataract extraction History of colon resection Hx of umbilical hernia repair History of esophagogastroduodenoscopy (EGD) Hx of rotator cuff surgery Hx of shoulder replacement Hx of knee surgery Hx of colonoscopy Family History Father No problems noted. Mother Cancer Social History Household Members: Spouse Housing: House Are you a primary transitions rn care coordinator to a significant other at home: No Do you presently have visiting nurse or other home services: No Alcohol intake: never Comment: at bedside Patient Tobacco Use Status: Former Tobacco user Tobacco use type: Cigarette Years Smoked: 30 Advance Directives Date on File: 12/02/20 service: No Current occupational status: retired Physical Exam Vital Signs: BMI result Body Mass Index 34.8 Const Other: Well-nourished well-developed very friendly male awake alert and oriented x3 in no acute distress Extrem Other: Bilateral lower extremity examination shows good capillary refill, no skin lesions noted, normal sensation light touch Left knee examination shows a minimal effusion, palpable crepitus with range of motion, pain with range of motion, range of motion from -3 degrees to 115 degrees, no instability Results Reviewed Results Reviewed: X-rays of the patient's left knee show end-stage degenerative joint disease with grade 4 [id number] arthritis, subchondral sclerosis, osteophyte formation, no acute bony abnormalities Assessment & Plan Assessment & Plan (1) Left knee pain: Code(s): M25.562 - Pain in left knee Category: Medical (2) Osteoarthritis of left knee: Code(s): M17.12 - Unilateral primary osteoarthritis, left knee Category: Medical Plan Mr. Hart presents with progressively worsening left knee pain due to end- stage degenerative joint disease. I had a lengthy discussion with the patient regarding the treatment options. At this point he has failed continued non operative treatments. The risks and benefits of left total knee replacement surgery were discussed at length with the patient. The patient wishes proceed with surgery. He will contact my office to pick a surgery date. I will see him back 1 week prior to his surgery to answer any final questions that he might have. Feel free to call me at any time should questions regarding his orthopedic management arise. Thank you very much for asking me to see this very friendly gentleman. I spent 21 minutes in reviewing the patient's records and imaging studies, seeing the patient and documenting in the medical record. Orders: Orders XR knee LT 3V 01/04/24 M25.562 - Pain in left knee Coding Level of Care Code New Pt Level 3 (23333) Complex EM visit Add On G2211 Diagnoses Left knee pain M25.562 Osteoarthritis of left knee M17.12
== END 2024-01-04 11:47 | disposition home or self-care (01) ==
PROVIDERS: PCP Family Medicine; Visit Provider Orthopaedic Surgery
DX: M17.12 Unilateral primary osteoarthritis, left knee (principal); M25.562 Pain in left knee
CPT/HCPCS: 99204; G2211

== ENCOUNTER → 2024-03-26 08:51 | Outpatient (BNVA) | payer MEDICARE, SELFPAY | PROVIDERS: PCP Family Medicine | DX: Z01.818 Encounter for other preprocedural examination (principal) ==

== ENCOUNTER 2024-04-02 | Outpatient (REF) | payer MEDICARE, SELFPAY ==
[2024-04-02 12:12] VITALS: BP 123/58; PULSE 60; RESP 16; O2SAT 96; BMI 36.5
--- NOTE | 2024-04-02 12:48 | HO.ANESPROP2 ---
HPI - Anesthesia Eval Consult details Narrative: 78yo M for Left Knee Replacement Total, 04/30/24 No recent illness No CP. ECKERT with walking from main entrance CAD: s/p CABG x 3 2013. Follows with [facility] cardiology. Stable at last office visit 10/2023 with routine yearly f/u COPD: follows PC only. Nebulizer prn, using ~ monthly for a couple of days. Instructed use 3 days preop +STOP Bang with ? hx JULIETTE dx. Educated on post-op risks and encouraged future sleep study. Anesthesia Pre-Procedure Meds Is the patient on any of the following meds?: GLP1/DPP4 PMFSH Active Problems Active Problems: All Active Problems Osteoarthritis of left knee (Acute) Left knee pain (Acute) Varicose veins of left lower extremity with inflammation (Acute) Cellulitis of right leg (Acute) Varicose veins of right lower extremity with inflammation (Acute) Open abdominal incision with drainage (Acute) Acute renal failure superimposed on stage 3 chronic kidney disease (Acute) S/P right colectomy (Acute) Traumatic injury of back (Acute) GIB (gastrointestinal bleeding) (Acute) Preoperative cardiovascular examination (Acute) Hx of CABG (Acute) 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 (Acute) Abscess (Acute) Diastolic dysfunction (Acute) CAD (coronary artery disease) (Acute) Drainage from surgical wound (Acute) Diabetic nephropathy associated with type 2 diabetes mellitus (Acute) Past Medical History Medical History (Updated 04/02/24 @ 12:36 by Val Reno, RN) Personal history of COVID-19 (~04/2023) [place] (hard of hearing) 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 Cataract Abscess Diastolic dysfunction Drainage from surgical wound Anemia Peptic ulcer GERD (gastroesophageal reflux disease) Depression TIA (transient ischemic attack) History of snoring COVID-19 vaccine series completed Cec[place] mass COPD (chronic obstructive pulmonary disease) case management patient 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 Mother Cancer Family history of problems with anesthesia: No Surgical History Surgical History (Updated 03/28/24 @ 11:21 by Val Reno RN) Hx of cataract extraction History of colon resection Hx of umbilical hernia repair History of esophagogastroduodenoscopy (EGD) Hx of rotator cuff surgery Hx of shoulder replacement Hx of knee surgery Hx of colonoscopy Hx of CABG History of Problems with Anesthesia: No Social History Social History (Updated 04/02/24 @ 12:37 by Val Reno RN) Household Members: Spouse Housing: House Are you a primary adult daycare coordinator to a significant other at home: No Do you presently have visiting nurse or other home services: No 75 years or older and lives alone: No Alcohol intake: never Comment: aware of trip hazard Patient Tobacco Use Status: Former Tobacco user Tobacco use type: Cigarette Years Smoked: 30 Use of substances other than those prescribed or required for medical reasons: No Advance Directives: Yes Advance Directives Information Provided: No Advance Directives on File: Yes Advance Directives Date on File: 12/02/20 Healthcare Proxy: Yes service: No Current occupational status: retired Meds Allergies Allergy/AdvReac Type Severity Reaction Status Date / Time No Known Allergies Allergy Verified 03/28/24 11:15 Home Medications ?Medication ?Instructions ?Recorded ?Confirmed ?Last Taken ?Type aspirin 81 mg tablet,delayed 81 mg PO DAILY 02/25/20 03/28/24 12/08/20 History release (Adult Low Dose Aspirin) doxazosin 8 mg tablet 8 mg PO BEDTIME 02/25/20 03/28/24 11/03/20 History finasteride 5 mg tablet 5 mg PO BEDTIME 02/25/20 03/28/24 11/03/20 History furosemide 80 mg tablet 80 mg PO BID 02/25/20 03/28/24 11/04/20 History magnesium 250 mg tablet 250 mg PO DAILY 02/25/20 03/28/24 11/04/20 History sertraline 50 mg tablet 50 mg PO DAILY 02/25/20 03/28/24 09/21/21 History simvastatin 40 mg tablet 40 mg PO BEDTIME 02/25/20 03/28/24 11/03/20 History spironolactone 25 mg tablet 25 mg PO BID 02/25/20 03/28/24 11/04/20 History amitriptyline 25 mg tablet 25 mg PO BEDTIME 03/05/20 03/28/24 11/03/20 History lancets 33 gauge #100 ea 03/11/20 01/04/24 Unknown History gabapentin 300 mg capsule 300 mg PO BID 08/25/20 03/28/24 09/21/21 History docusate sodium 100 mg capsule 100 mg PO BID 11/04/20 03/28/24 11/04/20 History ipratropium 0.5 mg-albuterol 3 mg 3 ml inhalation QID PRN Wheezing 11/04/20 03/28/24 12/09/20 History (2.5 mg base)/3 mL nebulization soln multivitamin 1 tab PO DAILY 12/02/20 03/28/24 Unknown History polyethylene glycol 3350 17 gram 17 g PO DAILY PRN Constipation 12/02/20 03/28/24 Unknown History oral powder packet (Miralax) ferrous sulfate 325 mg (65 mg 325 mg PO DAILY 05/13/22 03/28/24 Unknown History iron) tablet (iron) metoprolol tartrate 25 mg tablet 25 mg PO BID 05/24/23 03/28/24 Unknown History semaglutide 0.25 mg or 0.5 mg (2 0.5 mg subcut .QSUNDAY 03/26/24 04/02/24 Unknown History mg/3 mL) subcutaneous pen injector (Ozempic) Exam Height,Weight and Vital Signs: Height 5 ft 8 in Weight 108.862 kg Last Vital Signs Pulse 60 04/02/24 12:12 Resp 16 04/02/24 12:12 BP 123/58 L 04/02/24 12:12 Pulse Ox 96 04/02/24 12:12 O2 Del Method Room Air 04/02/24 12:12 Narrative Narrative: EKG 04/2024 ECHO 10/2023 Conclusions: - 1. Normal LV ejection fraction of 60 65% with grade 2 diastolic dysfunction 2. Mild biatrial enlargement 3. Mild aortic stenosis 4. Upper limits of normal right ventricular systolic pressure with mildly elevated right atrial pressures 5. No gross pericardial effusion NM misti perf SPECT rest & str 10/2023 Impression: 1. Myocardial perfusion imaging study shows mixed ischemia/infarct pattern in the apical anterior wall; more towards fixed. 2. Gated LVEF is 58% during stress and 52% during rest. 3. Transient ischemic dilatation not present. EKG component of the test reported separately. Airway Mallampati Class: III TM Dist: >3cm Neck ROM: Full Denture: Upper Loose/Missing/Broken Teeth: Yes (Edentulous) Heart: RRR Lungs: CTAB Assessment and Plan Assessment Anesthesia Assessment: Anesthesia Plan Discussed and PAT Visit Final Anesthetic Review Family History of Problems with Anesthesia: No History of Problems with Anesthesia: No
[2024-04-02 16:54] LABS: MRSA Nasal PCR NEGATIVE (Negative); SA Nasal PCR POSITIVE (Negative)
== END 2024-04-02 00:01 | disposition home or self-care (01) ==
LOC: HO.PAT
PROVIDERS: Physician Assistant; PCP Family Medicine; Visit Provider Orthopaedic Surgery
DX: Z01.818 Encounter for other preprocedural examination (principal); M17.12 Unilateral primary osteoarthritis, left knee
CPT/HCPCS: 87640; 87641

== ENCOUNTER 2024-04-03 10:08 | Outpatient (REF) | payer MEDICARE, SELFPAY ==
--- NOTE | 2024-04-03 10:18 | ECG_ITS ---
Test Reason : sob Blood Pressure : / mmHG Vent. Rate : 054 BPM Atrial Rate : 054 BPM P-R Int : 220 ms QRS Dur : 136 ms QT Int : 490 ms P-R-T Axes : 000 -23 042 degrees QTc Int : 464 ms Sinus bradycardia with sinus arrhythmia Left bundle branch block Abnormal ECG When compared with ECG of 19-SEP-2021 19:40, Premature atrial complexes are no longer Present Left bundle branch block is now Present Referred By: Leon Joyner Electronically Signed By:Nasim Martinez
[2024-04-03 10:54] LABS: Mean Corpuscular Hemoglobin 26.4 pg (27.0-33.0); PLT CLUMP 1; SCAN SMEAR FLAG 1
[2024-04-03 10:56] LABS: Basophils Absolute Auto 0.1 X10*3/uL (0.0-0.2); Basophils Percent Auto 0.6 % (0-2); Eosinophils Absolute Auto 0.2 X10*3/uL (0.0-0.4); Eosinophils Percent Auto 2.2 % (0-4); Hematocrit 43.2 % (42.0-52.0); Hemoglobin 13.4 g/dl (14.0-18.0); Imm Gran Abs Auto 0.06 X10*3/uL (0.00-0.03); Imm Gran Pct Auto 0.7 % (0.0-0.4); MANUAL DIFF FLAG SCAN; Monocytes Absolute Auto 0.8 X10*3/uL (0.1-1.2); Monocytes Percent Auto 8.7 % (2-11); Neutrophils Absolute Auto 6.7 x10*3/uL (2.0-8.3); Neutrophils Percent Auto 76.8 % (45-73); Red Blood Count 5.08 X10*6/uL (4.60-5.80); Red Cell Distribution Width 14.6 % (11.0-16.0)
[2024-04-03 11:00] LABS: Estimated Average Glucose 169 mg/dL; Hemoglobin A1C 194.2981 umol/L; Hemoglobin A1c % 7.5 % (<6.0); Total Hemoglobin (HGBA1C) 3317.8263 umol/L
[2024-04-03 11:45] LABS: White Blood Count 8.7 X10*3/uL (4.8-10.8)
[2024-04-03 11:46] LABS: SLIDE REVIEW VERIFIED
[2024-04-03 11:53] LABS: Alanine Aminotransferase 33 U/L (0-40); Albumin Level 4.4 g/dL (3.5-5.0); Anion Gap 17 (12-20); Aspartate Amino Transferase 46 U/L (5-37); Bilirubin Total 0.5 mg/dL (0.0-1.0); Blood Urea Nitrogen 28 mg/dL (9-16); Calcium 9.8 mg/dL (8.4-10.2); Carbon Dioxide 30 mmol/L (22-29); Chloride 98 mmol/L (96-108); Estimated Glomerular Filt Rate 31; Glucose Fasting 80 mg/dL (60-99); Potassium 4.6 mmol/L (3.3-5.1); Sodium 140 mmol/L (135-145); Total Protein 7.5 g/dL (6.5-8.0)
[2024-04-03 12:35] LABS: Alkaline Phosphatase 107 U/L (39-117)
== END 2024-04-03 10:09 | disposition home or self-care (01) ==
LOC: HO.LAB 10:08
PROVIDERS: PCP Family Medicine; Visit Provider Family Medicine
DX: R06.02 Shortness of breath (principal); Z13.1 Encounter for screening for diabetes mellitus
CPT/HCPCS: 36415; 80053; 83036; 85025; 93005

== ENCOUNTER → 2024-04-03 10:18 | Outpatient (BNV) | payer MEDICARE, SELFPAY | PROVIDERS: PCP Family Medicine; Visit Provider Internal Medicine Cardiovascular Disease | DX: R00.1 Bradycardia, unspecified (principal); R06.02 Shortness of breath; R94.31 Abnormal electrocardiogram [ECG] [EKG] | CPT/HCPCS: 93010 ==

== ENCOUNTER 2024-04-05 13:00 | Outpatient (AMB) | payer MEDICARE, SELFPAY ==
[2024-04-05 13:18] VITALS: BP 116/78; PULSE 61; BMI 37.2
--- NOTE | 2024-04-05 13:18 | MHC.OFFVIS ---
Vital Signs 04/05/24 13:18 Height 5 ft 8 in Weight 244 lb 11.41 oz BMI 37.2 BP 116/78 Blood Pressure Location Lt brachial Position Sitting Pulse 61 Intake Visit Reasons: preop/ [place]/ tknee/ new lbbb Intake Note: Pre-op TKN replacement 04/20 with new LBBB ekg today feeling good Forestry Biology Specialist Required: No Lighting Engineering Technician: Lighting Engineering Technician Present Accompanied by: Spouse Allergies No Known Allergies Allergy (Verified 03/28/24 11:15) Medication List - Last Reconciled 04/05/24 by Jamir Cobb MD amitriptyline 25 mg PO BEDTIME aspirin (Adult Low Dose Aspirin) 81 mg PO DAILY blood sugar diagnostic (GMEX Verio test strips) 1 strip miscellaneous TID docusate sodium 100 mg PO BID doxazosin 8 mg PO BEDTIME dulaglutide (Trulicity) mg subcut ferrous sulfate (iron) 325 mg PO DAILY finasteride 5 mg PO BEDTIME furosemide 80 mg PO BID gabapentin 300 mg PO BID insulin regular hum U-500 conc (Humulin R U-500 (Concentrated) Insulin) 35 units with breakfast and 60 units with supper subcutaneously 2 times per day with meals; insulin U-500 syringe-needle (BD Insulin Syringe U-500) As directed injects 3 X/day ipratropium-albuterol 0.5 mg-3 mg(2.5 mg base)/3 mL 3 mL inhalation QID PRN lancets As directed magnesium 250 mg PO DAILY metformin ER 500 mg PO BID metoprolol tartrate 25 mg PO BID multivitamin 1 tab PO DAILY omeprazole 20 mg PO BID@0630,1630 oxycodone-acetaminophen 5-325 mg (Percocet) 1 - 2 tabs PO Q4-6H PRN polyethylene glycol 3350 (Miralax) 17 grams PO DAILY PRN sertraline 50 mg PO DAILY simvastatin 40 mg PO BEDTIME spironolactone 25 mg PO BID walker Folding front wheeled walker HPI Comments Details: Hardik comes for follow-up. He has no new cardiac symptoms. He is scheduled to undergo left knee replacement surgery in near future due to markedly limited activity level related to arthritis in his knee. He has no new cardiac symptoms. As you recall he had a myocardial perfusion imaging in September which had shown small area of mixed ischemia infarction distal septum apical area with a small area of involvement. He also had an echocardiogram which showed normal LV ejection fraction with grade 2 diastolic dysfunction with mild aortic stenosis. He has no new symptoms whatsoever. However he has limited activity level due to his arthritis. Takes all his medications. No orthopnea, PND, leg edema. No lightheadedness, syncope, prolonged palpitation. 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 Mother Cancer Social History Household Members: Spouse Housing: House Are you a primary director of managed care to a significant other at home: No Do you presently have visiting nurse or other home services: No 75 years or older and lives alone: No Alcohol intake: never Comment: aware of trip hazard Patient Tobacco Use Status: Former Tobacco user Tobacco use type: Cigarette Years Smoked: 30 Advance Directives Date on File: 12/02/20 service: No Current occupational status: retired Review of Systems Const Denies chills, Denies fatigue, Denies fever(s), Denies frequent falls, Denies weakness, Denies weight gain and Denies weight loss ENT Denies dizziness Card Denies chest pain, Denies leg edema, Denies lightheadedness, Denies palpitations, Denies dyspnea, Denies dyspnea on exertion, Denies orthopnea and Denies other (loss of consciousness) Resp Denies cough, Denies dyspnea and Denies dyspnea on exertion GI Denies hematochezia and Denies change in stool character Musc Denies abnormal gait, Denies muscle weakness, Denies numbness, Denies radiating pain into limb and Denies tingling Neuro Denies abnormal gait, Denies dizziness, Denies frequent falls, Denies numbness, Denies tingling and Denies weakness Endo Denies fatigue and Denies palpitations Physical Exam Vital Signs: Last Vital Signs Pulse 61 04/05/24 13:18 BP 116/78 04/05/24 13:18 BMI result Body Mass Index 37.2 Const General: cooperative, comfortable, alert and awake Nutritional Appearance: obese Orientation/consciousness: patient oriented x3 Neck Neck: Yes trachea midline, Yes supple and Yes no JVD Chest Chest palpation & inspection: normal inspection of the chest and other (Well-healed sternotomy scar) Resp Effort & Inspection: normal respiratory effort Auscultation: clear to auscultation bilaterally and diminished lung sounds Cardio Jugular venous distension: no JVD Palpation: normal PMI Rate: regular rate Heart sounds: S1 normal heart sound present, S2 normal heart sound present, Murmur heart sound present systolic early, decrescendo, crescendo and soft and Other heart sounds present (S4 present) Skin General skin exam: no rashes or lesions noted Neuro General: patient oriented x3 and no focal motor deficits Extrem Other: Left arm in a sling General: Yes no clubbing, cyanosis or edema Assessment & Plan Assessment & Plan (1) Preoperative cardiovascular examination: Code(s): Z01.810 - Encounter for preprocedural cardiovascular examination Category: Medical Plan: Preoperative cardiovascular risk stratification this elderly gentleman with remote coronary artery bypass grafting with multiple risk factors including limited exercise capacity, obesity, uncontrolled diabetes, new EKG finding of IV CD left bundle morphology as well as minimally abnormal myocardial perfusion imaging stress test. The stress test was minimally abnormal and performed within last September and echocardiogram shows normal LV ejection fraction. He was no new symptoms of angina and has no findings of heart failure. Given low risk myocardial perfusion imaging, he is intermediate risk for perioperative cardiovascular morbidity mortality and is currently optimized to undergo the surgery on current medications except for aspirin which can be held as per surgeon's discretion. Continue all other medications except furosemide which can be held on the day of the surgery from cardiac perspective. Close monitoring to bleeding complication and repleting blood volume soon as well as closely monitoring his hemodynamics through the surgery needs to be pursued. (2) CAD (coronary artery disease): Comment: stable coronary artery disease with remote surgical revascularization. status post 3 vessel coronary artery bypass grafting including CUELLAR to LAD and SVG to OM and RCA, June 2013 Code(s): I25.10 - Atherosclerotic heart disease of [place] coronary artery without angina pectoris Category: Medical Plan: CAD with remote coronary artery bypass grafting without new symptoms at current point in time. He has new EKG findings suggestive of IV CD with left bundle morphology. No new symptoms with mildly abnormal stress test which is low risk. Continue aggressive medical therapy. Continue current lifelong aspirin therapy. Blood pressure is currently well optimized. Encouraged to continue to monitor blood pressure at home maintain a log. Goal blood pressure less than 130/84. Continue statin therapy with target goal LDL closer to 60 mg/dL. No clinical evidence of heart failure, currently on high dose of loop diuretics. Can you aggressive diabetes management being pursue through your office. (3) Aortic stenosis: Code(s): I35.0 - Nonrheumatic aortic (valve) stenosis Category: Medical Plan: Aortic stenosis which is mild. No interventions required from that perspective. Continue aggressive vascular risk factor modification as above. Will follow up in the clinic in on his annual visit in October. Thank you for allowing me to partake in his care Coding Level of Care Code Est Pt Level 4 (80681) Complex EM visit Add On G2211 Diagnoses Preoperative cardiovascular examination Z01.810 CAD (coronary artery disease) I25.10 Aortic stenosis I35.0
== END 2024-04-05 13:57 | disposition home or self-care (01) ==
PROVIDERS: PCP Family Medicine; Visit Provider Internal Medicine Cardiovascular Disease
DX: I25.10 Atherosclerotic heart disease of native coronary artery without angina pectoris (principal); I35.0 Nonrheumatic aortic (valve) stenosis; Z01.810 Encounter for preprocedural cardiovascular examination; I44.0 Atrioventricular block, first degree
CPT/HCPCS: 93010; 99214; G2211

== ENCOUNTER → 2024-04-05 13:00 | Outpatient (BNVA) | payer MEDICARE, SELFPAY | PROVIDERS: PCP Family Medicine; Visit Provider Internal Medicine Cardiovascular Disease | DX: Z01.810 Encounter for preprocedural cardiovascular examination (principal); I44.0 Atrioventricular block, first degree; I44.7 Left bundle-branch block, unspecified; I25.10 Atherosclerotic heart disease of native coronary artery without angina pectoris; I10 Essential (primary) hypertension; I35.0 Nonrheumatic aortic (valve) stenosis | CPT/HCPCS: 93005; 99212 ==

== ENCOUNTER 2024-07-16 11:21 | Outpatient (REF) | payer MEDICARE, SELFPAY ==
--- OUTSIDE RECORDS SUMMARY | 2024-07-16 13:33 | XMS_ITS | Patient Health Record ---
Author Organization [facility] Address [address] [place] [address] Care Team Providers Care Magnetic Tester Name Role Phone Ar UGARTE, Leon Primary Care Provider Unavailab Daniel Natarajan Jr Unavailable Allergies No Known Allergies Reason For Referral No Information Medications Medication SIG (Take, Route, Frequency, Duration) Notes Start Date End Date Status Gabapentin 300 MG 1 capsule Orally twi ce a day Active Omeprazole 20 MG 1 capsule Orally bid Active Famotidine 20 MG Oral for 90 A ctive Amitriptyline HCl 25 MG 1 tablet Orally Once a day Active Finasteride 5 MG TAKE 1 TABLET BY DALIA TH EVERY NIGHT AT BEDTIME DIRECTED Diagnosis Unavailable Oral for 90 Active metFORMIN HCl 500mg 1 tablet with meals Orally 2 in day one at night Active Sertraline HCl 50 MG TAKE 1 TABLET BY MO UTH EVERY MORNING Oral for 90 Active Simvastatin 40 MG 1 tablet in the even ing Orally Once a day Active Advair Diskus 250-50 MCG/DOSE Inhalation for 90 Active Doxazosin Mesylate 8 MG 1 tablet Orally Once a day Active Stool Softener 100 MG 1 capsule as neede d Orally twice a day Active Furosemide 80mg 1 tablet Orally Twic e a day Active HumuLIN 70/30 (70-30) 100 UNIT/ML INJECT 100 UNITS UNDER THE SKIN BEFORE BREAKFAST AND 70 UNITS BEFORE DINNER. Subcutaneous for 30 Active Iron 325 (65 Fe) MG 1 tablet Orally Once a day for 30 day(s) Active Aspir-81 81 MG 1 tablet Orally Once a day Active Magnesium 250 MG 1 tablet with a meal Orally Once a day for 30 day(s) Active Multi Vitamin/Minerals Orally Active MiraLax 17 GM/SCOOP as directed Orally t wice a week as needed Active Spironolactone 25 MG 1 tablet Orally Twi ce a day Active Ipratropium [place] HFA 17 MCG/ACT 2 puffs Inhalation Four times a day Active Metoprolol Tartrate 25 MG 1 tablet with food Orally Twice a day Active Immunizations Vaccine Route Administration Date Status Comme nts Influenza Unknown 03/02/2021 Administered Problems Problem Type SNOMED Code ICD Code Onset Dates Problem Status W/U Status Risk Notes Problem [id number] Colon cancer screening (Z12.11) Active confirmed Problem [id number] jail (current) use of aspirin (Z79.82) Active confirmed Plan Of Treatment Pending Test Test Name Order Date CT COLON SCREENING NO CONTRAST 6 Future Test Test Name Order Date COLONOSCOPY 02/04/2012 COLONOSCOPY 10/01/2015 COLONOSCOPY 04/15/2021 Insurance Providers Payer Name Payer Address Payer Phone Subscriber Number Group Number Insured Name Patient Relationship to Insured Coverage Start Date Coverage End Date [facility] [address] [place], [place] [id number] [phone] [id number] ELENA GRIJALVA Self - patient is the insured Medical (General) History Medical History History ICD Code coronary artery disease diabetes hypertension elevated cholesterol COPD Surgical History Surgery Date(Month/Year) shoulder surgery tripple bypass 06/29/2013 hernia repair rotator cuff tear repair -both ankle surgery knee surgery-left shoulder replacement left resection of colon for benign mass - Dr. Perea
--- OUTSIDE RECORDS SUMMARY | 2024-07-16 13:33 | XMS_ITS | Patient Health Record ---
Author Organization [facility] Address [address] [place] [address] Care Team Providers Care Balling Machine Operator Name Role Phone Ar UGARTE, Leon Primary Care Provider Unavailab Tonio Freed Unavailable [phone] Allergies No Known Allergies Reason For Referral No Information Medications Medication SIG (Take, Route, Frequency, Duration) Notes Start Date End Date Status Famotidine 20 MG 1 tablet at bedtime as needed Orally Once a day for 30 day(s) Active Finasteride 5 MG 1 tablet Orally Once a day Active Furosemide 80 MG 2 tablet Orally Once a day Active Flovent HFA Not-Taki ng Doxazosin Mesylate 8 MG 1 tablet Orally Once a day Active Symbicort Not-Taking Ipratropium-Albuterol Active HumuLIN N Active Gabapentin 300 MG 2 tablet Orally Once a day Active Stool Softener Activ e Clopidogrel Bisulfate Active Advair HFA Not-Takin g Amitriptyline HCl 25 MG 1 tablet Orally Once a day Active Ciclopirox Olamine 0.77 % 1 application Externally Twice a day for 30 days Active Aspir-81 Active Extra Depth Orthopedic Shoes (1 Pair) with Customized Heat Molded Multidensity Innersoles (3 Pair) as directed Dx: 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), Hammertoe Foot Deformity (M20.41,M20.42), Preulcerative Skin Lesion(s) (L85.1) Active Trulicity Active Simvastatin 40 MG 1 tablet in the even ing Orally Once a day for 30 day(s) Active Rabies Virus Vaccine, HDC Active Omeprazole 20 MG 2 capsule Orally Onc e a day Active oxyCODONE-Acetaminophen 5-325 MG 1 tablet as needed Orally every 6 hrs PRN Active Sertraline HCl 50 MG 1 tablet Orally Onc e a day for 30 day(s) Active Spironolactone 25 MG 2 tablet Orally Onc e a day Active metFORMIN HCl Active Metoprolol Tartrate 25 MG 1 tablet with food Orally three a day Active Magnesium Active Lancets Active Immunizations Vaccine Route Administration Date Status Comme nts COVID-19 Moderna Vaccine Unknown 02/02/2022 Administere d 1st 06/13/2020 2nd 07/21/2020 3rd 03/14/2021 Influenza Unknown 01/11/2017 Administered Influenza Unknown 02/13/2018 Administered Influenza Unknown 01/01/2020 Administered Influenza Unknown 02/02/2022 Administered Pneumococcal Unknown 05/31/2017 Administered Social History Tobacco Use: Social History Observation Description Date Details (start date - stop date) Former Smoker NA - NA Tobacco Use/Smoking Question Answer Notes Are you a: former smoker Additional Findings: Tobacco Non-User Current no n-smoker Alcohol Screen Question Answer Notes Did you have a drink contain ing alcohol in the past year? Yes How often did you have a dri nk containing alcohol in the past year? Monthly or less (1 point) Points 1 Interpretation Negative Tobacco use other than smoking: Question Answer Notes Are you an other tobacco user? No Problems Problem Type SNOMED Code ICD Code Onset Dates Problem Status W/U Status Risk Notes Problem Acquired hammer toe of right foot (6331361624505174 ) Other hammer toe(s) (acquired), right foot (M20.41) Active confirmed Response to treatment, Improvemen t Problem Acquired hammer toe of left foot (4430451130361966 ) Other hammer toe(s) (acquired), left foot (M20.42) Active confirmed Response to treatment, Improvemen t Problem Polyneuropathy due to diabetes mellitus type I (796880291) Type 1 diabetes mellitus with diabetic polyneuropathy (E10.42) Active confirmed Vital Signs Blood pressure diastolic 70 mm Hg 12/02/2023 Height 5 ft 8 in in 12/02/2023 Blood pressure systolic 138 mm Hg 12/02/2023 Weight 231 lbs 12/02/2023 BMI 35.12 kg/m2 12/02/2023 Procedures Procedure Date Ordered Date Performed Result Body Sit e 89947-UJFXZBU NAIL, 6 OR MORE 12/02/2023 N/A 07296-Durmlykf Plate 12/02/2023 N/A 80329-SDFA SKIN LESIONS, 2 TO 4 12/02/2023 N/A Encounters Encounter Location Date Provider Diagnosis [address] [address] 12/02/2023 Tonio Johnson Type 1 diabetes mellitus with diabetic polyneuropathy E10.42 ; Tinea unguium B35.1 ; Ingrown nail L60.0 and Tinea pedis of both feet B35.[address] [address] 03/01/2024 Tonio Johnson [address] [address] 05/31/2024 Tonio Johnson Assessments Encounter Date Diagnosis (ICD Code) Assessment Notes Treatment Notes Treatment Clinical Notes Section Notes 12/02/2023 Type 1 diabetes mellitus with diabetic polyneuropathy (ICD-10 - E10.42) 12/02/2023 Tinea unguium (ICD-10 - B35.1) 12/02/2023 Ingrown nail (ICD-10 - L60.0) 12/02/2023 Tinea pedis of both feet (ICD-10 - B35.3) Plan Of Treatment Pending Test Test Name Order Date 18484-INWHJYB NAIL, 6 OR MORE 08/10/2016 11635-ZRYBXBH NAIL, 6 OR MORE 11/12/2016 12365-DBHXYWD NAIL, 6 OR MORE 03/01/2017 07393-QUVDGPK NAIL, 6 OR MORE 05/31/2017 62263-UXOAKOC NAIL, 6 OR MORE 08/30/2017 31640-RTZVJES NAIL, 6 OR MORE 11/29/2017 89355-QLKJJJD NAIL, 6 OR MORE 06/06/2018 99425-WMDEUHO NAIL, 6 OR MORE 09/05/2018 26172-XTOBBRL NAIL, 6 OR MORE 02/28/2018 77349-QXBGPSI NAIL, 6 OR MORE 12/05/2018 14326-ZDQPKSY NAIL, 6 OR MORE 05/11/2019 82687-UALKDOP NAIL, 6 OR MORE 09/14/2019 05794-UZBCWSP NAIL, 6 OR MORE 12/14/2019 80804-YWQUKZO NAIL, 6 OR MORE 03/14/2020 41124-CMVLEJP NAIL, 6 OR MORE 08/12/2020 78345-IKVFTLZ NAIL, 6 OR MORE 11/11/2020 96537-KKMZGXJ NAIL, 6 OR MORE 02/10/2021 74723-NYBMWRD NAIL, 6 OR MORE 05/15/2021 53945-ACAOFRB NAIL, 6 OR MORE 08/21/2021 53745-QRERCTO NAIL, 6 OR MORE 11/20/2021 11150-AMYJGDJ NAIL, 6 OR MORE 02/23/2022 72849-MRFIXRN NAIL, 6 OR MORE 05/28/2022 79024-JXPIEND NAIL, 6 OR MORE 08/27/2022 57811-HKBWJFJ NAIL, 6 OR MORE 11/26/2022 71464-SUHGHBP NAIL, 6 OR MORE 03/04/2023 43296-YCFNKFQ NAIL, 6 OR MORE 06/24/2023 61948-JPECCDN NAIL, 6 OR MORE 12/02/2023 58282-Vujipsbr Plate 12/02/2023 68063-Brlwnlvk Plate 06/24/2023 37068-Nmdxbmvr Plate 03/04/2023 12857-Lvxiaabv Plate 11/26/2022 98938-Lwrmmipc Plate 08/27/2022 72824-Kqradvlr Plate 05/28/2022 57160-Bjaieyxo Plate 02/23/2022 27231-Oaolbyth Plate 11/20/2021 24626-Pftpnjlu Plate 08/21/2021 95602-Mihaeqem Plate 05/15/2021 08418-Lggnypjn Plate 02/10/2021 66228-Biaffhnp Plate 11/11/2020 37162-Exyzkpmn Plate 08/12/2020 75921-Ggdhvwzg Plate 03/14/2020 88291-Euegzxhd Plate 12/14/2019 61499-Iypwrxqv Plate 09/14/2019 01836-Lrpjszux Plate 05/11/2019 83772-Xvnkntto Plate 12/05/2018 75658-Gnlsqpeb Plate 09/05/2018 80269-Rufikfyu Plate 11/29/2017 40827-Kbzedgnc Plate 02/28/2018 04322-Blromteg Plate 05/31/2017 35171-Gptozzbo Plate 08/30/2017 99864-Gdggbhex Plate 11/12/2016 95567-Wotweqff Plate 08/10/2016 24721-Xljwnmwr Plate 06/06/2018 45688-GGDK SKIN LESIONS, 2 TO 4 08/11/19 17 39142-FVKM SKIN LESIONS, 2 TO 4 11/13/19 17 42142-CYEP SKIN LESIONS, 2 TO 4 03/01/20 17 72922-LHVU SKIN LESIONS, 2 TO 4 11/30/19 18 48539-PNDR SKIN LESIONS, 2 TO 4 08/31/19 18 57270-APJD SKIN LESIONS, 2 TO 4 05/31/19 18 96933-PCED SKIN LESIONS, 2 TO 4 02/29/20 18 49787-UFYV SKIN LESIONS, 2 TO 4 09/06/19 19 61181-YHVA SKIN LESIONS, 2 TO 4 12/06/19 19 58786-SJAB SKIN LESIONS, 2 TO 4 06/06/19 19 52717-QOWS SKIN LESIONS, 2 TO 4 05/11/19 85596-PUXN SKIN LESIONS, 2 TO 4 09/14/19 58244-VSJO SKIN LESIONS, 2 TO 4 12/14/19 20 74136-OMBG SKIN LESIONS, 2 TO 4 03/14/20 20 63906-QJLW SKIN LESIONS, 2 TO 4 08/13/19 21 66648-FPNI SKIN LESIONS, 2 TO 4 11/12/19 99392-MYMV SKIN LESIONS, 2 TO 4 02/11/20 21 01517-PTJM SKIN LESIONS, 2 TO 4 05/15/19 22 09373-WAAE SKIN LESIONS, 2 TO 4 08/22/19 20897-OFXA SKIN LESIONS, 2 TO 4 11/21/19 68671-ECDE SKIN LESIONS, 2 TO 4 02/24/20 62238-ORZQ SKIN LESIONS, 2 TO 4 05/28/19 23 98207-SXZH SKIN LESIONS, 2 TO 4 08/28/19 23 99347-URWR SKIN LESIONS, 2 TO 4 11/27/19 26542-BYNT SKIN LESIONS, 2 TO 4 03/04/20 26351-UANR SKIN LESIONS, 2 TO 4 06/24/19 24 31465-DKYH SKIN LESIONS, 2 TO 4 12/02/19 50136-Fckq. Subungual Hematoma 64632- Biopsy of skin lesion 03/01/2017 Next Appt Details Provider Name:Tonio Rachelle Johnson , 08/21/2024 03:00:00 PM, [address] [facility], [place], [address], Insurance Providers Payer Name Payer Address Payer Phone Subscriber Number Group Number Insured Name Patient Relationship to Insured Coverage Start Date Coverage End Date [employer] 65 Medicare Preferred [address] [place] [address] [id number] Josr Hart Self - patient is the insured Medical (General) History Medical History History ICD Code Arthritis Back,Hip,and Knee pain Broken bones CAD (Cholesterol) Chicken pox Hiatal hernia High blood pressure Joint implants/screws keloids Measles Numbness Reflux Rheumatic fever Sciatica Stomach ulcer Shingles mini 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 fractured shoulder type II diabetes Surgical History Surgery Date(Month/Year) right knee meniscus repair 08/05/2016 bypass surgery 06/2013 knee surgery, left 2007 L shoulder replacement 10/01/20 Hernia 12/09/20 resection surgery 12/09/20 Gurvinder cataract surgery 09/21/21,10/05/21 Hospitalization History Reason Date(Month/Year) [facility]- Fluid on lungs 10/2019 [facility]- Anemia / Mass in colon /4 Pints blo od 11/04-01/20 [facility] 10/01/20 [facility] 12/09/2020 [facility]- fainted Low sugar 33 few hrs 2021
--- OUTSIDE RECORDS SUMMARY | 2024-07-16 13:33 | XMS_ITS ---
Author Organization [facility] Address [address] [place] [address] Care Team Providers Care Aircraft Rigging And Controls Mechanic Name Role Phone Leon Joyner MD Primary Care Provider Unavailab Tonio Freed Unavailable [phone] REASON FOR VISIT Reschedule Encounters Encounter Location Date Provider Diagnosis [address] [address] 05/31/2024 Tonio Johnson Plan Of Treatment Next Appt Details Provider Name:Tonio Johnson , 08/21/2024 03:00:00 PM, [address] [place] [address], [address], Progress Notes * Josr HART FDOB:[birth year] (78 yo M)Acc No.[id number]:05/31/2024 Patient:?Josr HART Monie :1945???Age:78 Y???Sex:Male Address:[address] [place] [address], [address] * true * Date:? Generated for Printi ng/Faidaniag/eTransmitting on:?07/16/2024 01:33 PM EDT
--- OUTSIDE RECORDS SUMMARY | 2024-07-16 13:33 | XMS_ITS ---
Author Organization [facility] Address [address] [place] [address] Care Team Providers Care Lapel Stitcher Name Role Phone Leon Joyner MD Primary Care Provider Unavailab Tonio Freed Unavailable [phone] Medications Medication SIG (Take, Route, Frequency, Duration) Notes Start Date End Date Status Flovent HFA Not-Taki ng Symbicort Not-Taking Advair HFA Not-Takin g Ciclopirox Olamine 0.77 % 1 application Externally Twice a day for 30 days Active Extra Depth Orthopedic Shoes (1 Pair) with Customized Heat Molded Multidensity Innersoles (3 Pair) as directed Dx: 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), Hammertoe Foot Deformity (M20.41,M20.42), Preulcerative Skin Lesion(s) (L85.1) Active Simvastatin 40 MG 1 tablet in the even ing Orally Once a day for 30 day(s) Active Sertraline HCl 50 MG [...] Active Encounters Encounter Location Date Provider Diagnosis [facility] [address] [place] [address] 03/02/2024 Tonio Johnson Plan Of Treatment Next Appt Details Provider Name:Tonio Johnson , 08/21/2024 03:00:00 PM, [address] [place], [address], Progress Notes * Josr HART FDOB:[birth year] (78 yo M)Acc No.[id number]:03/02/2024 Progress Note Patient:?Josr HART F Provider:?Tonio Johnson DPM :1945???Age:78 Y???Sex:Male Jag e:03/02/2024 Address:[address] [place] [id number] Pcp:Leon Joyner MD Subjective: * Chief Complaints: * ??? 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 * Medications:?Taking Aspir-81 , Taking Amitriptyline HCl 25 MG [...] day , Taking HumuLIN N , Taking Ipratropium- Albuterol , Taking Lancets , Taking Magnesium , [...] Symbicort , Not-Taking/PRN Flovent HFA Objective: * Vitals:? Assessment: Plan: * Treatment: * Images: * The named appointment provid er may or may not be the originator of this progress note, and it is not deemed complete until electronically signed by the appointment provider. Sign off status: Pending * Provider:?Tonio Johnson DPM Date:?2023 Generated for Umu espinal/Nisha/Adela on:?07/16/2024 01:33 PM EDT
--- OUTSIDE RECORDS SUMMARY | 2024-07-16 13:33 | XMS_ITS ---
Author Organization [facility] Address [address] [place] [address] Care Team Providers Care Messaging Architect Name Role Phone Leon Joyner MD Primary Care Provider Unavailab Tonio Freed Unavailable [phone] Encounters Encounter Location Date Provider Diagnosis [address] [address] 06/01/2024 Tonio Johnson Plan Of Treatment Next Appt Details Provider Name:Tonio Johnson , 08/21/2024 03:00:00 PM, [address] [place] [address], [address], Progress Notes * Josr HART FDOB:[birth year] (78 yo M)Acc No.[id number]:06/01/2024 Progress Note Patient:?Josr HART Provider:?Tonio Johnson DPM :1945???Age:78 Y???Sex:Male Jag e:06/01/2024 Address:[address] [place] [address] [place], [id number] Pcp:Leon Joyner MD Subjective: * Chief Complaints: * ??? * Medical History:? Objective: * Vitals:? Assessment: Plan: * Treatment: * Images: * The named appointment provid er may or may not be the originator of this progress note, and it is not deemed complete until electronically signed by the appointment provider. Sign off status: Pending * Provider:Soheila Johnson DPM Date:?2024 Generated for Umu espinal/Nisha/Adela on:?07/16/2024 01:32 PM EDT
[2024-07-16 13:37] LABS: Anion Gap 15 (12-20); Blood Urea Nitrogen 28 mg/dL (9-16); Calcium 9.8 mg/dL (8.4-10.2); Carbon Dioxide 30 mmol/L (22-29); Chloride 98 mmol/L (96-108); Estimated Glomerular Filt Rate 35; Glucose Random 142 mg/dL (60-115); Potassium 4.3 mmol/L (3.3-5.1); Sodium 139 mmol/L (135-145)
== END 2024-07-16 11:22 | disposition home or self-care (01) ==
LOC: HO.HMGCLDS 11:21
PROVIDERS: PCP Family Medicine; Visit Provider Registered Nurse
DX: E11.22 Type 2 diabetes mellitus with diabetic chronic kidney disease (principal); N18.9 Chronic kidney disease, unspecified; Z79.4 Long term (current) use of insulin
CPT/HCPCS: 36415; 80048

== ENCOUNTER 2024-09-26 10:33 | Outpatient (REF) | payer MEDICARE, SELFPAY ==
--- OUTSIDE RECORDS SUMMARY | 2024-09-26 11:37 | XMS_ITS | Patient Health Record ---
Author Organization [facility] Address [address] [place] [address] Care Team Providers Care Vp Foundation Name Role Phone Ar UGARTE, Leon Primary Care Provider Unavailab Tonio Freed Unavailable [phone] Allergies No Known Allergies Results Component Value Reference Range Notes HEMOGLOBIN A1C (GLYCOHEMOGLO BIN) Reviewed date:08/21/2024 03:24:57 PM Interpretation: Performing Lab: Notes/Report: HEMOGLOBIN A1C % (HH) 7.5 Reason For Referral No Information Medications Medication SIG (Take, Route, Frequency, Duration) Notes Start Date End Date Status Rabies Virus Vaccine, HDC Active Extra Depth Orthopedic Shoes (1 Pair) with Customized Heat Molded Multidensity Innersoles (3 Pair) as directed Dx: 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), Hammertoe Foot Deformity (M20.41,M20.42), Preulcerative Skin Lesion(s) (L85.1) Active Simvastatin 40 MG 1 tablet in the even ing Orally Once a day for 30 day(s) Active oxyCODONE-Acetaminophen 5-325 MG 1 tablet as needed Orally every 6 hrs PRN Active Omeprazole 20 MG 2 capsule Orally Onc e a day Active metFORMIN HCl Active Clopidogrel Bisulfate Active - Active Amitriptyline HCl 25 MG 1 tablet Orally Once a day Active Stool Softener Activ e Trulicity Active Spironolactone 25 MG 2 tablet Orally Onc e a day Active Sertraline HCl 50 MG 1 tablet Orally Onc e a day for 30 day(s) Active Finasteride 5 MG 1 tablet Orally Once a day Active Famotidine 20 MG 1 tablet at bedtime as needed Orally Once a day for 30 day(s) Active Doxazosin Mesylate 8 MG 1 tablet Orally Once a day Active Symbicort Not-Taking Furosemide 80 MG 2 tablet Orally Once a day Active Flovent HFA Not-Taki ng Ciclopirox Olamine 0.77 % 1 application Externally Twice a day for 30 days Active Advair HFA Not-Takin g Magnesium Active Metoprolol Tartrate 25 MG 1 tablet with food Orally three a day Active Ipratropium-Albuterol Active Lancets Active Gabapentin 300 MG 2 tablet Orally Once a day Active HumuLIN N Active Immunizations Vaccine Route Administration Date Status Comme nts Pneumococcal Unknown 05/31/2017 Administered Influenza Unknown 01/11/2017 Administered Influenza Unknown 02/13/2018 Administered Influenza Unknown 01/01/2020 Administered Influenza Unknown 02/02/2022 Administered COVID-19 Moderna Vaccine Unknown 02/02/2022 Administere d 1st 06/13/2020 2nd 07/21/2020 3rd 03/14/2021 Social History Tobacco Use: Social History Observation Description Date Details (start date - stop date) Never Smoker NA - NA Tobacco use other than smoking: Question Answer Notes Are you an other tobacco user? No Tobacco Control (Standard) Question Answer Notes Tobacco use: Nonsmoker Additional Findings: Tobacco non-user Current no nsmoker AUDIT-C (Standard) Question Answer Notes Did you have a drink containing alcohol in the p ast year? No Points 0 Interpretation Negative Problems Problem Type SNOMED Code ICD Code Onset Dates Problem Status W/U Status Risk Notes Problem Acquired hammer toe of right foot (8302848939032123 ) Other hammer toe(s) (acquired), right foot (M20.41) Active confirmed Response to treatment, Improvemen t Problem Acquired hammer toe of left foot (3675180182164282 ) Other hammer toe(s) (acquired), left foot (M20.42) Active confirmed Response to treatment, Improvemen t Problem Polyneuropathy due to diabetes mellitus type I (429460295) Type 1 diabetes mellitus with diabetic polyneuropathy (E10.42) Active confirmed Vital Signs Blood pressure diastolic 70 mm Hg 08/21/2024 Height 5 ft 8 in in 08/21/2024 Blood pressure systolic 130 mm Hg 08/21/2024 Weight 231 lbs 08/21/2024 BMI 35.12 kg/m2 08/21/2024 Procedures Procedure Date Ordered Date Performed Result Body Sit e 86672-UJTCYAR NAIL, 6 OR MORE 12/02/2023 N/A 42840-Fvinqwai Plate 12/02/2023 N/A 93773-GGTT SKIN LESIONS, 2 TO 4 12/02/2023 N/A 90580-JAKK SKIN LESIONS, 2 TO 4 08/21/2024 N/A 26831-DAVHHYQ NAIL, 6 OR MORE 08/21/2024 N/A Encounters Encounter Location Date Provider Diagnosis [address] [address] 12/02/2023 Tonio Johnson Type 1 diabetes mellitus with diabetic polyneuropathy E10.42 ; Tinea unguium B35.1 ; Ingrown nail L60.0 and Tinea pedis of both feet B35.[address] [address] 08/21/2024 Tonio Johnson Type 1 diabetes mellitus with diabetic polyneuropathy E10.42 ; Onychomycosis B35.1 ; Other hammer toe(s) (acquired), right foot M20.41 and Other hammer toe(s) (acquired), left foot M20.[address] [address] 03/01/2024 Tonio Johnson [address] [address] 05/31/2024 Tonio Johnson Assessments Encounter Date Diagnosis (ICD Code) Assessment Notes Treatment Notes Treatment Clinical Notes Section Notes 12/02/2023 Type 1 diabetes mellitus with diabetic polyneuropathy (ICD-10 - E10.42) 12/02/2023 Tinea unguium (ICD-10 - B35.1) 08/21/2024 Type 1 diabetes mellitus with diabetic polyneuropathy (ICD-10 - E10.42) 08/21/2024 Onychomycosis (ICD-10 - B35.1) 08/21/2024 Other hammer toe(s) (acquired), right foot (ICD-10 - M20.41) Patient Educated with: DIABETIC FOOT CARE INSTRUCTIONS. pdf (DIABETIC FOOT CARE INSTRUCTIONS. pdf) 12/02/2023 Ingrown nail (ICD-10 - L60.0) 12/02/2023 Tinea pedis of both feet (ICD-10 - B35.3) 08/21/2024 Other hammer toe(s) (acquired), left foot (ICD-10 - M20.42) Plan Of Treatment Pending Test Test Name Order Date 35599-FBJVUJL NAIL, 6 OR MORE 08/10/2016 42851-SUEBZIJ NAIL, 6 OR MORE 11/12/2016 80976-SSRLFWN NAIL, 6 OR MORE 03/01/2017 59650-TNEIKVB NAIL, 6 OR MORE 05/31/2017 27726-YJZTAFN NAIL, 6 OR MORE 08/30/2017 96720-OPIMYTV NAIL, 6 OR MORE 11/29/2017 32869-YNBSDCN NAIL, 6 OR MORE 06/06/2018 84083-YUKUWZS NAIL, 6 OR MORE 09/05/2018 80180-ZGWUPLD NAIL, 6 OR MORE 02/28/2018 81368-MIQREPU NAIL, 6 OR MORE 12/05/2018 46160-YGONONM NAIL, 6 OR MORE 05/11/2019 33177-VDOSXPH NAIL, 6 OR MORE 09/14/2019 57692-RVWMTNC NAIL, 6 OR MORE 12/14/2019 44065-BPURNFI NAIL, 6 OR MORE 03/14/2020 00484-FEDPWTK NAIL, 6 OR MORE 08/12/2020 44375-HESXUYC NAIL, 6 OR MORE 11/11/2020 23396-NBUWQSP NAIL, 6 OR MORE 02/10/2021 90629-RYWHSAY NAIL, 6 OR MORE 05/15/2021 46294-HMATJDQ NAIL, 6 OR MORE 08/21/2021 19555-JBMWXSQ NAIL, 6 OR MORE 11/20/2021 23383-TIHMPSC NAIL, 6 OR MORE 02/23/2022 20002-CNMSZSF NAIL, 6 OR MORE 05/28/2022 66653-WGRQCFI NAIL, 6 OR MORE 08/27/2022 93289-OOLOTHM NAIL, 6 OR MORE 11/26/2022 47129-VVYPHIR NAIL, 6 OR MORE 03/04/2023 58338-XAYWUIH NAIL, 6 OR MORE 06/24/2023 52318-CFJKKGW NAIL, 6 OR MORE 12/02/2023 62863-KABBPYQ NAIL, 6 OR MORE 08/21/2024 52613-Mcfpimsc Plate 06/06/2018 77504-Oxixgzyx Plate 12/02/2023 75604-Zqwgijsw Plate 06/24/2023 52527-Cjmnckur Plate 03/04/2023 57920-Gomljciz Plate 11/26/2022 30431-Mkjvzlkn Plate 08/27/2022 89004-Kixbqomx Plate 05/28/2022 36377-Iiebfbpv Plate 02/23/2022 23322-Lempcjvc Plate 11/20/2021 99956-Zhxyxtpf Plate 08/21/2021 29892-Szslbeal Plate 05/15/2021 02662-Mtmhvnao Plate 02/10/2021 29283-Qxihwrjz Plate 11/11/2020 50080-Hdgubmja Plate 08/12/2020 69783-Ogxxwgxt Plate 03/14/2020 33767-Omrkrpzo Plate 12/14/2019 60214-Pynweypm Plate 09/14/2019 09986-Ubhpjjdf Plate 05/11/2019 02239-Ckobjbfq Plate 12/05/2018 15808-Chvumcqh Plate 09/05/2018 85681-Ehgydzoa Plate 11/29/2017 18796-Mspmtifq Plate 02/28/2018 88842-Seakrbxr Plate 05/31/2017 51310-Kciqeecd Plate 08/30/2017 67321-Qnzszwjc Plate 11/12/2016 01851-Ihiptkrf Plate 08/10/2016 05145-ABYR SKIN LESIONS, 2 TO 4 08/11/19 17 90590-TMCE SKIN LESIONS, 2 TO 4 11/13/19 17 71171-GPMV SKIN LESIONS, 2 TO 4 03/01/20 17 86957-WDDP SKIN LESIONS, 2 TO 4 11/30/19 18 17109-UEMD SKIN LESIONS, 2 TO 4 08/31/19 18 40087-GTPJ SKIN LESIONS, 2 TO 4 05/31/19 18 47094-PDOT SKIN LESIONS, 2 TO 4 02/29/20 18 57549-LNFM SKIN LESIONS, 2 TO 4 09/06/19 19 72526-GKUP SKIN LESIONS, 2 TO 4 12/06/19 19 61208-MKTQ SKIN LESIONS, 2 TO 4 06/06/19 19 98006-PHYK SKIN LESIONS, 2 TO 4 05/11/19 20 91155-KIUB SKIN LESIONS, 2 TO 4 09/14/19 98026-ZUBM SKIN LESIONS, 2 TO 4 12/14/19 08285-BOKY SKIN LESIONS, 2 TO 4 03/14/20 49158-JQFF SKIN LESIONS, 2 TO 4 08/13/19 49130-APTM SKIN LESIONS, 2 TO 4 11/12/19 69728-DEQO SKIN LESIONS, 2 TO 4 02/11/20 62881-ZVYN SKIN LESIONS, 2 TO 4 05/15/19 06105-VVMA SKIN LESIONS, 2 TO 4 08/22/19 91367-EBNJ SKIN LESIONS, 2 TO 4 11/21/19 18254-TFHZ SKIN LESIONS, 2 TO 4 02/24/20 37282-LTRS SKIN LESIONS, 2 TO 4 05/28/19 36739-IPXE SKIN LESIONS, 2 TO 4 08/28/19 70096-SNYX SKIN LESIONS, 2 TO 4 11/27/19 56134-YTAY SKIN LESIONS, 2 TO 4 03/04/20 54350-FZRB SKIN LESIONS, 2 TO 4 06/24/19 93823-FJPX SKIN LESIONS, 2 TO 4 12/02/19 12533-ZKHM SKIN LESIONS, 2 TO 4 08/22/19 53450-Xkvd. Subungual Hematoma 3 55088- Biopsy of skin lesion 03/01/2017 Next Appt Details Provider Name:Tonio Johnson , 11/27/2024 03:00:00 PM, [address] [place], [address], Insurance Providers Payer Name Payer Address Payer Phone Subscriber Number Group Number Insured Name Patient Relationship to Insured Coverage Start Date Coverage End Date [facility] 65 Medicare Preferred [address] [place] [address] [id number] Josr Hart Self - patient is [...] cataract surgery 09/21/21,10/05/21 Hospitalization History Reason Date(Month/Year) [facility] fainted Low sugar 33 few hrs 2021 [facility] 12/09/2020 [facility] 10/01/20 [facility]- Anemia / Mass in colon /4 Pints blo od 11/04-01/20 [facility]- Fluid on lungs 10/2019
[2024-09-26 13:54] LABS: Anion Gap 17 (12-20); Blood Urea Nitrogen 34 mg/dL (9-16); Calcium 9.5 mg/dL (8.4-10.2); Carbon Dioxide 33 mmol/L (22-29); Chloride 97 mmol/L (96-108); Estimated Glomerular Filt Rate 34; Glucose Random 148 mg/dL (60-115); Potassium 4.7 mmol/L (3.3-5.1); Sodium 142 mmol/L (135-145)
== END 2024-09-26 10:34 | disposition home or self-care (01) ==
LOC: HO.HMGCLDS 10:33
PROVIDERS: PCP Family Medicine; Visit Provider Registered Nurse
DX: E11.22 Type 2 diabetes mellitus with diabetic chronic kidney disease (principal); N18.32 Chronic kidney disease, stage 3b; Z79.4 Long term (current) use of insulin
CPT/HCPCS: 36415; 80048

== ENCOUNTER 2024-11-22 14:29 | Outpatient (AMB) | payer MEDICARE, SELFPAY ==
--- OUTSIDE RECORDS SUMMARY | 2024-11-22 14:38 | XMS_ITS | Clinical Summary ---
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 Active gabapentin (NEURONTIN) 300 MG capsule Take 300 mg by mouth 2 (two) times a day (once in the morning and once in the afternoon). Active sertraline (ZOLOFT) 50 MG tablet Take 50 mg by mouth daily. Active furosemide (LASIX) 80 MG tablet Take 80 mg by mouth 2 (two) times a day. Active spironolactone (ALDACTONE) 25 MG tablet Take 25 mg by mouth 2 (two) times a day. Active simvastatin (ZOCOR) 40 MG tablet Take 40 mg by mouth nightly at bedtime. Active famotidine (PEPCID) 20 MG tablet Take 20 mg by mouth daily. Active metoprolol tartrate (LOPRESSOR) 25 MG tablet Take 25 mg by mouth 3 (three) times a day. Active ipratropium/albu terol sulfate (ID-IPRATROPIUM BROMIDE/ALBUTERO L SULFATE) 0.5-2.5 mg/3 mL nebulizer solution Take 3-9 mL by nebulization once as needed. Active doxazosin (CARDURA) 8 MG tablet Take 8 mg by mouth nightly at bedtime. Active finasteride (PROSCAR) 5 mg tablet Take 5 mg by mouth daily. Active magnesium 250 mg Tab Take by mouth. Activ e aspirin 81 mg chewable tablet Take 81 mg by mouth daily. Active ferrous sulfate 324 mg ([address] [place] iron) TbEC Take 324 mg by mouth daily with breakfast. Active [id number] JOHN GLUCONATE ORAL Take by mouth daily. Active polyethylene glycol 3350 (MIRALAX ORAL) Take by mouth as needed. Active omeprazole (PRILOSEC) 20 MG capsule Take 20 mg by mouth 2 (two) times a day. Active ciclopirox (CICLODAN) 0.77 % cream 1 application to affected area Externally to feet Twice a day for 30 days Active oxyCODONE-acetam inophen (PERCOCET) 5-325 mg per tablet 1 tablet as needed Orally every 6 hrs Active BD INSULIN SYRINGE U-500 1/2 mL 31 gauge x 15/64 SyrgIndications: Type 2 diabetes mellitus with chronic kidney disease, with long-term current use of insulin Inject 1 each under the skin 2 (two) times a day before meals. 200 each 3 06/08/19 24 Active HUMULIN R U-500, CONC, INSULIN 500 unit/mL SolnIndications: Type 2 diabetes mellitus with stage 3b chronic kidney disease, with long-term current use of insulin INJECT 40 UNITS WITH BREAKFAST, 60 UNITS WITH LUNCH, AND 90 UNITS WITH DINNER FOR A TOTAL DAILY DOSE 190 UNITS/DAY 40 mL 3 09/27/19 24 Active Additional Information Patient taking differently: [id number] UNITS WITH BREAKFAST AND 50UNITS WITH DINNER FOR A TOTAL DAILY DOSE 190 UNITS/DAY, Reported on 10/09/2024 FREESTYLE JACK 2 READERIndication s:Type 2 diabetes mellitus with chronic kidney disease, with long-term current use of insulin 1 each by See Administration Instructions route as directed. Used to scan jack 2 sensor daily to check blood sugars 1 each 09/30/19 24 Active metFORMIN (GLUCOPHAGE-XR) 500 MG 24 hr tabletIndication s:Type 2 diabetes mellitus with chronic kidney disease, with long-term current use of insulin take 1 tablet by mouth twice a day 180 tablet 3 02/24/20 24 Active TRULICITY 1.5 mg/0.5 mL subcutaneous injectionIndicat ions:Type 2 diabetes mellitus with stage 3b chronic kidney disease, with long-term current use of insulin Inject 0.5 mL (1.5 mg total) under the skin every 7 days. 6 mL 3 06/22/19 25 Active Active Problems Problem Noted Date Diagnosed Date Coronary artery disease 05/20/2022 Stage 3b chronic kidney disease 05/20/2022 Assessment & Plan (10/10/2024 9:42 AM EDT): GFR 34 a few weeks ago We discussed discontinuing metformin since contraindication against metformin use if GFR falls below 30, Hardik is agreeable Assessment & Plan (04/04/2024 8:43 AM EST): GFR 42 in December 2023 Can continue metformin 500 mg bid, would need to d/c if GFR falls below 30 which we discussed today COPD (chronic obstructive pulmonary disease) Depression 05/20/2022 Type 2 diabetes mellitus wit h chronic kidney disease, with long-term current use of insulin 05/20/2022 Assessment & Plan (10/10/2024 9:42 AM EDT): - His A1c level is currently at 6.6%, which is lower than the desired range of 7 to 8%. This decrease is attributed to frequent hypoglycemic episodes, particularly during the night. - His GFR was recorded at 34 last week, indicating that he can continue with metformin; however, it is prudent to discontinue metformin due to having a borderline necessity to discontinue due to reduce kidney function. His insulin dosage has been progressively reduced over recent visits, and it is uncertain whether he still requires U-500 insulin. - His meals do not appear to be excessively high in carbohydrates, suggesting that a long-acting insulin may suffice since he is benefiting from Trulicity for the prandial elevations. The U-500 insulin will be discontinued, but Hardik has plenty leftover and would like to use up his supply, he estimates having 2-3 months left. He will maintain his Trulicity 1.5 mg regimen. - He is advised to consume fast-acting sugars such as juice, regular soda, or milk during hypoglycemic episodes. He should keep his CGM reader nearby while sleeping to monitor for nocturnal hypoglycemia. He is encouraged to continue weight loss efforts. If he experiences high blood sugars, he should contact the office before increasing his insulin dosage. He will discontinue his metformin intake and adjust his U- 500 insulin dosage to 20 units in the morning and 40 units in the evening. If he continues to experience hypoglycemia overnight, he should further reduce his U- 500 insulin dosage to 30 units in the evening. Follow-up: The patient will follow up in 2 months. 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 Looser BG targets for comorbidities and age, especially if trying to reduce hypoglycemia risk. Encouraged Hardik to continue to use CGM consistently Reviewed outside labs, these show GFR that has been borderline where metformin would need to be stopped, GFR 42 in January, but then fell to 31 in April, should follow up on more regular BMP every 3-6 months to ensure metformin is still safe to take or discontinue altogether, will have labs rechecked at outside lab and if <30, will d/c metformin, Hardik may be open in stopping it either way which we discussed there is room to optimize GLP or insulin as needed Encouraged efforts at balanced, mindful eating. Encouraged efforts at increasing physical activity as tolerated. We will follow up in 3 months. Advised to contact office with any questions or concerns Assessment & Plan (04/04/2024 8:44 AM EST): CGM download reviewed with Hardik, concerning though for hypoglycemia, this tends to occur most overnight, occasionally midday Has been doing well with BID dosing of U500 insulin, currently taking 35 units with breakfast and 60 units with supper. 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 Reviewed looser BG targets for comorbidities and age, especially if trying to reduce hypoglycemia risk. Encouraged Hardik to continue to use CGM consistently Sent Marcioulicity to [facility], Hardik did better on this than Ozempic, spent more TIR, less time low, and had less variability, this would be a beneficial medication to resume We reviewed what to do with insulin for surgery prep and other diabetes medications, Tatum is willing to drop off reader for download a week before surgery to see how today's changes affect blood sugars, provided tentative instructions for reduction in insulin, this will be adjusted with the Jack data prior to surgery Discussed changes in eyes unlikely related to Ozempic given the retinopathy that occurs is related to rapid reduction in blood sugars which Hardik has been consistent with reasonable blood sugar control and had been on Trulicity prior to Ozempic for some time Encouraged efforts at balanced, mindful eating. Encouraged efforts at increasing physical activity as tolerated. We will follow up in 3 months. Advised to contact office with any questions or concerns Assessment & Plan (12/26/2023 8:17 PM EDT): CGM download reviewed with Hardik. Glycemic control is reassuring with very good time in range, concerning though for hypoglycemia, this tends to occur most after dinner/overnight Has been doing well with BID dosing of U500 insulin, currently taking 35 units with breakfast and 70 units with supper. 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 Reviewed looser BG targets for comorbidities and age, especially if trying to reduce hypoglycemia risk. Encouraged Hardik to continue to use CGM consistently Encouraged Hardik and Tatum to reach out to other pharmacies to see if Trulicity is in stock or if it can be ordered Encouraged efforts at balanced, mindful eating. Encouraged efforts at increasing physical activity as tolerated. We will follow up in 3 months. Advised to contact office with any questions or concerns Assessment & Plan (06/08/2023 1:54 PM EST): CGM download reviewed with Hardik. Glycemic control is reassuring with very good time in range, low variability, similar hypoglycemia compared to last visit. Has been doing well with BID dosing of U500 insulin, currently taking 35 units with breakfast and 70 units with supper. 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 Reviewed looser BG targets for comorbidities and age, especially if trying to reduce hypoglycemia risk. Encouraged Hardik to continue to use CGM consistently Will continue current Trulicity dose which Hardik is tolerating well. Encouraged efforts at balanced, mindful eating. Encouraged efforts at increasing physical activity as tolerated. We will follow up in 6 months. Advised to contact office with any questions or concerns Assessment & Plan (03/09/2023 11:01 AM EST): CGM download reviewed with Hardik. Glycemic control is reassuring with very good time in range, low variability, less hypoglycemia than last visit. Despite advising against administering midday insulin dose if not eating, Hardik continues to give this, increasing the risk of severe hypoglycemia during the afternoon and evening. We discussed adjusting to BID dosing with U500 insulin, discussed adjusting doses to 40 units with breakfast, nothing with lunch, and 70 units with supper. 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 Reviewed looser BG targets for comorbidities and age, especially if trying to reduce hypoglycemia risk. Encouraged Hardik to continue to use CGM consistently Will continue current Trulicity dose which Hardik is tolerating well. Encouraged efforts at balanced, mindful eating. Encouraged efforts at increasing physical activity as tolerated. We will follow up in 3 months. Advised to contact office with any questions or concerns Assessment & Plan (12/02/2022 1:50 PM EDT): CGM download reviewed with Hardik. Glycemic control is reassuring with very good time in range, low variability, but more hypoglycemia than last visit. Due to risk of hypoglycemia in the evening and daytime, discussed reduction in doses to 30 units with breakfast, 45 units with lunch, and 70 units with supper. 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 Reviewed looser BG targets for comorbidities and age, especially if trying to reduce hypoglycemia risk. Encouraged Hardik to continue to use CGM consistently Insulin doses reviewed. Revisited strong recommendations for Hardik to not take U500 insulin without eating, which he is doing better at, especially given history of severe hypoglycemia on U100 insulin. Encouraged skipping lunch dose if not eating and reducing dinner time dose if bedtime or fasting BGs begin to trend lower. Will continue current Trulicity dose which Hardik is tolerating well. Hardik was complaining of epistaxis, though this has been going on for 2 years, seeing someone in January for this. PCP ordered labs to have done, but there was no CBC. Hardik reports fatigue and low energy, A1c trended lower though CGM does indicate similar control, though CBC was added on to labs to confirm A1c and due to symptoms. Encouraged efforts at balanced, mindful eating. Encouraged efforts at increasing physical activity as tolerated. We will follow up in 3 months. Advised to contact office with any questions or concerns Assessment & Plan (09/01/2022 4:59 PM EDT): CGM download reviewed with Hardik. Glycemic control is reassuring with very good time in range, low variability, but more hypoglycemia than last visit. Due to risk of hypoglycemia in the evening and daytime, discussed reduction in doses to 35 units with breakfast, 55 units with lunch, and 80 units with supper. 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 Reviewed looser BG targets for comorbidities and age, especially if trying to reduce hypoglycemia risk. Encouraged Hardik to continue to use CGM consistently Insulin doses reviewed. Revisited strong recommendations for Hardik to not take U500 insulin without eating, which he is doing better at, especially given history of severe hypoglycemia on U100 insulin. Reviewed duration of action and insulin dose timing, encouraging giving 30 minutes prior to meals, as long as certain that he will be eating. Encouraged skipping lunch dose if not eating and reducing dinner time dose if bedtime or fasting BGs begin to trend lower. Will continue current Trulicity dose which Hardik is tolerating well. Encouraged efforts at balanced, mindful eating. Offered visit with our education team but Hardik declines this today. Encouraged efforts at increasing physical activity as tolerated. We will follow up in 3 months. Advised to contact office with any questions or concerns Assessment & Plan (06/01/2022 8:16 PM EST): CGM trial reviewed with Hardik and Tatum. Glycemic control is reassuring with very good time in range, low variability, and minimal hypoglycemia. Doses seem to be appropriate of U500 though I am concerned that occasionally Hardik approaches low levels in the late afternoon/evening. 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 Reviewed looser BG targets for comorbidities and age, especially if trying to reduce hypoglycemia risk. We had reviewed glucagon emergency kits and hypoglycemia treatment. Tatum and Hardik would like to hold off for now on an emergency glucagon kit. Hardik is agreeable to CGM use, tolerated Dexcom well but opts for the most simplistic device so we will place an order for the Freestyle Jack. Insulin doses reviewed. Reviewed strong recommendations for Hardik to not take U500 insulin without eating, especially given history of severe hypoglycemia on U100 insulin. Reviewed duration of action and insulin dose timing, encouraging giving 30 minutes prior to meals, as long as certain that he will be eating. Encouraged skipping lunch dose if not eating and reducing dinner time dose if bedtime or fasting BGs begin to trend lower. Will continue current Trulicity dose which Hardik is tolerating well. We discussed Medicare insulin cap today. It is unclear why this wouldn't apply to Hardik with current Medicare insurance plan. Advising sending to the pharmacy and then seeing what the cost is when the pharmacy runs it through insurance. Hardik and Tatum are agreeable to this, and ultimately would like to continue with U500 given stabilized sugars. Encouraged efforts at balanced, mindful eating. Offered visit with our education team but Hardik declines this today. Encouraged efforts at increasing physical activity as tolerated. We will follow up in 3 months. Advised to contact office with any questions or concerns Assessment & Plan (05/20/2022 3:37 PM EST): Hardik seems to have improving control over the past week according to meter download, certainly improving from last A1c of 8.7% last month. I am very concerned regarding risk of hypoglycemia and reports of hypoglycemia unawareness. Reviewed looser BG targets for comorbidities and age, especially if trying to reduce hypoglycemia risk We reviewed glucagon emergency kits and hypoglycemia treatment, Tatum and Hardik would like to consider the kits and will let me know next visit if they would like one ordered. Hardik is agreeable to CGM use, though would like to trial another CGM to see if it is any better than the Jack trials he has done in the past. Dexcom blinded trial done today for Hardik to assess comfort and efficacy of this sensor type. Insulin doses reviewed. Strongly counseled Hardik to not take U500 insulin without eating, especially given history of severe hypoglycemia on U100 insulin. Reviewed duration of action and insulin dose timing, encouraging giving 30 minutes prior to meals, as long as certain that he will be eating. Encouraged skipping lunch dose if not eating and reducing dinner time dose if bedtime or fasting BGs begin to trend lower. Will continue current Trulicity dose which Hardik is tolerating well. Reviewed outside labs. GFR low at 38, though stable from previous draw, microalbuminuria present. Up to date on labs, will be due in June. Encouraged efforts at balanced, mindful eating. Encouraged efforts at increasing physical activity as tolerated. We will follow up in 2 weeks for CGM interpretation. Advised to contact office with any questions or concerns. CGM Trial Type of Diabetes: Diabetes mellitus Type 2 Assessment/HPI: Josr is here today for CGM trial. Procedures: Glucose Monitoring: Type of Sensor: Dexcom Pro Instruction: Patient Instructed on:, Calibrations, When to test BS, Troubleshooting, What to expect with the sensor, Patient instructed to remove sensor if redness, pain or bleeding occurs. . Insertion Site Selected: right arm Site Prep: Insertion site wiped with alcohol. Insertion: completed, area looks good, no redness, no bleeding. Plan: Patient will remove sensor and return in 2 weeks to drop off at medical front desk specialist or follow up appointment. Hyperlipidemia 05/20/2022 Assessment & Plan (10/10/2024 9:42 AM EDT): Reviewed most recent labs, LDL 53 in 11/2022 On moderate intensity statin Gets annual labs through PCP Assessment & Plan (07/05/2024 3:48 PM EST): Reviewed most recent labs, LDL 53 in 11/2022 On moderate intensity statin Gets annual labs through PCP Assessment & Plan (04/04/2024 8:42 AM EST): Reviewed most recent labs, LDL 53 in 11/2022 On moderate intensity statin Assessment & Plan (12/26/2023 2:26 PM EDT): Reviewed most recent labs, LDL 53 in 11/2022 On moderate intensity statin Assessment & Plan (06/08/2023 1:54 PM EST): Reviewed most recent labs, LDL 53 in 11/2022 On moderate intensity statin Assessment & Plan (03/09/2023 11:02 AM EST): Reviewed most recent labs, LDL 53 in 11/2022 On moderate intensity statin Assessment & Plan (12/02/2022 1:48 PM EDT): Reviewed outside labs, LDL 83 in 06/2021, did have repeat labs today for PCP On moderate intensity statin Assessment & Plan (09/01/2022 4:55 PM EDT): Reviewed outside labs, LDL 83 in 06/2021 On moderate intensity statin Assessment & Plan (05/20/2022 3:36 PM EST): Reviewed outside labs, LDL 83 in 06/2021 On moderate intensity statin GERD (gastroesophageal reflux disease) 3 Hypertension 05/20/2022 Assessment & Plan (10/10/2024 9:42 AM EDT): Blood pressure in excellent range today BP Goal < 130/80 On diuretic and BB Assessment & Plan (07/05/2024 2:25 PM EST): Blood pressure in excellent range today BP Goal < 130/80 On diuretic and BB Assessment & Plan (04/04/2024 8:41 AM EST): Blood pressure in excellent range today BP Goal < 130/80 On diuretic and BB Assessment & Plan (12/26/2023 2:26 PM EDT): Blood pressure in excellent range today BP Goal < 130/80 On diuretic and BB Assessment & Plan (06/08/2023 1:54 PM EST): Blood pressure in excellent range today BP Goal < 130/80 On diuretic and BB Assessment & Plan (03/09/2023 11:02 AM EST): Blood pressure in excellent range today BP Goal < 130/80 On diuretic and BB Assessment & Plan (12/02/2022 1:47 PM EDT): Blood pressure in excellent range today BP Goal < 130/80 On diuretic and BB Assessment & Plan (09/01/2022 4:54 PM EDT): Blood pressure in excellent range today BP Goal < 130/80 On diuretic and BB Assessment & Plan (06/01/2022 8:10 PM EST): Blood pressure in excellent range today BP Goal < 130/80 On diuretic and BB Assessment & Plan (05/20/2022 3:38 PM EST): Blood pressure in excellent range today BP Goal < 130/80 On diuretic and BB TIA (transient ischemic attack) 05/20/2022 Encounters Date Type Department Care Team Description 10/09/2024 1:50 PM EDT Office Visit [facility] [address] [place] [address] [place] [address] Caroline Wong CNP Type 2 diabetes mellitus with chronic kidney disease, with long-term current use of insulin (Primary Dx); Stage 3b chronic kidney disease; Hypertension, unspecified type; Hyperlipidemia, unspecified hyperlipidemia type 09/18/2024 Telephone [facility] [address] [place] [address] [place] [id number] Caron Moreno from Last 3 Months Social History Tobacco Use Types Packs/Day Years Used Date Smoking Tobacco: Former Cigarettes 2 25 1 966 - 1990 Passive Smoke Exposure: Past Smokeless Tobacco: Never Tobacco Cessation:Counseling Given: Not Answered Alcohol Use Standard Drinks/Week Comments Yes 0 (1 standard drink = 0.6 oz pur e alcohol) very very rare Education Answer Date Recorded Are you interested in more education? Not on yann e 08/28/2022 Are you concerned about learning? Not on file 08/28/2022 No 08/28/2022 No 08/28/2022 Digital Access Answer Date Recorded No 09/28/2022 No 09/28/2022 Reliable internet access at home? Not on file 09/28/2022 Device with a working camera? Not on file Sex and Gender Information Value Date Recorded Sex Assigned at Not on file Legal Sex Male 4:09 PM EST Gender Identity Not on file Sexual Orientation Not on file Last Filed Vital Signs Vital Sign Reading Time Taken Comments Blood Pressure 124/66 10/09/2024 1:53 PM EDT Pulse 70 07/05/2024 1:49 PM EST Temperature 36.4 C (97.5 F) 12/26/2023 1:45 PM EDT Respiratory Rate 18 09/01/2022 1:05 PM EDT Oxygen Saturation 95% 07/05/2024 1:49 PM EST Inhaled Oxygen Concentration - - Weight 103.9 kg (229 lb) 10/09/2024 1:53 PM EDT Height 172.7 cm (5' 8.01 ) 10/09/2024 1:53 PM ED T Body Mass Index 34.81 10/09/2024 1:53 PM EDT Plan of Treatment Upcoming Encounters Date Type Department Care Team (Late st Contact Info) Description 12/10/2024 1:30 PM EDT Office Visit [facility] [address] [place] [address] Caroline Wong, DERRICK WORKER [address] [facility] [place] [address] [email or web address] Health Maintenance Due Date Last Done Comments DEPRESSION SCREENING 1957 RSV VACCINE (1 - 1-dose 75+ series) 09/22/2018 DIABETIC EYE EXAM 05/20/2022 LIPID PANEL 12/03/2023 12/02/2022, 06/02, 06/18/2021, Additional history exists COVID-19 VACCINE ( season) 2024 03/05/2024, 02/26/2023, 03/01/2022, Additional history exists BLOOD PRESSURE 04/10/2025 10/09/2024 HEMOGLOBIN A1C 04/10/2025 10/09/2024, 03/0 09/2024, 12/26/2023, Additional history exists CREATININE LEVEL 07/16/2025 07/16/2024, 12/02/2022 POTASSIUM LEVEL 07/16/2025 07/16/2024, 08/0 06/2022, 01/08/2022 Adult Td,Tdap Booster 07/12/2031 07/11/2021 PNEUMOCOCCAL VACCINES (50+ years) Completed 05/03/2015, 04/07/2014 ZOSTER VACCINES Completed 07/04/2018, 02/09/2018 HEPATITIS A VACCINES Aged Out No long er eligible based on patient's age to complete this topic HIB VACCINES Aged Out No longer eligi ble based on patient's age to complete this topic MENINGOCOCCAL VACCINES (ACWY) Aged Out No longer eligible based on patient's age to complete this topic MENINGOCOCCAL VACCINES (B) Aged Out N o longer eligible based on patient's age to complete this topic Medical Devices Not on file Procedures Procedure Name Priority Date/Time Associated Diagnosis Comments POCT HEMOGLOBIN A1C Routine 10/09/2024 2 :12 PM EDT Type 2 diabetes mellitus with chronic kidney disease, with long-term current use of insulin BASIC METABOLIC PANEL Routine 07/16/2024 12:26 PM EDT Type 2 diabetes mellitus with chronic kidney disease, with long-term current use of insulin LIPID PANEL Routine 12/02/2022 11:58 AM EDT Hyperlipidemia, unspecified hyperlipidemia type from Last 3 Months or Most Recently Relevant to Health Maintenance Results * (ABNORMAL) POCT Hemoglobin A1c (10/09/2024 2:12 PM EDT) Hemoglobin A1c 6.6(A) 4.2 - 5.6 % [facility] Other 10/09/2024 2:12 PM EDT us Caroline Wong CNP POINT OF CARE TEST ORDERABLES Final Result [facility] [address] [place] [address], [facility] * Basic metabolic panel (07/16/2024 12:26 PM EDT) Blood Caroline Wong CNP LAB BLOOD ORDERABLES Final Re sult Performing Organization Address City/[facility]/ZIP Co de Phone Number [address] [address] * (ABNORMAL) Lipid panel (12/02/2022 11:58 AM EDT) HDL 27 mg/dL [facility] Comment: Interpretation <40 mg/dL: Low HDL cholesterol (major risk factor for CHD) Greater than or equal to 60 mg/dL: High HDL cholesterol ( negative risk factor for CHD) HDL - cholesterol is affected by a number of factors, e.g. smoking, excerise, hormones, sex and age. CHOLESTEROL 153 0 - 240 mg/dL [facility] TRIGLYCERIDES 367(H) 30 - 160 mg/dL [facility] LDL 53 50 - 129 mg/dL [facility] Comment: LDL levels in terms of risk for coronary heart disease: <100 mg/dL: Optimal 100-129 mg/dL: Near or above optimal 130-159 mg/dL: Borderline high 160-189 mg/dL: High >190 mg/dL: Very High CARDIAC RISK RATIO 5.7(H) 3.4 - 5.0 C [facility] Blood 12/02/2022 11:5 8 AM EDT 12/02/2022 12:08 PM EDT Leon Joyner MD LAB BLOOD ORDERABLES Final Result Performing Organization Address [facility] Co de Phone Number [address] [address] from Last 3 Months or Most Recently Relevant to Health Maintenance Insurance [place] MED[place] P[place] BLUE REPLACEMENT MEDICARE PPO BLUE REPLACEMENT MEDICARE PPO BLUE REPLACEMENT MEDICARE PPO BLUE [place] [address] [address] [place] [address] MEDICARE PPO BLUE REPLACEMENT 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 It is not the complete legal health record.[facility]
--- OUTSIDE RECORDS SUMMARY | 2024-11-22 14:38 | XMS_ITS | Patient Health Record ---
Author Organization [facility] Address [address] [place] [address] Care Team Providers Care Family Development Extension Specialist Name Role Phone Ar (RETIRED) Leon UGARTE Primary Care Provider Unavailable Daniel Rebolledo Jr Unavailable [phone] Allergies No Known Allergies Reason For Referral [...] MiraLax 17 GM/SCOOP as directed Orally t roberta a week as needed Active Spironolactone 25 MG 1 tablet Orally Twi ce a day Active Ipratropium [place] HFA 17 MCG/ACT 2 puffs Inhalation Four times a day Active Metoprolol Tartrate 25 MG 1 tablet with food Orally Twice a day Active Immunizations Vaccine Route Administration Date Status Comme nts Influenza Unknown 03/02/2021 Administered Problems Problem Type SNOMED Code ICD Code Onset Dates Problem Status W/U Status Risk Notes Problem 468004447 Colon cancer screening (Z12.11) Active confirmed Problem 218447889 [facility] (current) use of aspirin (Z79.82) Active confirmed Plan Of Treatment Pending Test Test Name Order Date CT COLON SCREENING NO CONTRAST 6 Future Test Test Name Order Date COLONOSCOPY 02/04/2012 COLONOSCOPY 10/01/2015 COLONOSCOPY 04/15/2021 Insurance Providers Payer Name Payer Address Payer Phone Subscriber Number Group Number Insured Name Patient Relationship to Insured Coverage Start Date Coverage End Date [facility] [address] [place], [place] [id number] ELENA GRIJALVA Self - patient is the insured Medical (General) History Medical History History ICD Code coronary artery disease diabetes hypertension elevated cholesterol COPD Surgical History Surgery Date(Month/Year) shoulder surgery tripple bypass 06/29/2013 hernia repair rotator cuff tear repair -both ankle surgery knee surgery-left shoulder replacement left resection of colon for benign mass - Dr. Perea
--- OUTSIDE RECORDS SUMMARY | 2024-11-22 14:38 | XMS_ITS | Patient Health Record ---
[facility] Address [address] [place] [address] Care Team Providers Care Agricultural Plow Operator Name Role Phone Ar UGARTE, Leon Primary Care Provider Unavailab Tonio Freed Unavailable [phone] Allergies No Known Allergies Results Component Value [...] Once a day; Duration: 30 day(s) Active oxyCODONE-Acetaminophen 5-325 MG 1 [...] e a day; Duration: 30 day(s) Active Finasteride 5 MG 1 tablet Orally Once a day Active Famotidine 20 MG 1 tablet at bedtime as needed Orally Once a day; Duration: 30 day(s) Active Doxazosin Mesylate 8 MG 1 tablet Orally Once a day Active Symbicort Not-Taking Furosemide 80 MG 2 tablet Orally Once a day Active Flovent HFA Not-Taki ng Ciclopirox Olamine 0.77 % 1 application Externally Twice a day; Duration: 30 days Active Advair HFA Not-Takin g Magnesium Active Metoprolol Tartrate 25 MG 1 tablet with food Orally three a day Active Ipratropium-Albuterol Active Lancets Active Gabapentin 300 MG 2 tablet Orally Once a day Active HumuLIN N Active Immunizations Vaccine Route Administration Date Status Comme nts Influenza Unknown 01/11/2017 Administered Influenza Unknown 02/13/2018 Administered Influenza Unknown 01/01/2020 Administered Influenza Unknown 02/02/2022 Administered Pneumococcal Unknown 05/31/2017 Administered COVID-19 Moderna Vaccine Unknown 02/02/2022 Administere [...] Problem Acquired hammer toe of right foot (02975961089 16657) Other hammer toe(s) (acquired), right foot (M20.41) Active confirmed Response to treatment,I mprovement Problem Acquired hammer toe of left foot (43313395090 20498) Other hammer toe(s) (acquired), left foot (M20.42) Active confirmed Response to treatment,I mprovement Problem Type 1 diabetes mellitus with diabetic polyneuropathy (E10.42) Active confirmed Vital Signs Blood pressure diastolic 70 mm Hg 08/21/2024 Height 5 ft 8 in in 08/21/2024 Blood pressure systolic 130 mm Hg 08/21/2024 Weight 231 lbs 08/21/2024 BMI 35.12 kg/m2 08/21/2024 Procedures Procedure Date Ordered Date Performed Result Body Sit e 22979-VABQHCH NAIL, 6 OR MORE 12/02/2023 N/A 29813-Rsngogps Plate 12/02/2023 N/A 40426-AWIM SKIN LESIONS, 2 TO 4 12/02/2023 N/A 87887-SQCRNPZ NAIL, 6 OR MORE 08/21/2024 N/A 69405-TZKT SKIN LESIONS, 2 TO 4 08/21/2024 N/A Encounters Encounter Location Date Provider Diagnosis [address] [address] 12/02/2023 Tonio Johnson Type 1 diabetes mellitus with diabetic polyneuropathy E10.42 ; Tinea unguium B35.1 ; Ingrown nail L60.0 and Tinea pedis of both feet B35.[address] [address] 08/21/2024 Tonio Johnson Type 1 diabetes mellitus with diabetic polyneuropathy E10.42 ; Onychomycosis B35.1 ; Other hammer toe(s) (acquired), right foot M20.41 and Other hammer toe(s) (acquired), left foot M20.[address] [address] 03/01/2024 Tonio Johnson [address] [address] 05/31/2024 Tonio Johnson Assessments Encounter Date Diagnosis [...] Treatment Pending Test Test Name Order Date 34314-NTWDJVN NAIL, 6 OR MORE 08/10/2016 38147-XVIZEAJ NAIL, 6 OR MORE 11/12/2016 98869-NOEGEWQ NAIL, 6 OR MORE 03/01/2017 56628-DTIQZII NAIL, 6 OR MORE 05/31/2017 21494-FYNDIVO NAIL, 6 OR MORE 08/30/2017 27308-JNUSXXE NAIL, 6 OR MORE 11/29/2017 30546-FIIHFJF NAIL, 6 OR MORE 06/06/2018 80589-XALVIWB NAIL, 6 OR MORE 09/05/2018 57847-PKGQHWZ NAIL, 6 OR MORE 02/28/2018 19522-EGADRYN NAIL, 6 OR MORE 12/05/2018 46271-NJLIWPE NAIL, 6 OR MORE 05/11/2019 17456-NHNUOHL NAIL, 6 OR MORE 09/14/2019 43840-BZANVPO NAIL, 6 OR MORE 12/14/2019 74347-SVFQPUM NAIL, 6 OR MORE 03/14/2020 92970-RCRAVNO NAIL, 6 OR MORE 08/12/2020 05321-TMKVHLF NAIL, 6 OR MORE 11/11/2020 13907-QXVECZI NAIL, 6 OR MORE 02/10/2021 92240-HZFBLCA NAIL, 6 OR MORE 05/15/2021 47399-BHMSXQH NAIL, 6 OR MORE 08/21/2021 22739-NLIAPBQ NAIL, 6 OR MORE 11/20/2021 30953-SPAWKDY NAIL, 6 OR MORE 02/23/2022 91425-DYLDPYR NAIL, 6 OR MORE 05/28/2022 14665-ROUKYIF NAIL, 6 OR MORE 08/27/2022 64420-CIMUQUH NAIL, 6 OR MORE 11/26/2022 27937-YOUJZJH NAIL, 6 OR MORE 03/04/2023 33261-ZJFIQRU NAIL, 6 OR MORE 06/24/2023 01506-QDRUXIR NAIL, 6 OR MORE 12/02/2023 71312-ZMYDNOZ NAIL, 6 OR MORE 08/21/2024 12162-Avtgaghx Plate 06/06/2018 82226-Bybiuaij Plate 12/02/2023 13413-Oucnhoam Plate 06/24/2023 62339-Brbchxfr Plate 03/04/2023 26091-Bhfqxwub Plate 11/26/2022 78435-Rzlgfcyz Plate 08/27/2022 34874-Mfhebjpi Plate 05/28/2022 91265-Tacoymyg Plate 02/23/2022 67660-Ajrkqqnf Plate 11/20/2021 11161-Rastmmse Plate 08/21/2021 07510-Owhvasbv Plate 05/15/2021 70057-Wpxduvux Plate 02/10/2021 60359-Uqqotsfr Plate 11/11/2020 55097-Indhrkqi Plate 08/12/2020 34617-Jhkktxvd Plate 03/14/2020 80040-Kpygexje Plate 12/14/2019 17362-Gpkfugms Plate 09/14/2019 59260-Dtilczld Plate 05/11/2019 95779-Paeszhba Plate 12/05/2018 71820-Gulbjdve Plate 09/05/2018 99000-Xevirzzq Plate 11/29/2017 32002-Qjuafcbm Plate 02/28/2018 48643-Vmcghlvz Plate 05/31/2017 63732-Cwnaadam Plate 08/30/2017 56373-Zbweripw Plate 11/12/2016 07989-Lwmguxwp Plate 08/10/2016 27369-XVOE SKIN LESIONS, 2 TO 4 08/11/19 17 92301-MUJY SKIN LESIONS, 2 TO 4 11/13/19 17 31763-WKHY SKIN LESIONS, 2 TO 4 03/01/20 17 13857-NMYX SKIN LESIONS, 2 TO 4 11/30/19 18 55121-LZAP SKIN LESIONS, 2 TO 4 08/31/19 18 71115-RGJL SKIN LESIONS, 2 TO 4 05/31/19 18 90623-XVUC SKIN LESIONS, 2 TO 4 02/29/20 18 76311-JBOT SKIN LESIONS, 2 TO 4 09/06/19 19 27732-KJCV SKIN LESIONS, 2 TO 4 12/06/19 19 94476-JQYE SKIN LESIONS, 2 TO 4 06/06/19 19 29707-ECRE SKIN LESIONS, 2 TO 4 05/11/19 20 55142-APPG SKIN LESIONS, 2 TO 4 09/14/19 36161-PSXY SKIN LESIONS, 2 TO 4 12/14/19 60693-SAEI SKIN LESIONS, 2 TO 4 03/14/20 30981-BFNA SKIN LESIONS, 2 TO 4 08/13/19 93279-QIGR SKIN LESIONS, 2 TO 4 11/12/19 40330-BONA SKIN LESIONS, 2 TO 4 02/11/20 07415-HEUW SKIN LESIONS, 2 TO 4 05/15/19 33182-VHBE SKIN LESIONS, 2 TO 4 08/22/19 45842-TIJK SKIN LESIONS, 2 TO 4 11/21/19 85615-PZYE SKIN LESIONS, 2 TO 4 02/24/20 39360-TEDA SKIN LESIONS, 2 TO 4 05/28/19 21057-GNZA SKIN LESIONS, 2 TO 4 08/28/19 34488-XVGN SKIN LESIONS, 2 TO 4 11/27/19 43382-EDKZ SKIN LESIONS, 2 TO 4 03/04/20 98230-VMUB SKIN LESIONS, 2 TO 4 06/24/19 15146-ZZQZ SKIN LESIONS, 2 TO 4 12/02/19 09058-HVNA SKIN LESIONS, 2 TO 4 08/22/19 78162-Kmmz. Subungual Hematoma 3 88120- Biopsy of skin lesion 03/01/2017 Next Appt Details Provider Name:Tonio Johnson , 11/27/2024 03:00:00 PM, [address] [place], [address], Insurance Providers Payer Name Payer Address Payer Phone Subscriber Number Group Number Insured Name Patient Relationship to Insured Coverage Start Date Coverage End Date Blue[employer] 65 Medicare Preferred [address] [place] [address] [phone] [id number] Josr Hart Self - patient is [...] cataract surgery 09/21/21,10/05/21 Hospitalization History Reason Date(Month/Year) [facility] [place] Low sugar 33 few hrs 2021 [facility] [place]2020 [facility] 10/01/20 [facility] [place]emia / Mass in colon /4 Pints blo od 11/04-01/20 [facility] [place] [facility]- Fluid on lungs 10/2019
--- NOTE | 2024-11-22 14:47 | MHC.OFFVIS ---
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: No Allergies No Known Allergies Allergy (Verified 03/28/24 11:15) Medication List - Last Reconciled 11/22/24 by Jamir Cobb MD amitriptyline 25 mg PO BEDTIME aspirin (Adult Low Dose Aspirin) 81 mg PO DAILY blood sugar diagnostic (Five Belowuch Verio test strips) 1 strip miscellaneous TID docusate sodium 100 mg PO BID doxazosin 8 mg PO BEDTIME dulaglutide (Trulicity) 1.5 mg subcut QWEEK ferrous sulfate (iron) 325 mg PO DAILY finasteride 5 mg PO BEDTIME furosemide 80 mg PO BID gabapentin 300 mg PO BID insulin regular hum U-500 conc (Humulin R U-500 (Concentrated) Insulin) 35 units with breakfast and 60 units with supper subcutaneously 2 times per day with meals; insulin U-500 syringe-needle (BD Insulin Syringe U-500) As directed injects 3 X/day ipratropium-albuterol 0.5 mg-3 mg(2.5 mg base)/3 mL 3 mL inhalation QID PRN lancets As directed magnesium 250 mg PO DAILY metoprolol tartrate 25 mg PO BID multivitamin 1 tab PO DAILY omeprazole 20 mg PO BID@0630,1630 oxycodone-acetaminophen 5-325 mg (Percocet) 1 - 2 tabs PO Q4-6H PRN polyethylene glycol 3350 (Miralax) 17 grams PO DAILY PRN sertraline 50 mg PO DAILY simvastatin 40 mg PO BEDTIME spironolactone 25 mg PO BID walker Folding front wheeled walker HPI Comments Details: Hardik comes for follow-up. He is accompanied by a significant other. Patient did not undergo knee surgery as he was afraid of it. However since then he has lost about 15 lb with diet modification. He is feeling well. Knee pain has improved. Denies any exertional chest pain. No heart failure symptoms. No orthopnea, PND, leg edema. No prolonged palpitation irregular heartbeat. [facility] Medical History Personal history of COVID-19 (~04/2023) [place] (hard of hearing) 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 Cataract Abscess Diastolic dysfunction Drainage from surgical wound Anemia Peptic ulcer GERD (gastroesophageal reflux disease) Depression TIA (transient ischemic attack) History of snoring COVID-19 vaccine series completed Cecum mass COPD (chronic obstructive pulmonary disease) case management patient Dyslipidemia penitentiary (current) use of insulin CKD (chronic kidney disease) stage 3, GFR 30-59 ml/min Diabetic nephropathy associated with type 2 diabetes mellitus Diabetes type 2, uncontrolled Hyperlipidemia Morbid obesity HTN (hypertension) CAD (coronary artery disease) Surgical History Hx of cataract extraction History of colon resection Hx of umbilical hernia repair History of esophagogastroduodenoscopy (EGD) Hx of rotator cuff surgery Hx of shoulder replacement Hx of knee surgery Hx of colonoscopy Hx of CABG Family History Father No problems noted. Mother Cancer Social History Household Members: Spouse Housing: House Are you a primary healthcare sales representative to a significant other at home: No Do you presently have visiting nurse or other home services: No 75 years or older and lives alone: No Alcohol intake: never Comment: aware of trip hazard Patient Tobacco Use Status: Former Tobacco user Tobacco use type: Cigarette Years Smoked: 30 Advance Directives Date on File: 12/02/20 service: No Current occupational status: retired Review of Systems Const Denies chills, Denies fatigue, Denies fever(s), Denies frequent falls, Denies weakness, Denies weight gain and Denies weight loss ENT Denies dizziness Card Denies chest pain, Denies leg edema, Denies lightheadedness, Denies palpitations, Denies dyspnea, Denies dyspnea on exertion, Denies orthopnea and Denies other (loss of consciousness) Resp Denies cough, Denies dyspnea and Denies dyspnea on exertion GI Denies hematochezia and Denies change in stool character Musc Denies abnormal gait, Denies muscle weakness, Denies numbness, Denies radiating pain into limb and Denies tingling Neuro Denies abnormal gait, Denies dizziness, Denies frequent falls, Denies numbness, Denies tingling and Denies weakness Endo Denies fatigue and Denies palpitations Physical Exam Vital Signs: Last Vital Signs Pulse 70 11/22/24 14:48 BP 120/74 11/22/24 14:48 BMI result Body Mass Index 32.8 Const General: cooperative, comfortable, alert and awake Nutritional Appearance: obese Orientation/consciousness: patient oriented x3 Neck Neck: Yes trachea midline, Yes supple and Yes no JVD Chest Chest palpation & inspection: normal inspection of the chest and other (Well-healed sternotomy scar) Resp Effort & Inspection: normal respiratory effort Auscultation: clear to auscultation bilaterally and diminished lung sounds Cardio Jugular venous distension: no JVD Palpation: normal PMI Rate: regular rate Heart sounds: S1 normal heart sound present, S2 normal heart sound present, Murmur heart sound present systolic early, decrescendo, crescendo and soft and Other heart sounds present (S4 present) Skin General skin exam: no rashes or lesions noted Neuro General: patient oriented x3 and no focal motor deficits Extrem Other: Left arm in a sling General: Yes no clubbing, cyanosis or edema Office Procedures EKG Details: EKG shows sinus rhythm with first-degree AV block with nonspecific intraventricular block with left bundle morphology 63571-Hmrageiwjgslbgttr, Complete Assessment & Plan Assessment & Plan (1) CAD (coronary artery disease): Comment: stable coronary artery disease with remote surgical revascularization. status post 3 vessel coronary artery bypass grafting including CUELLAR to LAD and SVG to OM and RCA, June 2013 Code(s): I25.10 - Atherosclerotic heart disease of nome coronary artery without angina pectoris Category: Medical Plan: Coronary artery disease status post remote coronary artery bypass grafting with myocardial perfusion imaging showing small territory of ischemia. He is currently not having any symptoms of angina management will be medical at this point time. He is advised to call me with any worsening symptoms. Continue aspirin therapy. Continue diabetes management through office with goal hemoglobin A1c less than 7%. Continue aggressive blood pressure control which is currently well optimized. Continue current statin therapy with target goal LDL less than 70 mg/dL. Strongly recommended to follow-up lipid panel on a yearly basis. (2) Aortic stenosis: Code(s): I35.0 - Nonrheumatic aortic (valve) stenosis Category: Medical Plan: Aortic stenosis which is mild both by clinical exam by last echocardiogram. Does not require any current interventions. Continue aggressive vascular risk factor modifications above. Follow-up in 1 year's time. Thank you for allowing me to partake in his care Coding Level of Care Code Est Pt Level 4 (69357) Complex EM visit Add On G2211 Diagnoses CAD (coronary artery disease) I25.10 Aortic stenosis I35.0 CPT Codes EKG - CPT: 03831-Mhatgvqqqwhnfwllr, Complete ([id number])
[2024-11-22 14:48] VITALS: BP 120/74; PULSE 70; BMI 32.8
== END 2024-11-22 15:14 | disposition home or self-care (01) ==
LOC: HO.HCS 14:29
PROVIDERS: PCP Family Medicine; Visit Provider Internal Medicine Cardiovascular Disease
DX: I25.10 Atherosclerotic heart disease of native coronary artery without angina pectoris (principal); I35.0 Nonrheumatic aortic (valve) stenosis
CPT/HCPCS: 93010; 99214; G2211

== ENCOUNTER → 2024-11-22 14:29 | Outpatient (BNVA) | payer MEDICARE, SELFPAY | PROVIDERS: PCP Family Medicine; Visit Provider Internal Medicine Cardiovascular Disease | DX: Z66 Do not resuscitate (principal); I45.9 Conduction disorder, unspecified; I44.0 Atrioventricular block, first degree; I44.7 Left bundle-branch block, unspecified; I10 Essential (primary) hypertension; I25.10 Atherosclerotic heart disease of native coronary artery without angina pectoris; I35.0 Nonrheumatic aortic (valve) stenosis | CPT/HCPCS: 93005; 99212 ==

== ENCOUNTER 2024-12-03 10:57 | Outpatient (AMB) | payer MEDICARE, SELFPAY ==
--- NOTE | 2024-12-03 11:05 | A.OFFPC_ITS ---
Vital Signs 12/03/24 11:14 Height 5 ft 8 in Weight 222 lb BMI 33.8 BMI Reason not done Patient refused/unable BP 110/48 L Blood Pressure Location Rt brachial Position Sitting Respiration 17 Pulse 61 Pulse Source Pulse Oximeter Temp 97.5 F Temp Source Temporal Artery Scan Pulse Oximetry (%) 95 Oxygen Delivery Method Room Air Intake Visit Reasons: for diabetic shoes Dr. Joyner pt. 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 Cataract Abscess Diastolic dysfunction Drainage from surgical wound Anemia Peptic ulcer GERD (gastroesophageal reflux disease) Depression TIA (transient ischemic attack) History of snoring COVID-19 vaccine series completed Cecum mass COPD (chronic obstructive pulmonary disease) case management patient Dyslipidemia director long term care (current) use of insulin CKD (chronic kidney disease) stage 3, GFR 30-59 ml/min Diabetic nephropathy associated with type 2 diabetes mellitus Diabetes type 2, uncontrolled Hyperlipidemia Morbid obesity HTN (hypertension) CAD (coronary artery disease) Surgical History (Updated 11/30/24 @ 13:29 by Chandni Shi) Hx of cataract extraction History of colon resection Hx of umbilical hernia repair History of esophagogastroduodenoscopy (EGD) Hx of rotator cuff surgery Hx of shoulder replacement Hx of knee surgery Hx of colonoscopy (~11/06/20) Hx of CABG Family History Father No problems noted. Mother Cancer Social History Household Members: Spouse Housing: House Are you a primary child care education coordinator to a significant other at home: No Do you presently have visiting nurse or other home services: No 75 years or older and lives alone: No Alcohol intake: never Comment: aware of trip hazard Patient Tobacco Use Status: Former Tobacco user Tobacco use type: Cigarette Years Smoked: 30 e-Cigarette/Vaping Use: Never Used Advance Directives Date on File: 12/02/20 service: No Current occupational status: retired Questionnaire AUDIT C Alcohol Use Questionnaire (AUDIT-C) 1. How often do you have a drink containing alcohol?: Monthly or less 2. How many drinks containing alcohol do you have on a typical day when you are drinking?: 1 or 2 Total Score: 1 Physical exam (Primary Care) Vital Signs: Last Vital Signs Temp 97.5 F 12/03/24 11:14 Pulse 61 12/03/24 11:14 Resp 17 12/03/24 11:14 BP 110/48 L 12/03/24 11:14 Pulse Ox 95 12/03/24 11:14 Oxygen Delivery Method Room Air 12/03/24 11:14 BMI result Body Mass Index 33.8 Tobacco/Smoking Status: Tobacco use Status Tobacco use date assessed 12/03/24 12/03/24 11:07 Patient Tobacco Use Status Former Tobacco user 12/03/24 11:07 Tobacco use type Cigarette 12/03/24 11:07 e-Cigarette/Vaping Use Never Used 12/03/24 11:07 Coding Level of Care Code New Pt Level 4 (90134) Complex EM visit Add On G2211 Diagnoses Diabetic nephropathy associated with type 2 diabetes mellitus E11.21 Assessment & Plan Assessment & Plan (1) Diabetic nephropathy associated with type 2 diabetes mellitus: Code(s): E11.21 - Type 2 diabetes mellitus with diabetic nephropathy Category: Medical Plan: History of Present Illness - The patient is an 79-year-old male presenting with management of Diabetes Mellitus and follow-up on visual impairment. - Diabetes Mellitus: The patient regularly monitors blood glucose levels, with recent readings of 178, 137, and 100 mg/dL in the evening, which are considered decent. 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 - Coronary Artery Disease: The patient has a history of coronary artery disease and has undergone triple bypass surgery. Social History - The patient lives with his and does not drive. - He has a history of smoking but quit four years ago and consumes alcohol occasionally. 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 Review of Systems - Ophthalmologic: Reports loss of upper vision in the left eye. - Neurological: Denies halos around lights. - Hearing: Reports recent improvement after ear cleaning. Physical Exam General: Cooperative and healthy appearing Nutritional Appearance: Well nourished Orientation/consciousness: Patient oriented x3 Limitations: No limitations Head: Normal to inspection General: Appearance normal, both eyes and all related structures Neck: Normal visual inspection Chest: Normal palpation of entire chest wall Respiratory: N ormal respiratory effort Neurology: Patient oriented x3, but has partial vision loss in the left eye due to a past stroke. Results Plan 1. Diabetes Mellitus - Continue regular monitoring of blood glucose levels. - Blood work including A1c to be ordered for further assessment. 2. 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 3. Coronary Artery Disease Status Post Triple Bypass Surgery - Continue current medications with no refills needed at this time. - Re-evaluate medication necessity in three months. Discussion Notes I discussed with the patient the importance of regular monitoring of blood glucose levels and the need for blood work, including A1c, to assess diabetes management. We also reviewed his current medications for coronary artery disease, deciding to continue them without refills for now and to reassess in three months. Patient Instructions - Continue monitoring blood glucose levels daily. - Schedule and complete blood work, including A1c, as discussed. - Follow up in three months to reassess medication needs. Orders: Orders Complete Blood Count no Diff Today E11.21 - Type 2 diabetes mellitus with diabetic nephropathy Basic Metabolic Panel Today E11.21 - Type 2 diabetes mellitus with diabetic nephropathy Lipid Panel Today E11.21 - Type 2 diabetes mellitus with diabetic nephropathy Liver Panel Today E11.21 - Type 2 diabetes mellitus with diabetic nephropathy Microalbumin, Random (w Creat) Today E11.21 - Type 2 diabetes mellitus with diabetic nephropathy Thyroid Stimulating Hormone Today E11.21 - Type 2 diabetes mellitus with diabetic nephropathy Hemoglobin A1c Today E11.21 - Type 2 diabetes mellitus with diabetic nephropathy
[2024-12-03 11:14] VITALS: BP 110/48; PULSE 61; RESP 17; TEMP 36.4; O2SAT 95; BMI 33.8
--- OUTSIDE RECORDS SUMMARY | 2024-12-03 11:56 | XMS_ITS | Patient Health Record ---
Author Organization [facility] Address [address] [place] [address] Care Team Providers Care Research Microbiologist Name Role Phone Ar (RETIRED) Leon UGARTE Primary Care Provider Unavailable Daniel Rebolledo Jr Unavailable Allergies No Known Allergies Reason [...] Orally Twi ce a day Active Ipratropium [place] HFA 17 MCG/ACT 2 puffs Inhalation Four times a day Active Metoprolol Tartrate 25 MG 1 tablet with food Orally Twice a day Active Immunizations Vaccine Route Administration Date Status Comme nts Influenza Unknown 03/02/2021 Administered Problems Problem Type SNOMED Code ICD Code Onset Dates Problem Status W/U Status Risk Notes Problem 740758310 Colon cancer screening (Z12.11) Active confirmed Problem 261903639 [facility] (current) use of aspirin (Z79.82) Active confirmed Plan Of Treatment Pending Test Test Name Order Date CT COLON SCREENING NO CONTRAST 6 Future Test Test Name Order Date COLONOSCOPY 02/04/2012 COLONOSCOPY 10/01/2015 COLONOSCOPY 04/15/2021 Insurance Providers Payer Name Payer Address Payer Phone Subscriber Number Group Number Insured Name Patient Relationship to Insured Coverage Start Date Coverage End Date [facility] [address] [place], [place] [id number] ELENA GRIJALVA Self - patient is the insured Medical (General) History Medical History History ICD Code coronary artery disease diabetes hypertension elevated cholesterol COPD Surgical History Surgery Date(Month/Year) shoulder surgery tripple bypass 06/29/2013 hernia repair rotator cuff tear repair -both ankle surgery knee surgery-left shoulder replacement left resection of colon for benign mass - Dr. Perea
--- OUTSIDE RECORDS SUMMARY | 2024-12-03 11:56 | XMS_ITS | Patient Health Record ---
Author Organization [facility] Address [address] [facility] [address] Care Team Providers Care Gold Frame Assembler Name Role Phone Dany Weber Primary Care Provider [phone] Tonio Johnson Unavailable [phone] Allergies No Known Allergies Results Component Value Reference Range Notes HEMOGLOBIN A1C (GLYCOHEMOGLO BIN) Reviewed date:08/21/2024 03:24:57 PM Interpretation: Performing Lab: Notes/Report: HEMOGLOBIN A1C % (HH) 7.5 HEMOGLOBIN A1C (GLYCOHEMOGLO BIN) Reviewed date:11/27/2024 03:03:43 PM Interpretation: Performing Lab: Notes/Report: HEMOGLOBIN A1C % (HH) 7.5 Reason For Referral No Information Medications Medication SIG (Take, Route, Frequency, Duration) Notes Start Date End Date Status Omeprazole 20 MG 2 capsule Orally Onc e a day Active Flovent HFA Not-Taki ng oxyCODONE-Acetaminophen 5-325 MG 1 tablet as needed Orally every 6 hrs PRN Active metFORMIN HCl Not-Ta bindu HumuLIN N Active Gabapentin 300 MG 2 tablet Orally Once a day Active Famotidine 20 MG 1 tablet at bedtime as needed Orally Once a day; Duration: 30 day(s) Active Metoprolol Tartrate 25 MG 1 tablet with food Orally three a day Active Magnesium Active Lancets Active Ipratropium-Albuterol Active Finasteride 5 MG 1 tablet Orally Once a day Active Furosemide 80 MG 2 tablet Orally Once a day Active Doxazosin Mesylate 8 MG 1 tablet Orally Once a day Active Symbicort Not-Taking Clopidogrel Bisulfate Active Advair HFA Not-Takin g Sertraline HCl 50 MG 1 tablet Orally Onc e a day; Duration: 30 day(s) Active Spironolactone 25 MG 2 tablet Orally Onc e a day Active Simvastatin 40 MG 1 tablet in the even ing Orally Once a day; Duration: 30 day(s) Active Rabies Virus Vaccine, HDC Active Amitriptyline HCl 25 MG 1 tablet Orally Once a day Active Extra Depth Orthopedic Shoes (1 Pair) with Customized Heat Molded Multidensity Innersoles (3 Pair) as directed Dx: 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), Hammertoe Foot Deformity (M20.41,M20.42), Preulcerative Skin Lesion(s) (L85.1) Active Aspir-81 Active Ciclopirox Olamine 0.77 % 1 application Externally Twice a day; Duration: 30 days Active Trulicity Active Stool Softener Activ e Immunizations Vaccine Route Administration Date Status Comme nts Influenza Unknown 01/11/2017 Administered Influenza Unknown 02/13/2018 Administered Influenza Unknown 01/01/2020 Administered Influenza Unknown 02/02/2022 Administered Influenza Unknown 01/31/2024 Administered Pneumococcal Unknown 05/31/2017 Administered COVID-19 Moderna [...] Problem Acquired hammer toe of right foot (7698984661063092 ) Other hammer toe(s) (acquired), right foot (M20.41) Active confirmed Response to treatment, Improvemen t Problem Acquired hammer toe of left foot (4922953817453644 ) Other hammer toe(s) (acquired), left foot (M20.42) Active confirmed Response to treatment, Improvemen t Problem Polyneuropathy due to diabetes mellitus type I (190250799) Type 1 diabetes mellitus with diabetic polyneuropathy (E10.42) Active confirmed Vital Signs Blood pressure diastolic 65 mm Hg 11/27/2024 Height 5 ft 8 in in 11/27/2024 Blood pressure systolic 130 mm Hg 11/27/2024 Weight 219 lbs 11/27/2024 BMI 33.3 kg/m2 11/27/2024 Procedures Procedure Date Ordered Date Performed Result Body Sit e 67810-MAEKFDS NAIL, 6 OR MORE 08/21/2024 N/A 42486-QQYC SKIN LESIONS, 2 TO 4 08/21/2024 N/A 78871-JWEUMTI NAIL, 6 OR MORE 11/27/2024 N/A 61658-VESW SKIN LESIONS, 2 TO 4 11/27/2024 N/A Encounters Encounter Location Date Provider Diagnosis [address] [address] 08/21/2024 Tonio Johnson Type 1 diabetes mellitus with diabetic polyneuropathy E10.42 ; Onychomycosis B35.1 ; Other hammer toe(s) (acquired), right foot M20.41 and Other hammer toe(s) (acquired), left foot M20.[address] [address] 11/27/2024 Tonio Johnson Type 1 diabetes mellitus with diabetic polyneuropathy E10.42 and Onychomycosis B35.[address] [address] 03/01/2024 Tonio Johnson [address] [address] 05/31/2024 Tonio Johnson Assessments Encounter Date Diagnosis (ICD Code) Assessment Notes Treatment Notes Treatment Clinical Notes Section Notes 08/21/2024 Type 1 diabetes mellitus with diabetic polyneuropathy (ICD-10 - E10.42) 08/21/2024 Onychomycosis (ICD-10 - B35.1) 11/27/2024 Type 1 diabetes mellitus with diabetic polyneuropathy (ICD-10 - E10.42) 11/27/2024 Onychomycosis (ICD-10 - B35.1) 08/21/2024 Other hammer toe(s) (acquired), right foot (ICD-10 - M20.41) Patient Educated with: DIABETIC FOOT CARE INSTRUCTIONS. pdf (DIABETIC FOOT CARE INSTRUCTIONS. pdf) 08/21/2024 Other hammer toe(s) (acquired), left foot (ICD-10 - M20.42) Plan Of Treatment Pending Test Test Name Order Date 26497-MQKSXKC NAIL, 6 OR MORE 08/10/2016 78364-UMISIKI NAIL, 6 OR MORE 11/12/2016 15870-IMTFUHP NAIL, 6 OR MORE 03/01/2017 49555-DRELGTB NAIL, 6 OR MORE 05/31/2017 29623-YITAIDC NAIL, 6 OR MORE 08/30/2017 65724-AAHLLSD NAIL, 6 OR MORE 11/29/2017 78125-JGFYNLH NAIL, 6 OR MORE 06/06/2018 46335-HHVUVZY NAIL, 6 OR MORE 09/05/2018 28827-NYPDVQG NAIL, 6 OR MORE 02/28/2018 40919-OTILDSB NAIL, 6 OR MORE 12/05/2018 97517-LEBHRYW NAIL, 6 OR MORE 05/11/2019 90993-ILIWQZH NAIL, 6 OR MORE 09/14/2019 44482-BSFRAXI NAIL, 6 OR MORE 12/14/2019 21202-BSCRGAO NAIL, 6 OR MORE 03/14/2020 04578-BCLWDQD NAIL, 6 OR MORE 08/12/2020 46731-XWRGBIE NAIL, 6 OR MORE 11/11/2020 91138-PMWHQJX NAIL, 6 OR MORE 02/10/2021 10335-RIVTHRI NAIL, 6 OR MORE 05/15/2021 21211-DMRDHOB NAIL, 6 OR MORE 08/21/2021 00573-KFMFAZW NAIL, 6 OR MORE 11/20/2021 65068-MBOERCE NAIL, 6 OR MORE 02/23/2022 47522-UVVETVX NAIL, 6 OR MORE 05/28/2022 02039-HYXOAAW NAIL, 6 OR MORE 08/27/2022 08829-HUEDPNT NAIL, 6 OR MORE 11/26/2022 27434-LFWVOZU NAIL, 6 OR MORE 03/04/2023 13924-KCKUMDH NAIL, 6 OR MORE 06/24/2023 35826-VHXNKLZ NAIL, 6 OR MORE 12/02/2023 91033-URXYERA NAIL, 6 OR MORE 08/21/2024 90123-EAASEYX NAIL, 6 OR MORE 11/27/2024 79227-Stctczpz Plate 06/06/2018 32382-Drmtxdem Plate 12/02/2023 64042-Lzcbikjw Plate 06/24/2023 80096-Xlmleyjp Plate 03/04/2023 73182-Fimkefbf Plate 11/26/2022 33560-Sdcnwcwq Plate 08/27/2022 03568-Wrrikboo Plate 05/28/2022 44388-Lmhmifim Plate 02/23/2022 16672-Rnueyzew Plate 11/20/2021 16027-Pjoniton Plate 08/21/2021 99428-Vancsztx Plate 05/15/2021 16201-Zwsgonfz Plate 02/10/2021 53098-Dnowgcgo Plate 11/11/2020 17944-Vlivqujo Plate 08/12/2020 94217-Qaxjmwgf Plate 03/14/2020 26852-Fhmxhhdh Plate 12/14/2019 27734-Wxghdopg Plate 09/14/2019 52383-Lapqdraj Plate 05/11/2019 61374-Bljwrrpx Plate 12/05/2018 04947-Orfahhfg Plate 09/05/2018 91259-Wjxshcja Plate 11/29/2017 46740-Thnivltn Plate 02/28/2018 90376-Rfbdsnei Plate 05/31/2017 70114-Oigwudqg Plate 08/30/2017 95796-Kikofrpg Plate 11/12/2016 95743-Pxnaivoz Plate 08/10/2016 44218-GJXR SKIN LESIONS, 2 TO 4 08/11/19 17 37140-TAJR SKIN LESIONS, 2 TO 4 11/13/19 17 10795-DLDQ SKIN LESIONS, 2 TO 4 03/01/20 17 52427-ULCI SKIN LESIONS, 2 TO 4 11/30/19 18 49648-PPCC SKIN LESIONS, 2 TO 4 08/31/19 18 71606-EZBG SKIN LESIONS, 2 TO 4 05/31/19 18 31041-SBEH SKIN LESIONS, 2 TO 4 02/29/20 18 61771-FGCO SKIN LESIONS, 2 TO 4 09/06/19 19 50936-ALIG SKIN LESIONS, 2 TO 4 12/06/19 19 81263-LJAW SKIN LESIONS, 2 TO 4 06/06/19 19 02105-MYFL SKIN LESIONS, 2 TO 4 05/11/19 03568-CIGZ SKIN LESIONS, 2 TO 4 09/14/19 11176-NPBS SKIN LESIONS, 2 TO 4 12/14/19 50913-ERMD SKIN LESIONS, 2 TO 4 03/14/20 50844-LUIV SKIN LESIONS, 2 TO 4 08/13/19 13162-DKCN SKIN LESIONS, 2 TO 4 11/12/19 08187-SGNR SKIN LESIONS, 2 TO 4 02/11/20 83808-UFLJ SKIN LESIONS, 2 TO 4 05/15/19 08458-FSAY SKIN LESIONS, 2 TO 4 08/22/19 68717-IOUU SKIN LESIONS, 2 TO 4 11/21/19 38193-VMLM SKIN LESIONS, 2 TO 4 02/24/20 17435-ZRYJ SKIN LESIONS, 2 TO 4 05/28/19 49177-NJXC SKIN LESIONS, 2 TO 4 08/28/19 26954-HUUV SKIN LESIONS, 2 TO 4 11/27/19 76786-SLTO SKIN LESIONS, 2 TO 4 03/04/20 19349-LGUH SKIN LESIONS, 2 TO 4 06/24/19 24 53144-HTJB SKIN LESIONS, 2 TO 4 12/02/19 21634-AWRJ SKIN LESIONS, 2 TO 4 11/28/19 13694-NRHS SKIN LESIONS, 2 TO 4 08/22/19 96899-Svuo. Subungual Hematoma 3 24108- Biopsy of skin lesion 03/01/2017 Next Appt Details Provider Name:Tonio Johnson , 03/19/2025 01:30:00 PM, [address] [facility], [place], [address], Insurance Providers Payer Name Payer Address Payer Phone Subscriber Number Group Number Insured Name Patient Relationship to Insured Coverage Start Date Coverage End Date [facility] 65 Medicare Preferred [address] [place] [address] [phone] [id number] Josr Hart Self - patient is [...] cataract surgery 09/21/21,10/05/21 Hospitalization History Reason Date(Month/[place] [facility] [place] 33 [place] hrs [place] [facility] [facility] [place] [facility] / Mass in colon /4 Pints blo od 11/04-01/20 [facility] [place] Fluid on lungs 10/2019
--- OUTSIDE RECORDS SUMMARY | 2024-12-03 11:57 | XMS_ITS | Clinical Summary ---
Author Organization [facility] Address [address] [place] [address] Phone Care Team Providers Care Fire Truck Driver Name Role Phone Leon Joyner MD Primary Care Provider [phone] Allergies No known active allergies Medications amitriptyline [...] Active ferrous sulfate 324 mg (65 mg absentee-shawnee iron) TbEC Take 324 mg by mouth daily with breakfast. Active [id number] JOHN GLUCONATE ORAL Take by mouth daily. [...] 24 Active Additional Information Patient taking differently: [id number] UNITS WITH BREAKFAST AND 50UNITS WITH DINNER [...] in 2 weeks to drop off at front end manager or follow up appointment. Hyperlipidemia 05/20/2022 Assessment [...] Description 10/09/2024 1:50 PM EDT Office Visit [facility] [address] [place] [address] [place] [address] Caroline Wong CNP Type 2 diabetes mellitus with chronic kidney disease, with long-term current use of insulin (Primary Dx); Stage 3b chronic kidney disease; Hypertension, unspecified type; Hyperlipidemia, unspecified hyperlipidemia type 09/18/2024 Telephone [facility] [address] [place] [address] [place] [address] Caron Moreno from Last 3 Months Social [...] Description 12/10/2024 1:30 PM EDT Office Visit [facility] [address] [place] [address] Caroline Wong, MEDICINE WORKER [address] [facility], [address] [place] [address] [email or web address] Health Maintenance Due Date Last Done Comments [...] Hemoglobin A1c 6.6(A) 4.2 - 5.6 % [facility] Other 10/09/2024 2:12 PM EDT us Caroline Wong CNP POINT OF CARE TEST ORDERABLES Final Result [facility] [address] [place] [address], [facility] * Basic metabolic panel (07/16/2024 12:26 PM EDT) Blood Caroline Wong CNP LAB BLOOD ORDERABLES Final Re sult Performing Organization Address City/[facility]/ZIP Co de Phone Number [address] [address] * (ABNORMAL) Lipid panel (12/02/2022 11:58 AM EDT) HDL 27 mg/dL [facility] Comment: Interpretation <40 mg/dL: Low HDL cholesterol (major risk factor for CHD) Greater than or equal to 60 mg/dL: High HDL cholesterol ( negative risk factor for CHD) HDL - cholesterol is affected by a number of factors, e.g. smoking, excerise, hormones, sex and age. CHOLESTEROL 153 0 - 240 mg/dL [facility] TRIGLYCERIDES 367(H) 30 - 160 mg/dL [facility] LDL 53 50 - 129 mg/dL [facility] Comment: LDL levels in terms of risk for coronary heart disease: <100 mg/dL: Optimal 100-129 mg/dL: Near or above optimal 130-159 mg/dL: Borderline high 160-189 mg/dL: High >190 mg/dL: Very High CARDIAC RISK RATIO 5.7(H) 3.4 - 5.0 [facility] Blood 12/02/2022 11:5 8 AM EDT 12/02/2022 12:08 PM EDT Leon Joyner MD LAB BLOOD ORDERABLES Final Result Performing Organization Address [facility] Co de Phone Number [address] [address] from Last 3 Months or Most Recently Relevant to Health Maintenance Insurance [place] BLUE REPLACEMENT MEDICARE PPO BLUE REPLACEMENT MEDICARE PPO BLUE REPLACEMENT MEDICARE PPO BLUE [place]AC[place] [address] [place] [address] MEDICARE PPO BLUE REPLACEMENT Care Teams Fire Truck Driver Relationship Specialty Start Date End Date Leon Joyner MD [address] [place] [address] [place] [address] PCP - General Internal Medicine 05/11/22 Additional Source Comments The information contained in this document represents components of the legal health record. It is not the complete legal health record.[facility]
== END 2024-12-03 11:39 | disposition home or self-care (01) ==
LOC: HO.HMCHD 10:58
PROVIDERS: PCP Family Medicine; Visit Provider Internal Medicine
DX: E11.21 Type 2 diabetes mellitus with diabetic nephropathy (principal)

== ENCOUNTER → 2024-12-03 10:57 | Outpatient (BNVA) | payer MEDICARE, SELFPAY | PROVIDERS: PCP Family Medicine; Visit Provider Internal Medicine | DX: E11.21 Type 2 diabetes mellitus with diabetic nephropathy (principal); H54.7 Unspecified visual loss; I25.10 Atherosclerotic heart disease of native coronary artery without angina pectoris; Z95.1 Presence of aortocoronary bypass graft | CPT/HCPCS: 99202 ==

== ENCOUNTER 2024-12-04 10:12 | Outpatient (REF) | payer MEDICARE, SELFPAY ==
[2024-12-04 10:45] LABS: Hematocrit 45.0 % (42.0-52.0); Hemoglobin 14.0 g/dl (14.0-18.0); Mean Corpuscular HGB Conc 31.1 g/dl (31.0-36.0); Mean Corpuscular Hemoglobin 26.5 pg (27.0-33.0); Mean Corpuscular Volume 85.2 fL (80.0-98.0); NRBC Abs Auto 0.000 X10*3/uL (0.0-0.012); NRBC Pct Auto 0.0 /100WBC (0.0-0.2); Platelet Count 211 X10*3/uL (160-400); Red Blood Count 5.28 X10*6/uL (4.60-5.80); White Blood Count 8.1 X10*3/uL (4.8-10.8)
--- OUTSIDE RECORDS SUMMARY | 2024-12-04 10:46 | XMS_ITS | Patient Health Record ---
Author Organization [facility] Address [address] [place] [address] Care Team Providers Care Ocean Export Agent Name Role Phone Ar (RETIRED) Leon UGARTE Primary Care Provider Unavailable Daniel Rebolledo Jr Unavailable [phone] Allergies No Known Allergies Reason For Referral [...] Orally Twi ce a day Active Ipratropium [place] HFA 17 MCG/ACT 2 puffs Inhalation Four times a day Active Metoprolol Tartrate 25 MG 1 tablet with food Orally Twice a day Active Immunizations Vaccine Route Administration Date Status Comme nts Influenza Unknown 03/02/2021 Administered Problems Problem Type SNOMED Code ICD Code Onset Dates Problem Status W/U Status Risk Notes Problem 653211160 Colon cancer screening (Z12.11) Active confirmed Problem 269868949 halfway (current) use of aspirin (Z79.82) Active confirmed Plan Of Treatment Pending Test Test Name Order Date CT COLON SCREENING NO CONTRAST 6 Future Test Test Name Order Date COLONOSCOPY 02/04/2012 COLONOSCOPY 10/01/2015 COLONOSCOPY 04/15/2021 Insurance Providers Payer Name Payer Address Payer Phone Subscriber Number Group Number Insured Name Patient Relationship to Insured Coverage Start Date Coverage End Date [facility] [address] [place], [place] [id number] ELENA GRIJALVA Self - patient is the insured Medical (General) History Medical History History ICD Code coronary artery disease diabetes hypertension elevated cholesterol COPD Surgical History Surgery Date(Month/Year) shoulder surgery tripple bypass 06/29/2013 hernia repair rotator cuff tear repair -both ankle surgery knee surgery-left shoulder replacement left resection of colon for benign mass - Dr. Perea
--- OUTSIDE RECORDS SUMMARY | 2024-12-04 10:46 | XMS_ITS | Patient Health Record ---
Author Organization [facility] Address [address] [place] [address] Care Team Providers Care Public Safety Officer Name Role Phone Dany Weber Primary Care Provider Tonio Johnson Unavailable [phone] Allergies No Known Allergies Results Component Value [...] Problem Acquired hammer toe of right foot (9213560260496067 ) Other hammer toe(s) (acquired), right foot (M20.41) Active confirmed Response to treatment, Improvemen t Problem Acquired hammer toe of left foot (4031056148645040 ) Other hammer toe(s) (acquired), left foot (M20.42) Active confirmed Response to treatment, Improvemen t Problem Polyneuropathy due to diabetes mellitus type I (023960752) Type 1 diabetes mellitus with diabetic polyneuropathy (E10.42) Active confirmed Vital Signs Blood pressure diastolic 65 mm Hg 11/27/2024 Height 5 ft 8 in in 11/27/2024 Blood pressure systolic 130 mm Hg 11/27/2024 Weight 219 lbs 11/27/2024 BMI 33.3 kg/m2 11/27/2024 Procedures Procedure Date Ordered Date Performed Result Body Sit e 09019-ILODAAL NAIL, 6 OR MORE 08/21/2024 N/A 41826-TBVH SKIN LESIONS, 2 TO 4 08/21/2024 N/A 61232-TPGVEEX NAIL, 6 OR MORE 11/27/2024 N/A 46155-OATW SKIN LESIONS, 2 TO 4 11/27/2024 N/A Encounters Encounter Location Date Provider Diagnosis [address] [address] 08/21/2024 Tonio Johnson Type 1 diabetes mellitus with diabetic polyneuropathy E10.42 ; Onychomycosis B35.1 ; Other hammer toe(s) (acquired), right foot M20.41 and Other hammer toe(s) (acquired), left foot M20.[address] [address] 11/27/2024 Tonio Johnson Type 1 diabetes mellitus with diabetic polyneuropathy E10.42 and Onychomycosis B35.[address] [address] 03/01/2024 Tonio Johnson [address] [address] 05/31/2024 Tonio Johnson Assessments Encounter Date Diagnosis [...] Treatment Pending Test Test Name Order Date 23010-KUYQAIQ NAIL, 6 OR MORE 08/10/2016 87443-PECMHKH NAIL, 6 OR MORE 11/12/2016 41597-DIRYVFL NAIL, 6 OR MORE 03/01/2017 23920-KNFWGFS NAIL, 6 OR MORE 05/31/2017 96521-GOCIEAV NAIL, 6 OR MORE 08/30/2017 41017-SWDYDDA NAIL, 6 OR MORE 11/29/2017 45224-SNIBJCY NAIL, 6 OR MORE 06/06/2018 21999-OFOFPPC NAIL, 6 OR MORE 09/05/2018 27563-ZVTXHVD NAIL, 6 OR MORE 02/28/2018 44720-SWEPWZS NAIL, 6 OR MORE 12/05/2018 61468-RAUYIYO NAIL, 6 OR MORE 05/11/2019 84682-BKITDDV NAIL, 6 OR MORE 09/14/2019 58577-QQDXFUO NAIL, 6 OR MORE 12/14/2019 54592-FPEKZYG NAIL, 6 OR MORE 03/14/2020 52741-BIZEIGA NAIL, 6 OR MORE 08/12/2020 91918-OUOIVWZ NAIL, 6 OR MORE 11/11/2020 99267-XNGULZZ NAIL, 6 OR MORE 02/10/2021 10181-NMHRIYB NAIL, 6 OR MORE 05/15/2021 93751-SPBCDNT NAIL, 6 OR MORE 08/21/2021 97782-EHGSZPZ NAIL, 6 OR MORE 11/20/2021 54483-KBYZCDE NAIL, 6 OR MORE 02/23/2022 28841-NJGIWAT NAIL, 6 OR MORE 05/28/2022 80014-DNPFIIE NAIL, 6 OR MORE 08/27/2022 42564-JPHZGYC NAIL, 6 OR MORE 11/26/2022 16466-OTOTBJS NAIL, 6 OR MORE 03/04/2023 37557-NYWCRCP NAIL, 6 OR MORE 06/24/2023 71218-SMOLAQR NAIL, 6 OR MORE 12/02/2023 31765-JSLCQQP NAIL, 6 OR MORE 08/21/2024 59875-NCIQJBQ NAIL, 6 OR MORE 11/27/2024 50891-Aobsmnxi Plate 06/06/2018 71665-Gshpgczf Plate 12/02/2023 72071-Dzstgmsf Plate 06/24/2023 82972-Eelrwmqm Plate 03/04/2023 61019-Vgknwrdn Plate 11/26/2022 67164-Ymnzupnf Plate 08/27/2022 17304-Oowlrprc Plate 05/28/2022 23948-Zqvccefg Plate 02/23/2022 53180-Jvjpubvj Plate 11/20/2021 66295-Jpyermud Plate 08/21/2021 48797-Erjgmxce Plate 05/15/2021 88490-Bowvxfbs Plate 02/10/2021 89178-Lceodrhz Plate 11/11/2020 81087-Oqyevhin Plate 08/12/2020 86682-Yeaolslp Plate 03/14/2020 84483-Uvknvbuh Plate 12/14/2019 34983-Xumvubwi Plate 09/14/2019 48663-Cabxarnw Plate 05/11/2019 47669-Jeazfuke Plate 12/05/2018 82834-Qqfodayx Plate 09/05/2018 00079-Gvpooeio Plate 11/29/2017 02550-Dysjnimz Plate 02/28/2018 19027-Skcbmulo Plate 05/31/2017 32912-Dgfuzhif Plate 08/30/2017 35085-Cttlpgot Plate 11/12/2016 73492-Irlujojg Plate 08/10/2016 60912-UXBC SKIN LESIONS, 2 TO 4 08/11/19 17 48629-WZKK SKIN LESIONS, 2 TO 4 11/13/19 17 18266-ELRJ SKIN LESIONS, 2 TO 4 03/01/20 17 72029-ITID SKIN LESIONS, 2 TO 4 11/30/19 18 58196-WKYU SKIN LESIONS, 2 TO 4 08/31/19 18 54398-CMBM SKIN LESIONS, 2 TO 4 05/31/19 18 10585-GGHA SKIN LESIONS, 2 TO 4 02/29/20 18 49856-YIAP SKIN LESIONS, 2 TO 4 09/06/19 19 33978-MEHM SKIN LESIONS, 2 TO 4 12/06/19 19 06724-YLIJ SKIN LESIONS, 2 TO 4 06/06/19 19 93198-ICYC SKIN LESIONS, 2 TO 4 05/11/19 03696-KQPJ SKIN LESIONS, 2 TO 4 09/14/19 75141-RUAC SKIN LESIONS, 2 TO 4 12/14/19 55829-CGMV SKIN LESIONS, 2 TO 4 03/14/20 04438-GESQ SKIN LESIONS, 2 TO 4 08/13/19 13668-JTOF SKIN LESIONS, 2 TO 4 11/12/19 60038-JPYN SKIN LESIONS, 2 TO 4 02/11/20 68764-HTCQ SKIN LESIONS, 2 TO 4 05/15/19 26666-DTQZ SKIN LESIONS, 2 TO 4 08/22/19 78761-OOBP SKIN LESIONS, 2 TO 4 11/21/19 75317-WUIK SKIN LESIONS, 2 TO 4 02/24/20 19616-EVOW SKIN LESIONS, 2 TO 4 05/28/19 65697-GQVI SKIN LESIONS, 2 TO 4 08/28/19 21544-JSYS SKIN LESIONS, 2 TO 4 11/27/19 95391-KZNE SKIN LESIONS, 2 TO 4 03/04/20 00552-RETC SKIN LESIONS, 2 TO 4 06/24/19 24 75301-PTLY SKIN LESIONS, 2 TO 4 12/02/19 29154-AZXA SKIN LESIONS, 2 TO 4 11/28/19 53070-MQSF SKIN LESIONS, 2 TO 4 08/22/19 44045-Rpao. Subungual Hematoma 3 23119- Biopsy of skin lesion 03/01/2017 Next Appt Details Provider Name:Tonio Johnson , 03/19/2025 01:30:00 PM, [address] [facility], [place], [address], Insurance Providers Payer Name Payer Address Payer Phone Subscriber Number Group Number Insured Name Patient Relationship to Insured Coverage Start Date Coverage End Date [facility] 65 Medicare Preferred [address] [place] [address] [phone] [id number] Josr Hart Self - patient is [...] cataract surgery 09/21/21,10/05/21 Hospitalization History Reason Date(Month/[place] [facility] [place] Low sugar 33 few hrs 2021 [facility] [place]2020 [facility] 10/01/20 [facility] [place] / Mass in colon /4 Pints blo od 11/04-01/20 [facility] [place] Fluid on lungs 10/2019
--- OUTSIDE RECORDS SUMMARY | 2024-12-04 10:46 | XMS_ITS | Clinical Summary ---
Author Organization [facility] Address [address] [place] [address] Phone Care Team Providers Care [place] Cutting Machine Operator Name Role Phone Leon Joyner MD Primary Care Provider [phone] Allergies No known active allergies Medications amitriptyline [...] Active ferrous sulfate 324 mg (65 mg teller iron) TbEC Take 324 mg by mouth daily with breakfast. Active MYCEACWH-DCZ-IQJ JOHN GLUCONATE ORAL Take by mouth daily. [...] 24 Active Additional Information Patient taking differently: [id number] UNITS WITH BREAKFAST AND 50UNITS WITH DINNER [...] weeks to drop off at front end developer or follow up appointment. Hyperlipidemia 05/20/2022 Assessment [...] Description 10/09/2024 1:50 PM EDT Office Visit [facility] [address] [place] [address] [place] [address] Caroline Wong CNP Type 2 diabetes mellitus with chronic kidney disease, with long-term current use of insulin (Primary Dx); Stage 3b chronic kidney disease; Hypertension, unspecified type; Hyperlipidemia, unspecified hyperlipidemia type 09/18/2024 Telephone [facility] [address] [place] [address] [place] [address] Caron Moreno from Last 3 Months Social [...] Description 12/10/2024 1:30 PM EDT Office Visit [facility] [address] [place] [address] Caroline Wong, SLIDE DEVELOPER [address] [facility], 1st [place] [address] [email or web address] Health Maintenance Due Date Last Done Comments [...] Hemoglobin A1c 6.6(A) 4.2 - 5.6 % [email or web address] Other 10/09/2024 2:12 PM EDT us Caroline Wong CNP POINT OF CARE TEST ORDERABLES Final Result [employer] [address] [place] [address], [facility] * Basic metabolic panel (07/16/2024 12:26 PM EDT) Blood Caroline Wong CNP LAB BLOOD ORDERABLES Final Re sult Performing Organization Address City/[facility]/ZIP Co de Phone Number [address] [address] * (ABNORMAL) Lipid panel (12/02/2022 11:58 AM EDT) HDL 27 mg/dL [facility] Comment: Interpretation <40 mg/dL: Low HDL cholesterol (major risk factor for CHD) Greater than or equal to 60 mg/dL: High HDL cholesterol ( negative risk factor for CHD) HDL - cholesterol is affected by a number of factors, e.g. smoking, excerise, hormones, sex and age. CHOLESTEROL 153 0 - 240 mg/dL [facility] TRIGLYCERIDES 367(H) 30 - 160 mg/dL [facility] LDL 53 50 - 129 mg/dL [facility] Comment: LDL levels in terms of risk for coronary heart disease: <100 mg/dL: Optimal 100-129 mg/dL: Near or above optimal 130-159 mg/dL: Borderline high 160-189 mg/dL: High >190 mg/dL: Very High CARDIAC RISK RATIO 5.7(H) 3.4 - 5.0 C [facility] Blood 12/02/2022 11:5 8 AM EDT 12/02/2022 12:08 PM EDT Leon Joyner MD LAB BLOOD ORDERABLES Final Result Performing Organization Address [facility] Co de Phone Number [address] [address] from Last 3 Months or Most Recently Relevant to Health Maintenance Insurance [place] MED[place] BLUE REPLACEMENT MEDICARE PPO BLUE REPLACEMENT MEDICARE PPO BLUE REPLACEMENT MEDICARE PPO BLUE REPLACEMENT [place] [address] [place] [address] MEDICARE PPO BLUE REPLACEMENT Care Teams [place] Cutting Machine Operator Relationship Specialty Start Date End Date Leon Joyenr MD [address] [place] [address] [place] [address] PCP - General Internal Medicine 05/11/22 Additional Source Comments The information contained in this document represents components of the legal health record. It is not the complete legal health record.[facility]
[2024-12-04 10:57] LABS: Hemoglobin A1C 202.5797 umol/L; Total Hemoglobin (HGBA1C) 3715.4588 umol/L
[2024-12-04 11:04] LABS: Alanine Aminotransferase 23 U/L (0-40); Albumin Level 4.4 g/dL (3.5-5.0); Alkaline Phosphatase 101 U/L (39-117); Anion Gap 13 (12-20); Aspartate Amino Transferase 28 U/L (5-37); Blood Urea Nitrogen 29 mg/dL (9-16); Calcium 9.3 mg/dL (8.4-10.2); Carbon Dioxide 33 mmol/L (22-29); Chloride 100 mmol/L (96-108); Cholesterol 250 mg/dL (<200); Estimated Glomerular Filt Rate 34; HDL Cholesterol 33 mg/dL (>40); Potassium 4.5 mmol/L (3.3-5.1); Sodium 141 mmol/L (135-145); Total Protein 7.2 g/dL (6.5-8.0); Triglycerides 495 mg/dL (<150)
[2024-12-04 11:21] LABS: Microalbum/Creatinine Ratio Ur 30.2 ug/mg cr (<30)
[2024-12-04 11:23] LABS: Thyroid Stimulating Hormone 2.62 uIU/mL (0.32-4.0)
== END 2024-12-04 10:13 | disposition home or self-care (01) ==
LOC: HO.10HDL 10:12
PROVIDERS: Visit Provider Internal Medicine
DX: E11.21 Type 2 diabetes mellitus with diabetic nephropathy (principal)
CPT/HCPCS: 36415; 80048; 80061; 80076; 82043; 82570; 83036; 84443; 85027

== ENCOUNTER 2025-01-08 15:44 | Outpatient (AMB) | payer MEDICARE, SELFPAY ==
--- OUTSIDE RECORDS SUMMARY | 2024-03-02 06:00 | XMS_ITS ---
Author Organization [facility] Address [address] [facility] [place] [address] Care Team Providers Care Comic Book Designer Name Role Phone GusDany Primary Care Provider [phone] Tonio Johnson Unavailable [phone] Medications Medication SIG (Take, Route, Frequency, Duration) [...] Active Encounters Encounter Location Date Provider Diagnosis [facility] [address] [address] 03/02/2024 Tonio Johnson Plan Of Treatment Next Appt Details Provider Name:Tonio Johnson , 03/19/2025 01:30:00 PM, [address] [place] [address], [phone], Progress Notes * Josr HART FDOB:[birth year] (79 yo M)Acc No.[id number]:03/02/2024 Progress Note Patient: Hair Josr GUTIERREZ Monie Provider: Wil Johnson DPM :1945 A ge:78 Y S ex:Male Date:03/02/2024 Address:[address] [place], [place] [id number] Pcp:Dany Weber Subjective: * Chief Complaints: * [...] Date: 05/02/2023 Generated for Umu Umana/Adela on: 01/08/2025 05:55 PM EDT
--- OUTSIDE RECORDS SUMMARY | 2024-06-01 06:00 | XMS_ITS ---
Author Organization [facility] Address [address] [place] [address] Care Team Providers Care Software Integrator Name Role Phone Dany Weber Primary Care Provider Tonio Johnson Unavailable [phone] Encounters Encounter Location Date Provider Diagnosis [address] [address] 06/01/2024 Tonio Johnson Plan Of Treatment Next Appt Details Provider Name:Tonio Johnson , 03/19/2025 01:30:00 PM, [address] [place] [address], [phone], Progress Notes * Josr GRIJALVA FDOB:[birth year] (79 yo M)Acc No.[id number]:06/01/2024 Progress Note Patient: Josr DOWD Provider: Wil Johnson DPM :1945 A ge:78 Y S ex:Male Date:06/01/2024 Address:[address] [place] [address] [place], [id number] Pcp:Dany Weber Subjective: * Chief Complaints: [...] 06/01/2024 Generated for Umu Russell on: 0 01/08/2025 05:54 PM EDT
[2025-01-08 15:52] VITALS: BP 116/64; PULSE 69; O2SAT 94; BMI 34.2
--- NOTE | 2025-01-08 15:52 | HO.NEPHOV_ITS ---
Vital Signs 3 01/08/25 15:52 Height 5 ft 8 in Weight 225 lb BMI 34.2 BP 116/64 Blood Pressure Location Lt brachial Position Sitting Pulse 69 Pulse Source Pulse Oximeter Pulse Oximetry (%) 94 Oxygen Delivery Method Room Air Intake Visit Reasons: INP: Acute kidney failure, CKD STG 3 Assistant Passenger Locomotive Engineer Required: No Accompanied by: Spouse Allergies No Known Allergies Allergy (Verified 01/08/25 15:54) Medication List - Last Reconciled 01/08/25 by Phil Burch MD albuterol sulfate mg inhalation Q6H PRN amitriptyline 25 mg PO BEDTIME ascorbic acid (vitamin C) 1,000 mg PO DAILY aspirin (Adult Low Dose Aspirin) 81 mg PO DAILY blood sugar diagnostic ([facility] test strips) 1 strip miscellaneous TID doxazosin 8 mg PO BEDTIME dulaglutide (Trulicity) 1.5 mg subcut QWEEK ferrous sulfate (iron) 325 mg PO DAILY finasteride 5 mg PO BEDTIME furosemide 80 mg PO BID gabapentin 300 mg PO BID insulin regular hum U-500 conc (Humulin R U-500 (Concentrated) Insulin) 35 units with breakfast and 60 units with supper subcutaneously 2 times per day with meals; insulin U-500 syringe-needle (BD Insulin Syringe U-500) As directed injects 3 X/day ipratropium-albuterol 0.5 mg-3 mg(2.5 mg base)/3 mL 3 mL inhalation QID PRN lancets As directed magnesium 250 mg PO DAILY metoprolol tartrate 25 mg PO BID multivitamin 1 tab PO DAILY omeprazole 20 mg PO BID@0630,1630 polyethylene glycol 3350 (Miralax) 17 grams PO DAILY PRN sertraline 50 mg PO DAILY simvastatin 40 mg PO BEDTIME spironolactone 25 mg PO BID walker Folding front wheeled walker HPI Comments Details: The patient is an 79-year-old male presenting with chronic kidney disease and hypertension. Kidney function is between 30-35%, stable over the past few years, with a goal to prevent further decline. Hypertension is managed with multiple medications, including high-dose furosemide, and is well-controlled. Diabetes mellitus, diagnosed 10 years ago, has contributed to kidney damage. Insulin therapy is being tapered as blood sugar levels are under control. 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 Post-herpetic neuralgia due to shingles, managed with gabapentin, considering dosage reduction. History of depression treated with sertraline and amitriptyline, considering discontinuation of sertraline. Gastroesophageal reflux disease managed with omeprazole, advised to reduce dosage. Benign prostatic hyperplasia managed with finasteride, reports occasional slow urinary stream. Medical History: - Hypertension - Chronic kidney disease - Diabetes mellitus - Congestive heart failure - Post-herpetic neuralgia - Depression - Gastroesophageal reflux disease - Benign prostatic hyperplasia Surgical History: - Triple bypass surgery, 10 years ago Medications: - Furosemide 80 mg twice daily for hypertension and congestive heart failure - Insulin for diabetes mellitus - Gabapentin for post-herpetic neuralgia ( more than 10 yrs ago) - Sertraline for depression - Omeprazole for gastroesophageal reflux disease - Finasteride for benign prostatic hyperplasia Social History: - Quit smoking 45 years ago - Consumes alcohol occasionally, about one beer per week Family History: - Brother had a kidney transplant Diagnostic Results: - Kidney function between 30-35% GFR Creatinine [facility] Medical History (Updated 01/08/25 @ 16:12 by Phil Burch MD) Personal history of COVID-19 (~04/2023) JENA (hard of hearing) 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 Cataract Abscess Diastolic dysfunction Drainage from surgical wound Anemia Peptic ulcer GERD (gastroesophageal reflux disease) Depression TIA (transient ischemic attack) History of snoring COVID-19 vaccine series completed Cecum mass COPD (chronic obstructive pulmonary disease) case management patient 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 Mother Cancer Social History Household Members: Spouse Housing: House Are you a primary nurse behavioral health care to a significant other at home: No Do you presently have visiting nurse or other home services: No 75 years or older and lives alone: No Alcohol intake: never Comment: aware of trip hazard Patient Tobacco Use Status: Former Tobacco user Tobacco use type: Cigarette Years Smoked: 30 e-Cigarette/Vaping Use: Never Used Advance Directives Date on File: 12/02/20 service: No Current occupational status: retired Physical Exam Vital Signs: Last Vital Signs Pulse 69 01/08/25 15:52 BP 116/64 01/08/25 15:52 Pulse Ox 94 01/08/25 15:52 Oxygen Delivery Method Room Air 01/08/25 15:52 BMI result Body Mass Index 34.2 Comfortable Neck supple no JVD. Lungs entry equal no rales. Heart S1-S2 heard no gallop or rub. Abdomen soft nontender. Neuro alert awake oriented. No asterixis. Extremities no edema. Results Reviewed Results Reviewed: CT Scan 2020 ADRENAL GLANDS: There is a 2 cm left adrenal nodule. This is stable from multiple old exams and therefore probably benign. The right adrenal gland is normal. KIDNEYS AND URETERS: There is a 1 cm cyst in the upper pole of the left kidney. The kidneys are otherwise unremarkable. Nephrology Results: 2 Hgb, (14.0-18.0) 14.0 g/dl 12/04/24 WBC, (4.8-10.8) 8.1 X10*3/uL 12/04/24 Plt Count, (160-400) 211 X10*3/uL 12/04/24 Sodium, (135-145) 141 mmol/L 12/04/24 Potassium, (3.3-5.1) 4.5 mmol/L 12/04/24 Chloride, (96-108) 100 mmol/L 12/04/24 Carbon Dioxide, (22-29) 33 mmol/L H 12/04/24 BUN, (9-16) 29 mg/dL H 12/04/24 Creatinine, (0.5-1.4) 1.92 mg/dL H 12/04/24 Calcium, (8.4-10.2) 9.3 mg/dL 12/04/24 Urine Creatinine 62.72 mg/dL 12/04/24 Assessment & Plan Assessment & Plan (1) CKD (chronic kidney disease): Code(s): N18.9 - Chronic kidney disease, unspecified Category: Medical Plan: Chronic kidney disease stage IIIB most likely due to longstanding diabetic hypertensive kidney disease. No reason to believe he has any active glomerular nephritis or interstitial disease. No evidence of obstruction. Renal function has been stable for the last 5 years. EGFR is between 30 and 33 mL/minute. At present blood pressure is well controlled. Goal is to slow the progression of renal disease. Continue to avoid nephrotoxic agents including NSAIDs. Discussed importance of maintaining A1c less than 7%. He will benefit from weight loss. History of adrenal adenoma. Reportedly benign. This has been stable. Last imaging was in 2020. I do not believe this requires any further intervention at this time. Plan Closely monitor renal function. Decrease Lasix 80 Q AM and 40 mg Q PM ( from 80 mg BID) Decrease Omeprazole to 20 mg QD Decrease Gabapentin 100 mg BID DC Sertaline Orders: Orders 2 Creatinine Urine 01/08/25 N17.9 - Acute kidney failure, unspecified, N18.30 - Chronic kidney disease, stage 3 unspecified Basic Metabolic Panel 01/08/25 N17.9 - Acute kidney failure, unspecified, N18.30 - Chronic kidney disease, stage 3 unspecified UA and rflx microscopic 01/08/25 N17.9 - Acute kidney failure, unspecified, N18.30 - Chronic kidney disease, stage 3 unspecified Total Protein Urine Random 01/08/25 N17.9 - Acute kidney failure, unspecified, N18.30 - Chronic kidney disease, stage 3 unspecified US renal BI 01/08/25 N17.9 - Acute kidney failure, unspecified, N18.30 - Chronic kidney disease, stage 3 unspecified Medications: Changed 2 From gabapentin 300 mg PO BID To gabapentin 100 mg PO BID 60 caps 1RF Coding Level of Care Code New Pt Level 4 (31169) Diagnoses CKD (chronic kidney disease) N18.9
--- OUTSIDE RECORDS SUMMARY | 2025-01-08 17:55 | XMS_ITS | Clinical Summary ---
Author Organization [facility] Address [address] [place] [address] Phone Care Team Providers Care Keypunch Operators Supervisor Name Role Phone Leon Joyner MD Primary Care Provider [phone] Allergies No known active allergies Medications amitriptyline [...] Active ferrous sulfate 324 mg (65 mg [place] iron) TbEC Take 324 mg by mouth daily with breakfast. Active YSCMJUTV-EUB-VLQ JOHN GLUCONATE ORAL Take by mouth daily. Active polyethylene glycol 3350 (MIRALAX ORAL) Take by mouth as needed. Active omeprazole (PRILOSEC) 20 MG capsule Take 20 mg by mouth 2 (two) times a day. Active ciclopirox (CICLODAN) 0.77 % cream Active oxyCODONE-acetam inophen (PERCOCET) 5-325 mg per [...] UNITS/DAY 40 mL 3 09/27/19 24 Active FREESTYLE JACK 2 READERIndication s:Type 2 diabetes mellitus with chronic kidney disease, with long-term current use of insulin 1 each by See Administration Instructions route as directed. Used to scan jack 2 sensor daily to check blood sugars 1 each 09/30/19 24 Active TRULICITY 1.5 mg/0.5 mL subcutaneous injectionIndicat ions:Type 2 diabetes mellitus with stage 3b chronic kidney disease, with long-term current use of insulin Inject 0.5 mL (1.5 mg total) under the skin every 7 days. 6 mL 3 06/22/19 25 Active metFORMIN (GLUCOPHAGE-XR) 500 MG 24 hr tabletIndication s:Type 2 diabetes mellitus with chronic kidney disease, with long-term current use of insulin take 1 tablet by mouth twice a day 180 tablet 3 02/24/20 24 025 Discontin ued(Side Effects) Active Problems Problem Noted Date Diagnosed Date Coronary artery disease 05/20/2022 Stage 3b chronic kidney disease 05/20/2022 Assessment & Plan (12/10/2024 8:04 PM EDT): - Elevated creatinine levels per patient report, we discussed low GFR was reason for discontinuing metformin. - Upcoming appointment with a abalone sheller on 01/08/2025 to further evaluate and manage kidney function. Assessment & Plan (10/10/2024 9:42 AM EDT): [...] use of insulin 05/20/2022 Assessment & Plan (12/10/2024 8:04 PM EDT): - A1c level is currently 7.1, within the acceptable range of 7 to 8. Instances of hypoglycemia during the night on three consecutive nights. Blood glucose levels predominantly between 70 and 180, accounting for 75% of the time, which is commendable as the target is 50% or more. Sensor data indicates it is active 74% of the time, suggesting some periods during the day when it is not providing a complete picture. Instances of hyperglycemia during the night, particularly in the past week. Insulin requirement would be significantly reduced without soda consumption. Body may be producing sufficient insulin to compensate, especially with the use of Trulicity. An increase in the Trulicity dose could be considered, or a switch to Mounjaro, which could help reduce the insulin requirement further. - Current medications include Trulicity 1.5 mg weekly and U-500 insulin at 20 units in the morning and 40 units in the evening. Plan to reduce U-500 insulin dosage to 20 units in the morning and 20 units in the evening, totaling 40 units per day. Once soda is finished, insulin can be discontinued and blood glucose levels monitored closely. - Recommendations include reducing soda intake and considering trying Pepsi Zero. Continue monitoring blood glucose levels. Plan to reduce U-500 insulin dosage to 20 units in the morning and 20 units in the evening, totaling 40 units per day. Once soda is finished, discontinue insulin and monitor blood glucose levels. Assessment & Plan (10/10/2024 9:42 AM EDT): [...] to continue to use CGM consistently Sent Trulicity to [facility], Hardik did better [...] consistently Will continue current Trulicity dose which Haridk is tolerating well. Encouraged efforts at balanced, [...] should be avoided at all costs given Haridk's history of severe hypoglycemic event and hypoglycemia [...] is unclear why this wouldn't apply to Haridk with current Medicare insurance plan. Advising sending [...] 2 weeks to drop off at front desk coordinator or follow up appointment. Hyperlipidemia 05/20/2022 Assessment & Plan (12/10/2024 8:04 PM EDT): Reviewed most recent labs, LDL 53 in 11/2022 On moderate intensity statin Gets annual labs through PCP Assessment & Plan (10/10/2024 9:42 AM EDT): [...] disease) 3 Hypertension 05/20/2022 Assessment & Plan (12/10/2024 8:04 PM EDT): Blood pressure in excellent range today BP Goal < 130/80 On diuretic and BB Assessment & Plan (10/10/2024 9:42 AM EDT): [...] Encounters Date Type Department Care Team Description 12/10/2024 1:30 PM EDT Office Visit [facility] [address] [place] [address] [place] [address] Caroline Wong, MAIRA Type 2 diabetes mellitus with stage 3b chronic kidney disease, with long-term current use of insulin (Primary Dx); Stage 3b chronic kidney disease; Hypertension, unspecified type; Hyperlipidemia, unspecified hyperlipidemia type 12/04/2024 Telephone [facility] [address] [place] [address] [place] [address] Deena Juarez [facility] 10/09/2024 1:50 PM EDT Office Visit [facility] [address] [place] [address] Caroline Wong, MAIRA Type 2 diabetes mellitus with chronic kidney disease, with long-term current use of insulin (Primary Dx); Stage 3b chronic kidney disease; Hypertension, unspecified type; Hyperlipidemia, unspecified hyperlipidemia type from Last 3 Months Social History Tobacco [...] Sign Reading Time Taken Comments Blood Pressure 120/58 12/10/2024 1:37 PM EDT Pulse 60 12/10/2024 1:37 PM EDT Temperature 36.4 C (97.5 F) 12/26/2023 1:45 PM EDT Respiratory Rate 18 09/01/2022 1:05 PM EDT Oxygen Saturation 91% 12/10/2024 1:37 PM EDT Inhaled Oxygen Concentration - - Weight 101.9 kg (224 lb 9.6 oz) 12/10/2024 1:37 PM EDT Height 172.7 cm (5' 8.01 ) 10/09/2024 1:53 PM ED T Body Mass Index 34.14 10/09/2024 1:53 PM EDT Plan of Treatment Upcoming Encounters Date Type Department Care Team (Late st Contact Info) Description 01/14/2025 12:30 PM EDT Office Visit [facility] [address] [place] [address] Caroline Wong, MAIRA [address] [facility], [address] [place] [address] [email or web address] Health Maintenance Due Date Last Done Comments DEPRESSION SCREENING 1957 RSV VACCINE (1 - 1-dose 75+ series) 09/22/2018 DIABETIC EYE EXAM 05/20/2022 LIPID PANEL 12/03/2023 12/02/2022, 06/02, 06/18/2021, Additional history exists INFLUENZA VACCINE (#1) 2024 , 12/18/2019, 12/31/2018, Additional history exists COVID-19 VACCINE ( season) 2024 03/05/2024, 02/26/2023, 03/01/2022, Additional history exists HEMOGLOBIN A1C 04/10/2025 10/09/2024, 03/0 09/2024, 12/26/2023, Additional history exists BLOOD PRESSURE 06/12/2025 12/10/2024 POTASSIUM LEVEL 07/16/2025 07/16/2024, 08/0 06/2022, 01/08/2022 [...] Hemoglobin A1c 6.6(A) 4.2 - 5.6 % [facility] Other 10/09/2024 2:12 PM EDT us Caroline Wong CNP POINT OF CARE TEST ORDERABLES Final Result [facility] [address] [place] [address], [facility] * Basic metabolic panel (07/16/2024 12:26 PM EDT) Blood us Caroline Wong CNP LAB BLOOD ORDERABLES Final Re sult Performing Organization Address [facility]/ZIP Co de Phone Number [address] [address] * (ABNORMAL) Lipid panel (12/02/2022 11:58 AM EDT) HDL 27 mg/dL [facility] Comment: Interpretation <40 mg/dL: Low HDL cholesterol (major risk factor for CHD) Greater than or equal to 60 mg/dL: High HDL cholesterol ( negative risk factor for CHD) HDL - cholesterol is affected by a number of factors, e.g. smoking, excerise, hormones, sex and age. CHOLESTEROL 153 0 - 240 mg/dL [facility] TRIGLYCERIDES 367(H) 30 - 160 mg/dL [facility] LDL 53 50 - 129 mg/dL [facility] Comment: LDL levels in terms of risk for coronary heart disease: <100 mg/dL: Optimal 100-129 mg/dL: Near or above optimal 130-159 mg/dL: Borderline high 160-189 mg/dL: High >190 mg/dL: Very High CARDIAC RISK RATIO 5.7(H) 3.4 - 5.0 [facility] Blood 12/02/2022 11:5 8 AM EDT 12/02/2022 12:08 PM EDT us Leon Joyner MD LAB BLOOD ORDERABLES Final Result Performing Organization Address [facility]/ZIP Co de Phone Number [address] [address] from Last 3 Months or Most Recently Relevant to Health Maintenance Insurance [place] MED[place] P[place] BLUE REPLACEMENT MEDICARE PPO BLUE REPLACEMENT MEDICARE PPO BLUE REPLACEMENT MEDICARE PPO BLUE REPLAC[place] [address] MEDICARE PPO BLUE REPLACEMENT [place] [address] MEDICARE PPO BLUE REPLACEMENT Care Teams Keypunch Operators Supervisor Relationship Specialty Start Date End Date Leon Joyner MD [address] [place] [address] [place] [address] PCP - General Internal Medicine 05/11/22 Additional Source Comments The information contained in this document represents components of the legal health record. It is not the complete legal health record.[facility]
--- OUTSIDE RECORDS SUMMARY | 2025-01-08 17:55 | XMS_ITS | Patient Health Record ---
Author Organization [facility] Address [address] [place] [address] Care Team Providers Care Academic Support Specialist Name Role Phone Ar (RETIRED) Leon [...] Orally Twi ce a day Active Ipratropium [place] HFA 17 MCG/ACT 2 puffs Inhalation Four times a day Active Metoprolol Tartrate 25 MG 1 tablet with food Orally Twice a day Active Immunizations Vaccine Route Administration Date Status Comme nts Influenza Unknown 03/02/2021 Administered Problems Problem Type SNOMED Code ICD Code Onset Dates Problem Status W/U Status Risk Notes Problem 857625228 Colon cancer screening (Z12.11) Active confirmed Problem 460432207 USP (current) use of aspirin (Z79.82) Active confirmed Plan Of Treatment Pending Test Test Name Order Date CT COLON SCREENING NO CONTRAST 6 Future Test Test Name Order Date COLONOSCOPY 02/04/2012 COLONOSCOPY 10/01/2015 COLONOSCOPY 04/15/2021 Insurance Providers Payer Name Payer Address Payer Phone Subscriber Number Group Number Insured Name Patient Relationship to Insured Coverage Start Date Coverage End Date [facility] [address] [place], [place] [id number] [phone] [id number] ELENA GRIJALVA Self - patient is the insured Medical (General) History Medical History History ICD Code coronary artery disease diabetes hypertension elevated cholesterol COPD Surgical History Surgery Date(Month/Year) shoulder surgery tripple bypass 06/29/2013 hernia repair rotator cuff tear repair -both ankle surgery knee surgery-left shoulder replacement left resection of colon for benign mass - Dr. Perea
--- OUTSIDE RECORDS SUMMARY | 2025-01-08 17:55 | XMS_ITS | Patient Health Record ---
Author Organization [facility] Address [address] [place] [address] Care Team Providers Care Patient Placement Coordinator Name Role Phone Dany Weber Primary Care Provider Tonio Johnson Unavailable [phone] Allergies No Known Allergies Results Component Value [...] Problem Acquired hammer toe of right foot (8846252180347585 ) Other hammer toe(s) (acquired), right foot (M20.41) Active confirmed Response to treatment, Improvemen t Problem Acquired hammer toe of left foot (9546411147081629 ) Other hammer toe(s) (acquired), left foot (M20.42) Active confirmed Response to treatment, Improvemen t Problem Polyneuropathy due to diabetes mellitus type I (111842329) Type 1 diabetes mellitus with diabetic polyneuropathy (E10.42) Active confirmed Vital Signs Blood pressure diastolic 65 mm Hg 11/27/2024 Height 5 ft 8 in in 11/27/2024 Blood pressure systolic 130 mm Hg 11/27/2024 Weight 219 lbs 11/27/2024 BMI 33.3 kg/m2 11/27/2024 Procedures Procedure Date Ordered Date Performed Result Body Sit e 40940-YMNOMVV NAIL, 6 OR MORE 08/21/2024 N/A 30732-WFRQ SKIN LESIONS, 2 TO 4 08/21/2024 N/A 75106-MABRGOB NAIL, 6 OR MORE 11/27/2024 N/A 13960-PIAD SKIN LESIONS, 2 TO 4 11/27/2024 N/A Encounters Encounter Location Date Provider Diagnosis [address] [address] 08/21/2024 Tonio Johnson Type 1 diabetes mellitus with diabetic polyneuropathy E10.42 ; Onychomycosis B35.1 ; Other hammer toe(s) (acquired), right foot M20.41 and Other hammer toe(s) (acquired), left foot M20.[address] [address] 11/27/2024 Tonio Johnson Type 1 diabetes mellitus with diabetic polyneuropathy E10.42 and Onychomycosis B35.[address] [address] 03/01/2024 Tonio Johnson [address] [address] 05/31/2024 Tonio Johnson Assessments Encounter Date Diagnosis [...] Treatment Pending Test Test Name Order Date 54631-POADJCN NAIL, 6 OR MORE 08/10/2016 97113-JVQBZSI NAIL, 6 OR MORE 11/12/2016 34557-BQLKCVV NAIL, 6 OR MORE 03/01/2017 86599-YIEHQCD NAIL, 6 OR MORE 05/31/2017 63612-BHVXLBZ NAIL, 6 OR MORE 08/30/2017 16196-XZNHCGQ NAIL, 6 OR MORE 11/29/2017 63820-OPUGQCC NAIL, 6 OR MORE 06/06/2018 93483-CUNCNMM NAIL, 6 OR MORE 09/05/2018 69629-UGYPETG NAIL, 6 OR MORE 02/28/2018 05725-HDBEFMA NAIL, 6 OR MORE 12/05/2018 42901-HZZPJLZ NAIL, 6 OR MORE 05/11/2019 58164-MFPAZXZ NAIL, 6 OR MORE 09/14/2019 73627-TKYLOSY NAIL, 6 OR MORE 12/14/2019 10956-OKGETJB NAIL, 6 OR MORE 03/14/2020 60491-OCCDQSI NAIL, 6 OR MORE 08/12/2020 62268-TDGEPDZ NAIL, 6 OR MORE 11/11/2020 56372-FCWKUAK NAIL, 6 OR MORE 02/10/2021 08378-HNJRRFE NAIL, 6 OR MORE 05/15/2021 81092-FUXHYAP NAIL, 6 OR MORE 08/21/2021 77712-NSSIDML NAIL, 6 OR MORE 11/20/2021 06616-QAUIFOR NAIL, 6 OR MORE 02/23/2022 89883-FDZSKIV NAIL, 6 OR MORE 05/28/2022 75716-DOSFMIO NAIL, 6 OR MORE 08/27/2022 91256-FVIROZL NAIL, 6 OR MORE 11/26/2022 90356-WEFYAZU NAIL, 6 OR MORE 03/04/2023 88566-QFJEWBR NAIL, 6 OR MORE 06/24/2023 39589-SKRAANQ NAIL, 6 OR MORE 12/02/2023 56596-WAUQHHU NAIL, 6 OR MORE 08/21/2024 06199-NMVFWUW NAIL, 6 OR MORE 11/27/2024 14037-Pmnpmbjj Plate 06/06/2018 56310-Ivoepspk Plate 12/02/2023 88955-Dhveqhtb Plate 06/24/2023 46388-Qbwowqnh Plate 03/04/2023 92683-Mksmjyux Plate 11/26/2022 63155-Clvavfyh Plate 08/27/2022 89021-Hjjxqrfx Plate 05/28/2022 66086-Kltfitcf Plate 02/23/2022 52139-Lbgrusoz Plate 11/20/2021 45772-Bgrcqzgo Plate 08/21/2021 91547-Iiluydpf Plate 05/15/2021 50401-Zrptvlfv Plate 02/10/2021 28859-Ieotcmlv Plate 11/11/2020 18670-Aldsewuy Plate 08/12/2020 46729-Qotnhhtj Plate 03/14/2020 02416-Cncidobk Plate 12/14/2019 43441-Ksnlzuni Plate 09/14/2019 69551-Wlexpquu Plate 05/11/2019 93817-Ywvkrgem Plate 12/05/2018 41148-Ocblifdy Plate 09/05/2018 55857-Euavvoof Plate 11/29/2017 35749-Otscuhep Plate 02/28/2018 85386-Rejutwlj Plate 05/31/2017 46361-Txhblkbb Plate 08/30/2017 57044-Cmkbbfnd Plate 11/12/2016 77975-Kjatkyfm Plate 08/10/2016 32063-DPKJ SKIN LESIONS, 2 TO 4 08/11/19 17 19823-MUSM SKIN LESIONS, 2 TO 4 11/13/19 17 72166-RSJY SKIN LESIONS, 2 TO 4 03/01/20 17 29623-YOCJ SKIN LESIONS, 2 TO 4 11/30/19 18 66051-QVGT SKIN LESIONS, 2 TO 4 08/31/19 18 09317-JLSN SKIN LESIONS, 2 TO 4 05/31/19 18 20834-DQVS SKIN LESIONS, 2 TO 4 02/29/20 18 52429-SJQB SKIN LESIONS, 2 TO 4 09/06/19 19 57257-RCJU SKIN LESIONS, 2 TO 4 12/06/19 19 83602-IWON SKIN LESIONS, 2 TO 4 06/06/19 19 43330-OVGU SKIN LESIONS, 2 TO 4 05/11/19 11543-KGUB SKIN LESIONS, 2 TO 4 09/14/19 73492-ZMNK SKIN LESIONS, 2 TO 4 12/14/19 26089-NEDK SKIN LESIONS, 2 TO 4 03/14/20 07319-HROU SKIN LESIONS, 2 TO 4 08/13/19 69817-SRPM SKIN LESIONS, 2 TO 4 11/12/19 28884-ONVW SKIN LESIONS, 2 TO 4 02/11/20 05693-SHKK SKIN LESIONS, 2 TO 4 05/15/19 68436-NIRU SKIN LESIONS, 2 TO 4 08/22/19 10839-KUWL SKIN LESIONS, 2 TO 4 11/21/19 16759-YVFC SKIN LESIONS, 2 TO 4 02/24/20 00421-GUQJ SKIN LESIONS, 2 TO 4 05/28/19 46657-XAKH SKIN LESIONS, 2 TO 4 08/28/19 48775-RUFA SKIN LESIONS, 2 TO 4 11/27/19 01974-QXKC SKIN LESIONS, 2 TO 4 03/04/20 16336-NLIZ SKIN LESIONS, 2 TO 4 06/24/19 24 05204-HVUJ SKIN LESIONS, 2 TO 4 12/02/19 39925-LKPP SKIN LESIONS, 2 TO 4 11/28/19 64237-KNKS SKIN LESIONS, 2 TO 4 08/22/19 11096-Nfeh. Subungual Hematoma 3 59431- Biopsy of skin lesion 03/01/2017 Next Appt Details Provider Name:Tonio Johnson , 03/19/2025 01:30:00 PM, [address] [facility], [place], [address], Insurance Providers Payer Name Payer Address Payer Phone Subscriber Number Group Number Insured Name Patient Relationship to Insured Coverage Start Date Coverage End Date [facility] 65 Medicare Preferred [address] [place] [address] [id number] Josr Hart Self - patient is [...] cataract surgery 09/21/21,10/05/21 Hospitalization History Reason Date(Month/Year) [facility]- fainted Low sugar 33 few hrs 2021 [place] 12/09/2020 [facility] 10/01/20 [facility] Anemia / Mass in colon /4 Pints blo od 11/04-01/20 [facility]- Fluid on lungs 10/2019
== END 2025-01-08 16:19 | disposition home or self-care (01) ==
LOC: HO.HKA 15:44
PROVIDERS: PCP Family Medicine; Referring Provider Internal Medicine; Visit Provider Internal Medicine Hypertension Specialist
DX: N18.9 Chronic kidney disease, unspecified (principal)
CPT/HCPCS: 99204

== ENCOUNTER → 2025-01-08 15:44 | Outpatient (BNVA) | payer MEDICARE, SELFPAY | PROVIDERS: PCP Family Medicine; Referring Provider Internal Medicine; Visit Provider Internal Medicine Hypertension Specialist | DX: N18.9 Chronic kidney disease, unspecified (principal); I12.9 Hypertensive chronic kidney disease with stage 1 through stage 4 chronic kidney disease, or unspecified chronic kidney disease; E11.22 Type 2 diabetes mellitus with diabetic chronic kidney disease; N18.32 Chronic kidney disease, stage 3b; Z79.4 Long term (current) use of insulin; Z68.34 Body mass index [BMI] 34.0-34.9, adult; Z87.891 Personal history of nicotine dependence | CPT/HCPCS: 99202 ==

== ENCOUNTER 2025-01-09 12:41 | Outpatient (REF) | payer MEDICARE, SELFPAY ==
--- OUTSIDE RECORDS SUMMARY | 2024-03-02 06:00 | XMS_ITS ---
Author Organization [facility] Address [address] [facility] [place] [address] Care Team Providers Care Workflow Developer Name Role Phone GusDany Primary Care Provider Tonio Johnson Unavailable [phone] Medications Medication SIG (Take, Route, Frequency, Duration) [...] Active Encounters Encounter Location Date Provider Diagnosis [facility] [address] [address] 03/02/2024 Tonio Johnson Plan Of Treatment Next Appt Details Provider Name:Tonio Johnson , 03/19/2025 01:30:00 PM, [address] [place] [address], [phone], Progress Notes * Josr HART FDOB:[birth year] (79 yo M)Acc No.[id number]:03/02/2024 Progress Note Patient: Hair Josr GUTIERREZ Monie Provider: Wil Johnson DPM :1945 A ge:78 Y S ex:Male Date:03/02/2024 Address:[address] [place], [place] [id number] Pcp:Dany Weber Subjective: * Chief Complaints: * [...] Date: 05/02/2023 Generated for Umu Umana/Adela on: 01/09/2025 03:37 PM EDT
--- OUTSIDE RECORDS SUMMARY | 2024-06-01 06:00 | XMS_ITS ---
Author Organization [facility] Address [address] [place] [phone] Care Team Providers Care Supervisor Parking Lot Name Role Phone Dany Weber Primary Care Provider [phone] Tonio Johnson Unavailable [phone] Encounters Encounter Location Date Provider Diagnosis [address] [address] 06/01/2024 Tonio Johnson Plan Of Treatment Next Appt Details Provider Name:Tonio Johnson , 03/19/2025 01:30:00 PM, [address] [place] [address], [phone], Progress Notes * Josr GRIJALVA FDOB:[birth year] (79 yo M)Acc No.[id number]:06/01/2024 Progress Note Patient: Josr DOWD Provider: Wil Johnson DPM :1945 A ge:78 Y S ex:Male Date:06/01/2024 Address:[address] [place] [address] [place], [id number] Pcp:Dany Weber Subjective: * Chief Complaints: [...] 0 06/01/2024 Generated for Umu Russell on: 0 01/09/2025 03:35 PM EDT
--- OUTSIDE RECORDS SUMMARY | 2025-01-09 15:35 | XMS_ITS | Patient Health Record ---
Author Organization [facility] Address [address] [facility] [place] [address] Care Team Providers Care Alarm Installer Name Role Phone Dany Weber Primary Care Provider [phone] Tonio Johnson Unavailable [phone] Allergies No Known Allergies Results Component Value [...] Problem Acquired hammer toe of right foot (6569428354571041 ) Other hammer toe(s) (acquired), right foot (M20.41) Active confirmed Response to treatment, Improvemen t Problem Acquired hammer toe of left foot (7604764440402944 ) Other hammer toe(s) (acquired), left foot (M20.42) Active confirmed Response to treatment, Improvemen t Problem Polyneuropathy due to diabetes mellitus type I (890639831) Type 1 diabetes mellitus with diabetic polyneuropathy (E10.42) Active confirmed Vital Signs Blood pressure diastolic 65 mm Hg 11/27/2024 Height 5 ft 8 in in 11/27/2024 Blood pressure systolic 130 mm Hg 11/27/2024 Weight 219 lbs 11/27/2024 BMI 33.3 kg/m2 11/27/2024 Procedures Procedure Date Ordered Date Performed Result Body Sit e 65049-BMUIKFC NAIL, 6 OR MORE 08/21/2024 N/A 65162-KMAI SKIN LESIONS, 2 TO 4 08/21/2024 N/A 74224-GLUAKAR NAIL, 6 OR MORE 11/27/2024 N/A 23162-UYXQ SKIN LESIONS, 2 TO 4 11/27/2024 N/A Encounters Encounter Location Date Provider Diagnosis [address] [address] 08/21/2024 Tonio Johnson Type 1 diabetes mellitus with diabetic polyneuropathy E10.42 ; Onychomycosis B35.1 ; Other hammer toe(s) (acquired), right foot M20.41 and Other hammer toe(s) (acquired), left foot M20.[address] [address] 11/27/2024 Tonio Johnson Type 1 diabetes mellitus with diabetic polyneuropathy E10.42 and Onychomycosis B35.[address] [address] 03/01/2024 Tonio Johnson [address] [address] 05/31/2024 Tonio Johnson Assessments Encounter Date Diagnosis [...] Treatment Pending Test Test Name Order Date 46685-MWMSRQH NAIL, 6 OR MORE 08/10/2016 45578-BDZLJYE NAIL, 6 OR MORE 11/12/2016 52286-SSNTXQE NAIL, 6 OR MORE 03/01/2017 23671-SAAHEBB NAIL, 6 OR MORE 05/31/2017 46881-HOVUHWS NAIL, 6 OR MORE 08/30/2017 93733-WFLVFQL NAIL, 6 OR MORE 11/29/2017 91763-GDXLQSN NAIL, 6 OR MORE 06/06/2018 48121-GXOCLCL NAIL, 6 OR MORE 09/05/2018 16446-JDYXJFQ NAIL, 6 OR MORE 02/28/2018 16095-UIHGJVK NAIL, 6 OR MORE 12/05/2018 85280-JQJAAWD NAIL, 6 OR MORE 05/11/2019 14706-COFTGND NAIL, 6 OR MORE 09/14/2019 88653-CFGXBTH NAIL, 6 OR MORE 12/14/2019 50557-MSVFELF NAIL, 6 OR MORE 03/14/2020 00757-DNPZTXS NAIL, 6 OR MORE 08/12/2020 55846-BRZWIGG NAIL, 6 OR MORE 11/11/2020 11588-GPIMIUQ NAIL, 6 OR MORE 02/10/2021 10727-KNFNNDB NAIL, 6 OR MORE 05/15/2021 66856-HPQOYGK NAIL, 6 OR MORE 08/21/2021 49157-LPCXZAO NAIL, 6 OR MORE 11/20/2021 27037-GBNKXUC NAIL, 6 OR MORE 02/23/2022 27287-ZPHDIRH NAIL, 6 OR MORE 05/28/2022 62883-BEXPWVK NAIL, 6 OR MORE 08/27/2022 24446-PSUMAOD NAIL, 6 OR MORE 11/26/2022 58126-PTYKXBZ NAIL, 6 OR MORE 03/04/2023 46587-FQCCIGN NAIL, 6 OR MORE 06/24/2023 51864-NKCGUUP NAIL, 6 OR MORE 12/02/2023 07532-GEUENEA NAIL, 6 OR MORE 08/21/2024 98628-SGHIDXO NAIL, 6 OR MORE 11/27/2024 10873-Wiihncao Plate 06/06/2018 13986-Oydrwrnv Plate 12/02/2023 56091-Aydtxgey Plate 06/24/2023 66246-Qkpghfwi Plate 03/04/2023 28256-Bnpiocqs Plate 11/26/2022 92245-Qyemucrb Plate 08/27/2022 73922-Fwegyxou Plate 05/28/2022 62748-Kweqtujt Plate 02/23/2022 03816-Fzupxsci Plate 11/20/2021 34897-Rhsoecxt Plate 08/21/2021 20369-Piehaksi Plate 05/15/2021 11523-Pgmeqniu Plate 02/10/2021 09733-Aelhctfy Plate 11/11/2020 83705-Tgfbtuqz Plate 08/12/2020 71242-Feuwiune Plate 03/14/2020 38958-Txlwboxj Plate 12/14/2019 86489-Duemedkn Plate 09/14/2019 08724-Mnloqfmf Plate 05/11/2019 54714-Ecwbngyu Plate 12/05/2018 60406-Limuvlac Plate 09/05/2018 08307-Iscaiztj Plate 11/29/2017 90125-Vjhhnvfo Plate 02/28/2018 08722-Wzxtatcq Plate 05/31/2017 48400-Xrlgclgw Plate 08/30/2017 79776-Qesnfaku Plate 11/12/2016 44612-Srmpnsli Plate 08/10/2016 97042-KMOL SKIN LESIONS, 2 TO 4 08/11/19 17 87043-ZKDR SKIN LESIONS, 2 TO 4 11/13/19 17 84819-VLEQ SKIN LESIONS, 2 TO 4 03/01/20 17 78110-MTDO SKIN LESIONS, 2 TO 4 11/30/19 18 36642-YXXD SKIN LESIONS, 2 TO 4 08/31/19 18 67304-KORJ SKIN LESIONS, 2 TO 4 05/31/19 18 32268-DOTB SKIN LESIONS, 2 TO 4 02/29/20 18 07435-ERFR SKIN LESIONS, 2 TO 4 09/06/19 19 26379-YDUP SKIN LESIONS, 2 TO 4 12/06/19 19 58318-QEHZ SKIN LESIONS, 2 TO 4 06/06/19 19 07659-XXWB SKIN LESIONS, 2 TO 4 05/11/19 70359-YXNX SKIN LESIONS, 2 TO 4 09/14/19 11607-JCCH SKIN LESIONS, 2 TO 4 12/14/19 68894-SXYF SKIN LESIONS, 2 TO 4 03/14/20 90845-EUEN SKIN LESIONS, 2 TO 4 08/13/19 94401-JCTT SKIN LESIONS, 2 TO 4 11/12/19 59731-RZSQ SKIN LESIONS, 2 TO 4 02/11/20 23758-WSWZ SKIN LESIONS, 2 TO 4 05/15/19 12634-AFOC SKIN LESIONS, 2 TO 4 08/22/19 58085-GQQN SKIN LESIONS, 2 TO 4 11/21/19 48120-UAXM SKIN LESIONS, 2 TO 4 02/24/20 95831-PUOK SKIN LESIONS, 2 TO 4 05/28/19 25563-XJYA SKIN LESIONS, 2 TO 4 08/28/19 20466-FTIJ SKIN LESIONS, 2 TO 4 11/27/19 09773-FVQM SKIN LESIONS, 2 TO 4 03/04/20 69394-CWLP SKIN LESIONS, 2 TO 4 06/24/19 24 03156-WBLW SKIN LESIONS, 2 TO 4 12/02/19 29170-ZQLX SKIN LESIONS, 2 TO 4 11/28/19 40339-ZCZQ SKIN LESIONS, 2 TO 4 08/22/19 11619-Senw. Subungual Hematoma 3 75278- Biopsy of skin lesion 03/01/2017 Next Appt Details Provider Name:Tonio Johnson , 03/19/2025 01:30:00 PM, [address] [facility], [place], [address], Insurance Providers Payer Name Payer Address Payer Phone Subscriber Number Group Number Insured Name Patient Relationship to Insured Coverage Start Date Coverage End Date [facility] 65 Medicare Preferred [address] [place] [address] [id number] Josr Hart Self - patient is [...] cataract surgery 09/21/21,10/05/21 Hospitalization History Reason Date(Month/[place] [facility] [place] [facility] [facility] 10[place]01/[place] [facility] in colon /4 Pints blo od 11/04-01/20 [facility] Fluid on lungs 10/2019
--- OUTSIDE RECORDS SUMMARY | 2025-01-09 15:36 | XMS_ITS | Patient Health Record ---
Author Organization [facility] Address [address] [place] [address] Care Team Providers Care Media Marketing Specialist Name Role Phone Ar (RETIRED) Leon UGARTE Primary Care Provider Unavailable Daniel Rebolledo Jr Unavailable [phone] Allergies No Known Allergies Reason For [...] Orally Twi ce a day Active Ipratropium [place] HFA 17 MCG/ACT 2 puffs Inhalation Four times a day Active Metoprolol Tartrate 25 MG 1 tablet with food Orally Twice a day Active Immunizations Vaccine Route Administration Date Status Comme nts Influenza Unknown 03/02/2021 Administered Problems Problem Type SNOMED Code ICD Code Onset Dates Problem Status W/U Status Risk Notes Problem 125431044 Colon cancer screening (Z12.11) Active confirmed Problem 898482945 supervisor intermediates (current) use of aspirin (Z79.82) Active confirmed Plan Of Treatment Pending Test Test Name Order Date CT COLON SCREENING NO CONTRAST 6 Future Test Test Name Order Date COLONOSCOPY 02/04/2012 COLONOSCOPY 10/01/2015 COLONOSCOPY 04/15/2021 Insurance Providers Payer Name Payer Address Payer Phone Subscriber Number Group Number Insured Name Patient Relationship to Insured Coverage Start Date Coverage End Date [facility] [address] [place], [place] [id number] [phone] [id number] ELENA GRIJALVA Self - patient is the insured Medical (General) History Medical History History ICD Code coronary artery disease diabetes hypertension elevated cholesterol COPD Surgical History Surgery Date(Month/Year) shoulder surgery tripple bypass 06/29/2013 hernia repair rotator cuff tear repair -both ankle surgery knee surgery-left shoulder replacement left resection of colon for benign mass - Dr. Perea
[2025-01-09 16:22] LABS: Appearance Urine Clear; Glucose Urine UA Negative (Negative); PH 7.5 (5.0-9.0); Specific Gravity - Urine 1.010 (1.005-1.025)
[2025-01-09 16:47] LABS: Anion Gap 15 (12-20); Blood Urea Nitrogen 35 mg/dL (9-16); Calcium 9.3 mg/dL (8.4-10.2); Carbon Dioxide 32 mmol/L (22-29); Chloride 97 mmol/L (96-108); Estimated Glomerular Filt Rate 31; Potassium 4.8 mmol/L (3.3-5.1); Sodium 139 mmol/L (135-145)
[2025-01-09 17:27] LABS: Total Protein Urine Random < 7 mg/dL (<12)
== END 2025-01-09 12:42 | disposition home or self-care (01) ==
LOC: HO.HMGCLDS 12:41
PROVIDERS: PCP Student in an Organized Health Care Education/Training Program; Visit Provider Internal Medicine Hypertension Specialist
DX: N18.30 Chronic kidney disease, stage 3 unspecified (principal); N17.9 Acute kidney failure, unspecified
CPT/HCPCS: 36415; 80048; 81003; 82570; 84156

== ENCOUNTER 2025-01-23 11:13 | Outpatient (REF) | payer MEDICARE, SELFPAY ==
--- OUTSIDE RECORDS SUMMARY | 2024-03-02 06:00 | XMS_ITS ---
Author Organization [facility] Address [address] [facility] [address] Care Team Providers Care Web Production Manager Name Role Phone GusDany Primary Care Provider Tonio Johnson Unavailable [phone] Medications Medication SIG (Take, Route, Frequency, Duration) [...] Active Encounters Encounter Location Date Provider Diagnosis [facility] [address] [address] 03/02/2024 Tonio Johnson Plan Of Treatment Next Appt Details Provider Name:Tonio Johnson , 03/19/2025 01:30:00 PM, [address] [place] [address], [phone], Progress Notes * Josr HART FDOB:[birth year] (79 yo M)Acc No.[id number]:03/02/2024 Progress Note Patient: Hair Josr GUTIERREZ Monie Provider: Wil Johnson DPM :1945 A ge:78 Y S ex:Male Date:03/02/2024 Address:[address] [place], [place] [id number] Pcp:Dany Weber Subjective: * Chief Complaints: * [...] Date: 05/02/2023 Generated for Umu Umana/Adela on: 01/23/2025 02:24 PM EDT
--- OUTSIDE RECORDS SUMMARY | 2024-06-01 06:00 | XMS_ITS ---
Author Organization [facility] Address [address] [place] [phone] Care Team Providers Care Translator/Interpreter Name Role Phone Dany Weber Primary Care Provider Tonio Johnson Unavailable [phone] Encounters Encounter Location Date Provider Diagnosis [address] [address] 06/01/2024 Tonio Johnson Plan Of Treatment Next Appt Details Provider Name:Tonio Johnson , 03/19/2025 01:30:00 PM, [address] [place] [address], [phone], Progress Notes * Josr GRIJALVA FDOB:[birth year] (79 yo M)Acc No.[id number]:06/01/2024 Progress Note Patient: Josr DOWD Provider: Wil Johnson DPM :1945 A ge:78 Y S ex:Male Date:06/01/2024 Address:[address] [place] [address] [place] Pcp:Dany Weber Subjective: * Chief Complaints: * * Medical History: Objective: * Vitals: Assessment: Plan: * Treatment: * Images: * The named appointment provid er may or may not be the originator of this progress note, and it is not deemed complete until electronically signed by the appointment provider. Sign off status: Pending * Provider: Wil Johnson DPM Date: 0 06/01/2024 Generated for Umu Russell on: 01/23/2025 02:23 PM EDT
--- NOTE | ~2025-01-23 | US_ITS ---
EXAMINATION: US RETROPERITONEAL LIMITED (RENAL ONLY) CLINICAL INFORMATION: Acute renal failure. COMPARISON: None. Correlation made with CT abdomen and pelvis 11/07/2020. TECHNIQUE: Real-time imaging of the kidneys. FINDINGS: Study is somewhat suboptimal due to patient body habitus as per technologist note. RIGHT KIDNEY: 10.6 x 4.5 x 4.6 cm (SAG x AP x TRV). The kidney is normal in size, contour, and echogenicity. Renal cortical thickness is normal. No calculi or focal parenchymal lesions. No hydronephrosis. LEFT KIDNEY: 10.4 x 5.3 x 4.2 cm (SAG x AP x TRV). The kidney is normal in size, contour, and echogenicity. Renal cortical thickness is normal. No calculi or suspicious focal parenchymal lesions. No hydronephrosis. There is a simple upper pole cyst measuring 1.4 x 1.0 x 0.9 cm. US/US renal BI IMPRESSION: 1. Left kidney 1.4 cm upper pole simple cyst. Otherwise normal kidneys bilaterally. Electronically signed by: Jagjit Owen MD 01/23/2025 11:55 AM EDT
--- OUTSIDE RECORDS SUMMARY | 2025-01-23 14:24 | XMS_ITS | Patient Health Record ---
Author Organization [facility] Address [address] [place] [address] Care Team Providers Care Gel Coater Name Role Phone Ar (RETIRED) Leon UGARTE [...] Orally Twi ce a day Active Ipratropium [place] HFA 17 MCG/ACT 2 puffs Inhalation Four times a day Active Metoprolol Tartrate 25 MG 1 tablet with food Orally Twice a day Active Immunizations Vaccine Route Administration Date Status Comme nts Influenza Unknown 03/02/2021 Administered Problems Problem Type SNOMED Code ICD Code Onset Dates Problem Status W/U Status Risk Notes Problem [id number] Colon cancer screening (Z12.11) Active confirmed Problem 845632207 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 (Z79.82) Active confirmed Plan Of Treatment Pending Test Test Name Order Date CT COLON SCREENING NO CONTRAST 6 Future Test Test Name Order Date COLONOSCOPY 02/04/2012 COLONOSCOPY 10/01/2015 COLONOSCOPY 04/15/2021 Insurance Providers Payer Name Payer Address Payer Phone Subscriber Number Group Number Insured Name Patient Relationship to Insured Coverage Start Date Coverage End Date [facility] [address] [place], [place] [id number] ELEAN GRIJALVA Self - patient is the insured Medical (General) History Medical History History ICD Code coronary artery disease diabetes hypertension elevated cholesterol COPD Surgical History Surgery Date(Month/Year) shoulder surgery tripple bypass 06/29/2013 hernia repair rotator cuff tear repair -both ankle surgery knee surgery-left shoulder replacement left resection of colon for benign mass - Dr. Perea
--- OUTSIDE RECORDS SUMMARY | 2025-01-23 14:24 | XMS_ITS | Encounter Summary ---
Author Organization [facility] Address [address] [place] [address] Phone Care Team Providers Care Window Caser Name Role Phone Leon Joyner MD Primary Care Provider [phone] Reason for Visit * Reason Onset Date Comments Labs 01/16/2025 Encounter Details Date Type Department Care Team (Late st Contact Info) Description 01/16/2025 Telephone [facility] [address] [place] [address] [place] [phone] Grisel Elias [place] [address] [place], [place] [id number] [email or web address] Labs Social History Tobacco Use Types Packs/Day Years Used Date Smoking Tobacco: Former Cigarettes 2 25 1 966 - 1990 Passive Smoke Exposure: Past Smokeless Tobacco: Never Alcohol Use Standard Drinks/Week Comments Yes 0 [...] on file Sexual Orientation Not on file documented as of this encounter Progress Notes * Caroline Wong CNP - 01/16/2025 10:10 AM EDT reviewed * Grisel Elias MA - 01/16/2025 9:36 AM EDT Received labs and they were scanned into the chart to review. documented in this encounter Plan of Treatment Upcoming Encounters Date Type Department Care Team (Late st Contact Info) Description 03/19/2025 11:00 AM EST Office Visit [facility] [address] [place] [address] Caroline Wong CNP [address] [facility], 1st [place] [address] [email or web address] documented as of this encounter Visit Diagnoses Not on filedocumented in this encounter Care Teams Window Caser Relationship Specialty Start Date End Date Leon Joyner MD [address] [place] [address] [place] [address] PCP - General Internal Medicine 05/11/22 documented as of this encounter Additional Source Comments The information contained in this document represents components of the legal health record. It is not the complete legal health record.[facility]
--- OUTSIDE RECORDS SUMMARY | 2025-01-23 14:24 | XMS_ITS | Clinical Summary ---
Author Organization [facility] Address [address] [place] [address] Phone Care Team Providers Care Revenue Stamper Name Role Phone Leon Joyner MD Primary Care Provider [phone] Allergies No known active allergies Medications amitriptyline [...] Active ferrous sulfate 324 mg (65 mg iqugmiut iron) TbEC Take 324 mg by mouth daily with breakfast. Active RESJHFLT-MCT-ETY JHON GLUCONATE ORAL Take by mouth daily. Active [...] chronic kidney disease 05/20/2022 Assessment & Plan (01/15/2025 8:25 PM EDT): Seeing nephrology Off metformin, reduced kidney function limits DM medication options Assessment & Plan (12/10/2024 8:04 PM EDT): - Elevated creatinine levels per patient report, we discussed low GFR was reason for discontinuing metformin. - Upcoming appointment with a it sales representative on 01/08/2025 to further evaluate and manage [...] use of insulin 05/20/2022 Assessment & Plan (01/15/2025 8:22 PM EDT): No CGM download at the time of the visit, will place call to patient/ In the past week, blood sugars running lower, coinciding in switch from regular to zero sugar soda, if continues with this change, recommend reducing U500 to 10 units in the AM and 10 units in the evening, this will allow transition to U100 basal insulin of 20 units if this dosage is appropriate Could consider adjusting GLP1 from trulicity to low dose mounjaro, which we have discussed in the past and both Hardik and Tatum have expressed interest with, however current patterns likely would do well with continuing on Trulicity if that was prefferred Encouraged efforts at balanced, mindful eating, commended for efforts with adjusting to zero sugar soda Encouraged efforts at increasing physical activity as tolerated We will follow up in 2 months. Advised to contact office with any questions or concerns in the interim. Assessment & Plan (12/10/2024 8:04 PM EDT): [...] we will place an order for the Pushpaystyle Jack. Insulin doses reviewed. Reviewed strong recommendations [...] in 2 weeks to drop off at senior front end engineer or follow up appointment. Hyperlipidemia 05/20/2022 Assessment & Plan (01/15/2025 8:26 PM EDT): Reviewed most recent labs, LDL 53 in 11/2022 On moderate intensity statin Gets annual labs through PCP Assessment & Plan (12/10/2024 8:04 PM EDT): [...] disease) 3 Hypertension 05/20/2022 Assessment & Plan (01/15/2025 8:26 PM EDT): Blood pressure in excellent range today BP Goal < 130/80 On diuretic and BB Assessment & Plan (12/10/2024 8:04 PM EDT): [...] Encounters Date Type Department Care Team Description 01/16/2025 [facility]phone [facility] [address] [place] [address] [place] [phone] Grisel Elias MA Labs 01/15/2025 Telephone [facility] [address] [place] [address] Deena Juarez MA 01/14/2025 12:30 PM EDT Office Visit [facility] [address] [place] [address] Caroline Wong, MAIRA Type 2 diabetes mellitus with chronic kidney disease, with long-term current use of insulin (Primary Dx); Stage 3b chronic kidney disease; Hypertension, unspecified type; Hyperlipidemia, unspecified hyperlipidemia type 12/10/2024 1:30 PM EDT Office Visit [facility] [address] [place] [address] Caroline Wong CNP Type 2 diabetes mellitus with stage 3b chronic kidney disease, with long-term current use of insulin (Primary Dx); Stage 3b chronic kidney disease; Hypertension, unspecified type; Hyperlipidemia, unspecified hyperlipidemia type 12/04/2024 Telephone [facility] [address] [place] [address] Deena Juarez [place] Labs from Last 3 Months Social History Tobacco [...] Sign Reading Time Taken Comments Blood Pressure 120/56 01/14/2025 12:23 PM EDT Pulse 65 01/14/2025 12:23 PM EDT Temperature 36.3 C (97.4 F) 01/14/2025 12:23 PM EDT Respiratory Rate 20 01/14/2025 12:23 PM EDT Oxygen Saturation 94% 01/14/2025 12:23 PM EDT Inhaled Oxygen Concentration - - Weight 101.2 kg (223 lb) 01/14/2025 12:23 PM EDT Height 172.7 cm (5' 8 ) 01/14/2025 12:23 PM EDT Body Mass Index 33.91 01/14/2025 12:23 PM EDT Plan of Treatment Upcoming Encounters Date Type Department Care Team (Late st Contact Info) Description 03/19/2025 11:00 AM EST Office Visit [facility] [address] [place] [address] Caroline Wong, MAIRA [address] [facility], 1st [place] [address] [email or web address] Health Maintenance Due Date Last Done Comments DEPRESSION SCREENING 1957 RSV VACCINE (1 - 1-dose 75+ series) 09/22/2018 DIABETIC EYE EXAM 05/20/2022 LIPID PANEL 12/03/2023 12/02/2022, 06/02, 06/18/2021, Additional history exists INFLUENZA VACCINE (#1) 2024 , 12/18/2019, 12/31/2018, Additional history exists COVID-19 VACCINE ( season) 2024 03/05/2024, 02/26/2023, 03/01/2022, Additional history exists BLOOD PRESSURE 07/14/2025 01/14/2025 HEMOGLOBIN A1C 07/14/2025 01/14/2025, 06, 07/05/2024, Additional history exists POTASSIUM LEVEL 07/16/2025 07/16/2024, 08/0 06/2022, 01/08/2022 [...] Associated Diagnosis Comments POCT HEMOGLOBIN A1C Routine 01/14/2025 1 2:42 PM EDT Type 2 diabetes mellitus with [...] Maintenance Results * (ABNORMAL) POCT Hemoglobin A1c (01/14/2025 12:42 PM EDT) Hemoglobin A1c 7.8(A) 4.2 - 5.6 % [facility] Other 01/14/2025 12:4 2 PM EDT Caroline Wong CNP POINT OF CARE TEST ORDERABLES Final Result Performing Organization Address [facility]/ZIP Co de Phone Number [address] [address], [facility] * Basic metabolic panel (07/16/2024 12:26 PM EDT) Blood Caroline Wong CNP LAB BLOOD ORDERABLES Final Re sult Performing Organization Address City/[facility]/ZIP Co de Phone Number [address] [address] * (ABNORMAL) Lipid panel (12/02/2022 11:58 AM EDT) HDL 27 mg/dL [facility] Comment: Interpretation <40 mg/dL: Low HDL cholesterol (major risk factor for CHD) Greater than or equal to 60 mg/dL: High HDL cholesterol ( negative risk factor for CHD) HDL - cholesterol is affected by a number of factors, e.g. smoking, excerise, hormones, sex and age. CHOLESTEROL 153 0 - 240 mg/dL [facility] TRIGLYCERIDES 367(H) 30 - 160 mg/dL [facility] LDL 53 50 - 129 mg/dL [facility] Comment: LDL levels in terms of risk for coronary heart disease: <100 mg/dL: Optimal 100-129 mg/dL: Near or above optimal 130-159 mg/dL: Borderline high 160-189 mg/dL: High >190 mg/dL: Very High CARDIAC RISK RATIO 5.7(H) 3.4 - 5.0 C [facility] Blood 12/02/2022 11:5 8 AM EDT 12/02/2022 12:08 PM EDT us Leon Joyner MD LAB BLOOD ORDERABLES Final Result [facility] [address] [place] [address] from Last 3 Months or Most Recently Relevant to Health Maintenance Insurance [place] P[place] BLUE REPLACEMENT MEDICARE PPO BLUE REPLACEMENT MEDICARE PPO BLUE REPLACEMENT MEDICARE PPO [place] [address] [address] [place] [address] MED[address]PO [place] [address] [address] [place] [address] MEDICARE PPO BLUE REPLACEMENT Care Teams Revenue Stamper Relationship Specialty Start Date End Date Leon Joyner MD [address] [place] [address] [place] [address] PCP - General Internal Medicine 05/11/22 Additional Source Comments The information contained in this document represents components of the legal health record. It is not the complete legal health record.[facility]
--- OUTSIDE RECORDS SUMMARY | 2025-01-23 14:24 | XMS_ITS | Patient Health Record ---
Author Organization [facility] Address [address] [facility] [address] Care Team Providers Care Zipper Repairer Name Role Phone Dany Weber Primary Care Provider Tonio Johnson Unavailable [phone] Allergies No Known Allergies Results Component Value [...] Problem Acquired hammer toe of right foot (7656271367904834 ) Other hammer toe(s) (acquired), right foot (M20.41) Active confirmed Response to treatment, Improvemen t Problem Acquired hammer toe of left foot (9758089404771343 ) Other hammer toe(s) (acquired), left foot (M20.42) Active confirmed Response to treatment, Improvemen t Problem Polyneuropathy due to diabetes mellitus type I (620529790) Type 1 diabetes mellitus with diabetic polyneuropathy (E10.42) Active confirmed Vital Signs Blood pressure diastolic 65 mm Hg 11/27/2024 Height 5 ft 8 in in 11/27/2024 Blood pressure systolic 130 mm Hg 11/27/2024 Weight 219 lbs 11/27/2024 BMI 33.3 kg/m2 11/27/2024 Procedures Procedure Date Ordered Date Performed Result Body Sit e 46400-OWXRSXJ NAIL, 6 OR MORE 08/21/2024 N/A 83478-GBNJ SKIN LESIONS, 2 TO 4 08/21/2024 N/A 22103-JPCWOJR NAIL, 6 OR MORE 11/27/2024 N/A 90907-WSOY SKIN LESIONS, 2 TO 4 11/27/2024 N/A Encounters Encounter Location Date Provider Diagnosis [address] [address] 08/21/2024 Tonio Johnson Type 1 diabetes mellitus with diabetic polyneuropathy E10.42 ; Onychomycosis B35.1 ; Other hammer toe(s) (acquired), right foot M20.41 and Other hammer toe(s) (acquired), left foot M20.[address] [address] 11/27/2024 Tonio Johnson Type 1 diabetes mellitus with diabetic polyneuropathy E10.42 and Onychomycosis B35.[address] [address] 03/01/2024 Tonio Johnson [address] [address] 05/31/2024 Tonio Johnson Assessments Encounter Date Diagnosis [...] Treatment Pending Test Test Name Order Date 59266-SWTYKRV NAIL, 6 OR MORE 08/10/2016 15354-GBCSQDP NAIL, 6 OR MORE 11/12/2016 33047-WDDXDVX NAIL, 6 OR MORE 03/01/2017 23415-JFRHFKR NAIL, 6 OR MORE 05/31/2017 81400-MKINEMG NAIL, 6 OR MORE 08/30/2017 15413-MZVALJX NAIL, 6 OR MORE 11/29/2017 06359-MOMTZUQ NAIL, 6 OR MORE 06/06/2018 95927-PNPNQYD NAIL, 6 OR MORE 09/05/2018 34274-BAOKOHU NAIL, 6 OR MORE 02/28/2018 82219-SBFMNTJ NAIL, 6 OR MORE 12/05/2018 94696-UDPZEJZ NAIL, 6 OR MORE 05/11/2019 98923-NPSBPXX NAIL, 6 OR MORE 09/14/2019 33160-WLJUETQ NAIL, 6 OR MORE 12/14/2019 00539-MPSADNK NAIL, 6 OR MORE 03/14/2020 34582-WJJKZWK NAIL, 6 OR MORE 08/12/2020 07370-CNRASYL NAIL, 6 OR MORE 11/11/2020 91216-GUYKACV NAIL, 6 OR MORE 02/10/2021 77664-WBRCENW NAIL, 6 OR MORE 05/15/2021 80753-KXGHEXH NAIL, 6 OR MORE 08/21/2021 23321-YKKHYWK NAIL, 6 OR MORE 11/20/2021 97318-JYUVDYC NAIL, 6 OR MORE 02/23/2022 85079-BPQWWYU NAIL, 6 OR MORE 05/28/2022 97441-YDNSELG NAIL, 6 OR MORE 08/27/2022 01006-LJLTTMU NAIL, 6 OR MORE 11/26/2022 55092-YRUJGKL NAIL, 6 OR MORE 03/04/2023 32494-YPPELBK NAIL, 6 OR MORE 06/24/2023 03196-YZSDDQM NAIL, 6 OR MORE 12/02/2023 68808-BCFCNCQ NAIL, 6 OR MORE 08/21/2024 49902-OWMUTSH NAIL, 6 OR MORE 11/27/2024 13178-Fzlnqxqb Plate 06/06/2018 29168-Lwjfzshx Plate 12/02/2023 59634-Gjzotnrr Plate 06/24/2023 81893-Kamnapca Plate 03/04/2023 17887-Xaqfmzat Plate 11/26/2022 06582-Riclonyf Plate 08/27/2022 12885-Mrcxptad Plate 05/28/2022 52227-Agmtjmge Plate 02/23/2022 78223-Nlunbmkk Plate 11/20/2021 15563-Yyzoqnao Plate 08/21/2021 72675-Aqmljpuj Plate 05/15/2021 31623-Yseykkrg Plate 02/10/2021 79063-Cctammss Plate 11/11/2020 71671-Ivtkxifk Plate 08/12/2020 90451-Lzsqsyru Plate 03/14/2020 08654-Izwhtvhc Plate 12/14/2019 72532-Uxhdixys Plate 09/14/2019 19854-Fgibxxcd Plate 05/11/2019 91491-Dmirukll Plate 12/05/2018 72894-Bajhvpxe Plate 09/05/2018 32399-Alzogeup Plate 11/29/2017 71994-Kzrwyhhw Plate 02/28/2018 57309-Lhwslncf Plate 05/31/2017 03068-Cpibjlgm Plate 08/30/2017 72781-Eqhmoudl Plate 11/12/2016 79562-Kfarwucm Plate 08/10/2016 00166-CYMS SKIN LESIONS, 2 TO 4 08/11/19 17 67771-SKQV SKIN LESIONS, 2 TO 4 11/13/19 17 68168-VWKQ SKIN LESIONS, 2 TO 4 03/01/20 17 28264-PWBY SKIN LESIONS, 2 TO 4 11/30/19 18 67054-BNIR SKIN LESIONS, 2 TO 4 08/31/19 18 27343-QMAZ SKIN LESIONS, 2 TO 4 05/31/19 18 53790-ELWX SKIN LESIONS, 2 TO 4 02/29/20 18 50680-CYKM SKIN LESIONS, 2 TO 4 09/06/19 19 92842-BQVX SKIN LESIONS, 2 TO 4 12/06/19 19 71747-XDAO SKIN LESIONS, 2 TO 4 06/06/19 19 14045-LLEE SKIN LESIONS, 2 TO 4 05/11/19 27593-UBTD SKIN LESIONS, 2 TO 4 09/14/19 81836-XTQM SKIN LESIONS, 2 TO 4 12/14/19 02202-LIQB SKIN LESIONS, 2 TO 4 03/14/20 93010-KLUI SKIN LESIONS, 2 TO 4 08/13/19 77961-OAPX SKIN LESIONS, 2 TO 4 11/12/19 88883-USGT SKIN LESIONS, 2 TO 4 02/11/20 62530-KQYN SKIN LESIONS, 2 TO 4 05/15/19 54740-FKGS SKIN LESIONS, 2 TO 4 08/22/19 06207-VMUB SKIN LESIONS, 2 TO 4 11/21/19 85378-QXNG SKIN LESIONS, 2 TO 4 02/24/20 80697-CCIQ SKIN LESIONS, 2 TO 4 05/28/19 64014-EKKY SKIN LESIONS, 2 TO 4 08/28/19 89410-CCQM SKIN LESIONS, 2 TO 4 11/27/19 42878-ADLB SKIN LESIONS, 2 TO 4 03/04/20 55232-LZUA SKIN LESIONS, 2 TO 4 06/24/19 24 70472-DYLC SKIN LESIONS, 2 TO 4 12/02/19 69428-SIKC SKIN LESIONS, 2 TO 4 11/28/19 86816-VPEN SKIN LESIONS, 2 TO 4 08/22/19 45163-Ilrq. Subungual Hematoma 3 55076- Biopsy of skin lesion 03/01/2017 Next Appt Details Provider Name:Tonio Johnson , 03/19/2025 01:30:00 PM, [address] [facility], [place], [address], Insurance Providers Payer Name Payer Address Payer Phone Subscriber Number Group Number Insured Name Patient Relationship to Insured Coverage Start Date Coverage End Date [facility] 63 Medicare Preferred [address] [place] [address] [id number] Josr Hart Self - patient is [...] cataract surgery 09/21/21,10/05/21 Hospitalization History Reason Date(Month/Year) [facility]- fainted Low sugar 33 few hrs 2021 [facility] 12/09/2020 [facility] 10/01/20 [facility]- Anemia / Mass in colon /4 Pints blo od 11/04-01/20 [facility] ER- Fluid on lungs 10/2019
== END 2025-01-23 11:14 | disposition home or self-care (01) ==
LOC: HO.US 11:13
PROVIDERS: PCP Student in an Organized Health Care Education/Training Program; Visit Provider Internal Medicine Hypertension Specialist
DX: N17.9 Acute kidney failure, unspecified (principal); N18.30 Chronic kidney disease, stage 3 unspecified
CPT/HCPCS: 76775

== ENCOUNTER → 2025-01-23 11:15 | Outpatient (BNV) | payer MEDICARE, SELFPAY | PROVIDERS: PCP Student in an Organized Health Care Education/Training Program; Visit Provider Radiology Diagnostic Radiology | DX: N28.1 Cyst of kidney, acquired (principal) | CPT/HCPCS: 76775 ==

== ENCOUNTER 2025-02-05 13:57 | Outpatient (AMB) | payer MEDICARE, SELFPAY ==
--- OUTSIDE RECORDS SUMMARY | 2024-03-02 06:00 | XMS_ITS ---
Author Organization [facility] Address [address] [facility] [place] [address] Care Team Providers Care Steamtable Attendant Railroad Name Role Phone GusDany Primary Care Provider Tonio Johnson Unavailable [phone] Medications Medication SIG (Take, Route, Frequency, Duration) [...] Active Encounters Encounter Location Date Provider Diagnosis [facility] [address] [address] 03/02/2024 Tonio Johnson Plan Of Treatment Next Appt Details Provider Name:Tonio Johnson , 03/19/2025 01:30:00 PM, [address] [place] [address], [phone], Progress Notes * Josr HART FDOB:[birth year] (79 yo M)Acc No.[id number]:03/02/2024 Progress Note Patient: Hair Josr GUTIERRZE Monie Provider: Wil Johnson DPM :1945 A ge:78 Y S ex:Male Date:03/02/2024 Address:[address] [place], [place] [id number] Pcp:Dany Weber Subjective: * Chief Complaints: * [...] Date: 05/02/2023 Generated for Umu Umana/Adela on: 05:12 PM EDT
--- OUTSIDE RECORDS SUMMARY | 2024-06-01 06:00 | XMS_ITS ---
Author Organization [facility] Address [address] [place] [address] Care Team Providers Care Cable Cutter And Swager Name Role Phone Dany Weber Primary Care Provider Tonio Johnson Unavailable [phone] Encounters Encounter Location Date Provider Diagnosis [address] [address] 06/01/2024 Tonio Johnson Plan Of Treatment Next Appt Details Provider Name:Tonio Johnson , 03/19/2025 01:30:00 PM, [address] [place] [address], [phone], Progress Notes * Josr GRIJALVA FDOB:[birth year] (79 yo M)Acc No.[id number]:06/01/2024 Progress Note Patient: Josr DOWD Provider: Wil Johnson DPM :1945 A ge:78 Y S ex:Male Date:06/01/2024 Address:[address] [place] [address] [place], [id number] Pcp:Dany Weber Subjective: * Chief Complaints: [...] 0 06/01/2024 Generated for Umu Russell on: 05:12 PM EDT
--- NOTE | 2025-02-05 13:59 | HO.NEPHOV_ITS ---
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: No Accompanied by: Spouse Allergies No Known Allergies Allergy (Verified 02/05/25 14:02) Medication List - Last Reconciled 02/05/25 by Phil Burch MD albuterol sulfate mg inhalation Q6H PRN amitriptyline 25 mg PO BEDTIME ascorbic acid (vitamin C) 1,000 mg PO DAILY aspirin (Adult Low Dose Aspirin) 81 mg PO DAILY blood sugar diagnostic ([place]ue[employer]uch Verio test strips) 1 strip miscellaneous TID doxazosin 8 mg PO BEDTIME dulaglutide (Trulicity) 1.5 mg subcut QWEEK ferrous sulfate (iron) 325 mg PO DAILY finasteride 5 mg PO BEDTIME furosemide 80 mg PO DAILY insulin regular hum U-500 conc (Humulin R U-500 (Concentrated) Insulin) 35 units with breakfast and 60 units with supper subcutaneously 2 times per day with meals; insulin U-500 syringe-needle (BD Insulin Syringe U-500) As directed injects 3 X/day ipratropium-albuterol 0.5 mg-3 mg(2.5 mg base)/3 mL 3 mL inhalation QID PRN lancets As directed magnesium 250 mg PO DAILY metoprolol tartrate 25 mg PO BID multivitamin 1 tab PO DAILY omeprazole 20 mg PO DAILY PRN polyethylene glycol 3350 (Miralax) 17 grams PO DAILY PRN simvastatin 40 mg PO BEDTIME spironolactone 25 mg PO BID walker Folding front wheeled walker HPI Comments Details: The patient is an 79-year-old male presenting with chronic kidney disease and hypertension. Kidney function is between 30-35%, stable over the past few years, with a goal to prevent further decline. Hypertension is managed with multiple medications, including high-dose furosemide, and is well-controlled. Diabetes mellitus, diagnosed 10 years ago, has contributed to kidney damage. Insulin therapy is being tapered as blood sugar levels are under control. 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 Post-herpetic neuralgia due to shingles, managed with gabapentin, considering dosage reduction. History of depression treated with sertraline and amitriptyline, considering discontinuation of sertraline. Gastroesophageal reflux disease managed with omeprazole, advised to reduce dosage. Benign prostatic hyperplasia managed with finasteride, reports occasional slow urinary stream. Medical History: - Hypertension - Chronic kidney disease - Diabetes mellitus - Congestive heart failure - Post-herpetic neuralgia - Depression - Gastroesophageal reflux disease - Benign prostatic hyperplasia Surgical History: - Triple bypass surgery, 10 years ago Medications: - Furosemide 80 mg twice daily for hypertension and congestive heart failure - Insulin for diabetes mellitus - Gabapentin for post-herpetic neuralgia ( more than 10 yrs ago) - Sertraline for depression - Omeprazole for gastroesophageal reflux disease - Finasteride for benign prostatic hyperplasia Social History: - Quit smoking 45 years ago - Consumes alcohol occasionally, about one beer per week Family History: - Brother had a kidney transplant Diagnostic Results: - Kidney function between 30-35% GFR Creatinine 02/05/25 OVerall doing well NO new issues Tolerating lower dose of Lasix NO dyspnea or weight gain PFSH Medical History (Updated 01/08/25 @ 16:12 by Phil Burch MD) Personal history of COVID-19 (~04/2023) [place] (hard of hearing) 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 Cataract Abscess Diastolic dysfunction Drainage from surgical wound Anemia Peptic ulcer GERD (gastroesophageal reflux disease) Depression TIA (transient ischemic attack) History of snoring COVID-19 vaccine series completed Cecum mass COPD (chronic obstructive pulmonary disease) case management patient Dyslipidemia 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 Mother Cancer Social History (Reviewed 02/05/25 @ 14:02 by SUZANNE Carlos Household Members: Spouse Housing: House Are you a primary prompt care rn to a significant other at home: No Do you presently have visiting nurse or other home services: No 75 years or older and lives alone: No Alcohol intake: never Comment: aware of trip hazard Patient Tobacco Use Status: Former Tobacco user Tobacco use type: Cigarette Years Smoked: 30 e-Cigarette/Vaping Use: Never Used Advance Directives Date on File: 12/02/20 service: No Current occupational status: retired Physical Exam Vital Signs: Last Vital Signs Pulse 73 02/05/25 14:00 BP 136/62 02/05/25 14:00 Pulse Ox 96 02/05/25 14:00 Oxygen Delivery Method Room Air 02/05/25 14:00 BMI result Body Mass Index 34.1 Comfortable Neck supple no JVD. Lungs entry equal no rales. Heart S1-S2 heard no gallop or rub. Abdomen soft nontender. Neuro alert awake oriented. No asterixis. Extremities no edema. Results Reviewed Results Reviewed: CT Scan 2020 ADRENAL GLANDS: There is a 2 cm left adrenal nodule. This is stable from multiple old exams and therefore probably benign. The right adrenal gland is normal. KIDNEYS AND URETERS: There is a 1 cm cyst in the upper pole of the left kidney. The kidneys are otherwise unremarkable. Dec 2024 RIGHT KIDNEY: 10.6 x 4.5 x 4.6 cm (SAG x AP x TRV). The kidney is normal in size, contour, and echogenicity. Renal cortical thickness is normal. No calculi or focal parenchymal lesions. No hydronephrosis. LEFT KIDNEY: 10.4 x 5.3 x 4.2 cm (SAG x AP x TRV). The kidney is normal in size, contour, and echogenicity. Renal cortical thickness is normal. No calculi or suspicious focal parenchymal lesions. No hydronephrosis. There is a simple upper pole cyst measuring 1.4 x 1.0 x 0.9 cm. US/US renal BI IMPRESSION: 1. Left kidney 1.4 cm upper pole simple cyst. Otherwise normal kidneys bilaterally. Nephrology Results: 2 Hgb, (14.0-18.0) 14.0 g/dl 12/04/24 WBC, (4.8-10.8) 8.1 X10*3/uL 12/04/24 Plt Count, (160-400) 211 X10*3/uL 12/04/24 Sodium, (135-145) 139 mmol/L 01/09/25 Potassium, (3.3-5.1) 4.8 mmol/L 01/09/25 Chloride, (96-108) 97 mmol/L 01/09/25 Carbon Dioxide, (22-29) 32 mmol/L H 01/09/25 BUN, (9-16) 35 mg/dL H 01/09/25 Creatinine, (0.5-1.4) 2.08 mg/dL H 01/09/25 Calcium, (8.4-10.2) 9.3 mg/dL 01/09/25 Urine Protein, (Neg-Trace) Negative mg/dL 01/09/25 Urine Creatinine 46.07 mg/dL 01/09/25 Renal US 01/23/25 Assessment & Plan Assessment & Plan (1) CKD (chronic kidney disease): Code(s): N18.9 - Chronic kidney disease, unspecified Category: Medical Plan: Chronic kidney disease stage IIIB most likely due to longstanding diabetic hypertensive kidney disease. No reason to believe he has any active glomerular nephritis or interstitial disease. No evidence of obstruction. Renal function has been stable for the last 5 years. EGFR is between 30 and 33 mL/minute. At present blood pressure is well controlled. Goal is to slow the progression of renal disease. Continue to avoid nephrotoxic agents including NSAIDs. Discussed importance of maintaining A1c less than 7%. He will benefit from weight loss. History of adrenal adenoma. Reportedly benign. This has been stable. Last imaging was in 2020. I do not believe this requires any further intervention at this time. Plan 02/05/25 Decrease Lasix to 80 Q AM - from and 40 mg Q PM Change Omeprazole to 20 mg PRN DC Gabapentin 100 mg BID DC Sertaline Orders: Orders 2 Basic Metabolic Panel 3 Months Phil Burch MD N18.9 - Chronic kidney disease, unspecified Complete Blood Count no Diff 3 Months Phil Burch MD N18.9 - Chronic kidney disease, unspecified Medications: Changed 2 From omeprazole 20 mg PO BID@0630,1630 90 caps 1RF To omeprazole 20 mg PO DAILY PRN Dany Weber MD Coding Level of Care Code Est Pt Level 4 (57769) Diagnoses CKD (chronic kidney disease) N18.9
[2025-02-05 14:00] VITALS: BP 136/62; PULSE 73; O2SAT 96; BMI 34.1
--- OUTSIDE RECORDS SUMMARY | 2025-02-05 17:12 | XMS_ITS | Patient Health Record ---
Author Organization [facility] Address [address] [place] [address] Care Team Providers Care Eyeglass Maker Name Role Phone Ar (RETIRED) Leon UGARTE Primary Care Provider Unavailable Daniel Rebolledo Jr Unavailable [phone] Allergies No Known Allergies Reason For [...] Orally Twi ce a day Active Ipratropium [place] HFA 17 MCG/ACT 2 puffs Inhalation Four times a day Active Metoprolol Tartrate 25 MG 1 tablet with food Orally Twice a day Active Immunizations Vaccine Route Administration Date Status Comme nts Influenza Unknown 03/02/2021 Administered Problems Problem Type SNOMED Code ICD Code Onset Dates Problem Status W/U Status Risk Notes Problem 897748539 Colon cancer screening (Z12.11) Active confirmed Problem 459389825 [facility] (current) use of aspirin (Z79.82) Active confirmed Plan Of Treatment Pending Test Test Name Order Date CT COLON SCREENING NO CONTRAST 6 Future Test Test Name Order Date COLONOSCOPY 02/04/2012 COLONOSCOPY 10/01/2015 COLONOSCOPY 04/15/2021 Insurance Providers Payer Name Payer Address Payer Phone Subscriber Number Group Number Insured Name Patient Relationship to Insured Coverage Start Date Coverage End Date [facility] [address] [place], [place] [id number] [phone] [id number] ELENA GRIJALVA Self - patient is the insured Medical (General) History Medical History History ICD Code coronary artery disease diabetes hypertension elevated cholesterol COPD Surgical History Surgery Date(Month/Year) shoulder surgery tripple bypass 06/29/2013 hernia repair rotator cuff tear repair -both ankle surgery knee surgery-left shoulder replacement left resection of colon for benign mass - Dr. Perea
--- OUTSIDE RECORDS SUMMARY | 2025-02-05 17:12 | XMS_ITS | Patient Health Record ---
Author Organization [facility] Address [address] [place] [address] Care Team Providers Care Examination Grader Name Role Phone Dany Weber Primary Care Provider Tnoio Johnson Unavailable [phone] Allergies No Known Allergies Results Component Value [...] Problem Acquired hammer toe of right foot (5816751698547151 ) Other hammer toe(s) (acquired), right foot (M20.41) Active confirmed Response to treatment, Improvemen t Problem Acquired hammer toe of left foot (8530090220512811 ) Other hammer toe(s) (acquired), left foot (M20.42) Active confirmed Response to treatment, Improvemen t Problem Polyneuropathy due to diabetes mellitus type I (634936737) Type 1 diabetes mellitus with diabetic polyneuropathy (E10.42) Active confirmed Vital Signs Blood pressure diastolic 65 mm Hg 11/27/2024 Height 5 ft 8 in in 11/27/2024 Blood pressure systolic 130 mm Hg 11/27/2024 Weight 219 lbs 11/27/2024 BMI 33.3 kg/m2 11/27/2024 Procedures Procedure Date Ordered Date Performed Result Body Sit e 39379-EUWZGZI NAIL, 6 OR MORE 08/21/2024 N/A 41214-RHQQ SKIN LESIONS, 2 TO 4 08/21/2024 N/A 60185-OBWZRBF NAIL, 6 OR MORE 11/27/2024 N/A 37261-KKHR SKIN LESIONS, 2 TO 4 11/27/2024 N/A Encounters Encounter Location Date Provider Diagnosis [address] [address] 08/21/2024 Tonio Johnson Type 1 diabetes mellitus with diabetic polyneuropathy E10.42 ; Onychomycosis B35.1 ; Other hammer toe(s) (acquired), right foot M20.41 and Other hammer toe(s) (acquired), left foot M20.[address] [address] 11/27/2024 Tonio Johnson Type 1 diabetes mellitus with diabetic polyneuropathy E10.42 and Onychomycosis B35.[address] [address] 03/01/2024 Tonio Johnson [address] [address] 05/31/2024 Tonio Johnson Assessments Encounter Date Diagnosis [...] Treatment Pending Test Test Name Order Date 56218-CKFURNL NAIL, 6 OR MORE 08/10/2016 06545-XIMDFTJ NAIL, 6 OR MORE 11/12/2016 89457-KCTVNVM NAIL, 6 OR MORE 03/01/2017 02058-WYITHXJ NAIL, 6 OR MORE 05/31/2017 97682-DYVNDLQ NAIL, 6 OR MORE 08/30/2017 35897-LNEFYBB NAIL, 6 OR MORE 11/29/2017 86026-SROLKHF NAIL, 6 OR MORE 06/06/2018 02756-ZDIQMKV NAIL, 6 OR MORE 09/05/2018 34418-XWGQHKK NAIL, 6 OR MORE 02/28/2018 02037-YWEHFJU NAIL, 6 OR MORE 12/05/2018 34536-ISSYZNU NAIL, 6 OR MORE 05/11/2019 19547-KRUKWDT NAIL, 6 OR MORE 09/14/2019 48993-VWOTZSH NAIL, 6 OR MORE 12/14/2019 33938-SFFRGSV NAIL, 6 OR MORE 03/14/2020 38504-YQUDXOM NAIL, 6 OR MORE 08/12/2020 05441-HHJCOCV NAIL, 6 OR MORE 11/11/2020 95762-VRJLODW NAIL, 6 OR MORE 02/10/2021 26125-ULUENNN NAIL, 6 OR MORE 05/15/2021 76141-OBOCKAH NAIL, 6 OR MORE 08/21/2021 08157-NUTZQUC NAIL, 6 OR MORE 11/20/2021 49707-SLZHXYI NAIL, 6 OR MORE 02/23/2022 00824-UGKVZPO NAIL, 6 OR MORE 05/28/2022 68016-DWXFKVX NAIL, 6 OR MORE 08/27/2022 21354-ULRWFUD NAIL, 6 OR MORE 11/26/2022 48461-OZBWNIS NAIL, 6 OR MORE 03/04/2023 84647-EONRGNY NAIL, 6 OR MORE 06/24/2023 62113-CKHQAZS NAIL, 6 OR MORE 12/02/2023 96302-BJCIIFX NAIL, 6 OR MORE 08/21/2024 89040-CKLRKJA NAIL, 6 OR MORE 11/27/2024 62757-Vaqfxqsc Plate 06/06/2018 19124-Ljcnfmls Plate 12/02/2023 78421-Llyorkof Plate 06/24/2023 42944-Aflcktqd Plate 03/04/2023 06869-Alfeyrtt Plate 11/26/2022 02547-Lwjoesac Plate 08/27/2022 36028-Jendjtou Plate 05/28/2022 64732-Bpizyvpa Plate 02/23/2022 75800-Wwwknlih Plate 11/20/2021 94079-Ksavfejc Plate 08/21/2021 99057-Arepsmai Plate 05/15/2021 38367-Rwratoif Plate 02/10/2021 16677-Ixsqzzzw Plate 11/11/2020 41816-Zddpoier Plate 08/12/2020 99544-Qggcxoxi Plate 03/14/2020 34376-Rpustavn Plate 12/14/2019 01449-Zqltrokc Plate 09/14/2019 57943-Epgxgfok Plate 05/11/2019 53744-Yyrfpdss Plate 12/05/2018 03732-Mfmlzpuj Plate 09/05/2018 51591-Fxjahfug Plate 11/29/2017 09252-Ewnssmls Plate 02/28/2018 39093-Oewbtahq Plate 05/31/2017 60444-Fbrqufxt Plate 08/30/2017 57458-Bfmypcgv Plate 11/12/2016 56892-Erurjity Plate 08/10/2016 49988-HZHX SKIN LESIONS, 2 TO 4 08/11/19 17 60146-ESVO SKIN LESIONS, 2 TO 4 11/13/19 17 77560-TYBU SKIN LESIONS, 2 TO 4 03/01/20 17 90470-XGKO SKIN LESIONS, 2 TO 4 11/30/19 18 61889-QPBD SKIN LESIONS, 2 TO 4 08/31/19 18 31035-ARQB SKIN LESIONS, 2 TO 4 05/31/19 18 25392-HVHR SKIN LESIONS, 2 TO 4 02/29/20 18 41444-RNDT SKIN LESIONS, 2 TO 4 09/06/19 19 08565-YSZN SKIN LESIONS, 2 TO 4 12/06/19 19 79493-DXMF SKIN LESIONS, 2 TO 4 06/06/19 19 59573-XDDI SKIN LESIONS, 2 TO 4 05/11/19 25621-WMZW SKIN LESIONS, 2 TO 4 09/14/19 93947-XLCG SKIN LESIONS, 2 TO 4 12/14/19 65661-ZUZL SKIN LESIONS, 2 TO 4 03/14/20 18001-PCLH SKIN LESIONS, 2 TO 4 08/13/19 02415-HBAL SKIN LESIONS, 2 TO 4 11/12/19 52896-SKDN SKIN LESIONS, 2 TO 4 02/11/20 83013-ZGAA SKIN LESIONS, 2 TO 4 05/15/19 16352-SNYR SKIN LESIONS, 2 TO 4 08/22/19 38388-HXZW SKIN LESIONS, 2 TO 4 11/21/19 15069-RYWM SKIN LESIONS, 2 TO 4 02/24/20 58952-WYPF SKIN LESIONS, 2 TO 4 05/28/19 99605-BFUJ SKIN LESIONS, 2 TO 4 08/28/19 03274-AILI SKIN LESIONS, 2 TO 4 11/27/19 87564-RIQS SKIN LESIONS, 2 TO 4 03/04/20 01940-XZRY SKIN LESIONS, 2 TO 4 06/24/19 24 52098-VLLP SKIN LESIONS, 2 TO 4 12/02/19 93795-SNVB SKIN LESIONS, 2 TO 4 11/28/19 60640-FJRT SKIN LESIONS, 2 TO 4 08/22/19 39899-Wlqj. Subungual Hematoma 3 06051- Biopsy of skin lesion 03/01/2017 Next Appt Details Provider Name:Tonio Johnson , 03/19/2025 01:30:00 PM, [address] [facility], [place], [address], Insurance Providers Payer Name Payer Address Payer Phone Subscriber Number Group Number Insured Name Patient Relationship to Insured Coverage Start Date Coverage End Date [facility] 65 Medicare Preferred [address] [place] [address] [phone] [id number] Josr Hart Self - patient is [...] cataract surgery 09/21/21,10/05/21 Hospitalization History Reason Date(Month/Year) [facility] [place] fainted Low sugar 33 few hrs 2021 [facility] [place]/09/2020 [facility] 10/01/20 [facility] [place] Anemia / Mass in colon /4 Pints blo od 11/04-01/20 [facility] [place]- Fluid on lungs 10/2019
--- OUTSIDE RECORDS SUMMARY | 2025-02-05 17:12 | XMS_ITS | Encounter Summary ---
Author Organization [facility] Address [address] [place] [address] Phone Care Team Providers Care Auto Finance Sales Rep Name Role Phone Leon Joyner MD Primary Care Provider [phone] Reason for Visit * Reason Onset Date Comments Medication Problem 02/04/2025 Encounter Details Date Type Department Care Team (Late st Contact Info) Description 02/04/2025 Refill [facility] [address] [place] [address] Grisel Elias [place] [address] [place] [address] [email or web address] Medication Problem Social History Tobacco Use Types Packs/Day Years [...] Progress Notes * Caroline Wong CNP - 02/05/2025 2:34 PM EDT Before sending this, could someone contact patient/ and check to see how he is doing on currentdose of trulicity and u500 and if there are any low blood sugars? Thank you! * Deborah Schaeffer MA - 02/05/2025 10:21 AM EDT Called and spoke with Tatum, asked her if she was requesting Mounjaro or Trulicity as Josr takes trulicity. She stated she talked to Caroline a month ago and was supposed to switch from Trulicity to Mounjaro. She also stated he is supposed to be changing his insulin as well but doesn't recallwhat it is supposed to be changed. She stated she would like the prescriptions to go to [facility] in [place], [place] on [facility]. I informed her I would send this to Caroline for review. She agreed to the plan * Grisel Elias MA - 02/04/2025 4:21 PM EDT called and left a voice mail requesting a prescription for Mounjaro. Sent to Rx Pool documented in this encounter Plan of Treatment Upcoming Encounters Date Type Department Care Team (Late st Contact Info) Description 03/19/2025 11:00 AM EST Office Visit [facility] [address] [place] [address] Caroline Wong CNP [address] [facility] [place] [address] [email or web address] documented as of this encounter Visit Diagnoses Not on filedocumented in this encounter Care Teams Auto Finance Sales Rep Relationship Specialty Start Date End Date Leon Joyner MD [address] [place] [address] [place] [address] PCP - General Internal Medicine 05/11/22 documented as of this encounter Additional Source Comments The information contained in this document represents components of the legal health record. It is not the complete legal health record.[facility]
--- OUTSIDE RECORDS SUMMARY | 2025-02-05 17:12 | XMS_ITS | Clinical Summary ---
Author Organization [facility] Address [address] [place] [phone] Phone Care Team Providers Care Surgical Elastic Knitter Name Role Phone Leon Joyner MD Primary Care Provider [phone] Allergies No known active allergies Medications amitriptyline [...] Active ferrous sulfate 324 mg (65 mg metlakatla iron) TbEC Take 324 mg by mouth daily with breakfast. Active [id number] JOHN GLUCONATE ORAL Take by mouth daily. [...] discontinuing metformin. - Upcoming appointment with a x ray electronics wireman on 01/08/2025 to further evaluate and manage [...] we will place an order for the [employer] Jack. Insulin doses reviewed. Reviewed strong recommendations [...] weeks to drop off at front end software engineer or follow up appointment. Hyperlipidemia 05/20/2022 [...] Encounters Date Type Department Care Team Description 02/04/2025 Refill [facility] [address] [place] [address] Grisel Elias MA Medication Problem 01/16/2025 Telephone [facility] [address] [place] [address] [place] [address] Grisel Elias MA Labs 01/15/2025 Telephone [facility] [address] [place] [address] Deena Juarez MA 01/14/2025 12:30 PM EDT Office Visit [facility] [address] [place] [address] Caroline Wong CNP Type 2 diabetes mellitus with chronic kidney disease, with long-term current use of insulin (Primary Dx); Stage 3b chronic kidney disease; Hypertension, unspecified type; Hyperlipidemia, unspecified hyperlipidemia type 12/10/2024 1:30 PM EDT Office Visit [facility] [place] [address] [place] [address] Caroline Wong CNP Type 2 diabetes mellitus with stage 3b chronic kidney disease, with long-term current use of insulin (Primary Dx); Stage 3b chronic kidney disease; Hypertension, unspecified type; Hyperlipidemia, unspecified hyperlipidemia type 12/04/2024 Telephone [facility] [address] [place] [address] Deena Juarez MA Labs from Last 3 Months Social History Tobacco Use Types Packs/Day Years Used Date Smoking Tobacco: Former Cigarettes 2 1 - 1990 Passive Smoke Exposure: Past Smokeless [...] Description 03/19/2025 11:00 AM EST Office Visit [facility] [address] [place] [address] Caroline Wong, SEAM FELLER [address] [facility], 1st [place] [address] [email or web address] Health Maintenance Due Date Last Done Comments DEPRESSION SCREENING 1957 RSV VACCINE (1 - 1-dose 75+ series) 09/22/2018 DIABETIC EYE EXAM 05/20/2022 LIPID PANEL 12/03/2023 12/02/2022, 06/02, 06/18/2021, Additional history exists INFLUENZA VACCINE (#1) 2024 , 12/18/2019, 12/31/2018, Additional history exists COVID-19 VACCINE ( season) 2024 03/05/2024, 02/26/2023, 03/01/2022, Additional history exists BLOOD PRESSURE 07/14/2025 01/14/2025 HEMOGLOBIN A1C 07/14/2025 01/14/2025, 09/30, 07/05/2024, Additional history exists POTASSIUM LEVEL 07/16/2025 [...] Hemoglobin A1c 7.8(A) 4.2 - 5.6 % [facility] Other 01/14/2025 12:4 2 PM EDT us Caroline Wong CNP POINT OF CARE TEST ORDERABLES Final Result Performing Organization Address [facility]/State/ZIP Co de Phone Number [address] [address], [facility] * Basic metabolic panel (07/16/2024 12:26 PM EDT) Blood us Caroline Wong CNP LAB BLOOD ORDERABLES Final Re sult Performing Organization Address City/[facility]/ZIP Co de Phone Number [address] [address] * (ABNORMAL) Lipid panel (12/02/2022 11:58 AM EDT) HDL 27 mg/dL [facility] Comment: Interpretation <40 mg/dL: Low HDL cholesterol (major risk factor for CHD) Greater than or equal to 60 mg/dL: High HDL cholesterol ( negative risk factor for CHD) HDL - cholesterol is affected by a number of factors, e.g. smoking, excerise, hormones, sex and age. CHOLESTEROL 153 0 - 240 mg/dL [facility] TRIGLYCERIDES 367(H) 30 - 160 mg/dL [facility] LDL 53 50 - 129 mg/dL [facility] Comment: LDL levels in terms of risk for coronary heart disease: <100 mg/dL: Optimal 100-129 mg/dL: Near or above optimal 130-159 mg/dL: Borderline high 160-189 mg/dL: High >190 mg/dL: Very High CARDIAC RISK RATIO 5.7(H) 3.4 - 5.0 C [facility] Blood 12/02/2022 11:5 8 AM EDT 12/02/2022 12:08 PM EDT us Leon Joyner MD LAB BLOOD ORDERABLES Final Result Performing Organization Address City/State/[facility] Co de Phone Number [facility] [address] [place] [address] from Last 3 Months or Most Recently Relevant to Health Maintenance Insurance [place] MEDIC[place] P[place] BLUE REPLACEMENT MEDICARE PPO BLUE REPLACEMENT MEDICARE PPO BLUE REPLACEMENT MEDICARE PPO [place] [address] [place] [address] MEDICARE PPO BLUE REPLACEMENT Care Teams Surgical Elastic Knitter Relationship Specialty Start Date End Date Leon Joyner MD [address] [place] [address] [place] [address] PCP - General Internal Medicine 05/11/22 Additional Source Comments The information contained in this document represents components of the legal health record. It is not the complete legal health record.[facility]
== END 2025-02-05 14:26 | disposition home or self-care (01) ==
LOC: HO.HKA 13:57
PROVIDERS: PCP Family Medicine; Visit Provider Internal Medicine Hypertension Specialist
DX: N18.9 Chronic kidney disease, unspecified (principal)
CPT/HCPCS: 99214

== ENCOUNTER → 2025-02-05 13:57 | Outpatient (BNVA) | payer MEDICARE, SELFPAY | PROVIDERS: PCP Family Medicine; Visit Provider Internal Medicine Hypertension Specialist | DX: Z66 Do not resuscitate (principal); E11.65 Type 2 diabetes mellitus with hyperglycemia; E11.29 Type 2 diabetes mellitus with other diabetic kidney complication; E11.21 Type 2 diabetes mellitus with diabetic nephropathy; N28.9 Disorder of kidney and ureter, unspecified; I10 Essential (primary) hypertension; N18.32 Chronic kidney disease, stage 3b | CPT/HCPCS: 99212 ==

== ENCOUNTER 2025-03-18 13:48 | Outpatient (AMB) | payer MEDICARE, SELFPAY ==
[2025-03-18 13:51] VITALS: BP 110/58; PULSE 85; TEMP 36.2; O2SAT 98; BMI 32.4
--- NOTE | 2025-03-18 13:51 | A.OFFPC_ITS ---
Vital Signs 03/18/25 13:51 Height 5 ft 8 in Weight 213 lb BMI 32.4 BP 110/58 L Blood Pressure Location Lt brachial Position Sitting Pulse 85 Pulse Source Pulse Oximeter Temp 97.2 F Temp Source Temporal Artery Scan Pulse Oximetry (%) 98 Oxygen Delivery Method Room Air Intake Visit Reasons: 3 Month F/U from Dr Bush - see comments Associate Research Scientist Required: No Accompanied by: Spouse Allergies No Known Allergies Allergy (Verified 03/18/25 13:51) Medication List - Last Reconciled 03/18/25 by Delmar Mckenzie MD albuterol sulfate mg inhalation Q6H PRN amitriptyline 25 mg PO BEDTIME ascorbic acid (vitamin C) 1,000 mg PO DAILY aspirin (Adult Low Dose Aspirin) 81 mg PO DAILY blood sugar diagnostic ([employer] Verio test strips) 1 strip miscellaneous TID doxazosin 8 mg PO BEDTIME ferrous sulfate (iron) 325 mg PO DAILY finasteride 5 mg PO BEDTIME furosemide 80 mg PO DAILY insulin U-500 syringe-needle (BD Insulin Syringe U-500) As directed injects 3 X/day ipratropium-albuterol 0.5 mg-3 mg(2.5 mg base)/3 mL 3 mL inhalation QID PRN lancets As directed magnesium 250 mg PO DAILY metoprolol tartrate 25 mg PO BID multivitamin 1 tab PO DAILY omeprazole 20 mg PO DAILY PRN polyethylene glycol 3350 (Miralax) 17 grams PO DAILY PRN simvastatin 40 mg PO BEDTIME spironolactone 25 mg PO BID walker Folding front wheeled walker Tobacco use date assessed: 03/18/25 Fall risk assessment: No Falls in past year Last assessed Fall Risk: 03/18/25 Dental Screening Dental Screen Date: 03/18/25 Did you have a dental visit in the last 12 months?: No HPI HPI Comments History of Present Illness Details History of Present Illness The patient is an 79-year-old male presenting for a 3-month follow-up for management of multiple chronic conditions. He reports difficulty sleeping at night, which he attributes to napping during the day, and has declined sleep aids due to safety concerns and a desire to reduce his pill burden. The patient has a history of polypharmacy, and his chief i dispatcher has been working to de-prescribe medications; his regimen was reduced from approximately 17 pills in the morning and 16 at night. He has a diagnosis of COPD, though the formal diagnostic testing is uncertain, and he uses an albuterol inhaler as needed. Although his record indicates depression, for which amitriptyline is listed, the patient denies having this condition or taking the medication. For his stage 4 chronic kidney disease, his GFR is currently 32 and has been stable in the 30-40 range for the past 3-4 years. He is under the care of a chief i dispatcher, and discussions regarding potential progression to stage 5 have been deferred to that specialist. His diabetes is managed by an donor services specialist, Dr. Vikas Wong. His treatment regimen has been changed from Trulicity and Humulin U-500 to Mounjaro and Basaglar 20 units daily in the morning. His last hemoglobin A1c was 7.1% in A ugust, and his donor services specialist is reportedly aiming to wean him off insulin. Other chronic conditions include intermittent peripheral edema in the legs, which is treated with furosemide. He takes doxazosin for his prostate, simvastatin for hyperlipidemia, spironolactone and metoprolol for hypertension, and omeprazole as needed for acid reflux. He also reports vision changes, noting an issue with one eye. The patient mentions having broken bones in the last three years and has a bone density scan scheduled. Medical History: - Chronic Kidney Disease, Stage 4 - Type 2 Diabetes Mellitus - Chronic Obstructive Pulmonary Disease - Hypertension - Hyperlipidemia - Peripheral edema - Gastroesophageal reflux disease - Benign prostatic hyperplasia - Vision impairment - Insomnia - History of fracture Medications: - Albuterol inhaler, as needed for COPD. - Amitriptyline, listed for depression, but patient denies taking it. - Aspirin, for heart disease prevention. - Doxazosin, taken at night for prostate . - Mounjaro, for diabetes, prescribed by donor services specialist. - Basaglar, 20 units once daily in the m orning for diabetes. - Furosemide 80 mg, for peripheral edema . - Omeprazole, as needed for acid reflux. - Simvastatin 40 mg, for hyperlipidemia. - Spironolactone 25 mg, for blood pressu re. - Metoprolol, for blood pressure. - Trulicity 1.5 mg, discontinued. - Humulin U-500, discontinued. Diagnostic Results: - Labs: Last hemoglobin A1c was 7.1% in November. - Labs: Glomerular filtration rate (GFR) is 32. - Tests: Bone density scan is scheduled. Social History - Functional Status: The patient uses a walker for mobility. - Habits: He reports taking naps during the day, which he acknowledges disrupts his nighttime sleep. [facility] Medical History (Reviewed 03/18/25 @ 13:52 by Caroline Peters [facility]) Personal history of COVID-19 (~04/2023) [place] (hard of hearing) 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 Cataract Abscess Diastolic dysfunction Drainage from surgical wound Anemia Peptic ulcer GERD (gastroesophageal reflux disease) Depression TIA (transient ischemic attack) History of snoring COVID-19 vaccine series completed Cecum mass COPD (chronic obstructive pulmonary disease) case management patient Dyslipidemia alf (current) use of insulin CKD (chronic kidney disease) stage 3, GFR 30-59 ml/min Diabetic nephropathy associated with type 2 diabetes mellitus Diabetes type 2, uncontrolled Hyperlipidemia Morbid obesity HTN (hypertension) CAD (coronary artery disease) Surgical History Hx of cataract extraction History of colon resection Hx of umbilical hernia repair History of esophagogastroduodenoscopy (EGD) Hx of rotator cuff surgery Hx of shoulder replacement Hx of knee surgery Hx of colonoscopy (~11/06/20) Hx of CABG Family History Father No problems noted. Mother Cancer Social History Household Members: Spouse Housing: House Are you a primary healthcare insurance sales agent to a significant other at home: No Do you presently have visiting nurse or other home services: No 75 years or older and lives alone: No Alcohol intake: never Comment: aware of trip hazard Patient Tobacco Use Status: Former Tobacco user Tobacco use type: Cigarette Years Smoked: 30 e-Cigarette/Vaping Use: Never Used Advance Directives Date on File: 12/02/20 service: No Current occupational status: retired Cognitive needs: Yes (has walker & cane) Hearing needs: Yes (bilateral hearing aid) Vision needs: Yes (rx glasses) Questionnaire Thrive Questionnaire Date Thrive assessed: 03/18/25 I am a: Patient AUDIT C Alcohol Use Questionnaire (AUDIT-C) 1. How often do you have a drink containing alcohol?: Monthly or less 2. How many drinks containing alcohol do you have on a typical day when you are drinking?: 1 or 2 Total Score: 1 JENY-7 AMB Questionnaire JENY-7 Date JENY - 7 assessed: 03/18/25 Source: Developed by Drs. Tarun Saeed, Beth Vicente, Wojciech Dubose and colleagues, with an educational danna from [employer]. Review of Systems Narrative Review of Systems - General: Reports feeling tired during the day. - Eyes: Reports vision changes in one eye. - Cardiovascular: Reports intermittent leg puffiness. Denies chest pain. - Respiratory: Denies shortness of breath. - Gastrointestinal: Denies nausea or vomiting. - Neurological: Denies headaches. - Psychiatric: Reports difficulty sleeping. Denies depression. All systems reviewed & are unremarkable except as reviewed in HPI and above Physical exam (Primary Care) Vital Signs: Last Vital Signs Temp 97.2 F 03/18/25 13:51 Pulse 85 03/18/25 13:51 BP 110/58 L 03/18/25 13:51 Pulse Ox 98 03/18/25 13:51 Oxygen Delivery Method Room Air 03/18/25 13:51 BMI result Body Mass Index 32.4 Tobacco/Smoking Status: Tobacco use Status Tobacco use date assessed 03/18/25 03/18/25 13:52 Patient Tobacco Use Status Former Tobacco user 03/18/25 13:52 Tobacco use type Cigarette 03/18/25 13:52 e-Cigarette/Vaping Use Never Used 03/18/25 13:52 Thrive Assessment: Date of Thrive Assessment Date Thrive assessed 03/18/25 03/18/25 13:52 Narrative Physical Exam General: +Alert and oriented, Well nourished, No acute distress. Eye: Pupils are equal, round and reactive to light, Intact accommodation, Extraocular movements are intact, Normal conjunctiva, Vision changed. HENT: Normocephalic, Atraumatic, Tympanic membranes are clear, Normal hearing, Oral mucosa is moist, No pharyngeal erythema, Ear canals patent. Respiratory: Lungs CTA bilaterally, No wheeze, Respirations are non-labored. Cardiovascular: Regular rate, Regular rhythm, S1 auscultated, S2 auscultated, No murmur, Good pulses equal in all extremities, Normal peripheral perfusion, No edema. Gastrointestinal: Soft, Non-tender, Non-distended, Normal bowel sounds, No organomegaly. Musculoskeletal: Normal range of motion, Normal strength, No tenderness, No swelling, No deformity, Normal gait. Integumentary: Warm, Dry, [place], Intact. Neurologic: Alert, Oriented, Normal sensory, Normal motor function, No focal defects, Cranial Nerves II-XII are grossly intact, Normal deep tendon reflexes. Psychiatric: Cooperative, Appropriate mood & affect, Normal judgment. Office Procedures Flu Questionnaire Does the patient have a severe egg allergy?: No Does the patient have severe life threatening allergies?: No Does the patient have a fever or illness today?: No Has the patient ever had Guillain-[place] Syndrome?: No Has the patient ever had any past reaction to a flu shot?: No Immunizations Fluarix [id number] (PF) 45 mcg (15 mcg x 3)/0.5 mL IM syringe Performing Provider: Delmar Mckenzie MD Performing Location: [facility] Documented (not given) by: Caroline Peters CMA on 03/18/25 14:02 Reason Not Given: Received Previously Coding Level of Care Code Est Pt Level 4 (38544) Complex EM visit Add On G2211 Diagnoses 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 Assessment & Plan Assessment & Plan (1) 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: Category: Medical Plan Assessment and Plan 1. Chronic Condition Management - The patient is an 79-year-old male with multiple chronic conditions who is stable and well-managed by his specialists. - The plan is to continue current management without changes to avoid conflicting with specialist care. - Labs, including an A1c, will be added to the orders for his upcoming nephrology appointment in May to minimize blood draws. - He will follow up in 4 months via a telehealth visit for convenience. 2. Chronic Kidney Disease, Stage 4 - The patient's CKD is stable with a GFR of 32, and he is under the care of a chief i dispatcher whom he will see on May 06. - Discussion regarding progression to stage 5 is deferred to the specialist. - Plan is to continue with nephrology follow-up. 3. Type 2 Diabetes Mellitus - The patient's diabetes is managed by his donor services specialist with [facility]. - His last A1c was 7.1%. - The plan is to continue with endocrinology management, with the goal of potentially weaning off insulin. - An A1c will be checked with his May labs. 4. Insomnia - This is assessed to be behavioral, related to daytime napping. - The plan involves patient education on sleep hygiene and avoiding daytime naps. - No hypnotic medications will be prescribed due to safety concerns. 5. Polypharmacy - The patient's medication list has been appropriately reduced by specialists. - The plan is to continue this approach and make no changes at this visit. 6. Bone Health - The patient reports a history of fractures and has a bone density scan scheduled. - The plan is to review the results of the scan and consider additional treatment if indicated. Plan Patient was informed and verbally consented to the use of an ambient scribe for clinic note documentation during this visit. 1. Routine Follow-Up - The patient is stable from a primary care perspective. Given his complex conditions are being managed by specialists, no changes will be made to his current regimen to maintain consistency. - To avoid unnecessary phlebotomy, labs will be added to the existing orders for his nephrology visit in May. - A follow-up visit is scheduled in four months and will be conducted via telehealth for patient convenience, especially during winter. 2. Chronic Kidney Disease, Stage 4 - The patient's stage 4 CKD is stable with a GFR of 32. He is managed by a chief i dispatcher, with his next appointment scheduled for May 06. - Discussion regarding management if he progresses to stage 5 is deferred to the chief i dispatcher. - Continue to follow with nephrology. 3. Type 2 Diabetes Mellitus - The patient's diabetes is managed by his donor services specialist with a regimen of Mounjaro and Basaglar insulin, with a recent A1c of 7.1%. - The donor services specialist's goal is to attempt to wean him off insulin. - An A1c will be ordered along with his other labs in May. - Continue management under endocrinology. 4. Insomnia - The patient's insomnia is deemed behavioral and is associated with daytime napping. - Counseled the patient on improving sleep hygiene by avoiding daytime naps. No sleep aids will be prescribed due to safety concerns and the patient's desire to limit medications. 5. Osteoporosis With History Of Pathologic Fracture - The patient has an upcoming bone density scan and a history of fractures in the past three years. - The plan is to await the results of the bone density scan, after which additional treatment will be considered if necessary. Health Maintenance - Aspirin for primary prevention of cardiovascular disease. - Bone density scan scheduled for the of the month. - Coordinated laboratory testing to coincide with specialist appointments to minimize phlebotomy. - Counseled on sleep hygiene, specifically avoiding daytime naps to improve nighttime sleep. Patient was informed and verbally consented to the use of an ambient scribe for clinic note documentation during this visit. Vital signs reviewed. Comprehensive history, review of systems, and physical exam completed. Medications, allergies, and problem list reviewed and updated. Counseling provided on nutrition, regular exercise, sleep hygiene, and moderation of alcohol use. Discussed age-appropriate screenings (mammogram, colonoscopy, Pap, bone density) and immunizations (flu, COVID, shingles, Tdap). Screened for depression, fall risk, and home safety; no current concerns. Discussed stress management, dental and vision care, and importance of ongoing preventive follow-up. Routine labs ordered for metabolic and lipid screening. Patient educated on healthy lifestyle and agrees with the plan. Discussion Notes I explained to the patient and his caregiver that since his galeana chronic conditions, such as stage 4 kidney disease and diabetes, are being actively and appropriately managed by his chief i dispatcher and donor services specialist, I will not be making any changes to his medications today. I reinforced that this approach avoids confusion and ensures continuity of care. We discussed the plan for future lab work. To minimize the number of blood draws, I will add my lab orders, including a hemoglobin A1c, to the ones already placed by his kidney doctor for the appointment on May 06. I advised them to have the blood work done about a week before that appointment. We also addressed his sleep difficulties. I advised that this is a behavioral issue related to daytime napping and recommended that he try to avoid sleeping during the day. I explained that I would not prescribe a sleeping pill due to safety concerns in older adults. Finally, we scheduled a follow-up visit in four months. I recommended that this visit be conducted over the phone to make it easier for him, particularly to avoid travel during the winter months. Patient Instructions - Continue taking all of your current medications as prescribed by your doctors. We are not making any changes today. - To help you sleep better at night, try to avoid taking naps during the day. - Please go for your blood work about one week before your kidney doctor appointment on May 06. All the tests you need will be done at the same time. - Keep your appointment for your bone density scan on the of the month. - We will schedule your next follow-up appointment in four months, and it will be a phone call so you don't have to travel to the office. Orders: Orders Influenza [id number] Immunization Today Z23 - Encounter for immunization Hemoglobin A1c 2 Months E11.9 - Type 2 diabetes mellitus without complications Medications: New insulin glargine (Basaglar KwikPen U-100 Insulin) 20 units subcut QAM tirzepatide (Mounjaro) for 4 weeks 2.5 mg subcut QWEEK
== END 2025-03-18 14:18 | disposition home or self-care (01) ==
LOC: HO.HMCHD 13:49
PROVIDERS: PCP Family Medicine; Visit Provider Student in an Organized Health Care Education/Training Program
DX: N18.4 Chronic kidney disease, stage 4 (severe) (principal); E11.9 Type 2 diabetes mellitus without complications; G47.00 Insomnia, unspecified

== ENCOUNTER → 2025-03-18 13:48 | Outpatient (BNVA) | payer MEDICARE, SELFPAY | PROVIDERS: PCP Family Medicine; Visit Provider Student in an Organized Health Care Education/Training Program | DX: E11.22 Type 2 diabetes mellitus with diabetic chronic kidney disease (principal); N18.4 Chronic kidney disease, stage 4 (severe); G47.00 Insomnia, unspecified; M81.0 Age-related osteoporosis without current pathological fracture; J44.9 Chronic obstructive pulmonary disease, unspecified; K21.9 Gastro-esophageal reflux disease without esophagitis; N40.0 Benign prostatic hyperplasia without lower urinary tract symptoms; R60.9 Edema, unspecified; E78.5 Hyperlipidemia, unspecified; H54.7 Unspecified visual loss; Z79.82 Long term (current) use of aspirin; Z79.899 Other long term (current) drug therapy | CPT/HCPCS: 90471; 99212 ==

== ENCOUNTER 2025-05-01 11:42 | Outpatient (REF) | payer MEDICARE, SELFPAY ==
--- OUTSIDE RECORDS SUMMARY | 2024-03-02 05:00 | XMS_ITS ---
Author Organization [facility] Address [address] [facility] [place] [address] Care Team Providers Care Health Club Attendant Name Role Phone GusDany Primary Care Provider [phone] Tonio Johnson Unavailable [phone] Medications Medication SIG (Take, Route, Frequency, Duration) Notes Start Date End Date Status Flovent HFA Not-Taki ng Symbicort Not-Taking Advair HFA Not-Takin g Ciclopirox Olamine 0.77 % 1 application Externally Twice a day; Duration: 30 days Active Extra Depth Orthopedic Shoes (1 Pair) with Customized Heat Molded Multidensity Innersoles (3 Pair) as directed Dx: 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), Hammertoe Foot Deformity (M20.41,M20.42), Preulcerative Skin Lesion(s) (L85.1) Active Simvastatin 40 MG 1 tablet in the even ing Orally Once a day; Duration: 30 day(s) Active Sertraline HCl 50 MG 1 tablet Orally Onc e a day; Duration: 30 day(s) Active Spironolactone 25 MG 2 tablet Orally Onc e a day Active Stool Softener Activ e Trulicity Active Rabies Virus Vaccine, HDC Active Omeprazole 20 MG 2 capsule Orally Onc e a day Active oxyCODONE-Acetaminophen 5-325 MG 1 tablet as needed Orally every 6 hrs PRN Active metFORMIN HCl Active Metoprolol Tartrate 25 MG 1 tablet with food Orally three a day Active Ipratropium-Albuterol Active HumuLIN N Active Gabapentin 300 MG 2 tablet Orally Once a day Active Magnesium Active Lancets Active Famotidine 20 MG 1 tablet at bedtime as needed Orally Once a day; Duration: 30 day(s) Active Finasteride 5 MG 1 tablet Orally Once a day Active Furosemide 80 MG 2 tablet Orally Once a day Active Doxazosin Mesylate 8 MG 1 tablet Orally Once a day Active Clopidogrel Bisulfate Active Amitriptyline HCl 25 MG 1 tablet Orally Once a day Active Aspir-81 Active Encounters Encounter Location Date Provider Diagnosis [facility] [address] [address] 03/02/2024 Tonio Johnson Plan Of Treatment Next Appt Details Provider Name:Tonio Johnson , 06/25/2025 02:00:00 PM, [address] [place] [address], [phone], Progress Notes * Josr HART FDOB:[birth year] (79 yo M)Acc No.[id number]:03/02/2024 Progress Note Patient: Hair Josr GUTIERREZ Monie Provider: Wil Johnson DPM :1945 A ge:78 Y S ex:Male Date:03/02/2024 Address:[address] [place], [place] [id number] Pcp:Dany Weber Subjective: * Chief Complaints: * * Medical History: A rthritis, Back,Hip,and Knee pain, Broken bones, CAD (Cholesterol), Chicken pox, Hiatal hernia, High blood pressure, Joint implants/screws, Keloids, Measles, Numbness, Reflux, Rheumatic fever, Sciatica, Stomach ulcer, Shingles, 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 * Medications: T aking Aspir-81 , Taking Amitriptyline HCl 25 MG Tablet 1 tablet Orally Once a day , Taking Clopidogrel Bisulfate , Taking Doxazosin Mesylate 8 MG Tablet 1 tablet Orally Once a day , Taking Furosemide 80 MG Tablet 2 tablet Orally Once a day , Taking Finasteride 5 MG Tablet 1 tablet Orally Once a day , Taking Famotidine 20 MG Tablet 1 tablet at bedtime as needed Orally Once a day , Taking Gabapentin 300 MG Capsule 2 tablet Orally Once a day , Taking HumuLIN N , Taking Ipratropium-Albuterol , Taking Lancets , Taking Magnesium , Taking Metoprolol Tartrate 25 MG Tablet 1 tablet with food Orally three a day , Taking metFORMIN HCl , Taking oxyCODONE-Acetaminophen 5-325 MG Tablet 1 tablet as needed Orally every 6 hrs , Notes to Pharmacist: PRN, Taking Omeprazole 20 MG Capsule Delayed Release 2 capsule Orally Once a day , Taking Rabies Virus Vaccine, HDC , Taking Simvastatin 40 MG Tablet 1 tablet in the evening Orally Once a day , Taking Spironolactone 25 MG Tablet 2 tablet Orally Once a day , Taking Sertraline HCl 50 MG Tablet 1 tablet Orally Once a day , Taking Stool Softener , Taking Trulicity , Taking Extra Depth Orthopedic Shoes (1 Pair) with Customized Heat Molded Multidensity Innersoles (3 Pair) as directed Dx: 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 Sign off status: Pending * Provider: Wil Johnson DPM Date: 05/02/2023 Generated for Umu Umana/Adela on: 01:28 PM EST
--- OUTSIDE RECORDS SUMMARY | 2024-06-01 05:00 | XMS_ITS ---
Author Organization [facility] Address [address] [place] [address] Care Team Providers Care Mfg Assoc Name Role Phone Dany Weber Primary Care Provider Tonio Johnson Unavailable [phone] Encounters Encounter Location Date Provider Diagnosis [address] [address] 06/01/2024 Tonio Johnson Plan Of Treatment Next Appt Details Provider Name:Tonio Johnson , 06/25/2025 02:00:00 PM, [address] [place] [address], [phone], Progress Notes * Josr GRIJALVA FDOB:[birth year] (79 yo M)Acc No.[id number]:06/01/2024 Progress Note Patient: Josr DOWD Provider: Wil Johnson DPM :1945 A ge:78 Y S ex:Male Date:06/01/2024 Address:[address] [place], [place] [address], [id number] Pcp:Dany Weber Subjective: * Chief Complaints: * * Medical History: Objective: * Vitals: Assessment: Plan: * Treatment: * Images: * The named appointment provid er may or may not be the originator of this progress note, and it is not deemed complete until electronically signed by the appointment provider. Sign off status: Pending * Provider: Wli Johnson DPM Date: 0 06/01/2024 Generated for Umu Russell on: 01:27 PM EST
--- OUTSIDE RECORDS SUMMARY | 2025-03-19 08:30 | XMS_ITS ---
Author Organization [facility] Address [address] [place] [id number] Care Team Providers Care Geriatric Assistant Name Role Phone Dany Weber Primary Care Provider Tonio Johnson Unavailable [phone] Encounters Encounter Location Date Provider Diagnosis [address] [address] 03/19/2025 Tonio Johnson Plan Of Treatment Next Appt Details Provider Name:Tonio Johnson , 06/25/2025 02:00:00 PM, [address] [place] [address], [id number], Progress Notes * Josr GRIJALVA FDOB:[birth year] (79 yo M)Acc No.[id number]:03/19/2025 Progress Note Patient: Josr DOWD Provider: Wil Johnson DPM :1945 A ge:79 Y S ex:Male Date:03/19/2025 Address:[address] [place] [address] [place], [id number] Pcp:Dany Weber Subjective: * Chief Complaints: * * Medical History: Objective: * Vitals: Assessment: Plan: * Treatment: * Images: * The named appointment provid er may or may not be the originator of this progress note, and it is not deemed complete until electronically signed by the appointment provider. Sign off status: Pending * Provider: Wil Johnson DPM Date: 05/19/2024 Generated for Umu Russell on: 01:27 PM EST
--- OUTSIDE RECORDS SUMMARY | 2025-05-01 13:28 | XMS_ITS | Patient Health Record ---
Author Organization [facility] Address [address] [place] [id number] Care Team Providers Care Sow Farm Technician Name Role Phone Ar (RETIRED) Leon UGARTE Primary Care Provider Unavailable Daniel Rebolledo Jr Unavailable Allergies No Known Allergies Reason For Referral No Information Medications Medication SIG (Take, Route, Frequency, Duration) Notes Start Date End Date Status Gabapentin 300 MG Capsule 1 capsule Oral ly twice a day Active Omeprazole 20 MG Capsule Delayed Release 1 capsule Orally bid Acti ve Famotidine 20 MG Tablet Oral; Duration: 90 Active Amitriptyline HCl 25 MG Tablet 1 tablet Orally Once a day Active Finasteride 5 MG Tablet TAKE 1 TABLET BY MOUTH EVERY NIGHT AT BEDTIME DIRECTED Diagnosis Unavailable Oral; Duration: 90 Active metFORMIN HCl 500mg Tablet 1 tablet with meals Orally 2 in day one at night Active Sertraline HCl 50 MG Tablet TAKE 1 TABLE T BY MOUTH EVERY MORNING Oral; Duration: 90 Active Simvastatin 40 MG Tablet 1 tablet in the evening Orally Once a day Active Advair Diskus 250-50 MCG/DOSE Aerosol Powder Breath Activated Inhalation; Duration: 90 Active Doxazosin Mesylate 8 MG Tablet 1 tablet Orally Once a day Active Stool Softener 100 MG Capsule 1 capsule as needed Orally twice a day Active Furosemide 80mg Tablet 1 tablet Orally T wice a day Active HumuLIN 70/30 (70-30) 100 UNIT/ML Suspension INJECT 100 UNITS UNDER THE SKIN BEFORE BREAKFAST AND 70 UNITS BEFORE DINNER. Subcutaneous; Duration: 30 Active Iron 325 (65 Fe) MG Tablet 1 tablet Oral ly Once a day; Duration: 30 day(s) Active Aspir-81 81 MG Tablet Delayed Release 1 tablet Orally Once a day Active Magnesium 250 MG Tablet 1 tablet with a meal Orally Once a day; Duration: 30 day(s) Active Multi Vitamin/Minerals Tablet Orally Active MiraLax 17 GM/SCOOP Powder as directed O rally twice a week as needed Active Spironolactone 25 MG Tablet 1 tablet Ora lly Twice a day Active Ipratropium [place] HFA 17 MCG/ACT Aerosol Solution 2 puffs Inhalation Four times a day Active Metoprolol Tartrate 25 MG Tablet 1 tablet with food Orally Twice a day Active Immunizations Vaccine Route Administration Date Status Comme nts Influenza Unknown 03/02/2021 Administered Social History Social History Additional Details Category Social Info Options Details Miscellaneous: Marital status: Occupation: retired Problems Problem Type SNOMED Code ICD Code Onset Dates Problem Status W/U Status Risk Notes Problem Colon cancer screening (171235118) Colon cancer screening (Z12.11) Active confirmed Problem Long-term current use of antiplatelet drug (802316163538314) 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 (Z79.82) Active confirmed Plan Of Treatment Pending Test Test Name Order Date CT COLON SCREENING NO CONTRAST 6 Future Test Test Name Order Date COLONOSCOPY 02/04/2012 COLONOSCOPY 10/01/2015 COLONOSCOPY 04/15/2021 Insurance Providers Payer Name Payer Address Payer Phone Subscriber Number Group Number Insured Name Patient Relationship to Insured Coverage Start Date Coverage End Date [facility] [address] [place], [place] [id number] ELENA GRIJALVA Self - patient is the insured Medical (General) History Medical History History ICD Code coronary artery disease diabetes hypertension elevated cholesterol COPD Surgical History Surgery Date(Month/Year) shoulder surgery tripple bypass 06/29/2013 hernia repair rotator cuff tear repair -both ankle surgery knee surgery-left shoulder replacement left resection of colon for benign mass - Dr. Perea
--- OUTSIDE RECORDS SUMMARY | 2025-05-01 13:28 | XMS_ITS | Clinical Summary ---
Author Organization [facility] Address [address] [place] [id number] Phone Care Team Providers Care Escalator Operator Name Role Phone Leon Joyner MD Primary Care Provider [phone] Allergies No known active allergies Medications amitriptyline [...] MG tablet Take 80 mg by mouth 1 (one) time. Active spironolactone (ALDACTONE) 25 MG tablet Take [...] MG tablet Take 8 mg by mouth daily. AM Active finasteride (PROSCAR) 5 mg tablet Take 5 mg by mouth daily. Active magnesium 250 mg Tab Take by mouth. Activ e aspirin 81 mg chewable tablet Take 81 mg by mouth daily. Active ferrous sulfate 324 mg (65 mg cahto iron) TbEC Take 324 mg by mouth daily with breakfast. Active [id number]-KUV-DLP JOHN GLUCONATE ORAL Take by mouth daily. Active polyethylene glycol 3350 (MIRALAX ORAL) Take by mouth as needed. Active omeprazole (PRILOSEC) 20 MG capsule Take 20 mg by mouth 2 (two) times a day. Active ciclopirox (CICLODAN) 0.77 % cream Active oxyCODONE-acetam inophen (PERCOCET) 5-325 mg per tablet 1 tablet as needed Orally every 6 hrs Active FREESTYLE JACK 2 READERIndication s:Type 2 diabetes mellitus with chronic kidney disease, with long-term current use of insulin 1 each by See Administration Instructions route as directed. Used to scan jack 2 sensor daily to check blood sugars 1 each 09/30/19 24 Active BASAGLAR KWIKPEN U-100 INSULIN 100 unit/mL (3 mL) InPn injection penIndications:T ype 2 diabetes mellitus with stage 3b chronic kidney disease, with long-term current use of insulin Inject 20 units once daily 15 mL 3 02/09/20 25 Active insulin pen needles, disposable, 31 gauge x 07/15 NdleIndications: Type 2 diabetes mellitus with stage 3b chronic kidney disease, with long-term current use of insulin 1 each by Miscellaneous route daily. 30 each 11 02/09/20 25 Active MOUNJARO 5 mg/0.5 mL PnIj subcutaneous penIndications:T ype 2 diabetes mellitus with stage 3b chronic kidney disease, with long-term current use of insulin Inject 0.5 mL (5 mg total) under the skin once a week. 2 mL 5 03/19/20 25 Active Active Problems Problem Noted Date [...] discontinuing metformin. - Upcoming appointment with a material damage adjuster on 01/08/2025 to further evaluate and manage [...] use of insulin 05/20/2022 Assessment & Plan (03/19/2025 1:37 PM EST): Reviewed CGM, is at the upper end of target range Discussed optimizing GLP1/GIP therapy and keeping basal insulin dosing the same, Hardik is willing to do this but would like to finish current supply of 2.5 mg dosing before increasing, dose increase sent to be started after finishing current supply Encouraged efforts at balanced, mindful eating, commended for efforts with adjusting to zero sugar soda Encouraged efforts at increasing physical activity as tolerated We will follow up in 4 months. Advised to contact office with any questions or concerns in the interim. Assessment & Plan (01/15/2025 8:22 PM EDT): [...] 2 weeks to drop off at front office agent or follow up appointment. Hyperlipidemia 05/20/2022 Assessment & Plan (03/19/2025 1:38 PM EST): Reviewed most recent labs, LDL 53 in 11/2022 On moderate intensity statin Gets annual labs through PCP Assessment & Plan (01/15/2025 8:26 PM EDT): [...] disease) 3 Hypertension 05/20/2022 Assessment & Plan (03/19/2025 1:38 PM EST): Blood pressure in excellent range today BP Goal < 130/80 On diuretic and BB Assessment & Plan (01/15/2025 8:26 PM EDT): [...] Encounters Date Type Department Care Team Description 03/19/2025 11:00 AM EST Office Visit [facility] [address] [place] [address] [place] [address] Caroline Wong CNP Hypertension, unspecified type (Primary Dx); Type 2 diabetes mellitus with stage 3b chronic kidney disease, with long-term current use of insulin; Hyperlipidemia, unspecified hyperlipidemia type 02/12/2025 Telephone [facility] [address] [place] [address] Deborah Schaeffer MA 02/04/2025 Refill [facility] [address] [place] [address] Grisel Elias MA Medication Problem; Patient Returned Call from Last 3 Months Social History Tobacco [...] Sign Reading Time Taken Comments Blood Pressure 122/58 03/19/2025 11:03 AM EST Pulse 65 03/19/2025 11:03 AM EST Temperature 36.3 C (97.4 F) 01/14/2025 12:23 PM EDT Respiratory Rate 20 03/19/2025 11:03 AM EST Oxygen Saturation 98% 03/19/2025 11:03 AM EST Inhaled Oxygen Concentration - - Weight 96.6 kg (213 lb) 03/19/2025 11:03 AM EST Height 172.7 cm (5' 8 ) 01/14/2025 12:23 PM EDT Body Mass Index 32.39 01/14/2025 12:23 PM EDT Plan of Treatment Upcoming Encounters Date Type Department Care Team (Late st Contact Info) Description 07/22/2025 12:30 PM EDT Office Visit [facility] [address] [place] [address] Caroline Wong, CUSTOM BOW MAKER [address] [facility], [address] [place] [address] [email or web address] Health Maintenance Due Date Last Done Comments DEPRESSION SCREENING 1957 RSV VACCINE (1 - 1-dose 75+ series) 09/22/2018 DIABETIC EYE EXAM 05/20/2022 LIPID PANEL 12/03/2023 12/02/2022, 06/02, 06/18/2021, Additional history exists HEMOGLOBIN A1C 07/14/2025 01/14/2025, 09/30, 07/05/2024, Additional history exists POTASSIUM LEVEL 07/16/2025 07/16/2024, 08/0 06/2022, 01/08/2022 COVID-19 VACCINE ( season) 2025 02/23/2025, 03/05/2024, 02/26/2023, Additional history exists BLOOD PRESSURE 09/16/2025 03/19/2025 Adult Td,Tdap Booster 07/12/2031 07/11/2021 PNEUMOCOCCAL VACCINES (50+ years) Completed 05/03/2015, 04/07/2014 ZOSTER VACCINES Completed 07/04/2018, 02/09/2018 INFLUENZA VACCINE Completed 02/15/2025, , 12/18/2019, Additional history exists HEPATITIS A VACCINES Aged Out No long [...] current use of insulin BASIC METABOLIC PANEL (BMP) Routine 07/16/2024 12:26 PM EDT Type 2 diabetes mellitus with chronic kidney disease, with long-term current use of insulin LIPID PANEL Routine 12/02/2022 11:58 AM EDT Hyperlipidemia, unspecified hyperlipidemia type from Last 3 Months or Most Recently Relevant to Health Maintenance Results * (ABNORMAL) POCT Hemoglobin A1c (01/14/2025 12:42 PM EDT) Hemoglobin A1c 7.8(A) 4.2 - 5.6 % [employer] [facility] Other 01/14/2025 12:4 2 PM EDT Caroline Wong CNP LAB POCT ENTER/EDIT ORDERABLE S Final Result [employer] [facility] [address] [place] [address], [facility] * Basic metabolic panel (07/16/2024 12:26 PM EDT) Blood Caroline Wong CNP LAB BLOOD BKR ORDERABLES Otilia l Result Performing Organization Address [facility]/ZIP Co de Phone Number [address] [phone] * (ABNORMAL) Lipid panel (12/02/2022 11:58 AM EDT) HDL 27 mg/dL [facility] Comment: Interpretation <40 mg/dL: Low HDL cholesterol (major risk factor for CHD) Greater than or equal to 60 mg/dL: High HDL cholesterol ( negative risk factor for CHD) HDL - cholesterol is affected by a number of factors, e.g. smoking, excerise, hormones, sex and age. CHOLESTEROL 153 0 - 240 mg/dL [facility] TRIGLYCERIDES 367(H) 30 - 160 mg/dL [facility] LDL 53 50 - 129 mg/dL [facility] Comment: LDL levels in terms of risk for coronary heart disease: <100 mg/dL: Optimal 100-129 mg/dL: Near or above optimal 130-159 mg/dL: Borderline high 160-189 mg/dL: High >190 mg/dL: Very High CARDIAC RISK RATIO 5.7(H) 3.4 - 5.0 C [facility] Blood 12/02/2022 11:5 8 AM EDT 12/02/2022 12:08 PM EDT Leon Joyner MD LAB BLOOD BKR ORDERABLES Fi nal Result Performing Organization Address [facility] Co de Phone Number [address] [phone] from Last 3 Months or Most Recently Relevant to Health Maintenance Insurance [place] MED[place] P[place] BLUE REPLACEMENT MEDICARE PPO BLUE REPLACEMENT MEDICARE PPO BLUE REPLACEMENT MEDICARE PPO BLUE [place]AC[place] [address] [address] MEDICARE PPO BLUE [place]PLACEMENT [place] [place] [address] MEDICARE PPO BLUE REPLACEMENT Care Teams Escalator Operator Relationship Specialty Start Date End Date Leon Joyner MD [address] [place] [address] [place] [address] PCP - General Internal Medicine 05/11/22 Additional Source Comments The information contained in this document represents components of the legal health record. It is not the complete legal health record.[facility]
--- OUTSIDE RECORDS SUMMARY | 2025-05-01 13:28 | XMS_ITS | Patient Health Record ---
Author Organization [facility] Address [address] [place] [address] Care Team Providers Care Project Controller Name Role Phone GusDany rubio Primary Care Provider [phone] Tonio Johnson Unavailable [phone] Allergies No Known Allergies Results Component Value Reference Range Notes HEMOGLOBIN A1C (GLYCOHEMOGLO BIN) Reviewed date:11/27/2024 03:03:43 [...] Problem Acquired hammer toe of right foot (8596764000106693 ) Other hammer toe(s) (acquired), right foot (M20.41) Active confirmed Response to treatment, Improvemen t Problem Acquired hammer toe of left foot (3140802532849354 ) Other hammer toe(s) (acquired), left foot (M20.42) Active confirmed Response to treatment, Improvemen t Problem Polyneuropathy due to diabetes mellitus type I (122552720) Type 1 diabetes mellitus with diabetic polyneuropathy (E10.42) Active confirmed Vital Signs Blood pressure diastolic 65 mm Hg 11/27/2024 Height 5 ft 8 in in 11/27/2024 Blood pressure systolic 130 mm Hg 11/27/2024 Weight 219 lbs 11/27/2024 BMI 33.3 kg/m2 11/27/2024 Procedures Procedure Date Ordered Date Performed Result Body Sit e 20975-PEQPXNN NAIL, 6 OR MORE 08/21/2024 N/A 93241-FTFM SKIN LESIONS, 2 TO 4 08/21/2024 N/A 50152-TTJDJHG NAIL, 6 OR MORE 11/27/2024 N/A 57608-IURJ SKIN LESIONS, 2 TO 4 11/27/2024 N/A Encounters Encounter Location Date Provider Diagnosis [address] [address] 08/21/2024 Tonio Johnson Type 1 diabetes mellitus with diabetic polyneuropathy E10.42 ; Onychomycosis B35.1 ; Other hammer toe(s) (acquired), right foot M20.41 and Other hammer toe(s) (acquired), left foot M20.[address] [address] 11/27/2024 Tonio Johnson Type 1 diabetes mellitus with diabetic polyneuropathy E10.42 and Onychomycosis B35.[address] [address] 05/31/2024 Tonio Johnson [address] [address] 03/15/2025 Tonio Johnson Assessments Encounter Date Diagnosis (ICD [...] Treatment Pending Test Test Name Order Date 73963-HBVOJHO NAIL, 6 OR MORE 08/10/2016 29870-VYCLFYB NAIL, 6 OR MORE 11/12/2016 80868-TPHNSHD NAIL, 6 OR MORE 03/01/2017 32027-PKUEDCT NAIL, 6 OR MORE 05/31/2017 56697-RPKMTJN NAIL, 6 OR MORE 08/30/2017 38582-AVKFEHB NAIL, 6 OR MORE 11/29/2017 15830-ARDBBCY NAIL, 6 OR MORE 06/06/2018 52491-WRIQVOQ NAIL, 6 OR MORE 09/05/2018 96339-VEQKCJI NAIL, 6 OR MORE 02/28/2018 79908-HKTBWQI NAIL, 6 OR MORE 12/05/2018 81828-IPEWPXA NAIL, 6 OR MORE 05/11/2019 10030-FGSYYNE NAIL, 6 OR MORE 09/14/2019 34495-BWZTHVE NAIL, 6 OR MORE 12/14/2019 58716-RXNRSSQ NAIL, 6 OR MORE 03/14/2020 24361-BKQCQOF NAIL, 6 OR MORE 08/12/2020 56775-HGHEDGL NAIL, 6 OR MORE 11/11/2020 30984-GEMUBHE NAIL, 6 OR MORE 02/10/2021 18151-FCTHNHD NAIL, 6 OR MORE 05/15/2021 14371-DKVXPVO NAIL, 6 OR MORE 08/21/2021 92766-ZGRJOOF NAIL, 6 OR MORE 11/20/2021 07164-FKVUSKR NAIL, 6 OR MORE 02/23/2022 87356-FPBIUZU NAIL, 6 OR MORE 05/28/2022 50889-JUEMCAS NAIL, 6 OR MORE 08/27/2022 08566-CMOPJJK NAIL, 6 OR MORE 11/26/2022 27007-MGOJUUO NAIL, 6 OR MORE 03/04/2023 79649-TRXYBFD NAIL, 6 OR MORE 06/24/2023 03292-FROISRO NAIL, 6 OR MORE 12/02/2023 88054-ZOIOIBZ NAIL, 6 OR MORE 08/21/2024 33542-BRVYPIJ NAIL, 6 OR MORE 11/27/2024 56426-Tyvnfgbs Plate 06/06/2018 82092-Baxmepeo Plate 12/02/2023 27868-Jtmqbrat Plate 06/24/2023 96508-Qxusfyde Plate 03/04/2023 08042-Pfekwwrk Plate 11/26/2022 62415-Hzplazku Plate 08/27/2022 77878-Moukmjxp Plate 05/28/2022 94216-Dattmqay Plate 02/23/2022 40453-Iufosbzh Plate 11/20/2021 68306-Earykboj Plate 08/21/2021 21110-Tnobrgls Plate 05/15/2021 46777-Slpicgww Plate 02/10/2021 67413-Wjvftzov Plate 11/11/2020 35776-Conpndtc Plate 08/12/2020 31396-Nrxbiurv Plate 03/14/2020 42366-Ejaebods Plate 12/14/2019 82537-Xcvxoxeu Plate 09/14/2019 03817-Gttmvblz Plate 05/11/2019 02530-Iejdpsgv Plate 12/05/2018 01979-Goazonbb Plate 09/05/2018 21483-Grwqiwvk Plate 11/29/2017 61372-Ywkotjby Plate 02/28/2018 53838-Jjivlbgi Plate 05/31/2017 89064-Vgubvffo Plate 08/30/2017 69242-Tnlkusgu Plate 11/12/2016 16516-Ksinwjmv Plate 08/10/2016 79619-HTFQ SKIN LESIONS, 2 TO 4 08/11/19 17 23773-BFZI SKIN LESIONS, 2 TO 4 11/13/19 17 91439-OPTT SKIN LESIONS, 2 TO 4 03/01/20 17 73680-IEEN SKIN LESIONS, 2 TO 4 11/30/19 18 07084-NQLP SKIN LESIONS, 2 TO 4 08/31/19 18 32668-PQJA SKIN LESIONS, 2 TO 4 05/31/19 18 10252-TMJS SKIN LESIONS, 2 TO 4 02/29/20 18 70279-IAGY SKIN LESIONS, 2 TO 4 09/06/19 19 02624-OAHH SKIN LESIONS, 2 TO 4 12/06/19 19 36032-RIDZ SKIN LESIONS, 2 TO 4 06/06/19 50462-QZWB SKIN LESIONS, 2 TO 4 05/11/19 20 62623-YLYI SKIN LESIONS, 2 TO 4 09/14/19 20 40340-UGNL SKIN LESIONS, 2 TO 4 12/14/19 85881-WFXK SKIN LESIONS, 2 TO 4 03/14/20 68496-XHLG SKIN LESIONS, 2 TO 4 08/13/19 62404-YYGB SKIN LESIONS, 2 TO 4 11/12/19 70487-FPKJ SKIN LESIONS, 2 TO 4 02/11/20 35787-RWVF SKIN LESIONS, 2 TO 4 05/15/19 00849-DTYC SKIN LESIONS, 2 TO 4 08/22/19 33426-DPSB SKIN LESIONS, 2 TO 4 11/21/19 57110-EPEI SKIN LESIONS, 2 TO 4 02/24/20 60723-IQND SKIN LESIONS, 2 TO 4 05/28/19 19727-DYMU SKIN LESIONS, 2 TO 4 08/28/19 81453-JPMZ SKIN LESIONS, 2 TO 4 11/27/19 62235-UGNS SKIN LESIONS, 2 TO 4 03/04/20 91050-FPMC SKIN LESIONS, 2 TO 4 06/24/19 93658-KMUO SKIN LESIONS, 2 TO 4 12/02/19 76778-ENGN SKIN LESIONS, 2 TO 4 11/28/19 24608-XDWE SKIN LESIONS, 2 TO 4 08/22/19 36085-Holu. Subungual Hematoma 63658- Biopsy of skin lesion 03/01/2017 Next Appt Details Provider Name:Tonio Johnson , 06/25/2025 02:00:00 PM, [address] [place], [address], Insurance Providers Payer Name Payer Address Payer Phone Subscriber Number Group Number Insured Name Patient Relationship to Insured Coverage Start Date Coverage End Date BlueCare 65 Medicare Preferred [address] [place] [address] [phone] [id number] Josr Hart Self - patient is [...] cataract surgery 09/21/21,10/05/21 Hospitalization History Reason Date(Month/Year) [facility]- fainted Low sugar 33 few hrs 2021 [facility] 12/09/2020 [facility] 10/01/20 [facility]- Anemia / Mass in colon /4 Pints blo od 11/04-01/20 [facility] ER- Fluid on lungs 10/2019
[2025-05-01 14:27] LABS: Hematocrit 47.7 % (42.0-52.0); Hemoglobin 15.1 g/dl (14.0-18.0); Mean Corpuscular HGB Conc 31.7 g/dl (31.0-36.0); Mean Corpuscular Hemoglobin 27.1 pg (27.0-33.0); Mean Corpuscular Volume 85.6 fL (80.0-98.0); NRBC Abs Auto 0.000 X10*3/uL (0.0-0.012); NRBC Pct Auto 0.0 /100WBC (0.0-0.2); Platelet Count 215 X10*3/uL (160-400); Red Blood Count 5.57 X10*6/uL (4.60-5.80); White Blood Count 7.3 X10*3/uL (4.8-10.8)
[2025-05-01 14:33] LABS: Anion Gap 14 (12-20); Blood Urea Nitrogen 28 mg/dL (9-16); Calcium 9.8 mg/dL (8.4-10.2); Carbon Dioxide 27 mmol/L (22-29); Chloride 103 mmol/L (96-108); Estimated Glomerular Filt Rate 35; Potassium 4.7 mmol/L (3.3-5.1); Sodium 139 mmol/L (135-145)
== END 2025-05-01 11:43 | disposition home or self-care (01) ==
LOC: HO.HMGCLDS 11:42
PROVIDERS: Absent Provider Internal Medicine Hypertension Specialist; PCP Student in an Organized Health Care Education/Training Program; Referring Provider Ophthalmology; Visit Provider Student in an Organized Health Care Education/Training Program
DX: Z01.84 Encounter for antibody response examination (principal); Z20.2 Contact with and (suspected) exposure to infections with a predominantly sexual mode of transmission; N18.9 Chronic kidney disease, unspecified; H20.9 Unspecified iridocyclitis
CPT/HCPCS: 36415; 80048; 82164; 85027; 85652; 86038; 86140; 86431; 86780